=== PATIENT | female | born 1955 | race Caucasian/White ===

== ENCOUNTER 2017-02-27 00:32 | Emergency (ER) | payer OTHER ==
[~2017-02-27] VITALS: Ht 152.4 cm; Wt 74.5 kg
[~2017-02-27 00:32] MED LIST: B-COTAB18 PO; BIOT1CAP3 PO; CALC-279 PO; HYDR-3983 PO; LORA-741 PO; NAPR-201 PO; PEDICHW44 PO; PROM25TA9 PO; SERT50TA PO
[2017-02-27 00:48] VITALS: Ht 152.4 cm; Wt 74.5 kg
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
[2017-02-27 01:41] LABS: BASO % 0.5 %; BASO ABS # 0.06 K/uL (0-0.2); COMPLETE YES; EOS % 1.7 %; HEMATOCRIT 36.8 % (37-47); IG% 0.3 %; LYMPH % 13.9 %; LYMPH ABS # 1.62 K/uL (1.2-3.4); MEAN CELL VOLUME 96.3 fL (80-100); MEAN CORPUSCULAR HEMOGLOBIN 30.9 pg (25-34); MEAN CORPUSCULAR HGB CONC 32.1 g/dl (32-36); MEAN PLATELET VOLUME 9.5 fL (7.4-10.4); MONO % 8.2 %; NEUT % 75.4 %; PLATELET COUNT 338 K/uL (130-400); RED BLOOD COUNT 3.82 M/uL (4.2-5.4); WHITE BLOOD COUNT 11.64 K/uL (4.8-10.8)
[2017-02-27] MEDS ORDERED: MoRPHine SULFATE 4 MG/ML 1 ML CARP\\VIAL IV STA ×2 (02:01→07:23)
[2017-02-27] MEDS ORDERED: BACITRACIN OINT 15 GM TUBE ONE (02:02)
[2017-02-27] MEDS ORDERED: MoRPHine SULFATE 4 MG/ML 1 ML CARP\\VIAL ONE ×2 (02:02→07:21)
[2017-02-27] MEDS ORDERED: TRAZ50TA35 PO (02:10)
[2017-02-27 02:11] LABS: ALT/SGPT 16 U/L (12-78); AST/SGOT 17 U/L (15-37); BLOOD UREA NITROGEN 13 mg/dl (7-18); BUN/CREATININE RATIO 23.9 (10-20); CALCIUM 7.9 mg/dl (8.5-10.1); CARBON DIOXIDE 25 mmol/L (21-32); CHLORIDE 109 mmol/L (98-107); CREATININE 0.54 mg/dl (0.60-1.20); GLUCOSE 101 mg/dl (70-99); POTASSIUM 4.3 mmol/L (3.5-5.1); SODIUM 141 mmol/L (136-145)
[2017-02-27] MEDS ORDERED: LISI-729 PO (02:12)
[2017-02-27] MEDS ORDERED: SNQ/25 PO (02:13)
[2017-02-27] MEDS ORDERED: GABA-112 PO (02:13)
[2017-02-27] MEDS ORDERED: FLUT0.15 NAE (02:13)
[2017-02-27] MEDS ORDERED: ATV/1 PO (02:14)
[2017-02-27] MEDS ORDERED: DULO60CA44 PO (02:14)
[2017-02-27] MEDS ORDERED: VNTHFA/IN INH (02:15)
[2017-02-27 02:16] LABS: ALKALINE PHOSPHATASE 118 U/L (45-117)
[2017-02-27] MEDS ORDERED: SODIUM CHLORIDE 0.9% 1000ML 1,000 ML IV STA (05:11)
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
[2017-02-27 08:21] VITALS: BP 119/67; PULSE 101; O2SAT 99
== END 2017-02-27 08:00 | disposition short-term general hospital (02) ==
LOC: EDBD 00:32 → C.EDB 00:33
DX: T22.311A Burn of third degree of right forearm, initial encounter (principal); T31.0 Burns involving less than 10% of body surface; J70.5 Respiratory conditions due to smoke inhalation; X10.2XXA Contact with fats and cooking oils, initial encounter; Z87.891 Personal history of nicotine dependence; F41.9 Anxiety disorder, unspecified; F32.9 Major depressive disorder, single episode, unspecified; Z95.1 Presence of aortocoronary bypass graft; Z98.51 Tubal ligation status; Z82.49 Family history of ischemic heart disease and other diseases of the circulatory system; Z79.899 Other long term (current) drug therapy; Y92.009 Unspecified place in unspecified non-institutional (private) residence as the place of occurrence of the external cause

== ENCOUNTER 2022-05-16 13:24 | Inpatient (IN) ==
--- NOTE | 2022-05-16 13:56 | Emergency Department Note ---
Impression & Plan Acute exacerbation of chronic obstructive pulmonary disease, Acute hypokalemia, Elevated troponin ED Provider Note NAME: SAMMIE BILLS AGE: 66 SEX: F : 1955 ARRIVES VIA: Ambulance INFORMANT: Patient, ED PROVIDER(S): Shahid Fallon MD Chief Complaint: SOB, weakness HPI: Patient presents due to concern for some difficulty with breathing which is worse today but is been ongoing for approximately 2 weeks. The patient was seen 2 weeks prior she has had some issues thinking that she has had an allergic reaction to the generic Flonase. The patient has been taking Benadryl. The patient states that she is compliant with medications but did not take her blood pressure medication this morning. Patient denies any chest pains or abdominal pain. Patient states she does have occasional blurry vision but denies any head or neck pain. Patient per EMS was 90% on room air and was placed on 2 L nasal cannula. Patient states that she quit smoking approximately 1 month prior. Patient does follow with Dr. Pena. Patient denies any other changes or allergic contact contacts the patient was seen again on May 04 she had blood work completed which showed a white count of 11.9 with a normal H&H and platelet count. The patient's kidney function was grossly unremarkable with mild hypocalcemia with a calcium of 8. ROS: See HPI for pertinent positives and negatives. A total of 10 systems were revie wed and otherwise negative. Past medical history: See below Surgical history: See below Social history: See below Physical Exam: GENERAL: Fatigued in appearance, nontoxic, nasal cannula in place. EYE EXAM: Normal conjunctiva. PERRL, no anisocoria and EOM's grossly intact w/o pain. NECK: Supple, no nuchal rigidity, no adenopathy, non-tender. No signs of meningismus. FROM of the neck with good chin to chest and neck extension. No stridor. LUNGS: Diffuse wheezes throughout. Normal chest wall mechanics. HEART: NSR, no MRG. ABDOMEN: Abdomen soft, non-tender, normo-active bowel sounds, no masses, no rebound or guarding. BACK: No CVA TTP. SKIN: Diffuse eschars, pruritic skin, no obvious fluctuance or drainage. UPPER EXTREMITIES: Upper extremities are grossly normal. LOWER EXTREMITIES: Grossly normal, no edema. Negative Homans' sign bilaterally. NEURO EXAM: A&O x3, cranial nerves II-XII grossly intact, normal speech, moves all 4 extremities. Differential diagnoses: Infection, dehydration, metabolic abnormality, hypo/hyperglycemia, electrolyte disturbance, anemia, hypoxia, cardiac sources, intracerebral event, toxicologic, neurologic, as well as other pathologies. Course: Patient was seen and evaluated the bedside. Full history physical exam was performed. EKG interpreted by me Normal sinus rhythm, rate 78, normal FL and QRS, prolonged QTC, normal axis. Imaging Studies: See Below Cardiac monitoring: An order was placed for continuous cardiac monitoring. The monitor shows a rate of 77 with sinus rhythm. MDM: Patient presents due to concern for weakness shortness of breath. The patient did have some diffuse wheezing on exam and is ordered steroids mag and a breathi ng treatment. The patient did have blood work completed was given IV fluids. Patient's white count of 15 with normal H&H platelet count. VBG shows elevated pH with a normal PCO2. The patient does have significantly low potassium. I did asked charge to ensure patient's breathing treatment was stopped. Patient does have a normal mag but mildly low phosphorus and calcium. The patient was ordered replacement of magnesium and potassium as well as calcium. The patient will need to stay in hospital for continued repletion of potassium. The patient does have a troponin of 67. Patient does not complain of any chest pains. Do believe that if the patient did have borderline low oxygen this is likely secondary to her chronic smoking and likely undiagnosed COPD. The patient did have diffuse wheezing upon initial presentation. I did speak to the on-call hospitalist Dr. Poon and the patient was admitted to the medicine service. Also some concern about the patient taking Benadryl but the patient is not tachycardic hyperthermic and has not complained of any urinary retention. The patient was ordered her home dose losartan that she did not take it today. The patient does not have acute ST elevation at this time. Also believe in light of the patient's significant electrolyte abnormalities that replete meant of these may also improve the patient's symptoms. Patient did have a repeat troponin was noted to be downtrending. Past Med/Surg History Medical History Dizziness HTN (hypertension), benign Hypertensive urgency Hypokalemia Sinus infection Surgical History H/O gastric bypass H/O gastric bypass H/O hernia repair H/O tubal ligation Hx of tonsillectomy Family History Mother Hypertension Father Hypertension Denies family history of Ovarian cancer Prostate cancer Diabetes Myocardial infarction Breast cancer Colorectal cancer Social History Smoking Status: Former smoker Tobacco Type: Cigarettes Cigarettes Per Day: 20; Second Hand Exposure: No; Do You Dip or Chew Tobacco: No; Tobacco Cessation Education Requested by Patient: No Hx Alcohol Use: No Hx Substance Use: No Preferred Language: Ecuadorean Communication Ability: Effective Spectacle Truer Required: No Beliefs That Will Affect Care: None marital status: Single Current Living Situation: Alone current occupational status: employed current occupation: owns a [employer] Other Information That Helps Us Care for You: Yes Feels Safe at Home: Yes Safety Concerns: Feels Safe At This Time caffeine: Yes (coffee ) Dental Care, Regularly: Yes Physical Activity Frequency: Does not Exercise Seatbelt Use: always Sunscreen Use: Yes Assistive Devices: Denture - Upper and Glasses Allergies Allergies Allergy/AdvReac Type Severity Reaction Status Date / Time bee venom protein (honey bee) Allergy Unknown eyes and Verified 11/12/21 09:22 throat swell Home Meds Home Medications Medication Instructions Recorded Confirmed fluoxetine 40 mg capsule 40 mg PO DAILY 11/12/21 05/16/22 epinephrine 0.3 mg/0.3 mL 0.3 mg IM UD PRN Allergic Reaction 05/16/22 05/16/22 injection, auto-injector Previous Rx's Medication Instructions Recorded TENS units #1 ea 11/12/21 albuterol sulfate 90 mcg/actuation 2 puff inhalation Q6H PRN 11/12/21 aerosol inhaler shortness of breath or wheezing #8.5 grams buspirone 10 mg tablet 10 mg PO TID PRN anxiety #90 tabs 11/12/21 omeprazole 40 mg capsule,delayed 40 mg PO DAILY PRN GERD #90 caps 11/12/21 release gabapentin 300 mg capsule 300 mg PO BID #60 caps 12/12/21 buspirone 5 mg tablet 5 mg PO TID #90 tabs 03/27/22 oxybutynin chloride 10 mg 10 mg PO DAILY #30 tabs 03/27/22 tablet,extended release 24 hr losartan 25 mg tablet 25 mg PO DAILY #90 tabs 03/31/22 fluticasone propionate 50 2 spray intranasal HS #16 grams 04/24/22 mcg/actuation nasal spray,suspension (Flonase Allergy Relief) guaifenesin 600 mg tablet, 600 mg PO Q12H PRN congestion #60 04/24/22 extended release 12 hr (Mucinex) tabs hydrocodone 10 mg-acetaminophen 1 tab PO Q6H PRN pain #120 tabs 04/24/22 325 mg tablet Results & Data (ED) Vital Signs Vital Signs - 24 hr 05/16/22 13:34 05/16/22 13:34 05/16/22 13:34 Temperature 37.2 C 37.2 C Temperature Source Oral Oral Pulse Rate 70 Pulse Rate [Apical] 76 Pulse Rhythm Regular Pulse Rhythm [Apical] Regular Pulse Strength Normal Pulse Strength [Apical] Normal Respiratory Rate 18 16 Respiratory Effort / Characteristics Non-Labored Non-Labored Respiratory Depth Normal Normal Respiratory Pattern Regular Regular Blood Pressure 207/122 H Blood Pressure [Right Arm] 207/122 H Blood Pressure Mean 150 Blood Pressure Mean [Right Arm] 150 Blood Pressure Position Lying Blood Pressure Position [Right Arm] Lying Pulse Oximetry 97 97 97 Oxygen Delivery Method Room Air Room Air Room Air Oxygen Flow Rate Sepsis Recent Fever Within 48 Hours No Sepsis New/Unexplained Change in Mental Status No Sepsis Action Taken by Nursing No Action Required 05/16/22 14:07 05/16/22 16:34 05/16/22 17:42 Temperature Temperature Source Pulse Rate Pulse Rate [Apical] 88 74 Pulse Rhythm Pulse Rhythm [Apical] Regular Regular Pulse Strength Pulse Strength [Apical] Normal Normal Respiratory Rate 25 H 22 Respiratory Effort / Characteristics Non-Labored Non-Labored Respiratory Depth Normal Normal Respiratory Pattern Regular Regular Blood Pressure Blood Pressure [Right Arm] 202/128 H 207/13 H Blood Pressure Mean Blood Pressure Mean [Right Arm] 152 77 Blood Pressure Position Blood Pressure Position [Right Arm] Lying Lying Pulse Oximetry 97 94 96 Oxygen Delivery Method Room Air Nasal Cannula Nasal Cannula Oxygen Flow Rate 3 3 Sepsis Recent Fever Within 48 Hours Sepsis New/Unexplained Change in Mental Status Sepsis Action Taken by Alf Medications Current Medication List: was personally reviewed by me Laboratory Data Attestation: I reviewed the patient's lab results. Result diagrams: 05/16/22 13:30 05/16/22 16:50 Lab Results 05/16/22 05/16/22 05/16/22 Range/Units 13:30 13:30 13:30 WBC 15.70 H (4.8-10.8) K/ul RBC 4.30 (3.93-5.22) M/uL Hgb 13.2 (12.0-16.0) g/dl Hct 38.9 (34.1-44.9) % MCV 90.5 (80.0-100.0) fL MCH 30.7 (25.0-34.0) pg MCHC 33.9 (32.0-36.0) g/dL RDW Std Deviation 56.0 H (36.4-46.3) fL RDW Coeff of Sharon 16.9 H (11.5-14.5) % Plt Count 112 L (130-400) K/uL MPV 9.7 (9.4-12.3) fL Immature Gran % (Auto) 5.2 % Neut % (Auto) 81.8 % Lymph % (Auto) 5.1 % [place] % (Auto) 7.5 % Eos % (Auto) 0.1 % Baso % (Auto) 0.3 % Neut # (Auto) 12.86 H (1.4-6.5) K/uL Lymph # (Auto) 0.80 L (1.2-3.4) K/uL [place] # (Auto) 1.17 H (0.24-0.82) K/uL Eos # (Auto) 0.01 (0-0.50) K/uL Baso # (Auto) 0.04 (0-0.2) K/uL Immature Gran # (Auto) 0.82 H (0.00-0.02) K/uL Absolute Nucleated RBC 0.05 H (0-0) K/uL Nucleated RBC % (auto) 0.3 % Toxic Granulation 1+ VBG pH (7.36-7.41) VBG pCO2 (38-50) mmHg VBG pO2 mmHg VBG HCO3 mmol/L VBG O2 Saturation % VBG Base Excess mEq/L Sodium 139 (136-145) mmol/L Potassium 1.7 L* (3.5-5.1) mmol/L Chloride 85 L (98-107) mmol/L Carbon Dioxide 44 H* (21-32) mmol/L Anion Gap 10 (3-11) BUN 14 (6-23) mg/dl Creatinine 0.61 (0.6-1.2) mg/dl Est Cr Clr Drug Dosing 75.1 ml/min Est GFR ( Amer) 111.0 ml/min Est GFR (Non-Af Amer) 95.8 ml/min BUN/Creatinine Ratio 23.0 H (10-20) Glucose 101 H (70-99(Fasting)) mg/dl Calcium 7.7 L (8.5-10.1) mg/dl Phosphorus (2.5-4.9) mg/dl Magnesium 1.7 (1.7-2.4) mg/dl Total Bilirubin 0.6 (0.2-1.0) mg/dl AST 61 H (13-39) U/L ALT 23 (7-52) U/L Alkaline Phosphatase 173 H (34-104) U/L Total Creatine Kinase (26-192) U/L Troponin I High Sens 68.2 H* D (0-14) pg/ml Total Protein 5.6 L (6.0-8.3) gm/dl Albumin 3.6 (3.4-5.0) gm/dl Globulin 2.0 L (2.5-4.0) gm/dl Albumin/Globulin Ratio 1.8 (0.9-2) Procalcitonin 0.22 (0-0.5) ng/ml Urine Color Urine Appearance (Clear) Urine pH (4.5-7.5) Ur Specific [place] (1.000-1.030) Urine Protein (Negative) Urine Glucose (UA) (Negative) Urine Ketones (Negative) Urine Blood (Negative) Urine Nitrite (Negative) Urine Bilirubin (Negative) Urine Urobilinogen (Negative) Ur Leukocyte Esterase (Negative) Urine WBC (Auto) (0-5) /hpf Urine RBC (Auto) (0-4) /hpf U Hyaline Cast (Auto) (0-5) /lpf U Epithel Cells (Auto) (0-5) /lpf Urine Bacteria (Auto) (Negative) Ur Renal Epithelial Cell (0-5) /lpf Ur Random Creatinine mg/dl U Random Total Protein (0-11.9) mg/dl Urine Sodium mmol/L Urine Potassium mmol/L Urine Chloride mmol/L SARS-CoV-2, RNA, NAAT (NEGATIVE) 05/16/22 05/16/22 05/16/22 Range/Units 13:30 14:25 15:06 WBC (4.8-10.8) K/ul RBC (3.93-5.22) M/uL Hgb (12.0-16.0) g/dl Hct (34.1-44.9) % MCV (80.0-100.0) fL MCH (25.0-34.0) pg MCHC (32.0-36.0) g/dL RDW Std Deviation (36.4-46.3) fL RDW Coeff of Sharon (11.5-14.5) % Plt Count (130-400) K/uL MPV (9.4-12.3) fL Immature Gran % (Auto) % Neut % (Auto) % Lymph % (Auto) % [place] % (Auto) % Eos % (Auto) % Baso % (Auto) % Neut # (Auto) (1.4-6.5) K/uL Lymph # (Auto) (1.2-3.4) K/uL [place] # (Auto) (0.24-0.82) K/uL Eos # (Auto) (0-0.50) K/uL Baso # (Auto) (0-0.2) K/uL Immature Gran # (Auto) (0.00-0.02) K/uL Absolute Nucleated RBC (0-0) K/uL Nucleated RBC % (auto) % Toxic Granulation VBG pH 7.66 H (7.36-7.41) VBG pCO2 47 (38-50) mmHg VBG pO2 40 mmHg VBG HCO3 53 mmol/L VBG O2 Saturation 69.8 % VBG Base Excess 28.5 mEq/L Sodium (136-145) mmol/L Potassium (3.5-5.1) mmol/L Chloride (98-107) mmol/L Carbon Dioxide (21-32) mmol/L Anion Gap (3-11) BUN (6-23) mg/dl Creatinine (0.6-1.2) mg/dl Est Cr Clr Drug Dosing ml/min Est GFR ( Amer) ml/min Est GFR (Non-Af Amer) ml/min BUN/Creatinine Ratio (10-20) Glucose (70-99(Fasting)) mg/dl Calcium (8.5-10.1) mg/dl Phosphorus 2.3 L (2.5-4.9) mg/dl Magnesium (1.7-2.4) mg/dl Total Bilirubin (0.2-1.0) mg/dl AST (13-39) U/L ALT (7-52) U/L Alkaline Phosphatase (34-104) U/L Total Creatine Kinase (26-192) U/L Troponin I High Sens (0-14) pg/ml Total Protein (6.0-8.3) gm/dl Albumin (3.4-5.0) gm/dl Globulin (2.5-4.0) gm/dl Albumin/Globulin Ratio (0.9-2) Procalcitonin (0-0.5) ng/ml Urine Color Urine Appearance (Clear) Urine pH (4.5-7.5) Ur Specific [place] (1.000-1.030) Urine Protein (Negative) Urine Glucose (UA) (Negative) Urine Ketones (Negative) Urine Blood (Negative) Urine Nitrite (Negative) Urine Bilirubin (Negative) Urine Urobilinogen (Negative) Ur Leukocyte Esterase (Negative) Urine WBC (Auto) (0-5) /hpf Urine RBC (Auto) (0-4) /hpf U Hyaline Cast (Auto) (0-5) /lpf U Epithel Cells (Auto) (0-5) /lpf Urine Bacteria (Auto) (Negative) Ur Renal Epithelial Cell (0-5) /lpf Ur Random Creatinine mg/dl U Random Total Protein (0-11.9) mg/dl Urine Sodium mmol/L Urine Potassium mmol/L Urine Chloride mmol/L SARS-CoV-2, RNA, NAAT NEGATIVE (NEGATIVE) 05/16/22 05/16/22 05/16/22 Range/Units 16:25 16:25 16:50 WBC (4.8-10.8) K/ul RBC (3.93-5.22) M/uL Hgb (12.0-16.0) g/dl Hct (34.1-44.9) % MCV (80.0-100.0) fL MCH (25.0-34.0) pg MCHC (32.0-36.0) g/dL RDW Std Deviation (36.4-46.3) fL RDW Coeff of Sharon (11.5-14.5) % Plt Count (130-400) K/uL MPV (9.4-12.3) fL Immature Gran % (Auto) % Neut % (Auto) % Lymph % (Auto) % [place] % (Auto) % Eos % (Auto) % Baso % (Auto) % Neut # (Auto) (1.4-6.5) K/uL Lymph # (Auto) (1.2-3.4) K/uL [place] # (Auto) (0.24-0.82) K/uL Eos # (Auto) (0-0.50) K/uL Baso # (Auto) (0-0.2) K/uL Immature Gran # (Auto) (0.00-0.02) K/uL Absolute Nucleated RBC (0-0) K/uL Nucleated RBC % (auto) % Toxic Granulation VBG pH (7.36-7.41) VBG pCO2 (38-50) mmHg VBG pO2 mmHg VBG HCO3 mmol/L VBG O2 Saturation % VBG Base Excess mEq/L Sodium 140 (136-145) mmol/L Potassium 1.8 L* (3.5-5.1) mmol/L Chloride 89 L (98-107) mmol/L Carbon Dioxide 42 H* (21-32) mmol/L Anion Gap 9 (3-11) BUN 14 (6-23) mg/dl Creatinine 0.65 (0.6-1.2) mg/dl Est Cr Clr Drug Dosing 70.5 ml/min Est GFR ( Amer) 108.7 ml/min Est GFR (Non-Af Amer) 93.8 ml/min BUN/Creatinine Ratio 21.5 H (10-20) Glucose 178 H (70-99(Fasting)) mg/dl Calcium 8.1 L (8.5-10.1) mg/dl Phosphorus (2.5-4.9) mg/dl Magnesium (1.7-2.4) mg/dl Total Bilirubin (0.2-1.0) mg/dl AST (13-39) U/L ALT (7-52) U/L Alkaline Phosphatase (34-104) U/L Total Creatine Kinase 289 H (26-192) U/L Troponin I High Sens 67.2 H* (0-14) pg/ml Total Protein (6.0-8.3) gm/dl Albumin (3.4-5.0) gm/dl Globulin (2.5-4.0) gm/dl Albumin/Globulin Ratio (0.9-2) Procalcitonin (0-0.5) ng/ml Urine Color Yellow Urine Appearance Clear (Clear) Urine pH 7.5 (4.5-7.5) Ur Specific [place] 1.014 (1.000-1.030) Urine Protein 2+ H (Negative) Urine Glucose (UA) Negative (Negative) Urine Ketones Negative (Negative) Urine Blood Negative (Negative) Urine Nitrite Negative (Negative) Urine Bilirubin Negative (Negative) Urine Urobilinogen Negative (Negative) Ur Leukocyte Esterase Trace H (Negative) Urine WBC (Auto) 5-10 H (0-5) /hpf Urine RBC (Auto) 0-4 (0-4) /hpf U Hyaline Cast (Auto) 1-5 (0-5) /lpf U Epithel Cells (Auto) >30 H (0-5) /lpf Urine Bacteria (Auto) 1+ H (Negative) Ur Renal Epithelial Cell 5-10 H (0-5) /lpf Ur Random Creatinine 52.1 mg/dl U Random Total Protein 123.2 H (0-11.9) mg/dl Urine Sodium 33 mmol/L Urine Potassium 17.9 mmol/L Urine Chloride 38 mmol/L SARS-CoV-2, RNA, NAAT (NEGATIVE) Administered Medications Discontinued Medications Albuterol (Albut/Ipratrop 3mg/0.5mg Neb 3 Ml Vial) 6 ml INH NOW STA Stop: 05/16/22 14:07 Last Admin: 05/16/22 14:20 Dose: 6 ml Documented By: GUILLAUME Hydralazine HCl (Hydralazine Hcl 20 Mg/Ml Vial) 10 mg IV NOW STA Stop: 05/16/22 17:05 Last Admin: 05/16/22 17:40 Dose: 10 mg Documented By: GUILLAUME Sodium Chloride (Nss 1000ml) 1,000 mls @ 999 mls/hr IV .Q1H1M DAILY Stop: 05/16/22 15:15 Last Infusion: 05/16/22 15:29 Dose: 0 mls/hr Documented By: [facility] Admin: 05/16/22 14:20 Dose: 999 mls/hr Documented By: [facility] Magnesium Sulfate/Dextrose (Magnesium Sulfate / D5w) 1 gm in 100 mls @ 100 mls/hr IV NOW STA Stop: 05/16/22 15:06 Last Infusion: 05/16/22 15:30 Dose: 0 mls/hr Documented By: Admin: 05/16/22 14:20 Dose: 100 mls/hr Documented By: [facility] Potassium Chloride (K Kareem / Wtr) 10 meq in 100 mls @ 100 mls/hr IV Q1H [facility]; Protocol Stop: 05/16/22 16:59 Last Admin: 05/16/22 15:42 Dose: 100 mls/hr Documented By: GUILLAUME Magnesium Sulfate/Dextrose (Magnesium Sulfate / D5w) 1 gm in 100 mls @ 100 mls/hr IV NOW STA Stop: 05/16/22 15:56 Last Admin: 05/16/22 16:22 Dose: 100 mls/hr Documented By: [facility] Calcium Gluconate () 1,000 mg in 60 mls @ 240 mls/hr IV Q15M DAILY Stop: 05/16/22 15:29 Last Infusion: 05/16/22 16:49 Dose: 0 mls/hr Documented By: [facility] Admin: 05/16/22 16:22 Dose: 240 mls/hr Documented By: Infusion: 05/16/22 16:01 Dose: 240 mls/hr Documented By: [facility] Admin: 05/16/22 15:46 Dose: 240 mls/hr Documented By: [facility] Losartan Potassium (Losartan Potassium 25 Mg Tab) 25 mg PO NOW STA Stop: 05/16/22 14:07 Last Admin: 05/16/22 15:28 Dose: 25 mg Documented By: [facility] Methylprednisolone (Methylprednisolone 125 Mg/2 Ml Vial) 60 mg IV NOW STA Stop: 05/16/22 14:07 Last Admin: 05/16/22 14:20 Dose: 60 mg Documented By: [facility] Potassium Chloride (Potassium Chloride Crtab 20 Meq Tabcr) 40 meq PO NOW STA Stop: 05/16/22 15:51 Last Admin: 05/16/22 16:33 Dose: 40 meq Documented By: [facility] Potassium Chloride (Potassium Chloride Crtab 20 Meq Tabcr) 40 meq PO NOW STA Stop: 05/16/22 18:06 Last Admin: 05/16/22 18:30 Dose: 40 meq Documented By: SUB Imaging Data Radiologist's Impression: Chest X-Ray 05/16/22 14:07 SINGLE VIEW CHEST CLINICAL HISTORY: Dyspnea. FINDINGS: An AP, portable, upright chest radiograph is compared to study dated 05/04/2022. The examination is degraded by portable technique and apical lordotic positioning. The heart is enlarged noting atherosclerotic calcification of the thoracic aorta. The pulmonary vasculature is noncongested. There is mild bibasilar scarring/atelectasis. The lungs and pleural spaces are otherwise clear. No pneumothorax is seen. The skeletal structures are osteopenic. There are healed right-sided rib fracture. IMPRESSION: Cardiomegaly with no acute cardiopulmonary abnormality. ACT 112: Negative or not required by law. Electronically signed by: Benny Jensen M.D. 05/16/2022 2:46 PM Discharge Plan Visit Data Chief Complaint: Allergic Reaction Stated Complaint: ALLERGIC REACTION ED Provider: Shahid Fallon Discharge Problem: Acute exacerbation of chronic obstructive pulmonary disease, Acute hypokalemia, Elevated troponin Patient Disposition: Admitted As Inpatient Discharge Instructions Interventions: ED Discharge Assessment Last Done: 05/16/22 18:04
[2022-05-16] MEDS ORDERED: methylPREDNISolone 125 MG/2 ML VIAL IV STA (14:06)
[2022-05-16] MEDS ORDERED: ALBUT/IPRATROP 3MG/0.5MG NEB 3 ML VIAL INH STA (14:06)
[2022-05-16] MEDS ORDERED: LOSARTAN POTASSIUM 25 MG TAB PO STA (14:06)
[2022-05-16] MEDS ORDERED: MAGNESIUM SULFATE / D5W 1 GM/100 ML BAG IV STA ×2 (14:07→14:57)
[2022-05-16] MEDS ORDERED: SODIUM CHLORIDE 0.9% 1000ML 1,000 ML IV SCH (14:15)
[2022-05-16 14:27] LABS: Hematocrit (blood only) 38.9 % (34.1-44.9); Hemoglobin 13.2 g/dl (12.0-16.0); Mean Corpuscular Hemoglobin 30.7 pg (25.0-34.0); Mean Corpuscular Hgb Conc 33.9 g/dL (32.0-36.0); Mean Corpuscular Volume 90.5 fL (80.0-100.0); Mean Platelet Volume 9.7 fL (9.4-12.3); Nucleated RBC # (auto) 0.05 K/uL (0-0); Nucleated RBC % (auto) 0.3 %; Platelet Count 112 K/uL (130-400); RDW Coefficient of Variation 16.9 % (11.5-14.5)
--- NOTE | 2022-05-16 14:47 | XRay Report ---
SINGLE VIEW CHEST CLINICAL HISTORY: Dyspnea. FINDINGS: An AP, portable, upright chest radiograph is compared to study dated 05/04/2022. The examina tion is degraded by portable technique and apical lordotic positioning. The heart is enlarged noting atherosclerotic calcification of the thoracic aorta. The pulmonary vasculature is noncongested. There is mild bibasilar scarring/atelectasis. The lungs and pleural spaces are otherwise clear. No pneumot horax is seen. The skeletal structures are osteopenic. There are healed right-sided rib fracture. IMPRESSION: Cardiomegaly with no acute cardiopulmonary abnormality. ACT 112: Negative or not required by law. Electronically signed by: Benny Jensen M.D. 05/16/2022 2:46 PM
[2022-05-16 14:49] LABS: Albumin Globulin Ratio 1.8 (0.9-2); Albumin Level 3.6 gm/dl (3.4-5.0); Bilirubin,Total 0.6 mg/dl (0.2-1.0); Calcium 7.7 mg/dl (8.5-10.1); Creatinine Clr Calc Pharmacy 75.1 ml/min; Est GFR (Non-African American) 95.8 ml/min; Magnesium 1.7 mg/dl (1.7-2.4); Potassium 1.7 mmol/L (3.5-5.1); Total Protein 5.6 gm/dl (6.0-8.3); Troponin I High Sensitivity 68.2 pg/ml (0-14)
[2022-05-16] MEDS ORDERED: SODIUM CHLORIDE 0.9% 1000ML 1,000 ML IV ONE (14:58)
[2022-05-16 15:28] LABS: Base Excess VBG 28.5 mEq/L; HCO3 VBG 53 mmol/L; Oxygen Saturation VBG 69.8 %; PCO2 VBG 47 mmHg (38-50); PO2 VBG 40 mmHg; pH VBG 7.66 (7.36-7.41)
[2022-05-16 15:36] LABS: Basophils # (auto) 0.04 K/uL (0-0.2); Basophils % (auto) 0.3 %; Eosinophils # (auto) 0.01 K/uL (0-0.50); Eosinophils % (auto) 0.1 %; Immature Granulocytes # (auto) 0.82 K/uL (0.00-0.02); Immature Granulocytes % (auto) 5.2 %; Lymphocytes % (auto) 5.1 %; Monocytes # (auto) 1.17 K/uL (0.24-0.82); Monocytes % (auto) 7.5 %; Neutrophils # (auto) 12.86 K/uL (1.4-6.5); Neutrophils % (auto) 81.8 %; Toxic Granulation 1+
[2022-05-16] MEDS: POTASSIUM CHLORIDE / WTR 10 MEQ/100 ML PLCT IV SCH ×2 (15:42→22:37)
[2022-05-16] MEDS: CALCIUM GLUCONATE 1,000 MG/60 ML BAG IV SCH ×2 (15:46→16:22)
[2022-05-16] MEDS ORDERED: POTASSIUM CHLORIDE CRTAB 20 MEQ TABCR PO STA ×2 (15:50→18:05)
--- NOTE | 2022-05-16 16:27 | History & Physical Report ---
Date of Service May 16, 2022 Assessment & Plan (1) Hypokalemia: Plan: Severe hypokalemia - KCl 40 meq PO + 20meq IV, repeat level now. Mg level 1.7 - Mg sulphate 2g IV given Unclear underlying cause but suspect renal wasting UA + electrolytes + Cr + protein pending (2) Metabolic alkalosis: Plan: With concurrent hypokalemia Unclear etiology for this, consider nephrology consult (3) Leukocytosis: Plan: Blood cultures, procalcitonin (4) Hypertensive urgency: Plan: Hydralazine 10mg IV ordered by ICU physician (5) Pruritic rash: Plan: Bed bugs vs. flea bites. Given extent would defer topical steroid treatment (6) GERD (gastroesophageal reflux disease): Plan: Pantoprazole 40mg PO daily (7) Asthma: Plan: On no maintenance medications for this. (8) Depression: Plan: Patient not taking her usual medicatons. Will defer restarting them on admission. Plan VTE Prophylaxis - Lovenox 40mg SQ daily Diet - NPO Disposition - admit to ICU Admission and Anticipated Discharge Date Admission Date: May 16, 2022 History of Present Illness Chief Complaint: Rash and generalized weakness Primary Care Provider: Randa Pena MD Trina Meza is a 66 year old female who presents to the ER with ongoing intense pruritic rash. Initially she felt it was an allergic reaction to Flonase. She has been taking 90-100 Benadryl pills within the last week in addition to her prescribed hydrocodone but not taking any of her other prescribed medications. The patient was seen 12 days ago in the ER with similar symptoms and was told to stop Flonase, was given dexamethasone. She reports the rash did not change and has continued being intensely itchy. She reported being short of breath to the ER physician here today however she denies this to myself and reports no chest pain, abdominal pain, nausea, vomiting or diarrhea. Her main complaint is generalized weakness and fatigue. She denies any fever or chills. She recently quit smoking 1 months ago. In the ER she was noted be severely hypokalemic with potassium level of 1.7. She was started on KCL 10 meq x2 IV and referred to medicine for admission and ongoing management of severe hypokalemia. Allergies Allergy/AdvReac Type Severity Reaction Status Date / Time bee venom protein (honey bee) Allergy Unknown eyes and Verified 11/12/21 09:22 throat swell Home Medications Medication Instructions Recorded Confirmed Type TENS units #1 ea 11/12/21 05/16/22 Rx albuterol sulfate 90 mcg/actuation 2 puff inhalation Q6H PRN 11/12/21 05/16/22 Rx aerosol inhaler shortness of breath or wheezing #8.5 grams buspirone 10 mg tablet 10 mg PO TID PRN anxiety #90 tabs 11/12/21 05/16/22 Rx fluoxetine 40 mg capsule 40 mg PO DAILY 11/12/21 05/16/22 History omeprazole 40 mg capsule,delayed 40 mg PO DAILY PRN GERD #90 caps 11/12/21 05/16/22 Rx release gabapentin 300 mg capsule 300 mg PO BID #60 caps 12/12/21 05/16/22 Rx buspirone 5 mg tablet 5 mg PO TID #90 tabs 03/27/22 05/16/22 Rx oxybutynin chloride 10 mg 10 mg PO DAILY #30 tabs 03/27/22 05/16/22 Rx tablet,extended release 24 hr losartan 25 mg tablet 25 mg PO DAILY #90 tabs 03/31/22 05/16/22 Rx fluticasone propionate 50 2 spray intranasal HS #16 grams 04/24/22 05/16/22 Rx mcg/actuation nasal spray,suspension (Flonase Allergy Relief) guaifenesin 600 mg tablet, 600 mg PO Q12H PRN congestion #60 04/24/22 05/16/22 Rx extended release 12 hr (Mucinex) tabs hydrocodone 10 mg-acetaminophen 1 tab PO Q6H PRN pain #120 tabs 04/24/22 05/16/22 Rx 325 mg tablet epinephrine 0.3 mg/0.3 mL 0.3 mg IM UD PRN Allergic Reaction 05/16/22 05/16/22 History injection, auto-injector Past Med/Surg History Medical History Dizziness HTN (hypertension), benign Hypertensive urgency Hypokalemia Sinus infection Surgical History H/O gastric bypass H/O gastric bypass H/O hernia repair H/O tubal ligation Hx of tonsillectomy Family History Mother Hypertension Father Hypertension Denies family history of Ovarian cancer Prostate cancer Diabetes Myocardial infarction Breast cancer Colorectal cancer Social History Smoking Status: Former smoker Tobacco Type: Cigarettes Cigarettes Per Day: 20; Second Hand Exposure: No; Do You Dip or Chew Tobacco: No; Tobacco Cessation Education Requested by Patient: No Hx Alcohol Use: No Hx Substance Use: No Preferred Language: Bahraini Communication Ability: 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 Beliefs That Will Affect Care: None marital status: Single Current Living Situation: Alone current occupational status: employed current occupation: owns a [employer] Other Information That Helps Us Care for You: Yes Feels Safe at Home: Yes Safety Concerns: Feels Safe At This Time caffeine: Yes (coffee ) Dental Care, Regularly: Yes Physical Activity Frequency: Does not Exercise Seatbelt Use: always Sunscreen Use: Yes Assistive Devices: Denture - Upper and Glasses Review of Systems Review of Systems: All systems reviewed & are unremarkable except as noted in HPI & below Physical Exam Constitutional: well developed; + not well nourished and no acute distress Eyes: PERRL, conjunctivae normal, anicteric sclerae Respiratory: normal respiratory effort; no respiratory distress Auscultation: + bronchovesicular breath sounds; no crackles and no wheezes Cardiovascular: RRR, no murmur, no edema Gastrointestinal (Abdomen): normal bowel sounds, soft, nontender, no hepatosplenomegaly Skin: Widespread excoriated papular rash on all four extremities, back and chest, relatively sparing her face Neurologic: moves all extremities and awake; not confused Psychiatric: A+Ox3, euthymic affect Results & Data Results & Data ([facility]) Vital Signs (Past 12 Hours) Vital Signs Temp Pulse Pulse Resp BP BP Pulse Ox 05/16/22 14:07 97 05/16/22 13:34 37.2 C 76 16 207/122 H 97 05/16/22 13:34 97 05/16/22 13:34 37.2 C 70 18 207/122 H 97 O2 Del Method 05/16/22 14:07 Room Air 05/16/22 13:34 Room Air 05/16/22 13:34 Room Air 05/16/22 13:34 Room Air Laboratory Results Abnormal lab results 05/16/22 05/16/22 05/16/22 Range/Units 13:30 13:30 15:06 WBC 15.70 H (4.8-10.8) K/ul RDW Std Deviation 56.0 H (36.4-46.3) fL RDW Coeff of [place] 16.9 H (11.5-14.5) % Plt Count 112 L (130-400) K/uL Neut # (Auto) 12.86 H (1.4-6.5) K/uL Lymph # (Auto) 0.80 L (1.2-3.4) K/uL [place] # (Auto) 1.17 H (0.24-0.82) K/uL Immature Gran # (Auto) 0.82 H (0.00-0.02) K/uL Absolute Nucleated RBC 0.05 H (0-0) K/uL VBG pH 7.66 H (7.36-7.41) Potassium 1.7 L* (3.5-5.1) mmol/L Chloride 85 L (98-107) mmol/L Carbon Dioxide 44 H* (21-32) mmol/L BUN/Creatinine Ratio 23.0 H (10-20) Glucose 101 H (70-99(Fasting)) mg/dl Calcium 7.7 L (8.5-10.1) mg/dl AST 61 H (13-39) U/L Alkaline Phosphatase 173 H (34-104) U/L Troponin I High Sens 68.2 H* D (0-14) pg/ml Total Protein 5.6 L (6.0-8.3) gm/dl Globulin 2.0 L (2.5-4.0) gm/dl Diagnostic Findings SINGLE VIEW CHEST CLINICAL HISTORY: Dyspnea. FINDINGS: An AP, portable, upright chest radiograph is compared to study dated 05/04/2022. The examination is degraded by portable technique and apical lordotic positioning. The heart is enlarged noting atherosclerotic calcification of the thoracic aorta. The pulmonary vasculature is noncongested. There is mild bibasilar scarring/atelectasis. The lungs and pleural spaces are otherwise clear. No pneumothorax is seen. The skeletal structures are osteopenic. There are healed right-sided rib fracture. IMPRESSION: Cardiomegaly with no acute cardiopulmonary abnormality. Medications Administered ER medications given: NSS 1L bolus ECG Indication: toxicologic (hypokalemia) Rate (beats per minute): 78 Findings: + other (T wave flattening in anterior and inferior), + nonspecific-ST abn and + prolonged QT Comparison ECG Date: from (May 04, 2022) Change: the following changes noted (T wave and ST changes are new) Code Status & VTE Plan Code Status Full VTE Prophylaxis Plan VTE Prophylaxis will be ordered: Yes PG Care Time/CCT Total # of Minutes Spent Total Time Spent with Patient: Total time spent is greater than 50% in coordination of care (as documented) at patient's floor/unit and/or counseling patient: Coding Level of Care Code 51894 Initial Inpt Care Lvl 3 Diagnoses Hypokalemia E87.6 Metabolic alkalosis E87.3 Leukocytosis D72.829 Hypertensive urgency I16.0 Pruritic rash L28.2 GERD (gastroesophageal reflux disease) K21.9 Asthma J45.909 Depression F32.9
--- NOTE | 2022-05-16 16:59 | Critical Care Consultation ---
Date of Consultation May 16, 2022 Assessment & Plan (1) Hypertensive urgency: (2) Metabolic alkalosis: (3) Hypokalemia: Plan 66-year-old female with a past medical history of hypertension, GERD and allergic rhinitis presenting to the hospital due to shortness of breath and metabolic derangements. Neurologic: No significant issues at present. Continue home anxiety medications. Pulmonary: Mild hypoxemia. Likely COPD. As needed DuoNebs. Chest x-ray unremarkable. Cardiovascular: Hypertensive urgency due to medical noncompliance. We will restart home medications. Give one-time dose of 10 mg IV hydralazine now. Troponin mildly elevated likely due to demand ischemia. Will need an echo. Gastrointestinal: Patient notes chronic diarrhea. Will monitor closely. Alkaline phosphatase mildly elevated. Renal: Possible primary aldosteronism. Replace K aggressively. Repeat BMP pending. Continue with IV fluid hydration with lactated Ringer's. Consider renal consult. Metabolic alkalosis noted on ABG. Obtain urine potassium level. Infectious disease: Pro-Keyur negative. No obvious infectious etiology. Hematologic: No issues. Endocrine: TSH normal. VTE prophylaxis: Lovenox 40 mg daily. CODE STATUS: Full code Family at bedside: None Disposition: ICU I have personally spent 34 minutes of critical care time in the direct management of this patient. This is a life/limb threatening event. This includes time spent evaluating patient, direct bedside care, chart review, placing orders, interpretation of diagnostic studies, discussion with consultants, patient, and family members, as well as other required patient management activities. This time is exclusive of all separately billable procedures, and teaching time and separate from and in addition to any other critical care service time. Thank you for allowing us to participate in the care of this patient. History of Present Illness Reason for Consultation: Metabolic alkalosis and hypokalemia History of Present Illness 66-year-old female with a past medical history of tobacco abuse, fibromyalgia, GERD, anxiety and allergic rhinitis who presented to the hospital today due to some shortness of breath and concern of an allergic reaction. She notes that she has had a rash for several weeks and has been scratching her skin for a long time. She has been taking very large amounts of Benadryl on a weekly basis. She notes that she has been using 90 to 100 tablets of Benadryl per week. She denies ingesting anything else. She has not been compliant with care blood pre ssure medications or her anxiety medications. She was found to be profoundly hypokalemic with a metabolic alkalosis. She did note ongoing diarrhea for the past month. She denies any nausea or vomiting. Allergies Allergy/AdvReac Type Severity Reaction Status Date / Time bee venom protein (honey bee) Allergy Unknown eyes and Verified 11/12/21 09:22 throat swell Home Medications Medication Instructions Recorded Confirmed Type TENS units #1 ea 11/12/21 11/12/21 Rx albuterol sulfate 90 mcg/actuation 2 puff inhalation Q6H PRN 11/12/21 05/16/22 Rx aerosol inhaler shortness of breath or wheezing #8.5 grams buspirone 10 mg tablet 10 mg PO TID PRN anxiety #90 tabs 11/12/21 05/16/22 Rx fluoxetine 40 mg capsule 40 mg PO DAILY 11/12/21 05/16/22 History omeprazole 40 mg capsule,delayed 40 mg PO DAILY PRN GERD #90 caps 11/12/21 03/27/22 Rx release gabapentin 300 mg capsule 300 mg PO BID #60 caps 12/12/21 03/27/22 Rx buspirone 5 mg tablet 5 mg PO TID #90 tabs 03/27/22 05/16/22 Rx oxybutynin chloride 10 mg 10 mg PO DAILY #30 tabs 03/27/22 05/16/22 Rx tablet,extended release 24 hr losartan 25 mg tablet 25 mg PO DAILY #90 tabs 03/31/22 05/16/22 Rx fluticasone propionate 50 2 spray intranasal HS #16 grams 04/24/22 05/16/22 Rx mcg/actuation nasal spray,suspension (Flonase Allergy Relief) guaifenesin 600 mg tablet, 600 mg PO Q12H PRN congestion #60 04/24/22 Rx extended release 12 hr (Mucinex) tabs hydrocodone 10 mg-acetaminophen 1 tab PO Q6H PRN pain #120 tabs 04/24/22 05/16/22 Rx 325 mg tablet epinephrine 0.3 mg/0.3 mL 0.3 mg IM UD PRN Allergic Reaction 05/16/22 05/16/22 History injection, auto-injector Patient History Medical History (Updated 05/16/22 @ 16:58 by Steve Scott MD) Dizziness HTN (hypertension), benign Hypertensive urgency Hypokalemia Sinus infection Surgical History H/O gastric bypass H/O gastric bypass H/O hernia repair H/O tubal ligation Hx of tonsillectomy Family History Mother Hypertension Father Hypertension Denies family history of Ovarian cancer Prostate cancer Diabetes Myocardial infarction Breast cancer Colorectal cancer Social History Smoking Status: Former smoker Tobacco Type: Cigarettes Second Hand Exposure: No; Hx Alcohol Use: No Hx Substance Use: No Preferred Language: Maori marital status: Single Current Living Situation: Alone current occupational status: employed current occupation: owns a [employer] Feels Safe at Home: Yes caffeine: Yes (coffee ) Dental Care, Regularly: Yes Physical Activity Frequency: Does not Exercise Seatbelt Use: always Sunscreen Use: Yes Review of Systems Review of Systems: All systems reviewed & are unremarkable except as noted in HPI & below Physical Exam Physical Exam: Constitutional: Patient appears older than stated age. Disheveled. Eyes: Pupils are equal round and reactive to light. Conjunctivae are normal. Anicteric sclera. Ears nose, mouth and throat: No obvious deformities. Neck: Trachea is midline. Visual inspection is normal. Respiratory: Clear to auscultation bilaterally. No use of accessory muscles. No significant clubbing noted. Cardiovascular: Regular rate and rhythm. No murmurs. No edema. Gastrointestinal: Normal bowel sounds, soft, nontender and nondistended. Musculoskeletal: No cyanosis. Patient is able to move all extremities. Skin: Numerous excoriations noted throughout her extremities. No obvious rash. Neurologic: No obvious focal neurological deficits seen. Psychiatric: Alert and oriented x3 with a euthymic affect. Results & Data Results & Data ([facility]) Vital Signs (Past 12 Hours) Vital Signs Temp Pulse Pulse Resp BP BP Pulse Ox 05/16/22 16:34 88 25 H 202/128 H 94 05/16/22 14:07 97 05/16/22 13:34 37.2 C 76 16 207/122 H 97 05/16/22 13:34 97 05/16/22 13:34 37.2 C 70 18 207/122 H 97 O2 Del Method O2 Flow Rate 05/16/22 16:34 Nasal Cannula 3 05/16/22 14:07 Room Air 05/16/22 13:34 Room Air 05/16/22 13:34 Room Air 05/16/22 13:34 Room Air Coding Level of Care Code Critical Care 1st 30-74 mins Diagnoses Hypertensive urgency I16.0 Metabolic alkalosis E87.3 Hypokalemia E87.6 Time Spent (min) 34
[2022-05-16 17:01] LABS: Appearance Urine Clear (Clear); Bacteria Urine Automated 1+ (Negative); Bilirubin Urine Negative (Negative); Blood Urine Negative (Negative); Color Urine Yellow; Epithelial Cell Urine Auto >30 /lpf (0-5); Glucose Urine UA Negative (Negative); Ketones Urine Negative (Negative); Leukocyte Esterase Urine Trace (Negative); Nitrite Urine Negative (Negative); RBC Urine Automated 0-4 /hpf (0-4); Specific Gravity Urine 1.014 (1.000-1.030); Urobilinogen Urine Negative (Negative); pH Urine 7.5 (4.5-7.5)
[2022-05-16] MEDS ORDERED: hydrALAZINE HCL 20 MG/ML VIAL IV STA ×2 (17:04→18:28)
[2022-05-16 17:07] LABS: Protein Urine 2+ (Negative)
[2022-05-16] MEDS ORDERED: LACTATED RINGER'S 1,000 ML IV SCH (17:15)
[2022-05-16 17:34] LABS: BUN Creatinine Ratio 21.5 (10-20); Calcium 8.1 mg/dl (8.5-10.1); Creatinine Clr Calc Pharmacy 70.5 ml/min; Est GFR (African American) 108.7 ml/min; Est GFR (Non-African American) 93.8 ml/min; Potassium 1.8 mmol/L (3.5-5.1); Troponin I High Sensitivity 67.2 pg/ml (0-14)
[2022-05-16 17:37] LABS: Creatinine Urine Random 52.1 mg/dl; Total Protein Urine Random 123.2 mg/dl (0-11.9); Urine Potassium 17.9 mmol/L
[2022-05-16] MEDS ORDERED: ICU PROTOCOL FOR HYPERGLYCEMIA PRN (18:07)
[2022-05-16] MEDS: NSS + 20MEQ KCL 20 MEQ/1,000 ML BAG IV SCH (18:37)
[2022-05-16 20:50] LABS: BUN Creatinine Ratio 21.9 (10-20); Creatinine Clr Calc Pharmacy 70.7 ml/min; Est GFR (African American) 109.3 ml/min; Est GFR (Non-African American) 94.3 ml/min; Magnesium 2.1 mg/dl (1.7-2.4); Potassium 2.5 mmol/L (3.5-5.1)
[2022-05-16 20:59] LABS: Amphetamines+Metham, Urine Neg (Neg); Barbiturates, Urine Neg (Neg); Benzodiazepine, Urine Neg (Neg); Cocaine, Urine Neg (Neg); MDMA (Ecstacy), Urine Neg (Neg); Methadone, Urine Neg (Neg); Opiate, Urine Pos (Neg); Phencyclidine, Urine Neg (Neg)
[2022-05-16] MEDS ORDERED: NON-FORMULARY MEDICATION (Omeprazole 40 mg capsule,delayed release(DR/EC)) PO PRN (22:29)
[2022-05-16] MEDS ORDERED: ALBUTEROL HFA 8 GM INHALER INH PRN (22:29)
[2022-05-16] MEDS: HYDROcodone/ACETAMINOPHEN 10/325 TAB PO PRN (23:30)
[2022-05-16] MEDS: GABAPENTIN 300 MG CAP PO SCH (23:31)
[2022-05-17] MEDS: POTASSIUM CHLORIDE / WTR 10 MEQ/100 ML PLCT IV SCH ×7 (00:41→10:53)
[2022-05-17] MEDS: NSS + 20MEQ KCL 20 MEQ/1,000 ML BAG IV SCH ×3 (04:24→21:06)
[2022-05-17 05:42] LABS: Hematocrit (blood only) 38.2 % (34.1-44.9); Mean Corpuscular Hemoglobin 30.5 pg (25.0-34.0); Mean Corpuscular Volume 89.7 fL (80.0-100.0); Mean Platelet Volume 11.1 fL (9.4-12.3); Nucleated RBC # (auto) 0.03 K/uL (0-0); Nucleated RBC % (auto) 0.2 %; Platelet Count 112 K/uL (130-400); RDW Coefficient of Variation 17.4 % (11.5-14.5); RDW Standard Deviation 57.3 fL (36.4-46.3); Red Blood Count 4.26 M/uL (3.93-5.22); White Blood Count 17.39 K/ul (4.8-10.8)
[2022-05-17 06:08] LABS: ALC (manual) 0.17 K/uL (1.2-3.4); ANC (manual) 15.82 K/uL (1.4-6.5); Eosinophils # (manual) 0.17 K/uL (0-0.50); Eosinophils % (manual) 1 %; Lymphocytes # (manual) 0.17 K/uL (1.2-3.4); Lymphocytes % (manual) 1 %; Monocytes # (manual) 1.39 K/uL (0.24-0.82); Monocytes % (manual) 8 %; Neutrophils # (manual) 15.82 K/uL (1.4-6.5); Neutrophils % (manual) 91 %
[2022-05-17 06:27] LABS: Albumin Globulin Ratio 1.8 (0.9-2); Albumin Level 3.5 gm/dl (3.4-5.0); BUN Creatinine Ratio 20.4 (10-20); Bilirubin,Total 0.6 mg/dl (0.2-1.0); C Reactive Protein 1.43 mg/dl (0-0.5); Calcium 7.5 mg/dl (8.5-10.1); Creatinine Clr Calc Pharmacy 92.4 ml/min; Est GFR (African American) 119.3 ml/min; Globulin 1.9 gm/dl (2.5-4.0); Phosphorus 2.3 mg/dl (2.5-4.9); Potassium 2.4 mmol/L (3.5-5.1); Total Protein 5.4 gm/dl (6.0-8.3)
[2022-05-17] MEDS ORDERED: POTASSIUM PHOS 3 MMOL/1 ML INFUSION IV STA (07:17)
[2022-05-17] MEDS ORDERED: POTASSIUM CHLORIDE CRTAB 20 MEQ TABCR PO STA ×4 (07:17→16:44)
[2022-05-17] MEDS: HYDROcodone/ACETAMINOPHEN 10/325 TAB PO PRN ×3 (07:46→21:11)
[2022-05-17] MEDS ORDERED: SPIRONOLACTONE 25 MG TAB PO ONE (08:00)
[2022-05-17] MEDS: OXYBUTYNIN CHLORIDE XL 5 MG TABCR PO SCH (08:05)
[2022-05-17] MEDS: LOSARTAN POTASSIUM 25 MG TAB PO SCH (08:05)
[2022-05-17] MEDS: FLUoxetine HCL 20 MG CAP PO SCH (08:06)
[2022-05-17] MEDS: GABAPENTIN 300 MG CAP PO SCH ×2 (08:06→21:06)
[2022-05-17] MEDS: ENOXAPARIN INJ 40 MG/0.4 ML SYR SQ SCH (08:06)
[2022-05-17] MEDS: PANTOprazole 40 MG TAB PO SCH (08:06)
[2022-05-17] MEDS ORDERED: amLODIPine BESYLATE 5 MG TAB PO ONE (08:15)
--- NOTE | 2022-05-17 08:34 | Critical Care Progress Note ---
Date of Service May 17, 2022 Assessment & Plan (1) Hypertensive urgency: (2) Metabolic alkalosis: (3) Hypokalemia: Plan 66-year-old female with a past medical history of hypertension, GERD and allergic rhinitis presenting to the hospital due to shortness of breath and metabolic derangements. Neurologic: No significant issues at present. Continue home anxiety medications. Pulmonary: Mild hypoxemia likely from COPD and volume overload. Likely COPD. As needed DuoNebs. Breo Ellipta ordered. Chest x-ray unremarkable. Cardiovascular: Hypertensive urgency due to medical noncompliance. 10 mg amlodipine ordered, 25 mg spironolactone ordered, continue losartan. Gastrointestinal: Patient notes chronic diarrhea. Will monitor closely. Alkaline phosphatase mildly elevated. Low threshold for CT of her abdomen and pelvis. Renal: Possible primary aldosteronism. Replace K aggressively. Consider renal consult. Metabolic alkalosis noted on ABG. Obtain urine potassium level. Infectious disease: Pro-Keyur negative. UA suspicious for infection. No symptoms. Will follow cultures. Hold off on antibiotics at this time. Hematologic: No issues. Endocrine: TSH normal. VTE prophylaxis: Lovenox 40 mg daily. CODE STATUS: Full code Family at bedside: None Disposition: ICU I have personally spent 39 minutes of critical care time in the direct management of this patient. This is a life/limb threatening event. This includes time spent evaluating patient, direct bedside care, chart review, placing orders, interpretation of diagnostic studies, discussion with consultants, patient, and family members, as well as other required patient management activities. This time is exclusive of all separately billable procedures, and teaching time and separate from and in addition to any other critical care service time. Thank you for allowing us to participate in the care of this patient. Admission and Anticipated Discharge Date Admission Date: May 16, 2022 Subjective Patient seen and examined. She complains of shortness of breath. No chest pain. Review of Systems Review of Systems: All systems reviewed & are unremarkable except as noted in HPI & below Physical Exam Physical Exam: Constitutional: Patient appears older than stated age. Disheveled. Eyes: Pupils are equal round and reactive to light. Conjunctivae are normal. Anicteric sclera. Ears nose, mouth and throat: No obvious deformities. Neck: Trachea is midline. Visual inspection is normal. Respiratory: Coarse rhonchi bilaterally. Mild wheeze. Cardiovascular: Regular rate and rhythm. No murmurs. No edema. Gastrointestinal: Normal bowel sounds, soft, nontender and nondistended. Musculoskeletal: No cyanosis. Patient is able to move all extremities. Skin: Numerous excoriations noted throughout her extremities. No obvious rash. Neurologic: No obvious focal neurological deficits seen. Psychiatric: Alert and oriented x3 with a euthymic affect. Results & Data Results & Data ([facility]) Vital Signs (Past 12 Hours) Vital Signs Pulse Resp BP Pulse Ox O2 Del Method O2 Flow Rate 05/17/22 08:16 Nasal Cannula 3 05/17/22 06:00 91 H 25 H 05/17/22 06:00 191/149 H 05/17/22 05:00 95 H 23 05/17/22 05:00 199/127 H 05/17/22 04:00 92 H 23 05/17/22 04:00 199/131 H 05/17/22 03:00 87 21 05/17/22 02:00 89 17 05/17/22 02:00 198/110 H 05/17/22 01:00 86 23 05/17/22 01:00 201/125 H 05/17/22 00:00 86 21 05/16/22 23:01 90 23 90 05/16/22 23:01 176/106 H 05/16/22 23:00 90 23 90 05/16/22 22:01 86 23 89 L 05/16/22 22:01 178/111 H 05/16/22 22:00 90 20 90 05/16/22 21:30 193/91 H 05/16/22 21:30 87 20 91 05/16/22 21:00 88 21 93 05/16/22 21:00 164/102 H Coding Level of Care Code Critical Care 1st 30-74 mins Diagnoses Hypertensive urgency I16.0 Metabolic alkalosis E87.3 Hypokalemia E87.6 Time Spent (min) 39
[2022-05-17] MEDS ORDERED: hydrALAZINE TAB 50 MG TAB PO SCH (09:00)
[2022-05-17] MEDS: FLUTICASONE/VILANTEROL 100/25MCG 14 PUFFS/INHALER INH SCH (09:04)
--- NOTE | 2022-05-17 09:59 | Hospitalist Progress Note ---
Date of Service May 17, 2022 Assessment & Plan (1) Acute hypokalemia: Plan Ms. Meza is a 66 y.o. female who presented to the ED via ambulance on 05/16 for trouble breathing. At the end of March/early April she had a reaction to gypsy moths for about a week and had itchy hives/welts all over her body. She stated that she used a cortisone cream and the hives went away. At this time she had no trouble breathing. She notes that after this reaction she started to get a lot of mucus and instead of mucinex, she started Flonase nasal spray. She states that on April 30, after spending some time outside she noticed that the right side of her face became very swollen. Around the time her face became swollen, she noticed that she had some trouble breathing and started to wheeze. She began sleeping propped up with pillows on her couch because she couldn't breathe while laying flat. She also began to notice red/purple "rashes" all over her body, which would itch and bleed if she touched them. She resorted to scratching her back with a steak knife because the itching was so intense. She also reports having drenching sweats after the rash began which forced her to remove her clothes due to the sweat and blood leaking from her rashes. She is a former smoker (about 1/2 ppd), but stopped about a month ago due to her troubles with breathing. Rash Upon exam and viewing prior pictures from the patient, strongly suggests a vasculitis process. 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 Possible underlying viral etiology. Ordered labs for ANCA, BENY. CRP was 1.4 and Sed. rate <1 Dyspnea/Hypoxia The symptomology of the SOB also suggest a vasculitis etiology. As a previous smoker, differential includes COPD exacerbation but less likely. With symptoms including orthopnea, will order echo to rule out possible CHF. Placed order for 60mg solumedrol IV Will follow with serial exams Metabolic Alkalosis May also be related to poor PO intake and hypokalemia. Will continue to trend labs and follow closely. Hypokalemia Possibly correlated to poor PO intake, does not have likely GI cause as chronic diarrhea is related to anatomy from prior gastric bypass surgery. This afternoon had potassium of 3.1, replacing with 40 po. Following serial labs Hypertension Chronic, seems to be exacerbated by noncompliance of her blood pressure medication and physiologic stress from her current condition. Will continue amlodipine, losartan, spironolactone and follow closely. Admission and Anticipated Discharge Date Admission Date: May 16, 2022 Supervising Physician Co-Signing Physician Notes I personally examined the patient and verified all zavala points of history and exam, discussed case, and agree with decision making with Dr Garcia. Feeling itchy, notes that her whole story started about a month ago with stuffy nose, shortly after that maybe 3 or 4 days later she started to have facial swelling leg swelling and a painful burning and itchy rash all over. This progressed to a degree of dyspneamost pronounced with orthopnea but also some dyspnea on exertion. She also had sweats. No fevers or chills. No significant cough. No dysuria. Stated home scratching her back with a bread knife for about 2 weeks before feeling bad enoughmostly with the dyspnea getting worsethat she decided to seek care. Vitals noted, in general she is fatigued but no distress. HEENT normocephalic atraumatic mucous membranes moist. She notes that her cheeks and face are puffyI can see how that could be possiblealthough obviously I have not seen her before. Cardio is regular. Lungs show faint wheeze most prominent in the mid lungsomewhat diminished air entry she has a fairly significant thoracic kyphosis, no accessory muscle use no conversational dyspnea she is on 3 L good effort. Skin shows diffuse purpuric rash some palpable some flat. A lot of it is excoriated, the excoriations bleed rather significantly. Rashmost suspicious for vasculitic process. 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 That said, given that she also has concomitant dyspneawhile far less likely, following/evaluating to ensure we do not have more of a pulmonary process at play as well. ANCA, BENY sent. Starting steroids. Dyspnea/hypoxiacould be pulmonary vasculitis. Could also easily be a degree of CHF or COPD. Echo pending. Chest x-ray was nondescript with a little bit of may be telltale signs of failure, lung exam was a little bit of wheezing. Serial exams, follow for change with steroids. Low threshold for CT chest. As above noted echo pending. Hypokalemiashe does note diarrheabut when clarifying, she notes that it is a once a day process she has had ever since her gastric bypass and the last month has not been any worse. That said, she does note very poor p.o. intake over the preceding week. That, combined with her gastric bypass GI physiology, may be enough to account for her very low okay. She is not on diuretics. Check a urine potassium to evaluate for any hints of renal potassium wasting, but otherwise replete and follow. Metabolic alkalosisthis may also be related to the hypokalemia and gastric bypass physiology, combined with poor p.o. intake. We will research into other possible causes. Continue to follow closely for now. Uncontrolled hypertensionno hypertensive symptoms. Follow. Med management. Otherwise as above Subjective Today Trina states she continues to have SOB. She denies any diarrhea today or any abdominal pain currently. Denies CP, admits to some blurry vision that comes and goes. States that her rash is itchy intermittently. Review of Systems Review of Systems: All systems reviewed & are unremarkable except as noted in Subjective Physical Exam Constitutional: + acute distress and + disheveled Eyes: PERRL, conjunctivae normal, anicteric sclerae ENMT: external ear and nose normal, oropharynx normal Neck: normal visual inspection Respiratory: Auscultation: + wheezes increased respiratory efforts Cardiovascular: RRR, no murmur, no edema Gastrointestinal (Abdomen): normal bowel sounds, soft, nontender, no hepatosplenomegaly Skin: + excoriations (scabbing on UE & LE, some bleeding. Streaky purpura on legs) Psychiatric: Orientation: alert and oriented x 3 Results & Data Results & Data ([facility]) Vital Signs (Past 12 Hours) Vital Signs Pulse Resp BP Pulse Ox O2 Del Method O2 Flow Rate 05/17/22 08:00 Nasal Cannula 05/17/22 08:00 84 05/17/22 08:16 Nasal Cannula 3 05/17/22 06:00 91 H 25 H 05/17/22 06:00 191/149 H 05/17/22 05:00 95 H 23 05/17/22 05:00 199/127 H 05/17/22 04:00 92 H 23 05/17/22 04:00 199/131 H 05/17/22 03:00 87 21 05/17/22 02:00 89 17 07/24/22 02:00 198/110 H 05/17/22 01:00 86 23 05/17/22 01:00 201/125 H 05/17/22 00:00 86 21 05/16/22 23:01 90 23 90 05/16/22 23:01 176/106 H 05/16/22 23:00 90 23 90 05/16/22 22:01 86 23 89 L 05/16/22 22:01 178/111 H 05/16/22 22:00 90 20 90 Laboratory Results 05/17/22 05/17/22 05/17/22 Range/Units 05:28 05:28 05:28 WBC (4.8-10.8) K/ul RBC (3.93-5.22) M/uL Hgb (12.0-16.0) g/dl Hct (34.1-44.9) % MCV (80.0-100.0) fL MCH (25.0-34.0) pg MCHC (32.0-36.0) g/dL RDW Std Deviation (36.4-46.3) fL RDW Coeff of Sharon (11.5-14.5) % Plt Count (130-400) K/uL MPV (9.4-12.3) fL Immature Gran % (Auto) % Neut % (Auto) % Lymph % (Auto) % [place] % (Auto) % Eos % (Auto) % Baso % (Auto) % Neut # (Auto) (1.4-6.5) K/uL Lymph # (Auto) (1.2-3.4) K/uL [place] # (Auto) (0.24-0.82) K/uL Eos # (Auto) (0-0.50) K/uL Baso # (Auto) (0-0.2) K/uL Immature Gran # (Auto) (0.00-0.02) K/uL Absolute Nucleated RBC (0-0) K/uL Nucleated RBC % (auto) % Neutrophils % (Manual) % Lymphocytes % (Manual) % Monocytes % (Manual) % Eosinophils % (Manual) % Neutrophils # (Manual) (1.4-6.5) K/uL Total Absolute Neuts (1.4-6.5) K/uL Lymphocytes # (Manual) (1.2-3.4) K/uL Total Abs Lymphocytes (1.2-3.4) K/uL Monocytes # (Manual) (0.24-0.82) K/uL Eosinophils # (Manual) (0-0.50) K/uL Toxic Granulation ESR < 1 (0-30) mm/hr VBG pH (7.36-7.41) VBG pCO2 (38-50) mmHg VBG pO2 mmHg VBG HCO3 mmol/L VBG O2 Saturation % VBG Base Excess mEq/L Sodium 142 (136-145) mmol/L Potassium 2.4 L* (3.5-5.1) mmol/L Chloride 94 L (98-107) mmol/L Carbon Dioxide 44 H* (21-32) mmol/L Anion Gap 4 (3-11) BUN 10 (6-23) mg/dl Creatinine 0.49 L (0.6-1.2) mg/dl Est Cr Clr Drug Dosing 92.4 ml/min Est GFR ( Amer) 119.3 ml/min Est GFR (Non-Af Amer) 103.0 ml/min BUN/Creatinine Ratio 20.4 H (10-20) Glucose 114 H (70-99(Fasting)) mg/dl POC Glucose (70-99) mg/dl Calcium 7.5 L (8.5-10.1) mg/dl Phosphorus 2.3 L (2.5-4.9) mg/dl Magnesium 2.0 (1.7-2.4) mg/dl Total Bilirubin 0.6 (0.2-1.0) mg/dl AST 55 H (13-39) U/L ALT 25 (7-52) U/L Alkaline Phosphatase 205 H (34-104) U/L Total Creatine Kinase (26-192) U/L Troponin I High Sens (0-14) pg/ml C-Reactive Protein 1.43 H (0-0.5) mg/dl Total Protein 5.4 L (6.0-8.3) gm/dl Albumin 3.5 (3.4-5.0) gm/dl Globulin 1.9 L (2.5-4.0) gm/dl Albumin/Globulin Ratio 1.8 (0.9-2) Procalcitonin (0-0.5) ng/ml Urine Color Urine Appearance (Clear) Urine pH (4.5-7.5) Ur Specific [place] (1.000-1.030) Urine Protein (Negative) Urine Glucose (UA) (Negative) Urine Ketones (Negative) Urine Blood (Negative) Urine Nitrite (Negative) Urine Bilirubin (Negative) Urine Urobilinogen (Negative) Ur Leukocyte Esterase (Negative) Urine WBC (Auto) (0-5) /hpf Urine RBC (Auto) (0-4) /hpf U Hyaline Cast (Auto) (0-5) /lpf U Epithel Cells (Auto) (0-5) /lpf Urine Bacteria (Auto) (Negative) Ur Renal Epithelial Cell (0-5) /lpf Ur Random Creatinine mg/dl U Random Total Protein (0-11.9) mg/dl Urine Sodium mmol/L Urine Potassium mmol/L Urine Chloride mmol/L Nasal Screen MRSA (PCR) (Negative) Urine Opiates Screen (Neg) U Codeine Confrm GC/MS Ur Morphine (GC/MS) Ur Hydrocodone (GC/MS) Ur Norhydrocodone Ur Noroxycodone Urine Oxycodone (GC/MS) U Oxymorphone GC/MS Ur Methadone, Qual (Neg) Ur Hydromorphone (GC/MS) Urine Barbiturates (Neg) Ur Phencyclidine (PCP) (Neg) U Amphetamin/Meth Scrn (Neg) MDMA (Ecstasy) Screen (Neg) U Benzodiazepines Scrn (Neg) Ur Cocaine Metabolite (Neg) U Marijuana (THC) Screen (Neg) Drug Screen Comment Hepatitis C Ab (EIA) Pending Hep C Ab Signal/Cutoff Pending SARS-CoV-2, RNA, NAAT (NEGATIVE) 05/17/22 05/16/22 05/16/22 Range/Units 05:28 20:18 18:25 WBC 17.39 H (4.8-10.8) K/ul RBC 4.26 (3.93-5.22) M/uL Hgb 13.0 (12.0-16.0) g/dl Hct 38.2 (34.1-44.9) % MCV 89.7 (80.0-100.0) fL MCH 30.5 (25.0-34.0) pg MCHC 34.0 (32.0-36.0) g/dL RDW Std Deviation 57.3 H (36.4-46.3) fL RDW Coeff of Sharon 17.4 H (11.5-14.5) % Plt Count 112 L (130-400) K/uL MPV 11.1 (9.4-12.3) fL Immature Gran % (Auto) % Neut % (Auto) % Lymph % (Auto) % [place] % (Auto) % Eos % (Auto) % Baso % (Auto) % Neut # (Auto) (1.4-6.5) K/uL Lymph # (Auto) (1.2-3.4) K/uL [place] # (Auto) (0.24-0.82) K/uL Eos # (Auto) (0-0.50) K/uL Baso # (Auto) (0-0.2) K/uL Immature Gran # (Auto) (0.00-0.02) K/uL Absolute Nucleated RBC 0.03 H (0-0) K/uL Nucleated RBC % (auto) 0.2 % Neutrophils % (Manual) 91 % Lymphocytes % (Manual) 1 % Monocytes % (Manual) 8 % Eosinophils % (Manual) 1 % Neutrophils # (Manual) 15.82 H (1.4-6.5) K/uL Total Absolute Neuts 15.82 H (1.4-6.5) K/uL Lymphocytes # (Manual) 0.17 L (1.2-3.4) K/uL Total Abs Lymphocytes 0.17 L (1.2-3.4) K/uL Monocytes # (Manual) 1.39 H (0.24-0.82) K/uL Eosinophils # (Manual) 0.17 (0-0.50) K/uL Toxic Granulation ESR (0-30) mm/hr VBG pH (7.36-7.41) VBG pCO2 (38-50) mmHg VBG pO2 mmHg VBG HCO3 mmol/L VBG O2 Saturation % VBG Base Excess mEq/L Sodium 139 (136-145) mmol/L Potassium 2.5 L* D (3.5-5.1) mmol/L Chloride 90 L (98-107) mmol/L Carbon Dioxide 38 H (21-32) mmol/L Anion Gap 11 (3-11) BUN 14 (6-23) mg/dl Creatinine 0.64 (0.6-1.2) mg/dl Est Cr Clr Drug Dosing 70.7 ml/min Est GFR ( Amer) 109.3 ml/min Est GFR (Non-Af Amer) 94.3 ml/min BUN/Creatinine Ratio 21.9 H (10-20) Glucose 217 H (70-99(Fasting)) mg/dl POC Glucose 155 H (70-99) mg/dl Calcium 8.0 L (8.5-10.1) mg/dl Phosphorus (2.5-4.9) mg/dl Magnesium 2.1 (1.7-2.4) mg/dl Total Bilirubin (0.2-1.0) mg/dl AST (13-39) U/L ALT (7-52) U/L Alkaline Phosphatase (34-104) U/L Total Creatine Kinase (26-192) U/L Troponin I High Sens (0-14) pg/ml C-Reactive Protein (0-0.5) mg/dl Total Protein (6.0-8.3) gm/dl Albumin (3.4-5.0) gm/dl Globulin (2.5-4.0) gm/dl Albumin/Globulin Ratio (0.9-2) Procalcitonin (0-0.5) ng/ml Urine Color Urine Appearance (Clear) Urine pH (4.5-7.5) Ur Specific [place] (1.000-1.030) Urine Protein (Negative) Urine Glucose (UA) (Negative) Urine Ketones (Negative) Urine Blood (Negative) Urine Nitrite (Negative) Urine Bilirubin (Negative) Urine Urobilinogen (Negative) Ur Leukocyte Esterase (Negative) Urine WBC (Auto) (0-5) /hpf Urine RBC (Auto) (0-4) /hpf U Hyaline Cast (Auto) (0-5) /lpf U Epithel Cells (Auto) (0-5) /lpf Urine Bacteria (Auto) (Negative) Ur Renal Epithelial Cell (0-5) /lpf Ur Random Creatinine mg/dl U Random Total Protein (0-11.9) mg/dl Urine Sodium mmol/L Urine Potassium mmol/L Urine Chloride mmol/L Nasal Screen MRSA (PCR) (Negative) Urine Opiates Screen (Neg) U Codeine Confrm GC/MS Ur Morphine (GC/MS) Ur Hydrocodone (GC/MS) Ur Norhydrocodone Ur Noroxycodone Urine Oxycodone (GC/MS) U Oxymorphone GC/MS Ur Methadone, Qual (Neg) Ur Hydromorphone (GC/MS) Urine Barbiturates (Neg) Ur Phencyclidine (PCP) (Neg) U Amphetamin/Meth Scrn (Neg) MDMA (Ecstasy) Screen (Neg) U Benzodiazepines Scrn (Neg) Ur Cocaine Metabolite (Neg) U Marijuana (THC) Screen (Neg) Drug Screen Comment Hepatitis C Ab (EIA) Hep C Ab Signal/Cutoff SARS-CoV-2, RNA, NAAT (NEGATIVE) 05/16/22 05/16/22 05/16/22 Range/Units 18:15 16:50 16:25 WBC (4.8-10.8) K/ul RBC (3.93-5.22) M/uL Hgb (12.0-16.0) g/dl Hct (34.1-44.9) % MCV (80.0-100.0) fL MCH (25.0-34.0) pg MCHC (32.0-36.0) g/dL RDW Std Deviation (36.4-46.3) fL RDW Coeff of Sharon (11.5-14.5) % Plt Count (130-400) K/uL MPV (9.4-12.3) fL Immature Gran % (Auto) % Neut % (Auto) % Lymph % (Auto) % [place] % (Auto) % Eos % (Auto) % Baso % (Auto) % Neut # (Auto) (1.4-6.5) K/uL Lymph # (Auto) (1.2-3.4) K/uL [place] # (Auto) (0.24-0.82) K/uL Eos # (Auto) (0-0.50) K/uL Baso # (Auto) (0-0.2) K/uL Immature Gran # (Auto) (0.00-0.02) K/uL Absolute Nucleated RBC (0-0) K/uL Nucleated RBC % (auto) % Neutrophils % (Manual) % Lymphocytes % (Manual) % Monocytes % (Manual) % Eosinophils % (Manual) % Neutrophils # (Manual) (1.4-6.5) K/uL Total Absolute Neuts (1.4-6.5) K/uL Lymphocytes # (Manual) (1.2-3.4) K/uL Total Abs Lymphocytes (1.2-3.4) K/uL Monocytes # (Manual) (0.24-0.82) K/uL Eosinophils # (Manual) (0-0.50) K/uL Toxic Granulation ESR (0-30) mm/hr VBG pH (7.36-7.41) VBG pCO2 (38-50) mmHg VBG pO2 mmHg VBG HCO3 mmol/L VBG O2 Saturation % VBG Base Excess mEq/L Sodium 140 (136-145) mmol/L Potassium 1.8 L* (3.5-5.1) mmol/L Chloride 89 L (98-107) mmol/L Carbon Dioxide 42 H* (21-32) mmol/L Anion Gap 9 (3-11) BUN 14 (6-23) mg/dl Creatinine 0.65 (0.6-1.2) mg/dl Est Cr Clr Drug Dosing 70.5 ml/min Est GFR ( Amer) 108.7 ml/min Est GFR (Non-Af Amer) 93.8 ml/min BUN/Creatinine Ratio 21.5 H (10-20) Glucose 178 H (70-99(Fasting)) mg/dl POC Glucose (70-99) mg/dl Calcium 8.1 L (8.5-10.1) mg/dl Phosphorus (2.5-4.9) mg/dl Magnesium (1.7-2.4) mg/dl Total Bilirubin (0.2-1.0) mg/dl AST (13-39) U/L ALT (7-52) U/L Alkaline Phosphatase (34-104) U/L Total Creatine Kinase 289 H (26-192) U/L Troponin I High Sens 67.2 H* (0-14) pg/ml C-Reactive Protein (0-0.5) mg/dl Total Protein (6.0-8.3) gm/dl Albumin (3.4-5.0) gm/dl Globulin (2.5-4.0) gm/dl Albumin/Globulin Ratio (0.9-2) Procalcitonin (0-0.5) ng/ml Urine Color Urine Appearance (Clear) Urine pH (4.5-7.5) Ur Specific [place] (1.000-1.030) Urine Protein (Negative) Urine Glucose (UA) (Negative) Urine Ketones (Negative) Urine Blood (Negative) Urine Nitrite (Negative) Urine Bilirubin (Negative) Urine Urobilinogen (Negative) Ur Leukocyte Esterase (Negative) Urine WBC (Auto) (0-5) /hpf Urine RBC (Auto) (0-4) /hpf U Hyaline Cast (Auto) (0-5) /lpf U Epithel Cells (Auto) (0-5) /lpf Urine Bacteria (Auto) (Negative) Ur Renal Epithelial Cell (0-5) /lpf Ur Random Creatinine 52.1 mg/dl U Random Total Protein 123.2 H (0-11.9) mg/dl Urine Sodium 33 mmol/L Urine Potassium 17.9 mmol/L Urine Chloride 38 mmol/L Nasal Screen MRSA (PCR) Negative (Negative) Urine Opiates Screen (Neg) U Codeine Confrm GC/MS Ur Morphine (GC/MS) Ur Hydrocodone (GC/MS) Ur Norhydrocodone Ur Noroxycodone Urine Oxycodone (GC/MS) U Oxymorphone GC/MS Ur Methadone, Qual (Neg) Ur Hydromorphone (GC/MS) Urine Barbiturates (Neg) Ur Phencyclidine (PCP) (Neg) U Amphetamin/Meth Scrn (Neg) MDMA (Ecstasy) Screen (Neg) U Benzodiazepines Scrn (Neg) Ur Cocaine Metabolite (Neg) U Marijuana (THC) Screen (Neg) Drug Screen Comment Hepatitis C Ab (EIA) Hep C Ab Signal/Cutoff SARS-CoV-2, RNA, NAAT (NEGATIVE) 05/16/22 05/16/22 05/16/22 Range/Units 16:25 16:24 16:24 WBC (4.8-10.8) K/ul RBC (3.93-5.22) M/uL Hgb (12.0-16.0) g/dl Hct (34.1-44.9) % MCV (80.0-100.0) fL MCH (25.0-34.0) pg MCHC (32.0-36.0) g/dL RDW Std Deviation (36.4-46.3) fL RDW Coeff of Sharon (11.5-14.5) % Plt Count (130-400) K/uL MPV (9.4-12.3) fL Immature Gran % (Auto) % Neut % (Auto) % Lymph % (Auto) % [place] % (Auto) % Eos % (Auto) % Baso % (Auto) % Neut # (Auto) (1.4-6.5) K/uL Lymph # (Auto) (1.2-3.4) K/uL [place] # (Auto) (0.24-0.82) K/uL Eos # (Auto) (0-0.50) K/uL Baso # (Auto) (0-0.2) K/uL Immature Gran # (Auto) (0.00-0.02) K/uL Absolute Nucleated RBC (0-0) K/uL Nucleated RBC % (auto) % Neutrophils % (Manual) % Lymphocytes % (Manual) % Monocytes % (Manual) % Eosinophils % (Manual) % Neutrophils # (Manual) (1.4-6.5) K/uL Total Absolute Neuts (1.4-6.5) K/uL Lymphocytes # (Manual) (1.2-3.4) K/uL Total Abs Lymphocytes (1.2-3.4) K/uL Monocytes # (Manual) (0.24-0.82) K/uL Eosinophils # (Manual) (0-0.50) K/uL Toxic Granulation ESR (0-30) mm/hr VBG pH (7.36-7.41) VBG pCO2 (38-50) mmHg VBG pO2 mmHg VBG HCO3 mmol/L VBG O2 Saturation % VBG Base Excess mEq/L Sodium (136-145) mmol/L Potassium (3.5-5.1) mmol/L Chloride (98-107) mmol/L Carbon Dioxide (21-32) mmol/L Anion Gap (3-11) BUN (6-23) mg/dl Creatinine (0.6-1.2) mg/dl Est Cr Clr Drug Dosing ml/min Est GFR ( Amer) ml/min Est GFR (Non-Af Amer) ml/min BUN/Creatinine Ratio (10-20) Glucose (70-99(Fasting)) mg/dl POC Glucose (70-99) mg/dl Calcium (8.5-10.1) mg/dl Phosphorus (2.5-4.9) mg/dl Magnesium (1.7-2.4) mg/dl Total Bilirubin (0.2-1.0) mg/dl AST (13-39) U/L ALT (7-52) U/L Alkaline Phosphatase (34-104) U/L Total Creatine Kinase (26-192) U/L Troponin I High Sens (0-14) pg/ml C-Reactive Protein (0-0.5) mg/dl Total Protein (6.0-8.3) gm/dl Albumin (3.4-5.0) gm/dl Globulin (2.5-4.0) gm/dl Albumin/Globulin Ratio (0.9-2) Procalcitonin (0-0.5) ng/ml Urine Color Yellow Urine Appearance Clear (Clear) Urine pH 7.5 (4.5-7.5) Ur Specific [place] 1.014 (1.000-1.030) Urine Protein 2+ H (Negative) Urine Glucose (UA) Negative (Negative) Urine Ketones Negative (Negative) Urine Blood Negative (Negative) Urine Nitrite Negative (Negative) Urine Bilirubin Negative (Negative) Urine Urobilinogen Negative (Negative) Ur Leukocyte Esterase Trace H (Negative) Urine WBC (Auto) 5-10 H (0-5) /hpf Urine RBC (Auto) 0-4 (0-4) /hpf U Hyaline Cast (Auto) 1-5 (0-5) /lpf U Epithel Cells (Auto) >30 H (0-5) /lpf Urine Bacteria (Auto) 1+ H (Negative) Ur Renal Epithelial Cell 5-10 H (0-5) /lpf Ur Random Creatinine mg/dl U Random Total Protein (0-11.9) mg/dl Urine Sodium mmol/L Urine Potassium mmol/L Urine Chloride mmol/L Nasal Screen MRSA (PCR) (Negative) Urine Opiates Screen Pos H (Neg) U Codeine Confrm GC/MS Pending Ur Morphine (GC/MS) Pending Ur Hydrocodone (GC/MS) Pending Ur Norhydrocodone Pending Ur Noroxycodone Pending Urine Oxycodone (GC/MS) Pending U Oxymorphone GC/MS Pending Ur Methadone, Qual Neg (Neg) Ur Hydromorphone (GC/MS) Pending Urine Barbiturates Neg (Neg) Ur Phencyclidine (PCP) Neg (Neg) U Amphetamin/Meth Scrn Neg (Neg) MDMA (Ecstasy) Screen Neg (Neg) U Benzodiazepines Scrn Neg (Neg) Ur Cocaine Metabolite Neg (Neg) U Marijuana (THC) Screen Neg (Neg) Drug Screen Comment Pending Hepatitis C Ab (EIA) Hep C Ab Signal/Cutoff SARS-CoV-2, RNA, NAAT (NEGATIVE) 05/16/22 05/16/22 05/16/22 Range/Units 15:06 14:25 13:30 WBC (4.8-10.8) K/ul RBC (3.93-5.22) M/uL Hgb (12.0-16.0) g/dl Hct (34.1-44.9) % MCV (80.0-100.0) fL MCH (25.0-34.0) pg MCHC (32.0-36.0) g/dL RDW Std Deviation (36.4-46.3) fL RDW Coeff of Sharon (11.5-14.5) % Plt Count (130-400) K/uL MPV (9.4-12.3) fL Immature Gran % (Auto) % Neut % (Auto) % Lymph % (Auto) % [place] % (Auto) % Eos % (Auto) % Baso % (Auto) % Neut # (Auto) (1.4-6.5) K/uL Lymph # (Auto) (1.2-3.4) K/uL [place] # (Auto) (0.24-0.82) K/uL Eos # (Auto) (0-0.50) K/uL Baso # (Auto) (0-0.2) K/uL Immature Gran # (Auto) (0.00-0.02) K/uL Absolute Nucleated RBC (0-0) K/uL Nucleated RBC % (auto) % Neutrophils % (Manual) % Lymphocytes % (Manual) % Monocytes % (Manual) % Eosinophils % (Manual) % Neutrophils # (Manual) (1.4-6.5) K/uL Total Absolute Neuts (1.4-6.5) K/uL Lymphocytes # (Manual) (1.2-3.4) K/uL Total Abs Lymphocytes (1.2-3.4) K/uL Monocytes # (Manual) (0.24-0.82) K/uL Eosinophils # (Manual) (0-0.50) K/uL Toxic Granulation ESR (0-30) mm/hr VBG pH 7.66 H (7.36-7.41) VBG pCO2 47 (38-50) mmHg VBG pO2 40 mmHg VBG HCO3 53 mmol/L VBG O2 Saturation 69.8 % VBG Base Excess 28.5 mEq/L Sodium (136-145) mmol/L Potassium (3.5-5.1) mmol/L Chloride (98-107) mmol/L Carbon Dioxide (21-32) mmol/L Anion Gap (3-11) BUN (6-23) mg/dl Creatinine (0.6-1.2) mg/dl Est Cr Clr Drug Dosing ml/min Est GFR ( Amer) ml/min Est GFR (Non-Af Amer) ml/min BUN/Creatinine Ratio (10-20) Glucose (70-99(Fasting)) mg/dl POC Glucose (70-99) mg/dl Calcium (8.5-10.1) mg/dl Phosphorus 2.3 L (2.5-4.9) mg/dl Magnesium (1.7-2.4) mg/dl Total Bilirubin (0.2-1.0) mg/dl AST (13-39) U/L ALT (7-52) U/L Alkaline Phosphatase (34-104) U/L Total Creatine Kinase (26-192) U/L Troponin I High Sens (0-14) pg/ml C-Reactive Protein (0-0.5) mg/dl Total Protein (6.0-8.3) gm/dl Albumin (3.4-5.0) gm/dl Globulin (2.5-4.0) gm/dl Albumin/Globulin Ratio (0.9-2) Procalcitonin (0-0.5) ng/ml Urine Color Urine Appearance (Clear) Urine pH (4.5-7.5) Ur Specific [place] (1.000-1.030) Urine Protein (Negative) Urine Glucose (UA) (Negative) Urine Ketones (Negative) Urine Blood (Negative) Urine Nitrite (Negative) Urine Bilirubin (Negative) Urine Urobilinogen (Negative) Ur Leukocyte Esterase (Negative) Urine WBC (Auto) (0-5) /hpf Urine RBC (Auto) (0-4) /hpf U Hyaline Cast (Auto) (0-5) /lpf U Epithel Cells (Auto) (0-5) /lpf Urine Bacteria (Auto) (Negative) Ur Renal Epithelial Cell (0-5) /lpf Ur Random Creatinine mg/dl U Random Total Protein (0-11.9) mg/dl Urine Sodium mmol/L Urine Potassium mmol/L Urine Chloride mmol/L Nasal Screen MRSA (PCR) (Negative) Urine Opiates Screen (Neg) U Codeine Confrm GC/MS Ur Morphine (GC/MS) Ur Hydrocodone (GC/MS) Ur Norhydrocodone Ur Noroxycodone Urine Oxycodone (GC/MS) U Oxymorphone GC/MS Ur Methadone, Qual (Neg) Ur Hydromorphone (GC/MS) Urine Barbiturates (Neg) Ur Phencyclidine (PCP) (Neg) U Amphetamin/Meth Scrn (Neg) MDMA (Ecstasy) Screen (Neg) U Benzodiazepines Scrn (Neg) Ur Cocaine Metabolite (Neg) U Marijuana (THC) Screen (Neg) Drug Screen Comment Hepatitis C Ab (EIA) Hep C Ab Signal/Cutoff SARS-CoV-2, RNA, NAAT NEGATIVE (NEGATIVE) 05/16/22 05/16/22 05/16/22 Range/Units 13:30 13:30 13:30 WBC 15.70 H (4.8-10.8) K/ul RBC 4.30 (3.93-5.22) M/uL Hgb 13.2 (12.0-16.0) g/dl Hct 38.9 (34.1-44.9) % MCV 90.5 (80.0-100.0) fL MCH 30.7 (25.0-34.0) pg MCHC 33.9 (32.0-36.0) g/dL RDW Std Deviation 56.0 H (36.4-46.3) fL RDW Coeff of [place] 16.9 H (11.5-14.5) % Plt Count 112 L (130-400) K/uL MPV 9.7 (9.4-12.3) fL Immature Gran % (Auto) 5.2 % Neut % (Auto) 81.8 % Lymph % (Auto) 5.1 % [place] % (Auto) 7.5 % Eos % (Auto) 0.1 % Baso % (Auto) 0.3 % Neut # (Auto) 12.86 H (1.4-6.5) K/uL Lymph # (Auto) 0.80 L (1.2-3.4) K/uL [place] # (Auto) 1.17 H (0.24-0.82) K/uL Eos # (Auto) 0.01 (0-0.50) K/uL Baso # (Auto) 0.04 (0-0.2) K/uL Immature Gran # (Auto) 0.82 H (0.00-0.02) K/uL Absolute Nucleated RBC 0.05 H (0-0) K/uL Nucleated RBC % (auto) 0.3 % Neutrophils % (Manual) % Lymphocytes % (Manual) % Monocytes % (Manual) % Eosinophils % (Manual) % Neutrophils # (Manual) (1.4-6.5) K/uL Total Absolute Neuts (1.4-6.5) K/uL Lymphocytes # (Manual) (1.2-3.4) K/uL Total Abs Lymphocytes (1.2-3.4) K/uL Monocytes # (Manual) (0.24-0.82) K/uL Eosinophils # (Manual) (0-0.50) K/uL Toxic Granulation 1+ ESR (0-30) mm/hr VBG pH (7.36-7.41) VBG pCO2 (38-50) mmHg VBG pO2 mmHg VBG HCO3 mmol/L VBG O2 Saturation % VBG Base Excess mEq/L Sodium 139 (136-145) mmol/L Potassium 1.7 L* (3.5-5.1) mmol/L Chloride 85 L (98-107) mmol/L Carbon Dioxide 44 H* (21-32) mmol/L Anion Gap 10 (3-11) BUN 14 (6-23) mg/dl Creatinine 0.61 (0.6-1.2) mg/dl Est Cr Clr Drug Dosing 75.1 ml/min Est GFR ( Amer) 111.0 ml/min Est GFR (Non-Af Amer) 95.8 ml/min BUN/Creatinine Ratio 23.0 H (10-20) Glucose 101 H (70-99(Fasting)) mg/dl POC Glucose (70-99) mg/dl Calcium 7.7 L (8.5-10.1) mg/dl Phosphorus (2.5-4.9) mg/dl Magnesium 1.7 (1.7-2.4) mg/dl Total Bilirubin 0.6 (0.2-1.0) mg/dl AST 61 H (13-39) U/L ALT 23 (7-52) U/L Alkaline Phosphatase 173 H (34-104) U/L Total Creatine Kinase (26-192) U/L Troponin I High Sens 68.2 H* D (0-14) pg/ml C-Reactive Protein (0-0.5) mg/dl Total Protein 5.6 L (6.0-8.3) gm/dl Albumin 3.6 (3.4-5.0) gm/dl Globulin 2.0 L (2.5-4.0) gm/dl Albumin/Globulin Ratio 1.8 (0.9-2) Procalcitonin 0.22 (0-0.5) ng/ml Urine Color Urine Appearance (Clear) Urine pH (4.5-7.5) Ur Specific Shevlin (1.000-1.030) Urine Protein (Negative) Urine Glucose (UA) (Negative) Urine Ketones (Negative) Urine Blood (Negative) Urine Nitrite (Negative) Urine Bilirubin (Negative) Urine Urobilinogen (Negative) Ur Leukocyte Esterase (Negative) Urine WBC (Auto) (0-5) /hpf Urine RBC (Auto) (0-4) /hpf U Hyaline Cast (Auto) (0-5) /lpf U Epithel Cells (Auto) (0-5) /lpf Urine Bacteria (Auto) (Negative) Ur Renal Epithelial Cell (0-5) /lpf Ur Random Creatinine mg/dl U Random Total Protein (0-11.9) mg/dl Urine Sodium mmol/L Urine Potassium mmol/L Urine Chloride mmol/L Nasal Screen MRSA (PCR) (Negative) Urine Opiates Screen (Neg) U Codeine Confrm GC/MS Ur Morphine (GC/MS) Ur Hydrocodone (GC/MS) Ur Norhydrocodone Ur Noroxycodone Urine Oxycodone (GC/MS) U Oxymorphone GC/MS Ur Methadone, Qual (Neg) Ur Hydromorphone (GC/MS) Urine Barbiturates (Neg) Ur Phencyclidine (PCP) (Neg) U Amphetamin/Meth Scrn (Neg) MDMA (Ecstasy) Screen (Neg) U Benzodiazepines Scrn (Neg) Ur Cocaine Metabolite (Neg) U Marijuana (THC) Screen (Neg) Drug Screen Comment Hepatitis C Ab (EIA) Hep C Ab Signal/Cutoff SARS-CoV-2, RNA, NAAT (NEGATIVE)
[2022-05-17] MEDS ORDERED: POTASSIUM PHOSPHATE 30 MMOL in SODIUM CHLORIDE 0.9% 500 ML IV ONE (11:30)
--- NOTE | 2022-05-17 11:38 | Electrocardiogram Report ---
Test Reason : Blood Pressure : / mmHG Vent. Rate : 078 BPM Atrial Rate : 078 BPM P-R Int : 142 ms QRS Dur : 088 ms QT Int : 418 ms P-R-T Axes : 057 039 254 degrees QTc Int : 476 ms Normal sinus rhythm with sinus arrhythmia Prolonged QT Abnormal ECG When compared with ECG of 04-MAY-2022 18:43, ST now depressed in Inferior leads ST now depressed in Anterior leads T wave inversion now evident in Inferior leads T wave inversion now evident in Anterior leads Confirmed by Jose Vieyra ([id number]) on 05/17/2022 11:38:20 AM Referred By: REFERRED SELF Confirmed By:Jose Vieyra
[2022-05-17] MEDS ORDERED: LABETALOL HCL IV 5 MG/ML 20ML IV STA (12:04)
[2022-05-17 12:05] LABS: BUN Creatinine Ratio 25.6 (10-20); Calcium 7.2 mg/dl (8.5-10.1); Creatinine Clr Calc Pharmacy 105.9 ml/min; Est GFR (African American) 124.6 ml/min; Est GFR (Non-African American) 107.5 ml/min; Magnesium 1.9 mg/dl (1.7-2.4); Phosphorus 2.6 mg/dl (2.5-4.9); Potassium 3.3 mmol/L (3.5-5.1)
[2022-05-17] MEDS ORDERED: STAT IV STA (12:08)
[2022-05-17] MEDS ORDERED: MAGNESIUM SULFATE / D5W 1 GM/100 ML BAG IV ONE (12:08)
[2022-05-17] MEDS ORDERED: CALCIUM GLUCONATE 10% 2,000 MG in DEXTROSE 5% 50 ML IV ONE (12:15)
[2022-05-17] MEDS ORDERED: FUROSEMIDE INJ 20 MG/2 ML VIAL IV ONE ×2 (13:36→13:47)
[2022-05-17] MEDS: ALBUT/IPRATROP 3MG/0.5MG NEB 3 ML VIAL NEB PRN (13:39)
[2022-05-17 16:37] LABS: BUN Creatinine Ratio 23.9 (10-20); Calcium 7.9 mg/dl (8.5-10.1); Est GFR (African American) 121.8 ml/min; Est GFR (Non-African American) 105.1 ml/min; Potassium 3.1 mmol/L (3.5-5.1)
[2022-05-17] MEDS: methylPREDNISolone 60 MG in SYRINGE 0 ML IV SCH (16:48)
--- NOTE | 2022-05-17 17:04 | Billing Data ---
Date of Service May 17, 2022 Coding Level of Care Code 77325 Subseq Hosp Care Lvl 3
[2022-05-17] MEDS ORDERED: POTASSIUM CHLORIDE CRTAB 20 MEQ TABCR PO ONE (18:01)
[2022-05-18] MEDS: ALBUT/IPRATROP 3MG/0.5MG NEB 3 ML VIAL NEB PRN ×3 (02:11→11:56)
[2022-05-18] MEDS: HYDROcodone/ACETAMINOPHEN 10/325 TAB PO PRN ×4 (02:42→21:58)
[2022-05-18] MEDS ORDERED: guaiFENesin 600 MG TABCR PO PRN (07:13)
[2022-05-18] MEDS ORDERED: busPIRone 5 MG TAB PO PRN (07:13)
[2022-05-18] MEDS ORDERED: [UNRECOGNIZED DRUG - SUPPLY] SCH (07:13)
[2022-05-18] MEDS: busPIRone 5 MG TAB PO SCH ×4 (08:25→20:26)
[2022-05-18] MEDS: PANTOprazole 40 MG TAB PO SCH (08:26)
[2022-05-18] MEDS: FLUoxetine HCL 20 MG CAP PO SCH (08:26)
[2022-05-18] MEDS: OXYBUTYNIN CHLORIDE XL 5 MG TABCR PO SCH (08:26)
[2022-05-18] MEDS: GABAPENTIN 300 MG CAP PO SCH ×2 (08:26→20:26)
[2022-05-18] MEDS: LOSARTAN POTASSIUM 25 MG TAB PO SCH (08:26)
[2022-05-18] MEDS: SPIRONOLACTONE 25 MG TAB PO SCH (08:27)
[2022-05-18] MEDS: ENOXAPARIN INJ 40 MG/0.4 ML SYR SQ SCH (08:27)
[2022-05-18] MEDS: amLODIPine BESYLATE 5 MG TAB PO SCH (08:27)
[2022-05-18] MEDS: FLUTICASONE/VILANTEROL 100/25MCG 14 PUFFS/INHALER INH SCH (08:28)
[2022-05-18] MEDS: methylPREDNISolone 60 MG in SYRINGE 0 ML IV SCH (08:30)
[2022-05-18 08:38] LABS: Calcium 8.2 mg/dl (8.5-10.1); Creatinine Clr Calc Pharmacy 74.6 ml/min; Est GFR (Non-African American) 95.8 ml/min; Potassium 4.2 mmol/L (3.5-5.1)
[2022-05-18 09:00] LABS: iSTAT Allen Test Pass; iSTAT Arterial Blood Gas HCO3 36 meg/L (19-24); iSTAT Arterial Blood Gas pCO2 42 mmHg (35-46); iSTAT Arterial Blood Gas pH 7.54 (7.35-7.45); iSTAT Arterial Blood Gas pO2 83 mmHg (80-95); iSTAT Carbon Dioxide 37 mmol/L (24-31); iSTAT Site L Radial
[2022-05-18 09:21] LABS: Hematocrit (blood only) 37.7 % (34.1-44.9); Hemoglobin 12.3 g/dl (12.0-16.0); Mean Corpuscular Hemoglobin 30.9 pg (25.0-34.0); Mean Corpuscular Hgb Conc 32.6 g/dL (32.0-36.0); Mean Corpuscular Volume 94.7 fL (80.0-100.0); Mean Platelet Volume 10.6 fL (9.4-12.3); Nucleated RBC # (auto) 0.04 K/uL (0-0); Nucleated RBC % (auto) 0.3 %; Platelet Count 87 K/uL (130-400); Platelet Estimate Decreased (Normal); RDW Coefficient of Variation 18.5 % (11.5-14.5); RDW Standard Deviation 63.8 fL (36.4-46.3); Red Blood Count 3.98 M/uL (3.93-5.22); White Blood Count 15.87 K/ul (4.8-10.8)
--- NOTE | 2022-05-18 12:49 | Hospitalist Progress Note ---
Date of Service May 18, 2022 Assessment & Plan (1) Acute hypokalemia: Plan Ms. Meza is a 66 y.o. female who presented to the ED via ambulance on 05/16 for trouble breathing. At the end of March/early April she had a reaction to gypsy moths for about a week and had itchy hives/welts all over her body. She stated that she used a cortisone cream and the hives went away. At this time she had no trouble breathing. She notes that after this reaction she started to get a lot of mucus and instead of mucinex, she started Flonase nasal spray. She states that on April 30, after spending some time outside she noticed that the right side of her face became very swollen. Around the time her face became swollen, she noticed that she had some trouble breathing and started to wheeze. She began sleeping propped up with pillows on her couch because she couldn't breathe while laying flat. She also began to notice red/purple "rashes" all over her body, which would itch and bleed if she touched them. She resorted to scratching her back with a steak knife because the itching was so intense. She also reports having drenching sweats after the rash began which forced her to remove her clothes due to the sweat and blood leaking from her rashes. She is a former smoker (about 1/2 ppd), but stopped about a month ago due to her troubles with breathing. Positive Blood culture -One tube grew Gram + in clusters. -Will hold off on treating at this time d/t patient not having any signs of infection at this time. Will wait to see what the other tube grows. Consider treating with Vancomycin if both positive. 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 If need be, rheumatology can be officially consulted. -Labs pending for ANCA, BENY -CRP was 1.4 and Sed. rate <1 Thrombocytopenia -Most likely related to vasculitics -Watch and wait to see if any intervention is needed. Dyspnea/Hypoxia/bronchitis -SOB is most likely d/t to COPD exacerbation (former smoker). -Symptoms may be vasculitics etiology as well, though unlikely -ECHO ordered today -Continue 60mg solumedrol IV -Change DuoNeb from Prn to scheduled BID -Start Azithromycin 500mg once, then tomorrow start 250mg once a day. -Continue using incentive spirometry -Will follow with serial exams Metabolic Alkalosis -ABG still showed patient is alkali but is improving. -May be related to poor PO intake and hypokalemia. -Will continue to trend labs and follow closely. Hypokalemia (resolved) -Possibly correlated to poor PO intake, does not have likely GI cause as chronic diarrhea is related to anatomy from prior gastric bypass surgery. -K normal today. -Following serial labs Hypertension -Chronic, seems to be exacerbated by noncompliance of her blood pressure medication and physiologic stress from her current condition. -Will continue amlodipine, losartan, spironolactone and follow closely. diet/fluid status: heart healthy Code status: full DVT prop: SCDs ordered Dispo: med surg Admission and Anticipated Discharge Date Admission Date: May 16, 2022 Supervising Physician Co-Signing Physician Notes I personally examined the patient and verified all zavala points of history and exam, discussed case, and agree with decision making with Dr Garcia still itchy but probably less. breathing about the same, maybe slightly better Vitals noted, in general she is fatigued but no distress. HEENT normocephalic atraumatic mucous membranes moist. She notes that her cheeks and face are puffyI can see how that could be possiblevery similar to yesterday. Cardio is regular. Lungs with more diffuse rhonchorous wheezea bit louder than yesterday, but also noticeably better air entry. No Rales. She has a fairly significant thoracic kyphosis, no accessory muscle use no conversational dyspnea she is on 3 L good effort. Skin shows diffuse purpuric rash some palpable some flat. A lot of it is excoriated, the excoriations bleed rather significantly. rash similar distribution but sl less prominent. suspect viral process causing URI, leading to COPD exacerbationand aberrant immune response to the virus led to a vasculitis process. Rashmost suspicious for vasculitic process. 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 That said, given that she also has concomitant dyspneawhile far less likely, following/evaluating to ensure we do not have more of a pulmonary process at play as well. ANCA, BENY sent. appearing to be slightly improved on steroids Dyspnea/hypoxiacould be pulmonary vasculitis. Could also easily be a degree of CHF or COPD. Echo pending. Chest x-ray was nondescript with a little bit of may be telltale signs of failure, lung exam was a little bit of wheezing and progression most c/w COPD. Serial exams, follow for change with steroids. Low threshold for CT chest. As above noted echo pending. Hypokalemiashe does note diarrheabut when clarifying, she notes that it is a once a day process she has had ever since her gastric bypass and the last month has not been any worse. That said, she does note very poor p.o. intake over the preceding week. That, combined with her gastric bypass GI physiology, may be enough to account for her very low okay. She is not on diuretics. continue to replete Metabolic alkalosisprobably related to hypokalemia and gastric bypass physiology, combined with poor p.o. intake. improving. continue to follow Uncontrolled hypertensionno hypertensive symptoms. Follow. Med management. showing some improvement. Otherwise as above Subjective Patient was seen bedside this AM. She c/o puristic on her arm and legs that has been getting better since her admission. Patient also c/o SOB that has been getting better. No other issues or complaints at this time and says that overall she feels a lot better than she did before. Patient is on 3.5 L NC, none at home. Review of Systems Review of Systems: All systems reviewed & are unremarkable except as noted in HPI & below Physical Exam Constitutional: WD/WN, vitals as above Eyes: PERRL, conjunctivae normal, anicteric sclerae ENMT: external ear and nose normal, oropharynx normal Respiratory: normal respiratory effort, + respiratory distress and + audible wheezes Cardiovascular: RRR, no murmur, no edema Gastrointestinal (Abdomen): normal bowel sounds, soft, nontender, no hepatosplenomegaly Musculoskeletal: no cyanosis or clubbing, extremities motor strength 5/5 Skin: + excoriations (UE and LE ) Psychiatric: A+Ox3, euthymic affect Results & Data Results & Data ([facility]) Vital Signs (Past 12 Hours) Vital Signs Temp Pulse Resp BP Pulse Ox O2 Del Method O2 Flow Rate 05/18/22 12:39 36.8 C 93 H 18 150/93 H 93 05/18/22 11:56 101 H 18 97 Nasal Cannula 4 05/18/22 10:30 175/110 H 05/18/22 08:00 36.9 C 87 24 196/122 H 95 Nasal Cannula 4 05/18/22 09:02 Nasal Cannula 05/18/22 05:54 80 24 91 Nasal Cannula 3 05/18/22 02:13 80 26 H 98 Nasal Cannula 3 Resident Activity Tracking Resident Involvement: Resident Care Provided Care Provided: Adult [facility]
[2022-05-18 15:11] LABS: A calco-baum cmplx NotReported Not Detected (NotDetected); Bact fragilis Not Reported Not Detected (NotDetected); C auris Not Reported Not Detected (NotDetected); Calbicans Not Reported Not Detected (NotDetected); Candida glabrata Not Reported Not Detected (NotDetected); Candida krusei Not Reported Not Detected (NotDetected); Cneoformans/gatti Not Reported Not Detected (NotDetected); Cparapsilosis Not Reported Not Detected (NotDetected); Ctropicalis Not Reported Not Detected (NotDetected); E cloacae compx Not Reported Not Detected (NotDetected); Efaecalis Not Reported Not Detected (NotDetected); Efaecium Not Reported Not Detected (NotDetected); Enterobacterales Not Reported Not Detected (NotDetected); Escherichia coli Not Reported Not Detected (NotDetected); H influenzae Not Reported Not Detected (NotDetected); K aerogenes Not Reported Not Detected (NotDetected); Koxytoca Not Reported Not Detected (NotDetected); Kpneumoniae grp Not Reported Not Detected (NotDetected); Lmonocyt Not Reported Not Detected (NotDetected); N meningitidis Not Reported Not Detected (NotDetected); P aeruginosa Not Reported Not Detected (NotDetected); Proteus spp Not Reported Not Detected (NotDetected); Salmonella spp Not Reported Not Detected (NotDetected); Smarcescens Not Reported Not Detected (NotDetected); Staph lugdunensis Not Reported Not Detected (NotDetected); Staphaureus Not Reported Not Detected (NotDetected); Stenmaltophilia Not Reported Not Detected (NotDetected); Strep agal(GrpB) Not Reported Not Detected (NotDetected); Strep pneum Not Reported Not Detected (NotDetected); Strep pyog (GrpA) Not Reported Not Detected (NotDetected); Strep spp Not Reported Not Detected (NotDetected); mecAC Resistant Gene Not Detected (NotDetected)
[2022-05-18 15:41] LABS: Staph spp. Not Reported DETECTED (NotDetected); Staphepi Not Reported DETECTED (NotDetected); Staphylococcus epidermidis DETECTED (NotDetected); Staphylococcus spp. DETECTED (NotDetected)
--- NOTE | 2022-05-18 15:48 | Billing Data ---
Date of Service May 18, 2022 Coding Level of Care Code 59498 Subseq Hosp Care Lvl 3
[2022-05-18] MEDS ORDERED: AZITHROMYCIN 500 MG in DEXTROSE 5% 250 ML IV ONE (16:23)
[2022-05-18] MEDS ORDERED: ALBUT/IPRATROP 3MG/0.5MG NEB 3 ML VIAL NEB SCH (19:00)
[2022-05-19] MEDS: ALBUT/IPRATROP 3MG/0.5MG NEB 3 ML VIAL NEB PRN ×2 (02:17→10:55)
[2022-05-19] MEDS: HYDROcodone/ACETAMINOPHEN 10/325 TAB PO PRN ×3 (03:59→17:29)
[2022-05-19] MEDS: busPIRone 5 MG TAB PO SCH ×3 (08:01→21:34)
[2022-05-19] MEDS: PANTOprazole 40 MG TAB PO SCH (08:01)
[2022-05-19] MEDS: methylPREDNISolone 60 MG in SYRINGE 0 ML IV SCH (08:01)
[2022-05-19] MEDS: GABAPENTIN 300 MG CAP PO SCH ×2 (08:01→21:34)
[2022-05-19] MEDS: FLUoxetine HCL 20 MG CAP PO SCH (08:01)
[2022-05-19] MEDS: SPIRONOLACTONE 25 MG TAB PO SCH (08:01)
[2022-05-19] MEDS: LOSARTAN POTASSIUM 25 MG TAB PO SCH (08:02)
[2022-05-19] MEDS: amLODIPine BESYLATE 5 MG TAB PO SCH (08:02)
[2022-05-19] MEDS: OXYBUTYNIN CHLORIDE XL 5 MG TABCR PO SCH (08:02)
[2022-05-19] MEDS: FLUTICASONE/VILANTEROL 100/25MCG 14 PUFFS/INHALER INH SCH (08:02)
[2022-05-19] MEDS: ENOXAPARIN INJ 40 MG/0.4 ML SYR SQ SCH (08:03)
[2022-05-19] MEDS: LIDOCAINE 5% 1 PATCH TD SCH (08:50)
[2022-05-19 09:13] LABS: Hematocrit (blood only) 37.1 % (34.1-44.9); Hemoglobin 12.2 g/dl (12.0-16.0); Mean Corpuscular Hemoglobin 30.7 pg (25.0-34.0); Mean Corpuscular Hgb Conc 32.9 g/dL (32.0-36.0); Mean Corpuscular Volume 93.2 fL (80.0-100.0); Mean Platelet Volume 11.2 fL (9.4-12.3); Nucleated RBC # (auto) 0.05 K/uL (0-0); Nucleated RBC % (auto) 0.3 %; Platelet Count 85 K/uL (130-400); RDW Coefficient of Variation 18.2 % (11.5-14.5); RDW Standard Deviation 61.5 fL (36.4-46.3); Red Blood Count 3.98 M/uL (3.93-5.22); White Blood Count 18.15 K/ul (4.8-10.8)
[2022-05-19 09:31] LABS: Albumin Globulin Ratio 1.7 (0.9-2); Albumin Level 3.7 gm/dl (3.4-5.0); BUN Creatinine Ratio 33.3 (10-20); Bilirubin,Total 0.5 mg/dl (0.2-1.0); Calcium 8.8 mg/dl (8.5-10.1); Est GFR (African American) 117.8 ml/min; Est GFR (Non-African American) 101.6 ml/min; Globulin 2.2 gm/dl (2.5-4.0); Potassium 4.1 mmol/L (3.5-5.1); Total Protein 5.9 gm/dl (6.0-8.3)
[2022-05-19 10:08] LABS: Basophils # (auto) 0.08 K/uL (0-0.2); Basophils % (auto) 0.4 %; Eosinophils # (auto) 0.09 K/uL (0-0.50); Eosinophils % (auto) 0.5 %; Immature Granulocytes # (auto) 1.62 K/uL (0.00-0.02); Immature Granulocytes % (auto) 8.9 %; Lymphocytes # (auto) 1.51 K/uL (1.2-3.4); Lymphocytes % (auto) 8.3 %; Monocytes # (auto) 1.02 K/uL (0.24-0.82); Monocytes % (auto) 5.6 %; Neutrophils # (auto) 13.83 K/uL (1.4-6.5); Neutrophils % (auto) 76.3 %
--- NOTE | 2022-05-19 10:52 | Pulmonary Consultation ---
Date of Consultation May 19, 2022 Assessment & Plan (1) Abnormal chest CT: (2) Acute respiratory failure with hypoxia: (3) Acute exacerbation of chronic obstructive pulmonary disease: (4) Current smoker: Plan Chest x-ray 05/16/2022 personally reviewed: Portable film, good respiratory effort, scoliosis appreciated, bilateral costophrenic and cardiophrenic angles are clean. No clear lung infiltrate appreciated CT chest 05/19/2022 personally reviewed: Patchy groundglass opacities appreciated bilaterally in the upper lobes Moderate right and small left-sided pleural effusion Atelectasis of the right lower lobe Mediastinal lymphadenopathy especially station 4R --Abnormal chest CT Patient seems to have patchy opacities in bilateral upper lobes She also has bilateral pleural effusion COVID-19 NAAT negative BNP 313 Pulmonary edema can give similar picture Upper lobe groundglass opacities of/fibrosis could be seen in hypersensitivity pneumonitis especially given that the patient has [employer] bird at home. Unfortunately there is no previous CAT scan to compare. BENY has already been ordered by the primary team. Add rheumatoid factor, anti-CCP to it Mycoplasma IgM as well as Legionella antigen in the urine ordered Patient will need repeat CT chest in 2-3 months -- Bilateral pleural effusion Moderate on the right BNP in the 300s Patient does have high blood pressure which is difficult to control along with grade 2 diastolic dysfunction At the bedside reason why patient is having pleural effusion Diuresis as tolerated per the primary team Plan: Diuresis as tolerated Better control of the blood pressure BiPAP nightly and as needed shortness of breath help with the pleural effusion as well as hypoxia Bio fire as well as mycoplasma and Legionella ordered Case was discussed with Dr. Carrera Please note the above document was generated using voice recognition software. It may contain grammatical, syntax or spelling errors.Any formal questions or concerns about the content, text or information contained within the body of this dictation should be directly addressed to the provider for clarification. History of Present Illness Attending Physician: Ann Marie Reed MD History of Present Illness 66 old female who was admitted to ICU because of severe hypokalemia. She was taking a lot of Benadryl pills a week prior to presentation along with hydrocodone. Because of the rash that she had, primary team has talked with rheumatology who thought that this could be a vasculitis type picture and they wanted to rule out if there is any pulmonary involvement from it. Pulmonary consulted for above At the time of examination patient she has been having issues with breathing on and off for a while. It got worse after she came into the hospital. Denies any chest pain. She had tried BiPAP and it did help her with breathing Denies any headache, no nausea, no vomiting Does complain of significant itching still. No fever or chills. No dysuria, no diarrhea. Patient does not recall any tick bite. No recent travel history. No personal family history of any autoimmune disease like lupus, sarcoid, Sjogren's, rheumatoid No Raynaud's phenomena Social history: 75-nkoa-psky smoking history Pets: 2 dogs. 1 Amazon parrot at home Allergies Allergy/AdvReac Type Severity Reaction Status Date / Time bee venom protein (honey bee) Allergy Unknown eyes and Verified 11/12/21 09:22 throat swell Home Medications Medication Instructions Recorded Confirmed Type TENS units #1 ea 11/12/21 05/16/22 Rx albuterol sulfate 90 mcg/actuation 2 puff inhalation Q6H PRN 11/12/21 05/16/22 Rx aerosol inhaler shortness of breath or wheezing #8.5 grams buspirone 10 mg tablet 10 mg PO TID PRN anxiety #90 tabs 11/12/21 05/16/22 Rx fluoxetine 40 mg capsule 40 mg PO DAILY 11/12/21 05/16/22 History omeprazole 40 mg capsule,delayed 40 mg PO DAILY PRN GERD #90 caps 11/12/21 05/16/22 Rx release gabapentin 300 mg capsule 300 mg PO BID #60 caps 12/12/21 05/16/22 Rx buspirone 5 mg tablet 5 mg PO TID #90 tabs 03/27/22 05/16/22 Rx oxybutynin chloride 10 mg 10 mg PO DAILY #30 tabs 03/27/22 05/16/22 Rx tablet,extended release 24 hr losartan 25 mg tablet 25 mg PO DAILY #90 tabs 03/31/22 05/16/22 Rx fluticasone propionate 50 2 spray intranasal HS #16 grams 04/24/22 05/16/22 Rx mcg/actuation nasal spray,suspension (Flonase Allergy Relief) guaifenesin 600 mg tablet, 600 mg PO Q12H PRN congestion #60 04/24/22 05/16/22 Rx extended release 12 hr (Mucinex) tabs hydrocodone 10 mg-acetaminophen 1 tab PO Q6H PRN pain #120 tabs 04/24/22 05/16/22 Rx 325 mg tablet epinephrine 0.3 mg/0.3 mL 0.3 mg IM UD PRN Allergic Reaction 05/16/22 05/16/22 History injection, auto-injector Patient History Medical History Dizziness HTN (hypertension), benign Hypertensive urgency Hypokalemia Sinus infection Surgical History H/O gastric bypass H/O gastric bypass H/O hernia repair H/O tubal ligation Hx of tonsillectomy Family History Mother Hypertension Father Hypertension Denies family history of Ovarian cancer Prostate cancer Diabetes Myocardial infarction Breast cancer Colorectal cancer Social History Smoking Status: Former smoker Tobacco Type: Cigarettes Cigarettes Per Day: 20; Second Hand Exposure: No; Hx Alcohol Use: No Hx Substance Use: No Preferred Language: Upper Sorbian Communication Ability: Effective Ladle Cleaner Required: No Beliefs That Will Affect Care: None marital status: Single Current Living Situation: Alone current occupational status: employed current occupation: owns a [employer] Feels Safe at Home: Yes caffeine: Yes (coffee ) Dental Care, Regularly: Yes Physical Activity Frequency: Does not Exercise Seatbelt Use: always Sunscreen Use: Yes Assistive Devices: None Review of Systems Review of Systems: All systems reviewed & are unremarkable except as noted in HPI & below Physical Exam Physical Exam: Constitutional: No acute distress HEENT: EOMI, PERRLA Respiratory system: Decreased air entry bilaterally, no rhonchi, positive wheeze bilaterally, positive crackles bilateral lower lobes CVS: S1-S2 positive, no murmurs or gallops Abdomen: Soft, nontender, nondistended, positive bowel sounds x4 Extremities: +2 pulses bilaterally radialis/ dorsalis pedis, no cyanosis, no edema Neuro: Awake alert oriented x3 Psych: Normal mood and affect G/U: No Fernandez Skin: Macular rash appreciated with superficial bruising likely from scratching bilateral upper and lower extremities Lymphatic: no cervical or axillary lymphadenopathy Results & Data Results & Data ([facility]) Vital Signs (Past 12 Hours) Vital Signs Temp Pulse Pulse Resp BP BP Pulse Ox 05/19/22 07:25 36.7 C 98 H 18 213/142 H 94 05/19/22 07:35 207/143 H 05/19/22 07:46 198/138 H 05/19/22 02:17 104 H 22 94 05/18/22 23:22 88 18 185/116 H 95 05/18/22 23:15 36.9 C 89 20 188/117 H 93 O2 Del Method O2 Flow Rate 05/19/22 07:25 2.5 05/19/22 07:35 05/19/22 07:46 05/19/22 02:17 Nasal Cannula 3 05/18/22 23:22 Nasal Cannula 2 05/18/22 23:15 Nasal Cannula 2 Laboratory Results 05/19/22 08:35 05/19/22 08:35 PG Care Time/CCT Total # of Minutes Spent Total Time Spent with Patient: Total time spent is greater than 50% in coordination of care (as documented) at patient's floor/unit and/or counseling patient: Coding Level of Care Code 05123 Initial Inpt Care Lvl [address] R93.89 Acute respiratory failure with hypoxia J96.01 Acute exacerbation of chronic obstructive pulmonary disease J44.1 Current smoker F17.200
--- NOTE | 2022-05-19 11:49 | XRay Report ---
XR chest 2V PA/lateral CLINICAL HISTORY: Dyspnea. has vasculitis w/ concern for pulmonary involvement. COMPARISON STUDY: Chest radiograph May 16, 2022. FINDINGS: Mild cardiomegaly is noted. Interstitial thickening has developed. Small to moderate right and small left pleural effusions have also developed since chest radiograph May 16, 2022. Old right- sided rib fractures are incidentally noted. There is no pneumothorax. Patchy airspace opacities are m ore evident within the right lung. IMPRESSION: 1. Interval development of small to moderate right and small left pleural effusions. 2. Interval development of interstitial thickening and patchy bilateral airspace opacities, greater w ithin the right lung. The appearance favors pulmonary edema however vasculitis could result in a jaun lar imaging appearance. ACT 112: Negative or not required by law. Electronically signed by: Peter Arzate M.D. 05/19/2022 11:47 AM
--- NOTE | 2022-05-19 11:57 | CT Scan Report ---
CT OF THE CHEST WITHOUT IV CONTRAST CLINICAL HISTORY: Dyspnea. History of vasculitis. Evaluate for infiltrate. COMPARISON STUDY: Chest radiograph May 16, 2022. CT DOSE: 198.99 mGy.cm TECHNIQUE: Axial images of the chest were obtained without IV contrast. Images were reviewed in the axial, sagittal, and coronal planes. IV contrast was not administered for this examination. Automat ed exposure control was utilized for the study. A dose lowering technique was utilized adhering to t he principles of ALARA. FINDINGS: No enlarged axillary, mediastinal or hilar lymph nodes are present. There is mild cardiome gisela. No pericardial effusion is noted. Small to moderate right and small left pleural effusions are present. These have developed since prior chest radiograph. Segmental right lower lobe airspace opaci ty is noted. This likely reflects compressive atelectasis. There is no pneumothorax. Interlobular sep sourav thickening is most evident within the right upper lobe. Moderate multifocal airspace opacities wi thin the upper lobes has also developed since prior chest radiograph. Old bilateral rib fractures are noted. No acute fracture or suspicious lesion is identified within the visualized bony thorax. Body wall edema is noted. Gastric bypass is partially imaged. Fat-containing ventral hernias are incidenta lly noted. Indeterminate but statistically benign 2 cm left adrenal gland nodule is present. IMPRESSION: 1. Interval development of small to moderate and small left pleural effusions. Segmental right lower lobe airspace opacity likely reflects compressive atelectasis. However, a follow-up chest CT in 3 mon ths to ensure resolution is recommended. No central obstructing mass. 2. Interlobular septal thickening suggestive of interstitial pulmonary edema. Multifocal bilateral up per lobe airspace opacities. These are nonspecific and could reflect alveolar edema or an infectious process. Although statistically less likely, vasculitis could result in a similar imaging appearance. ACT 112: Negative or not required by law. Electronically signed by: Peter Arzate M.D. 05/19/2022 11:56 AM
--- NOTE | 2022-05-19 13:35 | XCELERA ---
[id number] \\[id number]
[2022-05-19] MEDS ORDERED: BUDESONIDE 0.5 MG/2 ML VIAL (PULMICORT) NEB STA (14:21)
[2022-05-19] MEDS ORDERED: ALBUT/IPRATROP 3MG/0.5MG NEB 3 ML VIAL NEB STA (14:21)
[2022-05-19] MEDS ORDERED: DICLOFENAC SOD 1% GEL 100 GM TUBE EXT STA (14:25)
[2022-05-19] MEDS ORDERED: FUROSEMIDE 40 MG/4 ML VIAL IV STA (14:45)
[2022-05-19] MEDS ORDERED: hydrALAZINE HCL 20 MG/ML VIAL IV STA ×2 (14:48→15:58)
--- NOTE | 2022-05-19 15:17 | Hospitalist Progress Note ---
Date of Service May 19, 2022 Assessment & Plan (1) Acute hypokalemia: (2) Pruritic rash: (3) Metabolic alkalosis: (4) HTN (hypertension), benign: (5) Asthma: (6) Leukocytosis: (7) Blood bacterial culture positive: (8) Back pain: (9) Anxiety: (10) Depression: Plan Ms. Meza is a 66 y.o. female who presented to the ED via ambulance on 05/16 for SOB and a pruritic rash. She recently was in the ED on 05/04 for similar issue, was given dexamethasone and told to stop Flonase. For the past week she has taken 90-100 Benadryl pills along with her hydrocodone and has not taken any of her other prescribed medications. She recently quit smoking 1 month ago. #Acute hypoxic resp failure -continue nasal canula. Bipap at night if needed - per pul -etiology - ? sec to fluid overload/copd exacerbation/pul hemorrhage. -Pul consulted for concern of vasculitic pul bleed. -BENY has already been ordered by the primary team. -Add rheumatoid factor, anti-CCP to it -Biofire -Mycoplasma IgM as well as Legionella antigen in the urine ordered -Patient will need repeat CT chest in 2-3 months -Continue 60mg solumedrol IV -CT showed small to moderate L pleural effusions. -Difficulty controlling BP. 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 If need be, rheumatology can be officially consulted. -Labs pending for ANCA, BENY -Diclofenac Sodium was ordered for pain but patient refused. -Patient is currently on hydrocodone/acetaminophen 10/325 prn every 6 hours for chronic pain that she takes every hour. Patient's pain control for her rash may be hard to manage d/t the patient taking such a high dose. Was recently increased from 7.5 to 10 back on 03/26 by her PCP. #Hypertension -Continue amlodipine, losartan, spironolactone -BP has been elevated since admission (205/145 @ 15:18) -Patient not having any signs of HTN urgency, though they may be masked by her current conditions. -Given hydralazine 5mg once and then 10mg once. -Will continue to monitor and prn hydralazine can be used for BP above 200 or patient is having HTN urgency symptoms. #Thrombocytopenia -Most likely related to vasculitics -Watch and wait to see if any intervention is needed. #Back pain -Given lidocaine patch. Pain improved. #Metabolic Alkalosis -ABG still showed patient is alkalotic but is improving. -?sec to diarrheal loss due to gastric bypass surgery -Will continue to trend labs and follow closely. #Hypokalemia (resolved) -Possibly correlated to poor PO intake, does not have likely GI cause as chronic diarrhea is related to anatomy from prior gastric bypass surgery. -K normal today. -Following serial labs #Positive Blood culture -One tube grew Coag neg staph, the other tube is NGTD. -Most likely contaminate. #Anxiety #Depression -Continue at home buspar, fluoxetine, diet/fluid status: heart healthy Code status: full DVT prop: SCDs ordered Dispo: med surg Thank you for allowing me to participate in the care of your patient. -Dr. Benny Garcia PGY1 Admission and Anticipated Discharge Date Admission Date: May 16, 2022 Supervising Physician Co-Signing Physician Notes Resident Physician Supervision Note: I independently interviewed and examined the patient and verified the zavala history and physical, reviewed labs and image studies and agree with resident Dr. Garcia findings and care plan. Subjective Patient was seen bedside this AM. She c/o back pain that is causing her not to get much sleep. She states that she has been on Vicodin for 20 years for her back pain. She refused to address any other issues at this time until her back pain resolved. The patient was then given a lidocaine patch which helped the pain. The patient was then seen later in the morning where she c/o SOB and pain all over. She has been having SOB since her admission but today it has gotten worse even after her neubulizer treatment. Her pain is also much worse today. It covers her whole body but is mostly in her legs. Review of Systems Review of Systems: All systems reviewed & are unremarkable except as noted in HPI & below Constitutional: + weakness Respiratory: + dyspnea Musculoskeletal: + back pain and + joint pain Integumentary: + rash, + bleeding lesions, + pruritus and + skin swelling Physical Exam Constitutional: + acute distress and + disheveled Eyes: PERRL, conjunctivae normal, anicteric sclerae ENMT: external ear and nose normal, oropharynx normal Respiratory: + labored breathing Auscultation: + wheezes (Bilateral ) Cardiovascular: RRR, no murmur, no edema Gastrointestinal (Abdomen): normal bowel sounds, soft, nontender, no hepatosplenomegaly Skin: + excoriations (Bl UE and LE ) and + purpura Results & Data Results & Data ([facility]) Vital Signs (Past 12 Hours) Vital Signs Temp Pulse Resp BP BP Pulse Ox O2 Del Method 05/19/22 13:07 111 H 175/109 H 05/19/22 10:55 103 H 22 97 Nasal Cannula 05/19/22 07:40 Nasal Cannula 05/19/22 07:25 36.7 C 98 H 18 213/142 H 94 05/19/22 07:35 207/143 H 05/19/22 07:46 198/138 H O2 Flow Rate 05/19/22 13:07 05/19/22 10:55 2 05/19/22 07:40 2 05/19/22 07:25 2.5 05/19/22 07:35 05/19/22 07:46 Resident Activity Tracking Resident Involvement: Resident Care Provided Care Provided: Adult [facility] Medicine
[2022-05-19 16:53] LABS: Adenovirus PCR Not Detected (NotDetected); Bordetella parapertussis PCR Not Detected (NotDetected); Bordetella pertussis PCR Not Detected (NotDetected); Chlamydia pneumoniae PCR Not Detected (NotDetected); Coronavirus 229E PCR Not Detected (NotDetected); Coronavirus CoV-2 (COVID19)PCR Not Detected (NotDetected); Coronavirus HKU1 PCR Not Detected (NotDetected); Coronavirus NL63 PCR Not Detected (NotDetected); Coronavirus OC43PCR Not Detected (NotDetected); Human Metapneumovirus PCR Not Detected (NotDetected); Influenza A PCR Not Detected (NotDetected); Influenza B PCR Not Detected (NotDetected); Mycoplasma pneumoniae PCR Not Detected (NotDetected); Parainfluenza Virus 1 PCR Not Detected (NotDetected); Parainfluenza Virus 2 PCR Not Detected (NotDetected); Parainfluenza Virus 3 PCR Not Detected (NotDetected); Parainfluenza Virus 4 PCR Not Detected (NotDetected); Respiratory Syncytial VirusPCR Not Detected (NotDetected); Rhinovirus/Enterovirus PCR Not Detected (NotDetected)
[2022-05-19] MEDS: AZITHROMYCIN 250 MG in DEXTROSE 5% 250 ML IV SCH (17:29)
[2022-05-19] MEDS: ALBUT/IPRATROP 3MG/0.5MG NEB 3 ML VIAL NEB SCH (20:14)
[2022-05-19] MEDS: carvediloL 6.25 MG TAB PO SCH (21:30)
[2022-05-19] MEDS: FUROSEMIDE 40 MG/4 ML VIAL IV SCH (21:30)
[2022-05-19] MEDS ORDERED: hydrALAZINE HCL 20 MG/ML VIAL IV ONE (23:30)
[2022-05-20] MEDS: ALBUT/IPRATROP 3MG/0.5MG NEB 3 ML VIAL NEB PRN ×2 (02:50→10:02)
[2022-05-20 06:36] LABS: BUN Creatinine Ratio 32.7 (10-20); Creatinine Clr Calc Pharmacy 83.3 ml/min; Est GFR (African American) 119.3 ml/min; Potassium 2.6 mmol/L (3.5-5.1)
[2022-05-20] MEDS: HYDROcodone/ACETAMINOPHEN 10/325 TAB PO PRN ×2 (06:39→16:23)
[2022-05-20 06:45] LABS: Hematocrit (blood only) 33.5 % (34.1-44.9); Hemoglobin 11.3 g/dl (12.0-16.0); Mean Corpuscular Hemoglobin 30.1 pg (25.0-34.0); Mean Corpuscular Hgb Conc 33.7 g/dL (32.0-36.0); Mean Corpuscular Volume 89.3 fL (80.0-100.0); Mean Platelet Volume 11.3 fL (9.4-12.3); Nucleated RBC # (auto) 0.13 K/uL (0-0); Nucleated RBC % (auto) 0.9 %; Platelet Count 59 K/uL (130-400); RDW Coefficient of Variation 17.5 % (11.5-14.5); RDW Standard Deviation 57.1 fL (36.4-46.3); Red Blood Count 3.75 M/uL (3.93-5.22); White Blood Count 14.03 K/ul (4.8-10.8)
[2022-05-20] MEDS ORDERED: POTASSIUM CHLORIDE CRTAB 20 MEQ TABCR PO STA ×2 (06:56→17:07)
--- NOTE | 2022-05-20 07:06 | Hospitalist Progress Note ---
Date of Service May 20, 2022 Assessment & Plan (1) Acute hypokalemia: (2) Pruritic rash: (3) Metabolic alkalosis: (4) HTN (hypertension), benign: (5) Asthma: (6) Leukocytosis: (7) Blood bacterial culture positive: (8) Back pain: (9) Anxiety: (10) Depression: (11) Hematuria: Plan Ms. Meza is a 66 y.o. female who presented to the ED via ambulance on 05/16 for SOB and a pruritic rash. She recently was in the ED on 05/04 for similar issue, was given dexamethasone and told to stop Flonase. For the past week she has taken 90-100 Benadryl pills along with her hydrocodone and has not taken any of her other prescribed medications. She recently quit smoking 1 month ago. #Acute hypoxic resp failure -continue nasal canula. Bipap at night if needed - per pul -etiology - ? sec to fluid overload/copd exacerbation/pul hemorrhage. - CTA chest to r/o PE ordered Acute diastolic CHF treated with IV Lasix -CT showed small to moderate L pleural effusions. -Difficulty controlling BP. likely with underlying diastolic dysfunction -diurese Lasix IV 40 BID -ECHO ordered and showed EF 55-60% with diastolic dysfunction (Grade II) -~7lb weight loss. monitor I and Os. -continue diuresis. Possible Pul vasculitis/copd exacerbation -Pul consulted for concern of vasculitic pul bleed. -BENY has already been ordered by the primary team. -Add rheumatoid factor, anti-CCP to it -Biofire is negative to date, though pending more results. -Mycoplasma IgM as well as Legionella antigen in the urine ordered -Patient will need repeat CT chest in 2-3 months -Continue 60mg solumedrol IV - increase to q12hrs -Change DuoNeb from Prn to scheduled BID -Continue Azithromycin -Continue using incentive spirometry -Pneumo screen ordered today. Results pending. -Start Mucinex 600mg Q12 #Metabolic Alkalosis -Repeat ABG this afternoon showed pH of 7.66, HCo3 of 44, and p02 of 76. -worsening. unclear etiology. -Nephrology consulted placed and appreciate recommendations -Urine potassium was 59 and urine chloride was 78. CT ab/pelvis ordered, pending results. 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 If need be, rheumatology can be officially consulted. -Labs pending for ANCA, BENY -Diclofenac Sodium was ordered for pain but patient refused. -Patient is currently on hydrocodone/acetaminophen 10/325 prn every 6 hours for chronic pain that she takes every hour. Patient's pain control for her rash may be hard to manage d/t the patient taking such a high dose. Was recently increased from 7.5 to 10 back on 03/26 by her PCP. #Hypertension -BP has been elevated since admission. no sign of hypertensive urgency -Continue amlodipine, losartan, -Hold spironolactone due to metabolic imbalance. -Start carvedilol 6.25 mg BID. -continue prn hydralazine. -d/t to HTN not being well controlled despite intervention. Will consider Conn syndrome and pheochromocytoma as possible etiologies. Renin and aldosterone are still pending. #Thrombocytopenia -Most likely related to vasculitics -platelet counts has been progressively decreasing -yesterday 85 -->this morning 59 --> this afternoon 49 -Ordered peripheral smear and retic count are pending results. #Back pain -Given lidocaine patch. Pain improved. #hematuria -Patient reports that she has had blood in her urine -Repeat UA today showed 3+ blood, 3+ protein, 30 epithelia cells, with a urine pH of 8.0 -?concern of GN but renal function normal. -Nephrology was consulted, appreciate recommendations. #Hypokalemia -Possibly correlated to poor PO intake and prior gastric bypass surgery. -Patient has not had any episodes of diarrhea recently and just had a BM for the first time in "12 days" -K was 2.6, Given two doses of 40mg KCl. Repeat BMP showed continue hypokalemia of 2.6 #Positive Blood culture -One tube grew Coag neg staph, the other tube is NGTD. -Most likely contaminate. #Anxiety #Depression -Continue at home buspar, fluoxetine, diet/fluid status: heart healthy Code status: full DVT prop: SCDs ordered Dispo: med surg Thank you for allowing me to participate in the care of your patient. -Dr. Benny Garcia PGY1 Admission and Anticipated Discharge Date Admission Date: May 16, 2022 Supervising Physician Co-Signing Physician Notes Resident Physician Supervision Note: I independently interviewed and examined the patient and verified the zavala history and physical, reviewed labs and image studies and agree with resident Dr. Garcia findings and care plan. Subjective Patient was seen bedside this AM. Patient states that she is doing a lot better today. She has been able to sleep and had a BM for the first time in "12 days". She does state that she notices blood in her urine but denies dysuria or urgency. She denies CP, N/V, or ab pain. She requests to use her albuterol inhaler. Review of Systems Review of Systems: All systems reviewed & are unremarkable except as noted in HPI & below Physical Exam Constitutional: WD/WN, vitals as above cooperative and comfortable Eyes: PERRL, conjunctivae normal, anicteric sclerae ENMT: external ear and nose normal, oropharynx normal Respiratory: normal respiratory effort, lungs clear to auscultation normal respiratory effort Auscultation: + wheezes (Bilateral UL ) Cardiovascular: RRR, no murmur, no edema Gastrointestinal (Abdomen): normal bowel sounds, soft, nontender, no hepatosplenomegaly Musculoskeletal: no cyanosis or clubbing, extremities motor strength 5/5 Skin: + excoriations (Bl UE and LE ) and + purpura Psychiatric: A+Ox3, euthymic affect Results & Data Results & Data ([facility]) Vital Signs (Past 12 Hours) Vital Signs Pulse Resp BP Pulse Ox O2 Del Method O2 Flow Rate 05/20/22 02:51 102 H 22 94 Nasal Cannula 1 05/19/22 19:47 Nasal Cannula 2 05/20/22 00:15 99 H 20 173/104 H 89 L Room Air 05/19/22 23:14 113 H 20 182/110 H 90 Room Air 05/19/22 20:15 109 H 24 96 Room Air, Nasal Cannula 2 05/19/22 20:03 112 H 20 183/120 H 97 Nasal Cannula 2 05/19/22 19:46 120 H 25 H 188/133 H 94 Nasal Cannula 2 05/19/22 19:45 133 H 30 H 86 L Room Air Resident Activity Tracking Resident Involvement: Resident Care Provided Care Provided: Adult [facility] Medicine
[2022-05-20] MEDS: ALBUT/IPRATROP 3MG/0.5MG NEB 3 ML VIAL NEB SCH ×3 (07:32→19:28)
[2022-05-20 07:37] LABS: Codeine Urine NEGATIVE ng/mL (<50); Hydrocodone Urine 79 ng/mL (<50); Hydromor Urine NEGATIVE ng/mL (<50); Morphine Urine NEGATIVE ng/mL (<50); Norhydrocodone Conf Ur 658 ng/mL (<50); Noroxycodone Urine NEGATIVE ng/mL (<50); Oxycodone Urine NEGATIVE ng/mL (<50); Oxymorph Urine NEGATIVE ng/mL (<50)
[2022-05-20] MEDS: PANTOprazole 40 MG TAB PO SCH (08:07)
[2022-05-20] MEDS: SPIRONOLACTONE 25 MG TAB PO SCH (08:07)
[2022-05-20] MEDS: FUROSEMIDE 40 MG/4 ML VIAL IV SCH (08:07)
[2022-05-20] MEDS: OXYBUTYNIN CHLORIDE XL 5 MG TABCR PO SCH (08:07)
[2022-05-20] MEDS: methylPREDNISolone 60 MG in SYRINGE 0 ML IV SCH (08:07)
[2022-05-20] MEDS: ENOXAPARIN INJ 40 MG/0.4 ML SYR SQ SCH (08:07)
[2022-05-20] MEDS: FLUTICASONE/VILANTEROL 100/25MCG 14 PUFFS/INHALER INH SCH (08:07)
[2022-05-20] MEDS: amLODIPine BESYLATE 5 MG TAB PO SCH (08:08)
[2022-05-20] MEDS: carvediloL 6.25 MG TAB PO SCH ×2 (08:08→20:03)
[2022-05-20] MEDS: FLUoxetine HCL 20 MG CAP PO SCH (08:08)
[2022-05-20] MEDS: LOSARTAN POTASSIUM 25 MG TAB PO SCH (08:08)
[2022-05-20] MEDS: GABAPENTIN 300 MG CAP PO SCH ×2 (08:08→20:03)
[2022-05-20] MEDS: busPIRone 5 MG TAB PO SCH ×3 (08:08→20:03)
[2022-05-20] MEDS: LIDOCAINE 5% 1 PATCH TD SCH (08:08)
[2022-05-20] MEDS ORDERED: POTASSIUM CHLORIDE CRTAB 20 MEQ TABCR PO ONE (12:00)
--- NOTE | 2022-05-20 13:09 | Pulmonology Progress Note ---
Date of Service May 20, 2022 Assessment & Plan (1) Abnormal chest CT: (2) Acute respiratory failure with hypoxia: (3) Acute exacerbation of chronic obstructive pulmonary disease: (4) Current smoker: Plan Chest x-ray 05/16/2022 personally reviewed: Portable film, good respiratory effort, scoliosis appreciated, bilateral costophrenic and cardiophrenic angles are clean. No clear lung infiltrate appreciated CT chest 05/19/2022 personally reviewed: Patchy groundglass opacities appreciated bilaterally in the upper lobes Moderate right and small left-sided pleural effusion Atelectasis of the right lower lobe Mediastinal lymphadenopathy especially station 4R --Abnormal chest CT Patient seems to have patchy opacities in bilateral upper lobes She also has bilateral pleural effusion COVID-19 NAAT negative BNP 313 Respiratory bio fire negative UDS positive for hydrocodone Pulmonary edema can give similar picture Upper lobe groundglass opacities of/fibrosis could be seen in hypersensitivity pneumonitis especially given that the patient has [employer] at home. Unfortunately there is no previous CAT scan to compare. BENY has already been ordered by the primary team. Add rheumatoid factor, anti-CCP to it Mycoplasma IgM as well as Legionella antigen in the urine ordered Patient will need repeat CT chest in 2-3 months --COPD with exacerbation 26-scan-axbb smoking history Not on any inhalers at home Currently on Breo On discharge I would recommend the patient to be on Incruse or Anoro rather than Breo -- Bilateral pleural effusion Moderate on the right BNP in the 300s Patient does have high blood pressure which is difficult to control along with grade 2 diastolic dysfunction At the bedside reason why patient is having pleural effusion Diuresis as tolerated per the primary team --Hypertension Patient presented with hypertension hypokalemia and grade 2 diastolic dysfunction I do think patient's hypertension is chronic. Care as per primary team, rule out Conn syndrome or pheochromocytoma Plan: Increase Solu-Medrol to 40 mg every 12 for active wheezing still. This will help with the rash as well. Continue with diuresis Continue with flutter valve and guaifenesin. Incentive spirometer will also be beneficial. Repeat chest x-ray in the morning Case was discussed with Dr. Carrera Please note the above document was generated using voice recognition software. It may contain grammatical, syntax or spelling errors.Any formal questions or concerns about the content, text or information contained within the body of this dictation should be directly addressed to the provider for clarification. Admission and Anticipated Discharge Date Admission Date: May 16, 2022 Subjective Patient seen and examined at bedside. No acute distress. No adverse events overnight She was on room air saturating 85-86% I put her on 2 L nasal cannula and she was able to maintain a saturation 94% Says that she had hard time breathing last night but she is feeling better today. Denies any chest pain, no headache, no nausea or vomiting Fair appetite. Review of Systems Review of Systems: All systems reviewed & are unremarkable except as noted in Subjective Physical Exam Physical Exam: Constitutional: No acute distress HEENT: EOMI, PERRLA Respiratory system: Decreased air entry bilaterally, no rhonchi, positive wheeze bilaterally, positive crackles bilateral lower lobes CVS: S1-S2 positive, no murmurs or gallops Abdomen: Soft, nontender, nondistended, positive bowel sounds x4 Extremities: +2 pulses bilaterally radialis/ dorsalis pedis, no cyanosis, no edema Neuro: Awake alert oriented x3 Psych: Normal mood and affect G/U: No Fernandez Skin: Macular rash appreciated with superficial bruising likely from scratching bilateral upper and lower extremities Skin: no rashes, warm and dry Lymphatic: no cervical or axillary lymphadenopathy Results & Data Results & Data ([facility]) Vital Signs (Past 12 Hours) Vital Signs Temp Pulse Resp BP BP Pulse Ox O2 Del Method 05/20/22 11:12 36.9 C 92 H 18 161/94 H 95 Nasal Cannula 05/20/22 10:18 Nasal Cannula 05/20/22 10:02 94 H 20 89 L Room Air 05/20/22 07:34 36.9 C 103 H 16 198/122 H 94 Room Air 05/20/22 02:51 102 H 22 94 Nasal Cannula O2 Flow Rate 05/20/22 11:12 2 05/20/22 10:18 2 05/20/22 10:02 05/20/22 07:34 05/20/22 02:51 1 PG Care Time/CCT Total # of Minutes Spent Total Time Spent with Patient: Total time spent is greater than 50% in coordination of care (as documented) at patient's floor/unit and/or counseling patient: Coding Level of Care Code 36691 Subseq Hosp Care Lvl [address] R93.89 Acute respiratory failure with hypoxia J96.01 Acute exacerbation of chronic obstructive pulmonary disease J44.1 Current smoker F17.200
[2022-05-20 15:38] LABS: Appearance Urine Clear (Clear); Bacteria Urine Automated Negative (Negative); Bilirubin Urine Negative (Negative); Blood Urine 3+ (Negative); Color Urine Orange; Epithelial Cell Urine Auto >30 /lpf (0-5); Glucose Urine UA Negative (Negative); Ketones Urine Negative (Negative); Leukocyte Esterase Urine Trace (Negative); Nitrite Urine Negative (Negative); RBC Urine Automated >30 /hpf (0-4); Specific Gravity Urine 1.014 (1.000-1.030); Urobilinogen Urine Negative (Negative)
[2022-05-20 15:40] LABS: Protein Urine 3+ (Negative)
[2022-05-20 16:15] LABS: Reticulocyte % 0.9 % (0.5-2.0); Reticulocytes # 0.03 10^6/uL (0.02-0.10)
[2022-05-20 16:16] LABS: Base Excess ABG 21.3 mEq/L (-9-1.8); HCO3 ABG 44 mmol/L (19-24); Oxygen Saturation ABG 97.3 % (90-95); PCO2 ABG 39 mmHg (35-46); PO2 ABG 76 mmHg (80-95)
[2022-05-20] MEDS: AZITHROMYCIN 250 MG in DEXTROSE 5% 250 ML IV SCH (16:23)
[2022-05-20 16:25] LABS: Allen Test POS (Pos); pH ABG 7.66 (7.35-7.45)
[2022-05-20 16:29] LABS: Partial Thromboplastin Ratio 0.9; Prothrombin Time 10.9 Seconds (9.0-12.0)
[2022-05-20 16:40] LABS: Hematocrit (blood only) 32.5 % (34.1-44.9); Hemoglobin 10.9 g/dl (12.0-16.0); Mean Corpuscular Hemoglobin 30.3 pg (25.0-34.0); Mean Corpuscular Hgb Conc 33.5 g/dL (32.0-36.0); Mean Corpuscular Volume 90.3 fL (80.0-100.0); Mean Platelet Volume 11.7 fL (9.4-12.3); Nucleated RBC # (auto) 0.12 K/uL (0-0); Platelet Count 49 K/uL (130-400); RDW Coefficient of Variation 17.5 % (11.5-14.5); RDW Standard Deviation 58.3 fL (36.4-46.3); White Blood Count 11.82 K/ul (4.8-10.8)
[2022-05-20 16:42] LABS: Basophils # (auto) 0.05 K/uL (0-0.2); Basophils % (auto) 0.4 %; Eosinophils # (auto) 0.03 K/uL (0-0.50); Eosinophils % (auto) 0.3 %; Immature Granulocytes # (auto) 0.92 K/uL (0.00-0.02); Immature Granulocytes % (auto) 7.8 %; Lymphocytes # (auto) 0.99 K/uL (1.2-3.4); Lymphocytes % (auto) 8.4 %; Monocytes # (auto) 0.87 K/uL (0.24-0.82); Monocytes % (auto) 7.4 %; Neutrophils # (auto) 8.96 K/uL (1.4-6.5); Neutrophils % (auto) 75.7 %; Platelet Estimate Decreased (Normal)
[2022-05-20] MEDS ORDERED: SPIRONOLACTONE 25 MG TAB PO ONE (16:54)
[2022-05-20 17:03] LABS: BUN Creatinine Ratio 38.6 (10-20); Bilirubin Direct 0.1 mg/dl (0-0.2); Bilirubin,Total 0.6 mg/dl (0.2-1.0); Calcium 8.4 mg/dl (8.5-10.1); Creatinine Clr Calc Pharmacy 78.2 ml/min; Est GFR (African American) 113.5 ml/min; Magnesium 1.7 mg/dl (1.7-2.4); Potassium 2.6 mmol/L (3.5-5.1)
[2022-05-20] MEDS: POTASSIUM CHLORIDE / WTR 10 MEQ/100 ML PLCT IV SCH ×2 (18:36→19:59)
[2022-05-20] MEDS: guaiFENesin 600 MG TABCR PO SCH (20:04)
[2022-05-20] MEDS ORDERED: methylPREDNISolone 60 MG in SYRINGE 0 ML IV SCH (21:00)
[2022-05-20] MEDS ORDERED: methylPREDNISolone 40 MG in SYRINGE 0 ML IV SCH (21:00)
[2022-05-20] MEDS ORDERED: OPTIRAY 320 100ml IV ONE (22:05)
[2022-05-20 23:42] LABS: BUN Creatinine Ratio 38.6 (10-20); Calcium 7.9 mg/dl (8.5-10.1); Creatinine Clr Calc Pharmacy 101.3 ml/min; Est GFR (African American) 123.6 ml/min; Est GFR (Non-African American) 106.7 ml/min; Potassium 2.9 mmol/L (3.5-5.1)
[2022-05-21] MEDS ORDERED: MAGNESIUM OXIDE 400 MG TAB PO SCH (00:05)
[2022-05-21] MEDS: POTASSIUM CHLORIDE CRTAB 20 MEQ TABCR PO SCH ×4 (00:20→06:26)
[2022-05-21] MEDS: ALBUT/IPRATROP 3MG/0.5MG NEB 3 ML VIAL NEB PRN ×2 (01:19→11:43)
--- NOTE | 2022-05-21 06:12 | Communication Note ---
Date of Service: May 21, 2022 Night resident note Per repeat BMP (05/20 at 23:00), patient remained severely hypokalemic, though with a minor improvement in K (from 2.6 to 2.9). Patient was asymptomatic, BP remained elevated at 170s/100s, HR and RR acceptable, afebrile, oxygen saturation adequate on 2L NC. Ordered KCl 20mEq PO q2h scheduled (x4 doses) Ordered magnesium oxide 400mg (x1 dose) as well as 400mg qd scheduled Stat EKG which was notable for QTc prolongation to 525 which represented a worsening from last EKG (05/16) Transferred to med/surg tele for cardiac monitoring given severe hypokalemia, QTc prolongation Repeat BMP with AM labs, again at noon (which will be four hours after final KCl 20mEq PO dose) Ordered daily EKG and daily serum magnesium level, continue daily BMP Made some med regimen adjustments based on todays progress notes: Changed solumedro dose/frequency to 40mg IV bid (per Dr. Mojica's recommendation in his 05/20 pulmonary consultation note) Held spironolactone (given the overall unclear etiology of patient's current clinical picture, per 05/20 hospitalist progress note) Added HbA1c and lipid profile (no prior on record) Ordered PT/OT given lengthy hospital stay without clear DC plan Shahid Castillo, PGY-3 Resident Activity Tracking Resident Involvement: Resident Care Provided and Head Of Ethics And Compliance Coverage Note Care Provided: Adult Hospital Medicine
[2022-05-21] MEDS: hydrALAZINE HCL 20 MG/ML VIAL IV PRN (06:18)
[2022-05-21] MEDS: HYDROcodone/ACETAMINOPHEN 10/325 TAB PO PRN ×3 (06:25→23:58)
[2022-05-21 06:38] LABS: BUN Creatinine Ratio 39.5 (10-20); Calcium 8.2 mg/dl (8.5-10.1); Creatinine Clr Calc Pharmacy 103.7 ml/min; Est GFR (African American) 124.6 ml/min; Est GFR (Non-African American) 107.5 ml/min; Magnesium 1.8 mg/dl (1.7-2.4); Potassium 3.2 mmol/L (3.5-5.1)
[2022-05-21 07:04] LABS: Hemoglobin 9.9 g/dl (12.0-16.0); Mean Corpuscular Hemoglobin 30.7 pg (25.0-34.0); Mean Corpuscular Hgb Conc 34.1 g/dL (32.0-36.0); Mean Corpuscular Volume 89.8 fL (80.0-100.0); Mean Platelet Volume 11.5 fL (9.4-12.3); Nucleated RBC % (auto) 0.9 %; Platelet Count 45 K/uL (130-400); RDW Coefficient of Variation 17.4 % (11.5-14.5); RDW Standard Deviation 57.6 fL (36.4-46.3); Red Blood Count 3.23 M/uL (3.93-5.22); White Blood Count 10.75 K/ul (4.8-10.8)
[2022-05-21] MEDS: ALBUT/IPRATROP 3MG/0.5MG NEB 3 ML VIAL NEB SCH ×3 (07:06→19:37)
[2022-05-21] MEDS ORDERED: MAGNESIUM SULFATE / D5W 1 GM/100 ML BAG IV ONE (07:15)
[2022-05-21 08:11] LABS: Estimated Average Glucose 126 mg/dl
[2022-05-21] MEDS: POTASSIUM CHLORIDE / WTR 10 MEQ/100 ML PLCT IV SCH ×4 (08:25→18:43)
[2022-05-21] MEDS: OXYBUTYNIN CHLORIDE XL 5 MG TABCR PO SCH (08:28)
[2022-05-21] MEDS: carvediloL 6.25 MG TAB PO SCH (08:28)
[2022-05-21] MEDS: amLODIPine BESYLATE 5 MG TAB PO SCH (08:28)
[2022-05-21] MEDS: GABAPENTIN 300 MG CAP PO SCH (08:28)
[2022-05-21] MEDS: FLUoxetine HCL 20 MG CAP PO SCH (08:28)
[2022-05-21] MEDS: LOSARTAN POTASSIUM 25 MG TAB PO SCH (08:29)
[2022-05-21] MEDS: FLUTICASONE/VILANTEROL 100/25MCG 14 PUFFS/INHALER INH SCH (08:29)
[2022-05-21] MEDS: busPIRone 5 MG TAB PO SCH ×3 (08:29→20:48)
[2022-05-21] MEDS: PANTOprazole 40 MG TAB PO SCH (08:29)
[2022-05-21] MEDS: guaiFENesin 600 MG TABCR PO SCH ×2 (08:29→20:49)
[2022-05-21] MEDS: LIDOCAINE 5% 1 PATCH TD SCH (08:30)
[2022-05-21] MEDS ORDERED: SPIRONOLACTONE 25 MG TAB PO SCH (09:00)
--- NOTE | 2022-05-21 09:09 | XRay Report ---
XR chest 1V portable CLINICAL HISTORY: f/u COMPARISON STUDY: Chest CT and chest radiograph May 19, 2022. FINDINGS: There is no pneumothorax. Small bilateral pleural effusions, right larger than left, are ag ain noted. Interstitial thickening has slightly improved. Patchy right lung airspace opacities have s lightly improved as well. Cardiomegaly is again noted. IMPRESSION: 1. Mild pulmonary edema, improved since prior exam. 2. Persistent small bilateral pleural effusions, right larger than left, with associated bibasilar op acities. ACT 112: Negative or not required by law. Electronically signed by: Peter Arzate M.D. 05/21/2022 9:06 AM
--- NOTE | 2022-05-21 09:15 | Electrocardiogram Report ---
Test Reason : Blood Pressure : / mmHG Vent. Rate : 095 BPM Atrial Rate : 095 BPM P-R Int : 138 ms QRS Dur : 082 ms QT Int : 418 ms P-R-T Axes : 066 048 088 degrees QTc Int : 525 ms Sinus rhythm with Premature atrial complexes Diffuse Nonspecific T wave abnormality Abnormal ECG When compared with ECG of 16-MAY-2022 13:53, T wave inversion no longer evident in Inferior leads T wave inversion no longer evident in Anterior leads Confirmed by Alexandro Yu ([id number]) on 05/21/2022 9:14:52 AM Referred By: REFERRED SELF Confirmed By:Alexandro Yu
--- NOTE | 2022-05-21 09:19 | CT Scan Report ---
CT abdomen pelvis wo/w con HISTORY: Abnormal aldosterone levels. look at adrenals and kidneys. r/o aldosteronism TECHNIQUE: Multiaxial CT images of the abdomen and pelvis were performed both before and after the in travenous administration of 93 cc of Optiray 320 including 5 minute and 15 minute delayed sequences t o evaluate the adrenal glands. COMPARISON STUDY: Chest CT 05/19/2022. FINDINGS: Small to moderate right and small left pleural effusions are again noted. Bandlike area of consolidation within the base the right middle lobe remains unchanged. This could represent atelectas is or pneumonia. Additional areas of compressive atelectasis seen within the bilateral lower lobes. T he heart remains mildly enlarged. No pneumoperitoneum. No pneumatosis. No suspicious lytic or blastic osseous lesions. There are 2 adjacent small fat-containing midline supra umbilical hernias. This is just above the ventral mesh. Mild body wall edema. Prior gastric bypass. There is a small gallstone. No gallbladder wall thickening. There are 3 subtle hypodense lesions within the liver the largest in the left hepatic lobe on image 63 measuring 12 mm. These are difficult to catheterize due to their sm all size but could represent small hemangiomas. The spleen and pancreas are unremarkable. Normal righ t kidney. Focal scarring within the upper pole of the left kidney. No hydronephrosis. No solid renal masses. There is a left circumaortic renal vein. The main portal vein is patent. No retroperitoneal l ymphadenopathy. Mild calcified plaque within the normal caliber abdominal aorta. There is mild thicke jeramy of the bilateral adrenal glands, left greater than right. This could be due to mild adrenal hype rplasia. No adrenal nodules/masses identified. Small amount of gas within the bladder lumen likely du e to prior catheterization. The uterus and bilateral adnexa are unremarkable. No pelvic free fluid. N o bowel wall thickening or obstruction. Normal appendix. Fluid-filled colon. This could represent a d iarrheal illness/gastroenteritis. IMPRESSION: 1. Mild thickening of the bilateral adrenal glands, left greater the right. This may represent mild a drenal hyperplasia. No adrenal nodules/masses identified. 2. Cholelithiasis. 3. Fluid-filled nondilated colon. This is nonspecific but could represent a diarrheal illness/gastroe nteritis. 4. A gastric bypass. 5. Gas within the bladder lumen which is nonspecific but likely related to prior catheterization. 6. Bilateral pleural effusions persist. 7. Focal bandlike consolidation within the base the right middle lobe. This may represent pneumonia o r atelectasis. 3-[address] follow-up recommended to ensure resolution. 8. There are 3 indeterminate hypodense lesions within the liver. These could represent hemangiomas bu t are not well characterized on this study. 9. Mild body wall edema. 10. Additional findings as described above ACT 112: Positive. There are findings on this exam that require communication between the performing entity and the patient following Patient Test Result Information Act ([place] Act 112) guidelines. Electronically signed by: Cedrick Echols M.D. 05/21/2022 9:14 AM
--- NOTE | 2022-05-21 09:37 | Electrocardiogram Report ---
Test Reason : Blood Pressure : / mmHG Vent. Rate : 101 BPM Atrial Rate : 101 BPM P-R Int : 130 ms QRS Dur : 078 ms QT Int : 372 ms P-R-T Axes : 056 042 060 degrees QTc Int : 482 ms Sinus tachycardia Minimal voltage criteria for LVH, may be normal variant Diffuse Minor Nonspecific T wave abnormality Abnormal ECG When compared with ECG of 21-MAY-2022 00:30, No significant change Confirmed by Alexandro Yu ([id number]) on 05/21/2022 9:36:51 AM Referred By: REFERRED SELF Confirmed By:Alexandro Yu
--- NOTE | 2022-05-21 10:01 | Pulmonology Progress Note ---
Date of Service May 21, 2022 Assessment & Plan (1) Abnormal chest CT: (2) Acute respiratory failure with hypoxia: (3) Acute exacerbation of chronic obstructive pulmonary disease: (4) Current smoker: Plan Chest x-ray 05/16/2022 personally reviewed: Portable film, good respiratory effort, scoliosis appreciated, bilateral costophrenic and cardiophrenic angles are clean. No clear lung infiltrate appreciated CT chest 05/19/2022 personally reviewed: Patchy groundglass opacities appreciated bilaterally in the upper lobes Moderate right and small left-sided pleural effusion Atelectasis of the right lower lobe Mediastinal lymphadenopathy especially station 4R --Abnormal chest CT Patient seems to have patchy opacities in bilateral upper lobes She also has bilateral pleural effusion COVID-19 NAAT negative BNP 313 Respiratory bio fire negative UDS positive for hydrocodone Pulmonary edema can give similar picture Upper lobe groundglass opacities of/fibrosis could be seen in hypersensitivity pneumonitis especially given that the patient has [place] bird at home. Unfortunately there is no previous CAT scan to compare. BENY has already been ordered by the primary team. Add rheumatoid factor, anti-CCP to it Hypersensitive panel ordered Mycoplasma IgM as well as Legionella antigen in the urine ordered Patient will need repeat CT chest in 2-3 months --COPD with exacerbation [id number] smoking history Not on any inhalers at home Currently on Breo On discharge I would recommend the patient to be on Incruse or Anoro rather than Breo -- Bilateral pleural effusion Moderate on the right BNP in the 300s Patient does have high blood pressure which is difficult to control along with grade 2 diastolic dysfunction At the bedside reason why patient is having pleural effusion Diuresis as tolerated per the primary team --Hypertension Patient presented with hypertension hypokalemia and grade 2 diastolic dysfunction I do think patient's hypertension is chronic. Care as per primary team, rule out Conn syndrome or pheochromocytoma Plan: Chest x-ray shows improvement in the pulmonary edema. Small pleural effusion appreciated still bilaterally Continue with diuretics Given the rhonchi that I appreciate today. I am going to add hypertonic saline nebulized twice daily along with Mucomyst Continue with flutter valve and incentive spirometry Please note the above document was generated using voice recognition software. It may contain grammatical, syntax or spelling errors.Any formal questions or concerns about the content, text or information contained within the body of this dictation should be directly addressed to the provider for clarification. Admission and Anticipated Discharge Date Admission Date: May 16, 2022 Subjective Patient seen and examined at bedside. No acute distress, no adverse events overnight. Denies any headache Has been using flutter valve but not incentive spirometry Bringing up clear phlegm. No hemoptysis. Itching has improved compared to before. Patient was saturating 91-92% on 2 L nasal cannula at rest at the time of examination Review of Systems Review of Systems: All systems reviewed & are unremarkable except as noted in Subjective Physical Exam Physical Exam: Constitutional: No acute distress HEENT: EOMI, PERRLA Respiratory system: Decreased air entry bilaterally, positive rhonchi, positive wheeze bilaterally, positive crackles bilateral lower lobes CVS: S1-S2 positive, no murmurs or gallops Abdomen: Soft, nontender, nondistended, positive bowel sounds x4 Extremities: +2 pulses bilaterally radialis/ dorsalis pedis, no cyanosis, no edema Neuro: Awake alert oriented x3 Psych: Normal mood and affect G/U: No Fernandez Skin: Macular rash appreciated with superficial bruising likely from scratching bilateral upper and lower extremities Skin: no rashes, warm and dry Lymphatic: no cervical or axillary lymphadenopathy Results & Data Results & Data ([facility]) Vital Signs (Past 12 Hours) Vital Signs Temp Pulse Pulse Resp BP BP Pulse Ox 05/21/22 08:00 05/21/22 07:32 36.7 C 98 H 20 199/108 H 92 05/21/22 07:07 87 19 95 05/21/22 03:45 98 H 05/21/22 06:14 36.7 C 98 H 20 199/108 H 92 05/21/22 04:59 82 22 94 05/21/22 04:00 05/21/22 03:59 37.0 C 90 20 179/112 H 92 05/21/22 01:19 89 20 96 05/20/22 23:09 167/108 H 05/20/22 22:22 37.1 C 85 22 180/118 H 95 O2 Del Method O2 Flow Rate FiO2 05/21/22 08:00 Nasal Cannula 2 05/21/22 07:32 Room Air 05/21/22 07:07 Nasal Cannula 1 05/21/22 03:45 05/21/22 06:14 Nasal Cannula 2 05/21/22 04:59 40 05/21/22 04:00 Nasal Cannula 2 05/21/22 03:59 Nasal Cannula 2 05/21/22 01:19 Nasal Cannula 2 05/20/22 23:09 05/20/22 22:22 Nasal Cannula 2.0 Laboratory Results 05/21/22 05:42 05/21/22 05:42 PG Care Time/CCT Total # of Minutes Spent Total Time Spent with Patient: Total time spent is greater than 50% in coordination of care (as documented) at patient's floor/unit and/or counseling patient: Coding Level of Care Code 85363 Subseq Hosp Care Lvl [address] R93.89 Acute respiratory failure with hypoxia J96.01 Acute exacerbation of chronic obstructive pulmonary disease J44.1 Current smoker F17.200
[2022-05-21] MEDS: methylPREDNISolone 40 MG in SYRINGE 0 ML IV SCH ×2 (10:07→20:48)
[2022-05-21] MEDS ORDERED: carvediloL 6.25 MG TAB PO STA (11:00)
[2022-05-21] MEDS: ACETYLCYSTEINE 20% INHAL SOLN 4ML ***DISPENSED BY RESP. INH SCH ×2 (11:43→19:37)
--- NOTE | 2022-05-21 12:25 | Nephrology Consultation ---
Date of Consultation May 21, 2022 Assessment & Plan (1) Acute hypokalemia: Continue aggressive IV and PO replacement. Monitor magnesium and replacement PRN. Continue spironolactone. Consider increasing to 100 mg daily tomorrow. Clinical presentation consistent with suspected hyperaldosteronism, GI loss and poor oral intake, and loop diuretic use. (2) Metabolic alkalosis: Continue aggressive potassium and magnesium replacement. Elevated urine chloride consistent with primary juan but also loop diuretic use. Presentation concerning for primary hyperaldosteronism versus possible ectopic ACTH. Juan/renin pending (3) Long QT interval: This needs to be monitored closely. I suspect excessive benadryl use is contributing. Medications to be evaluated accordingly. Trina remains on multiple potential QT prolonging medications which may require adjustment. (4) Hypertensive urgency: Improving with therapy. Continue furosemide to encourage negative fluid balance. Low sodium and high potassium diet encouraged. Renal duplex to exclude GER. Increase aldactone PRN. Continue amlodipine and losartan as Rx. Peripheral smear pending to evaluation for MAHA in setting of anemia and thrombocytopenia. History of Present Illness Reason for Consultation: Accelerated hypertension and metabolic alkalosis Requesting Physician: Ann Marie Reed MD Attending Physician: Ann Marie Reed MD History of Present Illness Mrs. Trina Meza is a 67 year-old female with a history of hypertension, former tobacco smoker recently quit, chronic diarrhea, and previous gastric bypass surgery. She presented to [facility] on May 16 with rash and generalized weakness. Initial evaluation notable for accelerated hypertension, severe hypokalemia, and metabolic alkalosis. She has never had similar findings in the past. She reports that BP had been controlled with losartan 25 mg daily. She has not experienced symptomatic accelerated hypertension in the past. She was experiencing some GI complaints and vomited once prior to admission but denies significant vomiting or diarrhea. She denies any history of hypokalemia in the past. She had not adilson ingesting licorice or taking a notable amount of NSAIDS. She denies any laxative or diuretic use. Trina had experienced a recent diffuse pruritic rash and facial swelling which she attributed to a reaction to Flonase. She had been treating the symptoms with a considerable amount of Benadryl. She felt that she was tolerating the medication well and denied symptoms of neurocognitive suppression. She denied chest pain or palpitations. She feels significant improved since admission with strength returning. Trina was very pleased this morning that her blood pressure had started to improve. Evaluation including renin and aldosterone levels pending. Additional evaluation including EKG did document QTc prolongation and ST depression with T wave inversions. TTE demonstrating LVEF 55-60%, mild to moderate concentric LVH, and PVSP >60. CT chest with concerning ground glass opacities in the BL upper lodes. Pulmonology has been following and assisting in evaluation. 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 ESR <1. Trina has been diuresed with some improvement in her pulmonary symptoms. BP has been treated with amlodipine, spironolactone, and losartan. Laboratory studies now notable for progressive anemia and persistent thrombocytopenia. Peripher smear is pending. Urine studies notable for a urine chloride of 78 while taking diuretics. Trina has diuresed well since admission. Serum creatinine remains normal. Allergies Allergy/AdvReac Type Severity Reaction Status Date / Time bee venom protein (honey bee) Allergy Unknown eyes and Verified 11/12/21 09:22 throat swell Home Medications Medication Instructions Recorded Confirmed Type TENS units #1 ea 11/12/21 05/16/22 Rx albuterol sulfate 90 mcg/actuation 2 puff inhalation Q6H PRN 11/12/21 05/16/22 Rx aerosol inhaler shortness of breath or wheezing #8.5 grams buspirone 10 mg tablet 10 mg PO TID PRN anxiety #90 tabs 11/12/21 05/16/22 Rx fluoxetine 40 mg capsule 40 mg PO DAILY 11/12/21 05/16/22 History omeprazole 40 mg capsule,delayed 40 mg PO DAILY PRN GERD #90 caps 11/12/21 05/16/22 Rx release gabapentin 300 mg capsule 300 mg PO BID #60 caps 12/12/21 05/16/22 Rx buspirone 5 mg tablet 5 mg PO TID #90 tabs 03/27/22 05/16/22 Rx oxybutynin chloride 10 mg 10 mg PO DAILY #30 tabs 03/27/22 05/16/22 Rx tablet,extended release 24 hr losartan 25 mg tablet 25 mg PO DAILY #90 tabs 03/31/22 05/16/22 Rx fluticasone propionate 50 2 spray intranasal HS #16 grams 04/24/22 05/16/22 Rx mcg/actuation nasal spray,suspension (Flonase Allergy Relief) guaifenesin 600 mg tablet, 600 mg PO Q12H PRN congestion #60 04/24/22 05/16/22 Rx extended release 12 hr (Mucinex) tabs hydrocodone 10 mg-acetaminophen 1 tab PO Q6H PRN pain #120 tabs 04/24/22 05/16/22 Rx 325 mg tablet epinephrine 0.3 mg/0.3 mL 0.3 mg IM UD PRN Allergic Reaction 05/16/22 05/16/22 History injection, auto-injector Patient History Medical History Dizziness HTN (hypertension), benign Hypertensive urgency Hypokalemia Sinus infection Surgical History H/O gastric bypass H/O gastric bypass H/O hernia repair H/O tubal ligation Hx of tonsillectomy Family History Mother Hypertension Father Hypertension Denies family history of Ovarian cancer Prostate cancer Diabetes Myocardial infarction Breast cancer Colorectal cancer Social History Smoking Status: Former smoker Tobacco Type: Cigarettes Cigarettes Per Day: 20; Second Hand Exposure: No; Hx Alcohol Use: No Hx Substance Use: No Preferred Language: Tajik Communication Ability: Effective Business Executive Required: No Beliefs That Will Affect Care: None marital status: Single Current Living Situation: Alone current occupational status: employed current occupation: owns a [employer] How many Children do You have: 0 Feels Safe at Home: Yes caffeine: Yes (coffee ) Dental Care, Regularly: Yes Physical Activity Frequency: Does not Exercise Seatbelt Use: always Sunscreen Use: Yes Assistive Devices: None Review of Systems Review of Systems: All systems reviewed & are unremarkable except as noted in HPI & below Physical Exam Constitutional: well developed; no acute distress Eyes: no scleral abnormality and no corneal abnormality ENMT: Mouth: no oral mucosal abnormality and oral mucous membranes not dry Neck: normal visual inspection and trachea midline Respiratory: normal respiratory effort Auscultation: lungs clear to auscultation bilaterally and + rales (few scattered) Cardiovascular: Rate/Rhythm: regular rate Heart Sounds: normal S1 and normal S2 Extremities: no edema Musculoskeletal: Extremities: no cyanosis and no clubbing Skin: normal turgor; no lesions Neurologic: Motor/Sensory: no tremor and no asterixis Psychiatric: Orientation: alert and oriented x 3 Results & Data ([facility]) Vital Signs (Past 12 Hours) Vital Signs Temp Pulse Pulse Resp BP BP Pulse Ox 05/21/22 11:44 85 19 94 05/21/22 11:15 36.6 C 79 20 143/96 H 92 05/21/22 08:00 05/21/22 07:32 36.7 C 98 H 20 199/108 H 92 05/21/22 07:07 87 19 95 05/21/22 03:45 98 H 05/21/22 06:14 36.7 C 98 H 20 199/108 H 92 05/21/22 04:59 82 22 94 05/21/22 04:00 05/21/22 03:59 37.0 C 90 20 179/112 H 92 05/21/22 01:19 89 20 96 O2 Del Method O2 Flow Rate FiO2 05/21/22 11:44 Nasal Cannula 1 05/21/22 11:15 05/21/22 08:00 Nasal Cannula 2 05/21/22 07:32 Room Air 05/21/22 07:07 Nasal Cannula 1 05/21/22 03:45 05/21/22 06:14 Nasal Cannula 2 05/21/22 04:59 40 05/21/22 04:00 Nasal Cannula 2 05/21/22 03:59 Nasal Cannula 2 05/21/22 01:19 Nasal Cannula 2 Laboratory Results Laboratory Results - last 24 hr 05/20/22 05/20/22 05/20/22 15:07 15:07 15:07 WBC RBC Hgb Hct MCV MCH MCHC RDW Std Deviation RDW Coeff of Sharon Plt Count MPV Immature Gran % (Auto) Neut % (Auto) Lymph % (Auto) Ransom % (Auto) Eos % (Auto) Baso % (Auto) Reticulocyte % (Auto) Neut # (Auto) Lymph # (Auto) Ransom # (Auto) Eos # (Auto) Baso # (Auto) Reticulocyte # Immature Gran # (Auto) Absolute Nucleated RBC Nucleated RBC % (auto) Platelet Estimate Peripher Smr Path Cons PT INR APTT PTT Ratio ABG pH ABG pCO2 ABG pO2 ABG HCO3 ABG O2 Saturation ABG Base Excess [place] Test VBG pH VBG pCO2 VBG pO2 VBG HCO3 VBG O2 Saturation VBG Base Excess Oxygen Given Sodium Potassium Chloride Carbon Dioxide Anion Gap BUN Creatinine Est Cr Clr Drug Dosing Est GFR ( Amer) Est GFR (Non-Af Amer) BUN/Creatinine Ratio Glucose Estimat Average Glucose Hemoglobin A1c Calcium Magnesium Total Bilirubin Direct Bilirubin Lactate Dehydrogenase Triglycerides Cholesterol LDL Cholesterol, Calc VLDL Cholesterol, Calc HDL Cholesterol Cholesterol/HDL Ratio Urine Color Mobile Urine Appearance Clear Urine pH 8.0 H Ur Specific [place] 1.014 Urine Protein 3+ H Urine Glucose (UA) Negative Urine Ketones Negative Urine Blood 3+ H Urine Nitrite Negative Urine Bilirubin Negative Urine Urobilinogen Negative Ur Leukocyte Esterase Trace H Urine WBC (Auto) 5-10 H Urine RBC (Auto) >30 H U Hyaline Cast (Auto) 1-5 U Epithel Cells (Auto) >30 H Urine Bacteria (Auto) Negative Ur Random Potassium 59.0 Ur Random Chloride 78 Saccharo. viridis Ab T. candidus Antibody T. vulgaris Antibody Aspergill fumigatus Ab Micropolyspora faeni Ab [place] Serum Precipitin 05/20/22 05/20/22 05/20/22 16:00 16:00 16:00 WBC RBC Hgb Hct MCV MCH MCHC RDW Std Deviation RDW Coeff of Sharon Plt Count MPV Immature Gran % (Auto) Neut % (Auto) Lymph % (Auto) Ransom % (Auto) Eos % (Auto) Baso % (Auto) Reticulocyte % (Auto) 0.9 Neut # (Auto) Lymph # (Auto) Ransom # (Auto) Eos # (Auto) Baso # (Auto) Reticulocyte # 0.03 Immature Gran # (Auto) Absolute Nucleated RBC Nucleated RBC % (auto) Platelet Estimate Peripher Smr Path Cons PT INR APTT PTT Ratio ABG pH ABG pCO2 ABG pO2 ABG HCO3 ABG O2 Saturation ABG Base Excess [place] Test VBG pH VBG pCO2 VBG pO2 VBG HCO3 VBG O2 Saturation VBG Base Excess Oxygen Given Sodium 140 Potassium 2.6 L Chloride 93 L Carbon Dioxide 41 H* Anion Gap 6 BUN 22 Creatinine 0.57 L Est Cr Clr Drug Dosing 78.2 Est GFR ( Amer) 113.5 Est GFR (Non-Af Amer) 98.0 BUN/Creatinine Ratio 38.6 H Glucose 172 H Estimat Average Glucose Hemoglobin A1c Calcium 8.4 L Magnesium 1.7 Total Bilirubin 0.6 Direct Bilirubin 0.1 Lactate Dehydrogenase 7367 H Triglycerides Cholesterol LDL Cholesterol, Calc VLDL Cholesterol, Calc HDL Cholesterol Cholesterol/HDL Ratio Urine Color Urine Appearance Urine pH Ur Specific [place] Urine Protein Urine Glucose (UA) Urine Ketones Urine Blood Urine Nitrite Urine Bilirubin Urine Urobilinogen Ur Leukocyte Esterase Urine WBC (Auto) Urine RBC (Auto) U Hyaline Cast (Auto) U Epithel Cells (Auto) Urine Bacteria (Auto) Ur Random Potassium Ur Random Chloride Saccharo. viridis Ab T. candidus Antibody T. vulgaris Antibody Aspergill fumigatus Ab Micropolyspora faeni Ab [place] Serum Precipitin 05/20/22 05/20/22 05/20/22 16:00 16:00 16:00 WBC 11.82 H RBC 3.60 L Hgb 10.9 L Hct 32.5 L MCV 90.3 MCH 30.3 MCHC 33.5 RDW Std Deviation 58.3 H RDW Coeff of Sharon 17.5 H Plt Count 49 L MPV 11.7 Immature Gran % (Auto) 7.8 Neut % (Auto) 75.7 Lymph % (Auto) 8.4 Ransom % (Auto) 7.4 Eos % (Auto) 0.3 Baso % (Auto) 0.4 Reticulocyte % (Auto) Neut # (Auto) 8.96 H Lymph # (Auto) 0.99 L [place]ansom # (Auto) 0.87 H Eos # (Auto) 0.03 Baso # (Auto) 0.05 Reticulocyte # Immature Gran # (Auto) 0.92 H Absolute Nucleated RBC 0.12 H Nucleated RBC % (auto) 1.0 Platelet Estimate Decreased L Peripher Smr Path Cons PT 10.9 INR 1.0 APTT 26.0 PTT Ratio 0.9 ABG pH 7.66 H* ABG pCO2 39 ABG pO2 76 L ABG HCO3 44 H ABG O2 Saturation 97.3 H ABG Base Excess 21.3 H [place] Test POS VBG pH VBG pCO2 VBG pO2 VBG HCO3 VBG O2 Saturation VBG Base Excess Oxygen Given 2L O2 Sodium Potassium Chloride Carbon Dioxide Anion Gap BUN Creatinine Est Cr Clr Drug Dosing Est GFR ( Amer) Est GFR (Non-Af Amer) BUN/Creatinine Ratio Glucose Estimat Average Glucose Hemoglobin A1c Calcium Magnesium Total Bilirubin Direct Bilirubin Lactate Dehydrogenase Triglycerides Cholesterol LDL Cholesterol, Calc VLDL Cholesterol, Calc HDL Cholesterol Cholesterol/HDL Ratio Urine Color Urine Appearance Urine pH Ur Specific [place] Urine Protein Urine Glucose (UA) Urine Ketones Urine Blood Urine Nitrite Urine Bilirubin Urine Urobilinogen Ur Leukocyte Esterase Urine WBC (Auto) Urine RBC (Auto) U Hyaline Cast (Auto) U Epithel Cells (Auto) Urine Bacteria (Auto) Ur Random Potassium Ur Random Chloride Saccharo. viridis Ab T. candidus Antibody T. vulgaris Antibody Aspergill fumigatus Ab Micropolyspora faeni Ab [place] Serum Precipitin 05/20/22 05/21/22 05/21/22 22:58 05:42 05:42 WBC 10.75 RBC 3.23 L Hgb 9.9 L Hct 29.0 L MCV 89.8 MCH 30.7 MCHC 34.1 RDW Std Deviation 57.6 H RDW Coeff of Sharon 17.4 H Plt Count 45 L MPV 11.5 Immature Gran % (Auto) Neut % (Auto) Lymph % (Auto) [place] % (Auto) Eos % (Auto) Baso % (Auto) Reticulocyte % (Auto) Neut # (Auto) Lymph # (Auto) [place]ansom # (Auto) Eos # (Auto) Baso # (Auto) Reticulocyte # Immature Gran # (Auto) Absolute Nucleated RBC 0.10 H Nucleated RBC % (auto) 0.9 Platelet Estimate Peripher Smr Path Cons PT INR APTT PTT Ratio ABG pH ABG pCO2 ABG pO2 ABG HCO3 ABG O2 Saturation ABG Base Excess [place] Test VBG pH VBG pCO2 VBG pO2 VBG HCO3 VBG O2 Saturation VBG Base Excess Oxygen Given Sodium 137 Potassium 2.9 L Chloride 95 L Carbon Dioxide 40 H Anion Gap 2 L BUN 17 Creatinine 0.44 L Est Cr Clr Drug Dosing 101.3 Est GFR ( Amer) 123.6 Est GFR (Non-Af Amer) 106.7 BUN/Creatinine Ratio 38.6 H Glucose 109 H Estimat Average Glucose Hemoglobin A1c Calcium 7.9 L Magnesium Total Bilirubin Direct Bilirubin Lactate Dehydrogenase Triglycerides Cholesterol LDL Cholesterol, Calc VLDL Cholesterol, Calc HDL Cholesterol Cholesterol/HDL Ratio Urine Color Urine Appearance Urine pH Ur Specific [place] Urine Protein Urine Glucose (UA) Urine Ketones Urine Blood Urine Nitrite Urine Bilirubin Urine Urobilinogen Ur Leukocyte Esterase Urine WBC (Auto) Urine RBC (Auto) U Hyaline Cast (Auto) U Epithel Cells (Auto) Urine Bacteria (Auto) Ur Random Potassium Ur Random Chloride Saccharo. viridis Ab Pending T. candidus Antibody Pending T. vulgaris Antibody Pending Aspergill fumigatus Ab Pending Micropolyspora faeni Ab Pending [place] Serum Precipitin Pending 05/21/22 05/21/22 05/21/22 05:42 05:42 12:08 WBC RBC Hgb Hct MCV MCH MCHC RDW Std Deviation RDW Coeff of Sharon Plt Count MPV Immature Gran % (Auto) Neut % (Auto) Lymph % (Auto) [place] % (Auto) Eos % (Auto) Baso % (Auto) Reticulocyte % (Auto) Neut # (Auto) Lymph # (Auto) [place] # (Auto) Eos # (Auto) Baso # (Auto) Reticulocyte # Immature Gran # (Auto) Absolute Nucleated RBC Nucleated RBC % (auto) Platelet Estimate Peripher Smr Path Cons PT INR APTT PTT Ratio ABG pH ABG pCO2 ABG pO2 ABG HCO3 ABG O2 Saturation ABG Base Excess [place] Test VBG pH VBG pCO2 VBG pO2 VBG HCO3 VBG O2 Saturation VBG Base Excess Oxygen Given Sodium 138 Pending Potassium 3.2 L Pending Chloride 96 L Pending Carbon Dioxide 36 H Pending Anion Gap 6 Pending BUN 17 Pending Creatinine 0.43 L Pending Est Cr Clr Drug Dosing 103.7 Pending Est GFR ( Amer) 124.6 Pending Est GFR (Non-Af Amer) 107.5 Pending BUN/Creatinine Ratio 39.5 H Pending Glucose 107 H Pending Estimat Average Glucose 126 Hemoglobin A1c 6.0 H Calcium 8.2 L Pending Magnesium 1.8 Total Bilirubin Direct Bilirubin Lactate Dehydrogenase Triglycerides 253 H Cholesterol 192 LDL Cholesterol, Calc 78 VLDL Cholesterol, Calc 51 H HDL Cholesterol 63 Cholesterol/HDL Ratio 3.0 Urine Color Urine Appearance Urine pH Ur Specific [place] Urine Protein Urine Glucose (UA) Urine Ketones Urine Blood Urine Nitrite Urine Bilirubin Urine Urobilinogen Ur Leukocyte Esterase Urine WBC (Auto) Urine RBC (Auto) U Hyaline Cast (Auto) U Epithel Cells (Auto) Urine Bacteria (Auto) Ur Random Potassium Ur Random Chloride Saccharo. viridis Ab T. candidus Antibody T. vulgaris Antibody Aspergill fumigatus Ab Micropolyspora faeni Ab [place] Serum Precipitin 05/21/22 12:08 WBC RBC Hgb Hct MCV MCH MCHC RDW Std Deviation RDW Coeff of Sharon Plt Count MPV Immature Gran % (Auto) Neut % (Auto) Lymph % (Auto) [place] % (Auto) Eos % (Auto) Baso % (Auto) Reticulocyte % (Auto) Neut # (Auto) Lymph # (Auto) [place] # (Auto) Eos # (Auto) Baso # (Auto) Reticulocyte # Immature Gran # (Auto) Absolute Nucleated RBC Nucleated RBC % (auto) Platelet Estimate Peripher Smr Path Cons PT INR APTT PTT Ratio ABG pH ABG pCO2 ABG pO2 ABG HCO3 ABG O2 Saturation ABG Base Excess [place] Test VBG pH Pending VBG pCO2 Pending VBG pO2 Pending VBG HCO3 Pending VBG O2 Saturation Pending VBG Base Excess Pending Oxygen Given Sodium Potassium Chloride Carbon Dioxide Anion Gap BUN Creatinine Est Cr Clr Drug Dosing Est GFR ( Amer) Est GFR (Non-Af Amer) BUN/Creatinine Ratio Glucose Estimat Average Glucose Hemoglobin A1c Calcium Magnesium Total Bilirubin Direct Bilirubin Lactate Dehydrogenase Triglycerides Cholesterol LDL Cholesterol, Calc VLDL Cholesterol, Calc HDL Cholesterol Cholesterol/HDL Ratio Urine Color Urine Appearance Urine pH Ur Specific [place] Urine Protein Urine Glucose (UA) Urine Ketones Urine Blood Urine Nitrite Urine Bilirubin Urine Urobilinogen Ur Leukocyte Esterase Urine WBC (Auto) Urine RBC (Auto) U Hyaline Cast (Auto) U Epithel Cells (Auto) Urine Bacteria (Auto) Ur Random Potassium Ur Random Chloride Saccharo. viridis Ab T. candidus Antibody T. vulgaris Antibody Aspergill fumigatus Ab Micropolyspora faeni Ab [place] Serum Precipitin PG Care Time/CCT Total # of Minutes Spent Total Time Spent with Patient: Total time spent is greater than 50% in coordination of care (as documented) at patient's floor/unit and/or counseling patient: Coding Level of Care Code 92070 Inpt Consult Level 5 Diagnoses Acute hypokalemia E87.6 Metabolic alkalosis E87.3 Long QT interval R94.31 Hypertensive urgency I16.0
--- NOTE | 2022-05-21 12:31 | Hospitalist Progress Note ---
Date of Service May 21, 2022 Assessment & Plan (1) Acute hypokalemia: (2) Pruritic rash: (3) Metabolic alkalosis: (4) HTN (hypertension), benign: (5) Asthma: (6) Leukocytosis: (7) Blood bacterial culture positive: (8) Back pain: (9) Anxiety: (10) Depression: (11) Hematuria: Plan Ms. Meza is a 66 y.o. female who presented to the ED via ambulance on 05/16 for SOB and a pruritic rash. She recently was in the ED on 05/04 for similar issue, was given dexamethasone and told to stop Flonase. For the past week she has taken 90-100 Benadryl pills along with her hydrocodone and has not taken any of her other prescribed medications. She recently quit smoking 1 month ago. #Acute hypoxic resp failure -continue nasal canula. Bipap at night if needed - per pul -etiology - ? sec to fluid overload/copd exacerbation/pul hemorrhage. -CXR done today showed mild pulmonary edema which has improved since prior exam and persistent small BL pleural effusions, R>L, with associated bibasilar opacities. #Acute diastolic CHF treated with IV Lasix -CT showed small to moderate L pleural effusions. -Stopped Lasix d/t severe hypokalemia -ECHO showed EF 55-60% with diastolic dysfunction (Grade II) -~7lb weight loss. monitor I and Os. -continue diuresis. -Lasix 40mgs IV daily. -Increased Spironolactone to 100mgs - follow response. #Possible Pul vasculitis/copd exacerbation -Pul consulted for concern of vasculitic pul bleed. -BENY, ANCA, rheumatoid factor, anti-CCP pending -Biofire is negative -Mycoplasma and Legionella urine pending -Patient will need repeat CT chest in 2-3 months -Continue 60mg solumedrol IV - increased to q12hrs -Change DuoNeb from Prn to scheduled BID -Continue Azithromycin -Continue using incentive spirometry -Pneumo screen ordered today. Results pending. -Continue Mucinex 600mg Q12 #Metabolic Alkalosis -Repeat ABG this afternoon showed pH of 7.56 which is slightly improved since yesterday (7.66) -Nephrology consulted states etiology is most concerning for primary hyperaldosteronism vs ectopic ACTH Renin and aldosterone panels still pending CT showed mild thickening of the BL adrenal glands L>R, which may represent mild adrenal hyperplasia. No adrenal nodules/masses identified. 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 -Labs pending for ANCA, BENY -Patient is currently on hydrocodone/acetaminophen 10/325 prn q6hr for chronic pain. Dose recently increased from 7.5 to 10 on 03/26 by her PCP. follow #Uncontrolled Hypertension -BP has been elevated since admission. no sign of hypertensive urgency -Continue amlodipine, losartan, -Change 12.5 QAm, 6.25QPM carvedilol --> BP today was 122/81 here -continue prn hydralazine. -Renin and aldosterone are still pending. -Renal duplex ordered to r/o GER #Prolonged QT -Excessive Benadryl use is most likely etiology. -Monitor with serial EKG's. QTc 482 today. -continue aggressive repletion of k and mag. -recheck ekg in am -On fluoxetine and oxycodone - can prolong QTc. will follow closely for now. #Thrombocytopenia -Most likely related to vasculitics -platelet counts has been progressively decreasing -yesterday 85 -->this morning 59 --> this afternoon 49 -Ordered peripheral smear and retic count are pending results. #Hematuria -Patient reports that she has had blood in her urine -Repeat UA today showed 3+ blood, 3+ protein, 30 epithelia cells, with a urine pH of 8.0 -no yovany hematuria today. #Hypokalemia -Possibly correlated to poor PO intake and prior gastric bypass surgery. -K was 2.6 yesterday given XXX KCL and was improved this afternoon to XXX -Nephrology recommends increasing to 100mg QD starting tomorrow. #Back pain -Given lidocaine patch. Pain improved. #Positive Blood culture -One tube grew Coag neg staph, the other tube is NGTD. -Most likely contaminate. #Anxiety #Depression -Continue at home buspar, fluoxetine, diet/fluid status: heart healthy Code status: full DVT prop: SCDs ordered Dispo: med surg Thank you for allowing me to participate in the care of your patient. -Dr. Benny Garcia PGY1 Admission and Anticipated Discharge Date Admission Date: May 16, 2022 Supervising Physician Co-Signing Physician Notes Resident Physician Supervision Note: I independently interviewed and examined the patient and verified the zavala history and physical, reviewed labs and image studies and agree with resident Dr. Garcia findings and care plan. Subjective Patient was seen beside this morning. She does not currently have any complaints at this time. Review of Systems Review of Systems: All systems reviewed & are unremarkable except as noted in HPI & below Physical Exam Constitutional: WD/WN, vitals as above comfortable Eyes: PERRL, conjunctivae normal, anicteric sclerae ENMT: external ear and nose normal, oropharynx normal Respiratory: normal respiratory effort, + respiratory distress, + labored breathing and + audible wheezes Auscultation: + wheezes (Bilateral UL ) Cardiovascular: RRR, no murmur, no edema Gastrointestinal (Abdomen): normal bowel sounds, soft, nontender, no hepatosplenomegaly Musculoskeletal: no cyanosis or clubbing, extremities motor strength 5/5 Skin: + excoriations (Bl UE and LE ) and + purpura Psychiatric: A+Ox3, euthymic affect Results & Data Results & Data ([facility]) Vital Signs (Past 12 Hours) Vital Signs Temp Pulse Pulse Resp BP BP Pulse Ox 05/21/22 11:44 85 19 94 05/21/22 11:15 36.6 C 79 20 143/96 H 92 05/21/22 08:00 05/21/22 07:32 36.7 C 98 H 20 199/108 H 92 05/21/22 07:07 87 19 95 05/21/22 03:45 98 H 05/21/22 06:14 36.7 C 98 H 20 199/108 H 92 05/21/22 04:59 82 22 94 05/21/22 04:00 05/21/22 03:59 37.0 C 90 20 179/112 H 92 05/21/22 01:19 89 20 96 O2 Del Method O2 Flow Rate FiO2 05/21/22 11:44 Nasal Cannula 1 05/21/22 11:15 05/21/22 08:00 Nasal Cannula 2 05/21/22 07:32 Room Air 05/21/22 07:07 Nasal Cannula 1 05/21/22 03:45 05/21/22 06:14 Nasal Cannula 2 05/21/22 04:59 40 05/21/22 04:00 Nasal Cannula 2 05/21/22 03:59 Nasal Cannula 2 05/21/22 01:19 Nasal Cannula 2 Resident Activity Tracking Resident Involvement: Resident Care Provided Care Provided: Adult Hospital Medicine
[2022-05-21 12:39] LABS: Base Excess VBG 12.4 mEq/L; HCO3 VBG 36 mmol/L; Oxygen Saturation VBG 93.9 %; PCO2 VBG 40 mmHg (38-50); PO2 VBG 62 mmHg; pH VBG 7.56 (7.36-7.41)
[2022-05-21 12:58] LABS: BUN Creatinine Ratio 46.5 (10-20); Calcium 8.6 mg/dl (8.5-10.1); Creatinine Clr Calc Pharmacy 103.7 ml/min; Est GFR (African American) 124.6 ml/min; Est GFR (Non-African American) 107.5 ml/min; Potassium 3.9 mmol/L (3.5-5.1)
[2022-05-21] MEDS ORDERED: POTASSIUM CHLORIDE CRTAB 20 MEQ TABCR PO STA (16:46)
[2022-05-21] MEDS: AZITHROMYCIN 250 MG in DEXTROSE 5% 250 ML IV SCH (17:01)
[2022-05-21] MEDS: SODIUM CHLOR 7% 4 ML NEB NEB SCH (19:38)
[2022-05-21] MEDS ORDERED: carvediloL 6.25 MG TAB PO SCH (21:00)
[2022-05-22 00:20] LABS: BUN Creatinine Ratio 43.5 (10-20); Calcium 8.6 mg/dl (8.5-10.1); Creatinine Clr Calc Pharmacy 96.9 ml/min; Est GFR (African American) 121.8 ml/min; Est GFR (Non-African American) 105.1 ml/min; Potassium 4.7 mmol/L (3.5-5.1)
[2022-05-22] MEDS: hydrALAZINE HCL 20 MG/ML VIAL IV PRN (03:41)
[2022-05-22 06:40] LABS: Basophils # (auto) 0.06 K/uL (0-0.2); Basophils % (auto) 0.5 %; Eosinophils # (auto) 0.05 K/uL (0-0.50); Eosinophils % (auto) 0.4 %; Hematocrit (blood only) 32.1 % (34.1-44.9); Hemoglobin 10.7 g/dl (12.0-16.0); Immature Granulocytes # (auto) 1.09 K/uL (0.00-0.02); Immature Granulocytes % (auto) 9.4 %; Lymphocytes # (auto) 1.49 K/uL (1.2-3.4); Lymphocytes % (auto) 12.8 %; Mean Corpuscular Hemoglobin 30.8 pg (25.0-34.0); Mean Corpuscular Hgb Conc 33.3 g/dL (32.0-36.0); Mean Corpuscular Volume 92.5 fL (80.0-100.0); Mean Platelet Volume 12.2 fL (9.4-12.3); Monocytes # (auto) 0.66 K/uL (0.24-0.82); Monocytes % (auto) 5.7 %; Neutrophils # (auto) 8.25 K/uL (1.4-6.5); Neutrophils % (auto) 71.2 %; Nucleated RBC # (auto) 0.18 K/uL (0-0); Nucleated RBC % (auto) 1.6 %; Platelet Count 53 K/uL (130-400); RDW Coefficient of Variation 17.8 % (11.5-14.5); RDW Standard Deviation 60.7 fL (36.4-46.3); Red Blood Count 3.47 M/uL (3.93-5.22)
[2022-05-22 06:58] LABS: BUN Creatinine Ratio 44.7 (10-20); Calcium 8.8 mg/dl (8.5-10.1); Creatinine Clr Calc Pharmacy 95.8 ml/min; Est GFR (Non-African American) 104.4 ml/min; Magnesium 2.2 mg/dl (1.7-2.4); Phosphorus 2.1 mg/dl (2.5-4.9)
[2022-05-22] MEDS: SODIUM CHLOR 7% 4 ML NEB NEB SCH ×2 (06:58→19:44)
[2022-05-22] MEDS: ALBUT/IPRATROP 3MG/0.5MG NEB 3 ML VIAL NEB SCH ×3 (07:00→19:44)
[2022-05-22] MEDS: ACETYLCYSTEINE 20% INHAL SOLN 4ML ***DISPENSED BY RESP. INH SCH ×2 (07:00→19:43)
--- NOTE | 2022-05-22 07:05 | Ultrasound Report ---
US duplex renal artery CLINICAL HISTORY: Hypertension. Assess for renal artery stenosis. COMPARISON STUDY: Abdomen and pelvis CT 05/20/2022. FINDINGS: The right kidney measures 9.9 cm the left kidney measures 9.0 cm. No hydronephrosis. The bi lateral renal veins are patent. The right renal artery demonstrates a peak systolic velocity of 85 cm /s in the left renal artery demonstrates a peak systolic velocity 95 cm/s. Elevated bilateral resisti ve indices measuring up to 1. IMPRESSION: 1. No evidence for renal artery stenosis. 2. Elevated resistive indices within the kidneys which could represent renal insufficiency. ACT 112: Negative or not required by law. Electronically signed by: Cedrick Echols M.D. 05/22/2022 7:04 AM
[2022-05-22 07:17] LABS: Folate (Folic Acid) 4.09 ng/ml (>5.38)
[2022-05-22] MEDS: amLODIPine BESYLATE 5 MG TAB PO SCH (08:45)
[2022-05-22] MEDS: FLUTICASONE/VILANTEROL 100/25MCG 14 PUFFS/INHALER INH SCH (08:45)
[2022-05-22] MEDS: busPIRone 5 MG TAB PO SCH ×3 (08:45→22:27)
[2022-05-22] MEDS: guaiFENesin 600 MG TABCR PO SCH ×2 (08:46→22:27)
[2022-05-22] MEDS: methylPREDNISolone 40 MG in SYRINGE 0 ML IV SCH ×2 (08:46→22:27)
[2022-05-22] MEDS: LOSARTAN POTASSIUM 25 MG TAB PO SCH (08:46)
[2022-05-22] MEDS: LIDOCAINE 5% 1 PATCH TD SCH (08:46)
[2022-05-22] MEDS: SPIRONOLACTONE 100 MG TAB PO SCH (08:47)
[2022-05-22] MEDS ORDERED: FUROSEMIDE 40 MG/4 ML VIAL IV SCH (09:00)
[2022-05-22] MEDS ORDERED: carvediloL 12.5 MG TAB PO SCH (09:00)
--- NOTE | 2022-05-22 10:27 | Nephrology Progress Note ---
Date of Service May 22, 2022 Assessment & Plan (1) Acute hypokalemia: Plan: Improved with replacement of K and Mg, as well as added spironolactone. Continue spironolactone 100 mg daily. May increase as needed. Clinical presentation consistent with suspected hyperaldosteronism, GI loss, poor oral intake, and loop diuretic use. (2) Metabolic alkalosis: Plan: No additional KCl replacement required today. Elevated urine chloride consistent with primary juan but also loop diuretic use. Presentation concerning for primary hyperaldosteronism versus possible ectopic ACTH. Juan/renin pending. (3) Long QT interval: Plan: This needs to be monitored closely. I suspect excessive benadryl use is contributing. Medications to be evaluated accordingly. Trina remains on multiple potential QT prolonging medications which may require adjustment. (4) Hypertensive urgency: Plan: Improving with therapy. Continue furosemide to encourage negative fluid balance. Low sodium and high potassium diet encouraged. Renal duplex did not demonstrate evidence of GER. Continue amlodipine and losartan as Rx. Increase spironolactone and losartan as needed. Peripheral smear did not demonstrate schistocytes. Thiamine and folate replacement encouraged. Admission and Anticipated Discharge Date Admission Date: May 16, 2022 Subjective No acute events overnight. Feeling tired this AM. Appetite poor. No nausea. No GI complaints. Trina states that overall she feels much better. She hopes to be discharged soon. Review of Systems Review of Systems: All systems reviewed & are unremarkable except as noted in HPI & below Physical Exam Constitutional: well developed and + frail appearing; no acute distress Eyes: no scleral abnormality and no corneal abnormality ENMT: Mouth: no oral mucosal abnormality and oral mucous membranes not dry Neck: normal visual inspection and trachea midline Respiratory: normal respiratory effort Auscultation: + rales (few scattered) and + wheezes Cardiovascular: Rate/Rhythm: regular rate Heart Sounds: normal S1 and normal S2 Extremities: no edema Musculoskeletal: Extremities: no cyanosis and no clubbing Skin: normal turgor; no lesions Neurologic: Motor/Sensory: no tremor and no asterixis Psychiatric: Orientation: alert and oriented x 3 Results & Data ([facility]) Vital Signs (Past 12 Hours) Vital Signs Temp Pulse Pulse Resp BP BP Pulse Ox 05/22/22 08:35 36.4 C L 89 24 142/93 H 91 05/22/22 07:01 89 18 98 05/22/22 05:09 95 H 05/22/22 04:29 36.8 C 107 H 22 168/118 H 93 05/22/22 03:25 78 180/129 H 95 05/21/22 23:46 36.8 C 79 16 157/100 H 94 O2 Del Method O2 Flow Rate 05/22/22 08:35 Nasal Cannula 3 05/22/22 07:01 Nasal Cannula 2 05/22/22 05:09 05/22/22 04:29 Nasal Cannula 2 05/22/22 03:25 Room Air 05/21/22 23:46 Nasal Cannula 2 Laboratory Results Laboratory Results - last 24 hr 05/21/22 05/21/22 05/21/22 12:08 12:08 23:27 WBC RBC Hgb Hct MCV MCH MCHC RDW Std Deviation RDW Coeff of Sharon Plt Count MPV Immature Gran % (Auto) Neut % (Auto) Lymph % (Auto) Edwards % (Auto) Eos % (Auto) Baso % (Auto) Neut # (Auto) Lymph # (Auto) Edwards # (Auto) Eos # (Auto) Baso # (Auto) Immature Gran # (Auto) Absolute Nucleated RBC Nucleated RBC % (auto) VBG pH 7.56 H VBG pCO2 40 VBG pO2 62 VBG HCO3 36 VBG O2 Saturation 93.9 VBG Base Excess 12.4 Sodium 138 137 Potassium 3.9 D 4.7 D Chloride 99 100 Carbon Dioxide 37 H 36 H Anion Gap 2 L 1 L BUN 20 20 Creatinine 0.43 L 0.46 L Est Cr Clr Drug Dosing 103.7 96.9 Est GFR ( Amer) 124.6 121.8 Est GFR (Non-Af Amer) 107.5 105.1 BUN/Creatinine Ratio 46.5 H 43.5 H Glucose 103 H 111 H Calcium 8.6 8.6 Phosphorus Magnesium Vitamin B12 Folate 05/22/22 05/22/22 05/22/22 06:02 06:02 06:02 WBC 11.60 H RBC 3.47 L Hgb 10.7 L Hct 32.1 L MCV 92.5 MCH 30.8 MCHC 33.3 RDW Std Deviation 60.7 H RDW Coeff of Sharon 17.8 H Plt Count 53 L MPV 12.2 Immature Gran % (Auto) 9.4 Neut % (Auto) 71.2 Lymph % (Auto) 12.8 Edwards % (Auto) 5.7 Eos % (Auto) 0.4 Baso % (Auto) 0.5 Neut # (Auto) 8.25 H Lymph # (Auto) 1.49 Edwards # (Auto) 0.66 Eos # (Auto) 0.05 Baso # (Auto) 0.06 Immature Gran # (Auto) 1.09 H Absolute Nucleated RBC 0.18 H Nucleated RBC % (auto) 1.6 VBG pH VBG pCO2 VBG pO2 VBG HCO3 VBG O2 Saturation VBG Base Excess Sodium 137 Potassium 5.0 Chloride 99 Carbon Dioxide 33 H Anion Gap 5 BUN 21 Creatinine 0.47 L Est Cr Clr Drug Dosing 95.8 Est GFR ( Amer) 121.0 Est GFR (Non-Af Amer) 104.4 BUN/Creatinine Ratio 44.7 H Glucose 114 H Calcium 8.8 Phosphorus 2.1 L Magnesium 2.2 Vitamin B12 164 L Folate 4.09 L PG Care Time/CCT Total # of Minutes Spent Total Time Spent with Patient: Total time spent is greater than 50% in coordination of care (as documented) at patient's floor/unit and/or counseling patient: Coding Level of Care Code 95053 Subseq Hosp Care Lvl 3 Diagnoses Acute hypokalemia E87.6 Metabolic alkalosis E87.3 Long QT interval R94.31 Hypertensive urgency I16.0
--- NOTE | 2022-05-22 10:55 | Pulmonology Progress Note ---
Date of Service May 22, 2022 Assessment & Plan (1) Abnormal chest CT: (2) Acute respiratory failure with hypoxia: (3) Acute exacerbation of chronic obstructive pulmonary disease: (4) Current smoker: Plan Chest x-ray 05/16/2022 personally reviewed: Portable film, good respiratory effort, scoliosis appreciated, bilateral costophrenic and cardiophrenic angles are clean. No clear lung infiltrate appreciated CT chest 05/19/2022 personally reviewed: Patchy groundglass opacities appreciated bilaterally in the upper lobes Moderate right and small left-sided pleural effusion Atelectasis of the right lower lobe Mediastinal lymphadenopathy especially station 4R --Abnormal chest CT Patient seems to have patchy opacities in bilateral upper lobes She also has bilateral pleural effusion COVID-19 NAAT negative BNP 313 Respiratory bio fire negative Absolute eosinophil count 170 on 05/17/2022 UDS positive for hydrocodone Pulmonary edema can give similar picture Upper lobe groundglass opacities of/fibrosis could be seen in hypersensitivity pneumonitis especially given that the patient has [employer] at home. Unfortunately there is no previous CAT scan to compare. BENY has already been ordered by the primary team. Add rheumatoid factor, anti-CCP to it Hypersensitive panel ordered Mycoplasma IgM as well as Legionella antigen in the urine ordered Patient will need repeat CT chest in 2-3 months --COPD with exacerbation [id number] smoking history Not on any inhalers at home Currently on Breo On discharge I would recommend the patient to be on Incruse or Anoro rather than Breo -- Bilateral pleural effusion Moderate on the right BNP in the 300s Patient does have high blood pressure which is difficult to control along with grade 2 diastolic dysfunction At the bedside reason why patient is having pleural effusion Diuresis as tolerated per the primary team --Hypertension Patient presented with hypertension hypokalemia and grade 2 diastolic dysfunction I do think patient's hypertension is chronic. Care as per primary team, rule out Conn syndrome or pheochromocytoma Plan: Patient still having rhonchi and expiratory wheeze. She is on Solu-Medrol, Mucomyst as well as hypertonic saline. She is not compliant unfortunately with flutter valve as well as incentive spirometry Flat mood today. Encouraged to continue with flutter valve and incentive spirometry. Continue with diuresis. Please note the above document was generated using voice recognition software. It may contain grammatical, syntax or spelling errors.Any formal questions or concerns about the content, text or information contained within the body of this dictation should be directly addressed to the provider for clarification. Admission and Anticipated Discharge Date Admission Date: May 16, 2022 Subjective Patient seen and examined at bedside. No acute distress. No adverse events overnight. Patient was saturating 90-91% on 3 to nasal cannula at time of examination As per RN who was also at bedside, patient is noncompliant with her oxygen. Patient denies any headache. She says that her breathing is the same She is coughing but not bringing up phlegm. Unfortunately she is not compliant with her flutter valve as well as incentive spirometry. Physical Exam Physical Exam: Constitutional: No acute distress HEENT: EOMI, PERRLA Respiratory system: Decreased air entry bilaterally, positive rhonchi, positive wheeze bilaterally, positive crackles bilateral lower lobes CVS: S1-S2 positive, no murmurs or gallops Abdomen: Soft, nontender, nondistended, positive bowel sounds x4 Extremities: +2 pulses bilaterally radialis/ dorsalis pedis, no cyanosis, no edema Neuro: Awake alert oriented x3 Psych: Flat mood and affect G/U: No Fernandez Skin: Macular rash appreciated with superficial bruising likely from scratching bilateral upper and lower extremities Skin: no rashes, warm and dry Lymphatic: no cervical or axillary lymphadenopathy Results & Data Results & Data ([facility]) Vital Signs (Past 12 Hours) Vital Signs Temp Pulse Pulse Resp BP BP Pulse Ox 05/22/22 08:00 88 05/22/22 08:35 36.4 C L 89 24 142/93 H 91 05/22/22 07:01 89 18 98 05/22/22 05:09 95 H 05/22/22 04:29 36.8 C 107 H 22 168/118 H 93 05/22/22 03:25 78 180/129 H 95 05/21/22 23:46 36.8 C 79 16 157/100 H 94 O2 Del Method O2 Flow Rate 05/22/22 08:00 05/22/22 08:35 Nasal Cannula 3 05/22/22 07:01 Nasal Cannula 2 05/22/22 05:09 05/22/22 04:29 Nasal Cannula 2 05/22/22 03:25 Room Air 05/21/22 23:46 Nasal Cannula 2 Laboratory Results 05/22/22 06:02 05/22/22 06:02 PG Care Time/CCT Total # of Minutes Spent Total Time Spent with Patient: Total time spent is greater than 50% in coordination of care (as documented) at patient's floor/unit and/or counseling patient: Coding Level of Care Code 53481 Subseq Hosp Care Lvl [address] R93.89 Acute respiratory failure with hypoxia J96.01 Acute exacerbation of chronic obstructive pulmonary disease J44.1 Current smoker F17.200
[2022-05-22] MEDS: HYDROcodone/ACETAMINOPHEN 10/325 TAB PO PRN (15:11)
--- NOTE | 2022-05-22 17:31 | Hospitalist Progress Note ---
Date of Service May 22, 2022 Assessment & Plan (1) Acute hypokalemia: (2) Pruritic rash: (3) Metabolic alkalosis: (4) HTN (hypertension), benign: (5) Asthma: (6) Leukocytosis: (7) Blood bacterial culture positive: (8) Back pain: (9) Anxiety: (10) Depression: (11) Hematuria: Plan Ms. Meza is a 66 y.o. female who presented to the ED via ambulance on 05/16 for SOB and a pruritic rash. She recently was in the ED on 05/04 for similar issue, was given dexamethasone and told to stop Flonase. For the past week she has taken 90-100 Benadryl pills along with her hydrocodone and has not taken any of her other prescribed medications. She recently quit smoking 1 month ago. #Acute hypoxic respiratory failure -continue nasal canula. Bipap at night if needed - per pul -etiology - ? sec to fluid overload/copd exacerbation/pulm hemorrhage due to vasculitis -CXR done today showed mild pulmonary edema which has improved since prior exam and persistent small BL pleural effusions, R>L, with associated bibasilar opacities. #Acute diastolic CHF -CT showed small to moderate L pleural effusions. -ECHO showed EF 55-60% with diastolic dysfunction (Grade II) -monitor I and Os. 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 -BENY, ANCA, rheumatoid factor, anti-CCP pending -Biofire is negative -Mycoplasma and Legionella urine pending -Patient will need repeat CT chest in 2-3 months -Continue 40mg solumedrol IV q12h - DuoNeb scheduled BID, hypertonic saline nebs and mucomyst -Continue Azithromycin -Continue using incentive spirometry -Pneumo screen ordered today. Results pending. -Continue Mucinex 600mg Q12 #Metabolic Alkalosis with electrolyte derangement -ABG yesterday showed pH of 7.56 which is slightly improved -Nephrology consulted; recs appreciated - concerning for primary hyperaldosteronism vs ectopic ACTH - Renin and aldosterone panels still pending - CT showed mild thickening of the BL adrenal glands L>R, which may represent mild adrenal hyperplasia. No adrenal nodules/masses identified. - continue aggressive potassium and magnesium replacement #Hypokalemia -Possibly correlated to poor PO intake and prior gastric bypass surgery. -Resolved with KCl supplementation. Will continue to monitor daily labs at this time and add no more KCl unless needed. 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 -Labs pending for ANCA, BENY #Uncontrolled Hypertension -BP has been elevated since admission. no sign of hypertensive urgency -Continue amlodipine, -losartan 25mg PO BID -Increase carvedilol to 12.5 BID - continue amlodipine -continue prn hydralazine. -Renin and aldosterone are still pending. -Renal duplex showed no GER -Continue LASIX and have patient be at negative fluid balance -Peripheral smear did not demonstrate schistocytes. Thiamine and folate replacement encouraged. #Prolonged QT -- normalized -Excessive Benadryl use is most likely etiology. -continue aggressive repletion of k and mag. #Thrombocytopenia -Most likely related to vasculitis -platelet count was declining but has not stabilized in the 40s-50s. - peripheral smear without abnormal platelet morphology # Anemia - Repleting Vitamin B12 and folate as below. - Iron studies added to morning labs # Vitamin B12 deficiency - repleting with oral B12 # folate deficiency - repleting with oral folate #Chronic pain -Patient is currently on hydrocodone/acetaminophen 10/325 prn q6hr. Dose recently increased from 7.5 to 10 on 03/26 by her PCP. - continue lidocaine patch. #Hematuria -- resolved -Patient reports that she has had blood in her urine -Repeat UA showed 3+ blood, 3+ protein, 30 epithelia cells, with a urine pH of 8.0 #Positive Blood culture -One tube grew Coag neg staph, the other tube is NGTD. -Most likely contaminate. #Anxiety #Depression -Continue at home buspar, fluoxetine, diet/fluid status: heart healthy Code status: full DVT prop: SCDs ordered Dispo: med surg Thank you for allowing me to participate in the care of your patient. -Dr. Benny Garcia PGY1 Admission and Anticipated Discharge Date Admission Date: May 16, 2022 Supervising Physician Co-Signing Physician Notes Patient seen and examined independently of PGY-1 Dr. Garica. Agree with history, exam findings, assessment and plan of care. In brief, Trina is a 66 year old female with history of admitted with acute hypoxic respiratory failure. Has not been out of bed much at all. Reports that her rash continues to be itchy. VS and nursing notes reviewed. Ill appearing. Heart with regular rate and rhythm. Breathing comfortably on 2 L NC. Lungs with wheezing and ronchi in all lung schulte. Vasculitic lesions on the legs and torso. Labs and imaging reviewed. 1. Acute hypoxic respiratory failure. Secondary to fluid overload + COPD + pulm vasculitis. BiPAP at night and NC while awake. 2. Acute, decompensated HFpEF. CT on admission with small to moderate left pleural effusion. Lasix IV daily, spironolactone to 100mg daily. 3. Pulmonary vasculitis. BENY, ANCA, RF, anti-CCP pending. Mycoplasma, legionella pending. Pneumo pending. 4. COPD exacerbation. Solumedrol 40mg q12h, duoneb BID, azithromycin, M ucinex, hypertonic saline nebs, Mucomyst. 5. Metabolic alkalosis. Improving. Primary hyperaldosterone vs ectopic ACTH. Renin and aldosterone pending. CT with mild thickening of bilateral adrenal glands. Continue repleting K and Mg. 6. Vasculitic rash. Rheumatology consulted via phone. Awaiting ANCA and BENY. 7. Hypertension. Continue amlodipine, losartan and coreg 12.5mg BID, spironolactone, lasix. Renal duplex neg for renal artery stenosis. 8. Excessive Benadryl use. QTc a bit elongated and normalizing. Optimizing electrolytes. 9. Thrombocytopenia. Secondary to vasculitis. Seems to have stabilized at this point. 10. anemia. iron studies added to AM labs. Peripheral smear without signs of microangiopathic hemolytic anemia. 11. vitamin B12 and folate deficiency. Repletion. Dispo: pending clinical improvement. Subjective Patient was seen bedside this morning. She has no complaints at this time. Physical Exam Constitutional: WD/WN, vitals as above + acute distress, + disheveled, cooperative and comfortable Eyes: PERRL, conjunctivae normal, anicteric sclerae ENMT: external ear and nose normal, oropharynx normal Respiratory: normal respiratory effort, lungs clear to auscultation normal respiratory effort Auscultation: + wheezes (Bilateral UL ) Cardiovascular: RRR, no murmur, no edema Gastrointestinal (Abdomen): normal bowel sounds, soft, nontender, no hepatosplenomegaly Musculoskeletal: no cyanosis or clubbing, extremities motor strength 5/5 Skin: + excoriations (Bl UE and LE ) and + purpura Psychiatric: A+Ox3, euthymic affect Results & Data Results & Data ([facility]) Vital Signs (Past 12 Hours) Vital Signs Temp Pulse Pulse Resp BP Pulse Ox O2 Del Method 05/22/22 08:00 Nasal Cannula 05/22/22 16:00 87 05/22/22 15:58 37.1 C 91 H 20 170/111 H 90 Room Air 05/22/22 12:21 83 16 92 Nasal Cannula 05/22/22 11:51 36.6 C 86 20 151/93 H 91 Nasal Cannula 05/22/22 08:00 88 05/22/22 08:35 36.4 C L 89 24 142/93 H 91 Nasal Cannula 05/22/22 07:01 89 18 98 Nasal Cannula O2 Flow Rate 05/22/22 08:00 2 05/22/22 16:00 05/22/22 15:58 05/22/22 12:21 2 05/22/22 11:51 3 05/22/22 08:00 05/22/22 08:35 3 05/22/22 07:01 2
[2022-05-22] MEDS: CYANOCOBALAMIN (B-12) 500 MCG TABLET PO SCH (17:42)
[2022-05-22 20:19] LABS: BUN Creatinine Ratio 42.9 (10-20); Calcium 8.1 mg/dl (8.5-10.1); Creatinine Clr Calc Pharmacy 91.9 ml/min; Est GFR (African American) 119.3 ml/min
[2022-05-22] MEDS ORDERED: LOSARTAN POTASSIUM 25 MG TAB PO SCH (21:00)
--- NOTE | 2022-05-22 21:18 | Electrocardiogram Report ---
Test Reason : Blood Pressure : / mmHG Vent. Rate : 084 BPM Atrial Rate : 084 BPM P-R Int : 132 ms QRS Dur : 078 ms QT Int : 380 ms P-R-T Axes : 079 079 067 degrees QTc Int : 449 ms Normal sinus rhythm Right atrial enlargement Borderline ECG When compared with ECG of 21-MAY-2022 06:31, Nonspecific T wave abnormality no longer evident in Inferior leads Nonspecific T wave abnormality no longer evident in Anterolateral leads Confirmed by Suraj Vega ([id number]) on 05/22/2022 9:18:12 PM Referred By: REFERRED SELF Confirmed By:Suraj Vega
[2022-05-22] MEDS ORDERED: POTASSIUM CHLORIDE CRTAB 20 MEQ TABCR PO STA (21:52)
--- NOTE | 2022-05-22 22:00 | Communication Note ---
Date of Service: May 22, 2022 K 3.0 this evening, down from 5.0. Repleting w/ 40meq PO and 20meq IV. Next BMP at AM labs. Holding daily Lasix. Consider acetazolamide as alternative diuretic. Patient's potassium appears to drop excessively w/ Lasix.
[2022-05-22] MEDS: MELATONIN 3 MG TAB PO PRN (22:23)
[2022-05-22] MEDS: POTASSIUM CHLORIDE / WTR 10 MEQ/100 ML PLCT IV SCH ×2 (22:23→23:25)
[2022-05-22] MEDS: carvediloL 12.5 MG TAB PO SCH (22:24)
[2022-05-23] MEDS: POTASSIUM CHLORIDE / WTR 10 MEQ/100 ML PLCT IV SCH ×5 (03:23→22:22)
--- NOTE | 2022-05-23 06:58 | Hospitalist Progress Note ---
Date of Service May 23, 2022 Assessment & Plan (1) Acute hypokalemia: (2) Pruritic rash: (3) Metabolic alkalosis: (4) HTN (hypertension), benign: (5) Asthma: (6) Leukocytosis: (7) Blood bacterial culture positive: (8) Back pain: (9) Anxiety: (10) Depression: (11) Hematuria: Plan Ms. Meza is a 66 y.o. female who presented to the ED via ambulance on 05/16 for SOB and a pruritic rash. She recently was in the ED on 05/04 for similar issue, was given dexamethasone and told to stop Flonase. For the past week she has taken 90-100 Benadryl pills along with her hydrocodone and has not taken any of her other prescribed medications. She recently quit smoking 1 month ago. #Acute hypoxic resp failure - multifactorial. heart failure exacerbation/fluid overload, COPD exacerbation, pulmonary hemorrhage from vasculitis - continue supplemental O2, stopped BiPAP since patient is not using this - repeat CXR this morning with continued mild pulmonary edema (although improved), small bilateral pleural effusions, and R>L bibasilar opacities #Acute diastolic CHF, in exacerbation -CT chest on admission showed small to moderate L pleural effusions. 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 - BENY, ANCA, RF, anti-CCP pending #COPD exacerbation - respiratory BioFire is negative - Pending mycoplasma and legionella - Pneumo screen negative - de-escalated solumedrol to oral pred 40mg x 3 days, then 20mg x 3 days, then stop since she has not been responsive to steroids - continue duoneb BID, hypertonic saline, Mucomyst, Mucinex 600mg BID - day 3 of azithromycin 250mg #Abnormal Chest CT - will need repeat in 2-3 months #Metabolic Alkalosis - VBG today whowed continued alkalosis (ph 7.53) likely multifactorial, but concern for primary hyperaldo vs ectopic ACTH - appreciate nephrology recommendations for work up and management #Hypokalemia -worsened with loop diuretic which has been stopped in favor of acetazolamide; also likely secondary to metabolic alkalosis causing intracellular shift of potassium - repleting K as needed - late afternoon K was 2.8--given 40mEq IV KCL + 20mEq KCl PO - start 20mEQ KCL PO BID scheduled # hypertension - chronic, but acutely more challenging to control likely due to underlying condition driving metabolic alkalosis and hypokalemia - renal duplex does not indicate renal artery stenosis - continue losartan 50mg BID and spironolactone 100mg (which will hopefully help prevent K from dropping to drastically) - continue amlodipine 10mg - increased Coreg to 25mg BID - prn hydralazine for SBP > 180 #Prolonged QT--resolved - due to excessive benadryl use prior to admission - EKG on 05/22 QTC has normalized #Vasculitis Rash -Rheumatology consulted via telephone and 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 -Labs pending for ANCA, BENY #Thrombocytopenia and anemia - Most likely related to vasculitis - platelet counts has been progressively decreasing, but are stable now in the 50s - peripheral smear without signs of microangiopathic hemolytic anemia # B12 deficiency - repleting with oral B12 # folate deficiency - repleting with oral folate #Anxiety and depression - Continue home buspar, restarted home fluoxetine -Continue at home buspar, fluoxetine #fibromyalgia - restarted home gabapentin - has PRN home hydrocodone-acetaminophen 10-325 q6h PRN ordered #Hematuria -- resolved #Back pain -Given lidocaine patch. Pain improved. #Positive Blood culture -One tube grew Coag neg staph, the other tube is NGTD. -Most likely contaminate. diet/fluid status: heart healthy Code status: full DVT prop: SCDs Dispo: med surg Thank you for allowing me to participate in the care of your patient. -Dr. Benny Gacria PGY1 Admission and Anticipated Discharge Date Admission Date: May 16, 2022 Supervising Physician Co-Signing Physician Notes Patient seen and examined independently of PGY-1 Dr. Garcia. Agree with history, exam findings, assessment and plan of care. In brief, Trina is a 66 year old female with history of hypertension, COPD admitted with acute hypoxic respiratory failure. Has not been out of bed much at all. Reports that her rash continues to be itchy. Has not been using ICS or flutter much at all. VS and nursing notes reviewed. Ill appearing. Heart with regular rate and rhythm. Breathing comfortably on 2 L NC. Lungs with wheezing and ronchi in all lung schulte. Vasculitic lesions on the legs and torso. Labs and imaging reviewed. 1. Acute hypoxic respiratory failure. Secondary to fluid overload + COPD + pulm vasculitis. Continue NC. Stopped BiPAP 2. Acute, decompensated HFpEF. CT on admission with small to moderate left pleural effusion. Stopped Lasix due to hypokalemia, start acetazolamide daily, continue spironolactone to 100mg daily. 3. Pulmonary vasculitis. BENY, ANCA, RF, anti-CCP pending. Mycoplasma, legionella pending. Pneumo negative. 4. COPD exacerbation. Switched solumedrol to pred taper (40mg x 3d, then 20mg x 3d, then stop) since not significant response to steroids. Continue duoneb BID, azithromycin, Mucinex, hypertonic saline nebs, Mucomyst. 5. Metabolic alkalosis. No significant change. Primary hyperaldosterone vs ectopic ACTH. Renin and aldosterone pending. CT with mild thickening of bilateral adrenal glands. Continue repleting K and Mg. 6. Hypokalemia. Secondary to above + some mild loose stool. Continuing to replete K and Mg. Started scheduled 20mEq KCl BID. 6. Vasculitic rash. Rheumatology consulted via phone. Awaiting ANCA and BENY. 7. Hypertension. Acute on chronic. Continue amlodipine, losartan, spironolactone. Increased coreg to 25mg BID. Renal duplex neg for renal artery stenosis. 8. Excessive Benadryl use. QTc a bit elongated and normalizing. Optimizing electrolytes. 9. Thrombocytopenia. Secondary to vasculitis. Seems to have stabilized at this point. 10. anemia. iron studies not consistent with iron deficiency, but noted to have vitamin B12 and folate deficiency. Peripheral smear without signs of microangiopathic hemolytic anemia. 11. vitamin B12 and folate deficiency. Repletion. 12. anxiety, depression. Restarted home fluoxetine. Continue home buspar. Dispo: pending clinical improvement. Subjective Patient was seen bedside the morning. She c/o fatigue, itchy all over, and SOB. She states that has not eaten due to not having an appetite. She denies any N/V. Patient is falling in and out of sleep while talking. Per nurse: Patient has not eaten today or much of anything yesterday. Review of Systems Review of Systems: All systems reviewed & are unremarkable except as noted in HPI & below Physical Exam Constitutional: + lethargic Eyes: PERRL, conjunctivae normal, anicteric sclerae ENMT: external ear and nose normal, oropharynx normal Neck: R sided slight JVD Respiratory: Decreased air entry bilaterally, positive rhonchi, positive wheeze bilaterally, positive crackles bilateral lower lobes Cardiovascular: RRR, no murmur, no edema Gastrointestinal (Abdomen): normal bowel sounds, soft, nontender, no hepatosplenomegaly Skin: Macular rash appreciated with superficial bruising likely from scratching bilateral upper and lower extremities Psychiatric: Orientation: oriented x 3 Affect: + flat affect Lymphatic: no cervical or axillary lymphadenopathy Results & Data Results & Data ([facility]) Vital Signs (Past 12 Hours) Vital Signs Temp Pulse Pulse Resp BP Pulse Ox O2 Del Method 05/23/22 02:49 36.8 C 84 18 158/103 H 98 Nasal Cannula 05/23/22 00:39 88 05/22/22 23:07 36.5 C 98 H 18 166/103 H 95 05/22/22 19:47 36.9 C 101 H 19 163/98 H 93 Nasal Cannula 05/22/22 19:48 103 H 18 97 Nasal Cannula O2 Flow Rate 05/23/22 02:49 2 05/23/22 00:39 05/22/22 23:07 3 05/22/22 19:47 3 05/22/22 19:48 3
[2022-05-23 06:59] LABS: BUN Creatinine Ratio 46.9 (10-20); Calcium 8.4 mg/dl (8.5-10.1); Creatinine Clr Calc Pharmacy 83.3 ml/min; Est GFR (African American) 119.3 ml/min; Potassium 3.7 mmol/L (3.5-5.1)
[2022-05-23] MEDS: ALBUT/IPRATROP 3MG/0.5MG NEB 3 ML VIAL NEB SCH ×3 (07:12→19:43)
[2022-05-23] MEDS: SODIUM CHLOR 7% 4 ML NEB NEB SCH ×2 (07:12→19:45)
[2022-05-23] MEDS: ACETYLCYSTEINE 20% INHAL SOLN 4ML ***DISPENSED BY RESP. INH SCH ×2 (07:14→19:43)
[2022-05-23 07:24] LABS: Hemoglobin 9.4 g/dl (12.0-16.0); Mean Corpuscular Hemoglobin 30.8 pg (25.0-34.0); Mean Corpuscular Hgb Conc 33.6 g/dL (32.0-36.0); Mean Corpuscular Volume 91.8 fL (80.0-100.0); Mean Platelet Volume 12.9 fL (9.4-12.3); Nucleated RBC # (auto) 0.26 K/uL (0-0); Nucleated RBC % (auto) 2.5 %; Platelet Count 56 K/uL (130-400); RDW Coefficient of Variation 17.7 % (11.5-14.5); Red Blood Count 3.05 M/uL (3.93-5.22); White Blood Count 10.47 K/ul (4.8-10.8)
[2022-05-23 07:33] LABS: Base Excess VBG 10.5 mEq/L; HCO3 VBG 34 mmol/L; Oxygen Saturation VBG 94.9 %; PCO2 VBG 41 mmHg (38-50); PO2 VBG 64 mmHg; pH VBG 7.53 (7.36-7.41)
[2022-05-23] MEDS: CALAMINE/PRAMOXINE LOTION 180 APPLN/180 ML BTL EXT PRN (07:43)
[2022-05-23] MEDS: busPIRone 5 MG TAB PO SCH ×3 (07:49→20:01)
[2022-05-23] MEDS: amLODIPine BESYLATE 5 MG TAB PO SCH (07:49)
[2022-05-23] MEDS: carvediloL 12.5 MG TAB PO SCH ×2 (07:50→19:56)
[2022-05-23] MEDS: FLUTICASONE/VILANTEROL 100/25MCG 14 PUFFS/INHALER INH SCH (07:51)
[2022-05-23] MEDS: guaiFENesin 600 MG TABCR PO SCH ×2 (07:51→20:00)
[2022-05-23] MEDS: FOLIC ACID 1 MG TAB PO SCH (07:51)
[2022-05-23] MEDS: CYANOCOBALAMIN (B-12) 500 MCG TABLET PO SCH (07:51)
[2022-05-23] MEDS: LIDOCAINE 5% 1 PATCH TD SCH (07:52)
[2022-05-23] MEDS: SPIRONOLACTONE 100 MG TAB PO SCH (07:54)
[2022-05-23] MEDS: methylPREDNISolone 40 MG in SYRINGE 0 ML IV SCH (07:54)
--- NOTE | 2022-05-23 08:52 | Pulmonology Progress Note ---
Date of Service May 23, 2022 Assessment & Plan (1) Abnormal chest CT: (2) Acute respiratory failure with hypoxia: (3) Acute exacerbation of chronic obstructive pulmonary disease: (4) Current smoker: Plan Chest x-ray 05/16/2022 personally reviewed: Portable film, good respiratory effort, scoliosis appreciated, bilateral costophrenic and cardiophrenic angles are clean. No clear lung infiltrate appreciated CT chest 05/19/2022 personally reviewed: Patchy groundglass opacities appreciated bilaterally in the upper lobes Moderate right and small left-sided pleural effusion Atelectasis of the right lower lobe Mediastinal lymphadenopathy especially station 4R --Abnormal chest CT Patient seems to have patchy opacities in bilateral upper lobes She also has bilateral pleural effusion COVID-19 NAAT negative BNP 313 Respiratory bio fire negative Absolute eosinophil count 170 on 05/17/2022 UDS positive for hydrocodone Pulmonary edema can give similar picture Upper lobe groundglass opacities of/fibrosis could be seen in hypersensitivity pneumonitis especially given that the patient has [employer] at home. Unfortunately there is no previous CAT scan to compare. BENY has already been ordered by the primary team. Add rheumatoid factor, anti-CCP to it Hypersensitive panel ordered Mycoplasma IgM as well as Legionella antigen in the urine ordered Patient will need repeat CT chest in 2-3 months --COPD with exacerbation [id number] smoking history Not on any inhalers at home Currently on Breo On discharge I would recommend the patient to be on Incruse or Anoro rather than Breo -- Bilateral pleural effusion Moderate on the right BNP in the 300s Patient does have high blood pressure which is difficult to control along with grade 2 diastolic dysfunction Diuresis as tolerated per the primary team. No need for any intervention from pulmonary perspective for the pleural effusions --Hypertension Patient presented with hypertension hypokalemia and grade 2 diastolic dysfunction I do think patient's hypertension is chronic. Care as per primary team, rule out Conn syndrome or pheochromocytoma Plan: Chest x-ray from today still shows small bilateral pleural effusion and right lower lobe atelectasis. Patient will definitely benefit from incentive spirometry as well as flutter valve but unfortunately she has not been using it. Patient is still alkalotic on the VBG. Lasix has been stopped. Recommend acetazolamide 250 mg may be daily for next 2-3 days. Resistant Medrol. Start prednisone taper 40 mg for 3 days followed by 20 mg for 3 days and then stop. Patient seems to be depressed and withdrawn. Will defer the management for depression to primary care. Case was discussed with Dr. Garcia and SERENA Seals Please note the above document was generated using voice recognition software. It may contain grammatical, syntax or spelling errors.Any formal questions or concerns about the content, text or information contained within the body of this dictation should be directly addressed to the provider for clarification. Admission and Anticipated Discharge Date Admission Date: May 16, 2022 Subjective Patient seen and examined at bedside. No acute distress, no adverse events overnight. Patient seems to be withdrawn and depressed. She is not making any eye contact. I spoke with the nurse. Patient is not using flutter valve as well as incentive spirometry. She says her breathing is okay. Still complains of itching better controlled. Denies any chest pain, no headache, no nausea, no vomiting. Poor appetite. Review of Systems Review of Systems: All systems reviewed & are unremarkable except as noted in Subjective Physical Exam Physical Exam: Constitutional: No acute distress HEENT: EOMI, PERRLA Respiratory system: Decreased air entry bilaterally, positive rhonchi, positive crackles bilateral lower lobes, mild expiratory wheeze anteriorly CVS: S1-S2 positive, no murmurs or gallops Abdomen: Soft, nontender, nondistended, positive bowel sounds x4 Extremities: +2 pulses bilaterally radialis/ dorsalis pedis, no cyanosis, no edema Neuro: Awake alert oriented x3 Psych: Flat mood and affect G/U: No Fernandez Skin: Macular rash appreciated with superficial bruising likely from scratching bilateral upper and lower extremities Skin: no rashes, warm and dry Lymphatic: no cervical or axillary lymphadenopathy Results & Data Results & Data ([facility]) Vital Signs (Past 12 Hours) Vital Signs Temp Pulse Pulse Resp BP BP Pulse Ox 05/23/22 08:00 36.6 C 85 18 173/106 H 94 05/23/22 07:15 91 H 18 97 05/23/22 02:49 36.8 C 84 18 158/103 H 98 05/23/22 00:39 88 05/22/22 23:07 36.5 C 98 H 18 166/103 H 95 O2 Del Method O2 Flow Rate 05/23/22 08:00 Nasal Cannula 2 05/23/22 07:15 Nasal Cannula 3 05/23/22 02:49 Nasal Cannula 2 05/23/22 00:39 05/22/22 23:07 3 Laboratory Results 05/23/22 06:00 05/23/22 06:00 PG Care Time/CCT Total # of Minutes Spent Total Time Spent with Patient: Total time spent is greater than 50% in coordination of care (as documented) at patient's floor/unit and/or counseling patient: Coding Level of Care Code 29902 Subseq Hosp Care Lvl [address] R93.89 Acute respiratory failure with hypoxia J96.01 Acute exacerbation of chronic obstructive pulmonary disease J44.1 Current smoker F17.200
[2022-05-23] MEDS: LOSARTAN POTASSIUM 50 MG TAB PO SCH ×2 (09:16→19:58)
--- NOTE | 2022-05-23 10:05 | XRay Report ---
XR chest 1V portable HISTORY: 66 years-old Female f/u follow-up study in a patient with bibasilar opacities COMPARISON: Chest radiograph 05/21/2022, CT abdomen pelvis 05/20/2022 TECHNIQUE: AP view of the chest FINDINGS: Cardiac silhouette is enlarged. Pulmonary vascular congestion with unchanged interstitial coarsening. Trace left and small right pleural effusions with persistent right greater than left bibasilar densi ties. Bones appear grossly intact. IMPRESSION: 1. Cardiomegaly with unchanged mild pulmonary edema. 2. Small right and trace left pleural effusions. 3. Right greater than left bibasilar opacities are stable. ACT 112: Negative or not required by law. The above report was generated using voice recognition software. It may contain grammatical, syntax o r spelling errors. Electronically signed by: Syed Pulido M.D. 05/23/2022 10:04 AM
[2022-05-23] MEDS ORDERED: POTASSIUM CHLORIDE CRTAB 20 MEQ TABCR PO STA ×2 (11:12→18:08)
[2022-05-23] MEDS: acetaZOLAMIDE 250 MG TAB PO SCH (11:38)
--- NOTE | 2022-05-23 11:52 | Nephrology Progress Note ---
Date of Service May 23, 2022 Assessment & Plan (1) Acute hypokalemia: Plan: * Corrected. Metabolic alkalosis was a likely contributing factor * Continue Spironolactone daily * Await results of renin/aldosterone and 24 hour urine metanephrine testing (2) Metabolic alkalosis: Plan: * Pulmonology has prescribed acetazolamide * Hold Furosemide * Monitor PRP (3) Hypertensive urgency: Plan: * BP improved * Renal duplex negative for GER * Continue Amlodipine 10 mg daily, Losartan 50 mg BID, Spironolactone 100 mg daily * Consider titration of Carvedilol if QT interval will allow Admission and Anticipated Discharge Date Admission Date: May 16, 2022 Subjective Ms. Meza was evaluated in her hospital room this morning. She had a flat/depressed affect and refused to answer most of my questions Review of Systems Review of Systems: Unobtainable due to mental health condition Physical Exam Constitutional: + ill appearing; not in distress Eyes: PERRL, conjunctivae normal, anicteric sclerae ENMT: external ear and nose normal, oropharynx normal Neck: trachea midline, no thyromegaly Respiratory: normal respiratory effort Auscultation: + diminished lung sounds and + rales (bilateral) Cardiovascular: Rate/Rhythm: regular rate and regular rhythm Gastrointestinal (Abdomen): Inspection/Auscultation: abdomen normal to inspection Results & Data ([facility]) Vital Signs (Past 12 Hours) Vital Signs Temp Pulse Pulse Resp BP BP Pulse Ox 05/23/22 08:00 36.6 C 85 18 173/106 H 94 05/23/22 09:15 149/94 H 05/23/22 07:15 91 H 18 97 05/23/22 02:49 36.8 C 84 18 158/103 H 98 05/23/22 00:39 88 O2 Del Method O2 Flow Rate 05/23/22 08:00 Nasal Cannula 2 05/23/22 09:15 05/23/22 07:15 Nasal Cannula 3 05/23/22 02:49 Nasal Cannula 2 05/23/22 00:39 Laboratory Results Laboratory Tests 05/18/22 05/23/22 05/23/22 08:45 06:00 06:00 WBC 10.47 Hgb 9.4 L Hct 28.0 L Plt Count 56 L Sodium 138 Potassium 3.7 D Chloride 100 Carbon Dioxide 33 H BUN 23 Creatinine 0.49 L Glucose 133 H Calcium 8.4 L Renin Activity Pending Aldosterone Pending PG Care Time/CCT Total # of Minutes Spent Total Time Spent with Patient: Total time spent is greater than 50% in coordination of care (as documented) at patient's floor/unit and/or counseling patient: Coding Level of Care Code 25118 Subseq Hosp Care Lvl 3 Diagnoses Acute hypokalemia E87.6 Metabolic alkalosis E87.3 Hypertensive urgency I16.0
[2022-05-23] MEDS: HYDROcodone/ACETAMINOPHEN 10/325 TAB PO PRN (11:57)
[2022-05-23 14:51] LABS: Renin Activity 1.75 ng/mL/h (0.25-5.82)
[2022-05-23 16:51] LABS: BUN Creatinine Ratio 45.5 (10-20); Calcium 8.6 mg/dl (8.5-10.1); Creatinine Clr Calc Pharmacy 74.2 ml/min; Est GFR (African American) 114.9 ml/min; Est GFR (Non-African American) 99.1 ml/min; Potassium 2.8 mmol/L (3.5-5.1)
[2022-05-23] MEDS: GABAPENTIN 300 MG CAP PO SCH (19:57)
[2022-05-23] MEDS: carvediloL 25 MG TAB PO SCH (23:06)
[2022-05-24] MEDS: HYDROcodone/ACETAMINOPHEN 10/325 TAB PO PRN ×2 (04:34→13:35)
[2022-05-24] MEDS: SODIUM CHLOR 7% 4 ML NEB NEB SCH ×2 (06:58→19:50)
[2022-05-24] MEDS: ACETYLCYSTEINE 20% INHAL SOLN 4ML ***DISPENSED BY RESP. INH SCH ×2 (06:58→19:49)
[2022-05-24] MEDS: ALBUT/IPRATROP 3MG/0.5MG NEB 3 ML VIAL NEB SCH ×3 (06:58→19:49)
[2022-05-24 07:38] LABS: Hemoglobin 8.8 g/dl (12.0-16.0); Mean Corpuscular Hemoglobin 30.3 pg (25.0-34.0); Mean Corpuscular Hgb Conc 32.6 g/dL (32.0-36.0); Mean Corpuscular Volume 93.1 fL (80.0-100.0); Mean Platelet Volume 11.6 fL (9.4-12.3); Nucleated RBC # (auto) 0.23 K/uL (0-0); Nucleated RBC % (auto) 2.2 %; Platelet Count 52 K/uL (130-400); RDW Coefficient of Variation 17.7 % (11.5-14.5); RDW Standard Deviation 59.7 fL (36.4-46.3); White Blood Count 10.66 K/ul (4.8-10.8)
[2022-05-24] MEDS: POTASSIUM CHLORIDE CRTAB 20 MEQ TABCR PO SCH ×2 (07:44→20:15)
[2022-05-24] MEDS: carvediloL 25 MG TAB PO SCH ×2 (07:45→20:16)
[2022-05-24] MEDS: GABAPENTIN 300 MG CAP PO SCH ×2 (07:47→20:15)
[2022-05-24] MEDS: FLUoxetine HCL 20 MG CAP PO SCH (07:48)
[2022-05-24] MEDS: PANTOprazole 40 MG TAB PO SCH (07:48)
[2022-05-24] MEDS: acetaZOLAMIDE 250 MG TAB PO SCH (07:49)
[2022-05-24] MEDS: CYANOCOBALAMIN (B-12) 500 MCG TABLET PO SCH (07:49)
[2022-05-24] MEDS: FOLIC ACID 1 MG TAB PO SCH (07:50)
[2022-05-24] MEDS: guaiFENesin 600 MG TABCR PO SCH ×2 (07:50→20:14)
[2022-05-24] MEDS: amLODIPine BESYLATE 5 MG TAB PO SCH (07:51)
[2022-05-24] MEDS: SPIRONOLACTONE 100 MG TAB PO SCH (07:51)
[2022-05-24] MEDS: predniSONE 20 MG TAB PO SCH (07:52)
[2022-05-24] MEDS: LOSARTAN POTASSIUM 50 MG TAB PO SCH ×2 (07:53→20:14)
[2022-05-24] MEDS: busPIRone 5 MG TAB PO SCH ×3 (07:55→20:14)
[2022-05-24] MEDS: FLUTICASONE/VILANTEROL 100/25MCG 14 PUFFS/INHALER INH SCH (07:56)
[2022-05-24] MEDS: LIDOCAINE 5% 1 PATCH TD SCH (07:57)
[2022-05-24] MEDS: OXYBUTYNIN CHLORIDE XL 5 MG TABCR PO SCH (08:04)
[2022-05-24 08:05] LABS: BUN Creatinine Ratio 42.3 (10-20); Calcium 8.2 mg/dl (8.5-10.1); Creatinine Clr Calc Pharmacy 86.9 ml/min; Potassium 3.9 mmol/L (3.5-5.1)
--- NOTE | 2022-05-24 09:07 | Nephrology Progress Note ---
Date of Service May 24, 2022 Assessment & Plan (1) Anticholinergic drug overdose: Plan: * Presented to EMD 05/04/22 with reaction to Flonase. Reports facial and tongue swelling. Received IV Decadron and discharged. Patient reports self medicating with OTC Benadryl up to 20 tablets/day for the next 12 days * Recommend consultation w/ Pulmonology to determine whether Breo Ellipta (Fluticasone/Vilanterol) should be stopped due to recent "reaction" to Flonase (Fluticasone) and ongoing pruritus (2) Acute hypokalemia: Plan: * No prior h/o hypokalemia. Never hospitalized due to low K. Was not previously on KCl supplement * Mg within normal limits * Now on KCl 20 mEq po BID and Spironolactone 100 mg daily * Monitor PRP (3) Metabolic alkalosis: Plan: * Alkalosis likely due to profound hypokalemia * Potassium supplementation is being provided and Pulmonology has prescribed acetazolamide * Hold diuretics as patient appears clinically volume contracted (4) Hypertensive urgency: Plan: * SBP 130 - 170 mm Hg last 24 hours * Renal duplex negative for GER * Continue Amlodipine 10 mg daily, Losartan 50 mg BID, Spironolactone 100 mg daily * Consider titration of Carvedilol if QT interval and HR will allow Admission and Anticipated Discharge Date Admission Date: May 16, 2022 Subjective Ms. Meza was evaluated in her hospital room this morning. She had a flat/depressed affect. She reports continued pruritus and has numerous excoriations on her arms and legs Review of Systems Constitutional: + problem reported (itching); no fever Eyes: no worsening vision Ear, Nose, Mouth, Throat: no problem reported Respiratory: no cough and no dyspnea Cardiovascular: no chest pain Gastrointestinal: + diarrhea/loose stools (at least one liquid BM daily since gastric bypass surgery) Physical Exam Constitutional: + ill appearing; not in distress Eyes: PERRL, conjunctivae normal, anicteric sclerae ENMT: external ear and nose normal, oropharynx normal Neck: trachea midline, no thyromegaly Respiratory: normal respiratory effort Auscultation: + diminished lung sounds and + rales (bilateral) Cardiovascular: Rate/Rhythm: regular rate and regular rhythm Gastrointestinal (Abdomen): Inspection/Auscultation: abdomen normal to inspection Skin: numerous excoriations on arms and legs with open lesions Results & Data ([facility]) Vital Signs (Past 12 Hours) Vital Signs Temp Pulse Pulse Resp BP Pulse Ox O2 Del Method 05/24/22 08:24 37.0 C 75 16 137/91 90 Nasal Cannula 05/24/22 07:14 73 05/24/22 06:59 90 18 93 Room Air 05/24/22 03:27 36.8 C 73 20 150/90 H 94 Nasal Cannula 05/24/22 01:33 74 05/24/22 01:33 Nasal Cannula 05/23/22 22:55 36.8 C 77 17 145/92 H 92 Nasal Cannula O2 Flow Rate 05/24/22 08:24 2 05/24/22 07:14 05/24/22 06:59 05/24/22 03:27 1 05/24/22 01:33 05/24/22 01:33 2 05/23/22 22:55 1 Laboratory Results Laboratory Tests 05/18/22 05/22/22 05/23/22 08:45 19:49 06:00 WBC Hgb Hct Plt Count Sodium Potassium 3.0 L D 3.7 D Chloride Carbon Dioxide 35 H 33 H BUN Creatinine Est GFR (Non-Af Amer) Glucose Calcium Renin Activity 1.75 Aldosterone 2 05/23/22 05/24/22 05/24/22 16:17 06:57 06:57 WBC 10.66 Hgb 8.8 L Hct 27.0 L Plt Count 52 L Sodium 141 Potassium 2.8 L D 3.9 D Chloride 107 Carbon Dioxide 30 30 BUN 22 Creatinine 0.52 L Est GFR (Non-Af Amer) 101.0 Glucose 127 H Calcium 8.2 L Renin Activity Aldosterone PG Care Time/CCT Total # of Minutes Spent Total Time Spent with Patient: Total time spent is greater than 50% in coordination of care (as documented) at patient's floor/unit and/or counseling patient: Coding Level of Care Code 00572 Subseq Hosp Care Lvl 3 Diagnoses Anticholinergic drug overdose T44.3X1A Acute hypokalemia E87.6 Metabolic alkalosis E87.3 Hypertensive urgency I16.0
--- NOTE | 2022-05-24 09:29 | Pulmonology Progress Note ---
Date of Service May 24, 2022 Assessment & Plan (1) Abnormal chest CT: (2) Acute respiratory failure with hypoxia: (3) Acute exacerbation of chronic obstructive pulmonary disease: (4) Current smoker: Plan Chest x-ray 05/16/2022 personally reviewed: Portable film, good respiratory effort, scoliosis appreciated, bilateral costophrenic and cardiophrenic angles are clean. No clear lung infiltrate appreciated CT chest 05/19/2022 personally reviewed: Patchy groundglass opacities appreciated bilaterally in the upper lobes Moderate right and small left-sided pleural effusion Atelectasis of the right lower lobe Mediastinal lymphadenopathy especially station 4R --Abnormal chest CT Patient seems to have patchy opacities in bilateral upper lobes She also has bilateral pleural effusion COVID-19 NAAT negative BNP 313 Respiratory bio fire negative Absolute eosinophil count 170 on 05/17/2022 UDS positive for hydrocodone Pulmonary edema can give similar picture Upper lobe groundglass opacities of/fibrosis could be seen in hypersensitivity pneumonitis especially given that the patient has [employer] bird at home. Unfortunately there is no previous CAT scan to compare. BENY has already been ordered by the primary team. Follow-up rheumatoid factor, anti-CCP and Hypersensitive panel Mycoplasma IgM as well as Legionella antigen in the urine ordered Patient will need repeat CT chest in 2-3 months --COPD with exacerbation [id number] smoking history Not on any inhalers at home Currently on Breo On discharge I would recommend the patient to be on Incruse or Anoro rather than Breo -- Bilateral pleural effusion Moderate on the right BNP in the 300s Patient does have high blood pressure which is difficult to control along with grade 2 diastolic dysfunction Diuresis as tolerated per the primary team. No need for any intervention from pulmonary perspective for the pleural effusions --Hypertension Patient presented with hypertension hypokalemia and grade 2 diastolic dysfunction I do think patient's hypertension is chronic. Care as per primary team, rule out Conn syndrome or pheochromocytoma Plan: Patient's lung sounds seem to be better today. Continue with tapering dose of prednisone Continue with diuretics to keep the patient negative balance Incentive spirometry and flutter valve will be beneficial. Follow-up hypersensitivity panel. Follow-up RPR Give acetazolamide for 2 more days. Stop early if the patient starts to get acidotic. Patient will need repeat CT chest without contrast in 6-8 weeks No further recommendation from pulmonary perspective. Please call directly with any questions Please note the above document was generated using voice recognition software. It may contain grammatical, syntax or spelling errors.Any formal questions or concerns about the content, text or information contained within the body of this dictation should be directly addressed to the provider for clarification. Admission and Anticipated Discharge Date Admission Date: May 16, 2022 Subjective Patient seen and examined at bedside. No acute distress. No adverse events overnight Patient was on 2 L nasal cannula saturating 93% Patient seem to be more responsive to questions. She still seems to be withdrawn but better than yesterday. Has been using flutter line incentive spirometry as per the patient Denies any headache, no nausea vomiting Fair appetite. Itching has improved Review of Systems Review of Systems: All systems reviewed & are unremarkable except as noted in Subjective Physical Exam Physical Exam: Constitutional: No acute distress HEENT: EOMI, PERRLA Respiratory system: Decreased air entry bilaterally, no rhonchi, minimal expiratory wheeze, positive crackles bilateral lower lobes CVS: S1-S2 positive, no murmurs or gallops Abdomen: Soft, nontender, nondistended, positive bowel sounds x4 Extremities: +2 pulses bilaterally radialis/ dorsalis pedis, no cyanosis, no edema Neuro: Awake alert oriented x3 Psych: Flat mood and affect --> better than yesterday G/U: No Fernandez Skin: Macular rash appreciated with superficial bruising likely from scratching bilateral upper and lower extremities Skin: no rashes, warm and dry Lymphatic: no cervical or axillary lymphadenopathy Results & Data Results & Data ([facility]) Vital Signs (Past 12 Hours) Vital Signs Temp Pulse Pulse Resp BP Pulse Ox O2 Del Method 05/24/22 08:24 37.0 C 75 16 137/91 90 Nasal Cannula 05/24/22 07:14 73 05/24/22 06:59 90 18 93 Room Air 05/24/22 03:27 36.8 C 73 20 150/90 H 94 Nasal Cannula 05/24/22 01:33 74 05/24/22 01:33 Nasal Cannula 05/23/22 22:55 36.8 C 77 17 145/92 H 92 Nasal Cannula O2 Flow Rate 05/24/22 08:24 2 05/24/22 07:14 05/24/22 06:59 05/24/22 03:27 1 05/24/22 01:33 05/24/22 01:33 2 05/23/22 22:55 1 Laboratory Results 05/24/22 06:57 05/24/22 06:57 PG Care Time/CCT Total # of Minutes Spent Total Time Spent with Patient: Total time spent is greater than 50% in coordination of care (as documented) at patient's floor/unit and/or counseling patient: Coding Level of Care Code 84449 Subseq Hosp Care Lvl [address] R93.89 Acute respiratory failure with hypoxia J96.01 Acute exacerbation of chronic obstructive pulmonary disease J44.1 Current smoker F17.200
[2022-05-24 13:50] LABS: BUN Creatinine Ratio 28.9 (10-20); Calcium 8.5 mg/dl (8.5-10.1); Creatinine Clr Calc Pharmacy 59.4 ml/min; Est GFR (African American) 96.1 ml/min; Est GFR (Non-African American) 82.9 ml/min; Potassium 3.4 mmol/L (3.5-5.1)
[2022-05-24] MEDS ORDERED: POTASSIUM CHLORIDE CRTAB 20 MEQ TABCR PO STA (14:27)
--- NOTE | 2022-05-24 15:02 | Hospitalist Progress Note ---
Date of Service May 24, 2022 Assessment & Plan (1) Acute hypokalemia: (2) Pruritic rash: (3) Metabolic alkalosis: (4) HTN (hypertension), benign: (5) Asthma: (6) Leukocytosis: (7) Blood bacterial culture positive: (8) Back pain: (9) Anxiety: (10) Depression: (11) Hematuria: Plan Ms. Meza is a 66 y.o. female who presented to the ED via ambulance on 05/16 for SOB and a pruritic rash. She recently was in the ED on 05/04 for similar issue, was given dexamethasone and told to stop Flonase. For the past week she has taken 90-100 Benadryl pills along with her hydrocodone and has not taken any of her other prescribed medications. She recently quit smoking 1 month ago. #Hypokalemia - Loop diuretics were causing hypokalemia to worsen for the patient. Switched loop diuretic to acetazolamide. Holding all diuretics per nephrology except continue spironolactone due to K sparring. - Yesterday afternoon K was 2.8, given 40mEq IV KCL + 20mEq KCl PO, this morning K was 3.9, recheck at 12:55 was 3.4. - Patient is on 20mEQ KCl PO BID. An extra 20 PO was given tonight. Will check morning labs. - Initially etiology thought to be hypokalemia secondary to metabolic alkalosis. - Nephrology believes that hypokalemia is causing the patient's metabolic alkalosis - Renin and aldosterone levels were normal. - Will order ACTH, ammonia, and cortisol labs for tomorrow morning. - Urine metanephrines are pending #Metabolic Alkalosis - VBG yesterday showed continued alkalosis (ph 7.53) likely multifactorial, but concern for ectopic ACTH now that primary hyperaldosteronism is unlikely due to normal renin and aldosterone levels. - appreciate nephrology recommendations for work up and management - Continue 20mEQ KCL PO BID scheduled #Acute hypoxic resp failure - multifactorial. 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 #Acute diastolic CHF, in exacerbation - CT chest on admission showed small to moderate L pleural effusions. 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 - First day of steroids started this morning. - continue duoneb BID, hypertonic saline, Mucomyst, Mucinex 600mg BID #Abnormal Chest CT - will need repeat in 2-3 months # hypertension--improved - chronic, but acutely more challenging to control likely due to underlying condition driving metabolic alkalosis and hypokalemia - renal duplex does not indicate renal artery stenosis - continue losartan 50mg BID and spironolactone 100mg (which will hopefully help prevent K from dropping to drastically) - continue amlodipine 10mg - Continue Coreg to 25mg BID - prn hydralazine for SBP > 180 #Prolonged QT--resolved - due to excessive benadryl use prior to admission - EKG on 05/22 QTC has normalized #Vasculitis Rash -Rheumatology consulted via telephone and 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 -Labs pending for ANCA, BENY -Will add on Vistaril 25mg QHS PRN itching #Thrombocytopenia and anemia - Most likely related to vasculitis - platelet counts has been progressively decreasing, but are stable now in the 50s - peripheral smear without signs of microangiopathic hemolytic anemia # B12 deficiency - repleted with oral B12 # folate deficiency - repleted with oral folate #Anxiety and depression - Continue home buspar, restarted home fluoxetine #fibromyalgia - restarted home gabapentin - has PRN home hydrocodone-acetaminophen 10-325 q6h PRN ordered #Hematuria -- resolved #Back pain -Given lidocaine patch. Pain improved. #Positive Blood culture -One tube grew Coag neg staph, the other tube is NGTD. -Most likely contaminate. diet/fluid status: heart healthy Code status: full DVT prop: SCDs Dispo: med surg Thank you for allowing me to participate in the care of your patient. -Dr. Benny Garcia PGY1 Admission and Anticipated Discharge Date Admission Date: May 16, 2022 Supervising Physician Co-Signing Physician Notes Patient seen and examined independently of PGY-1 Dr. Garcia. Agree with history, exam findings, assessment and plan of care. In brief, Trina is a 66 year old female with history of hypertension, COPD admitted with acute hypoxic respiratory failure. Conversational this morning, which is a change from prior mornings. She continues to have itching all over. Denies dyspnea, orthopnea. No chest pain. No nausea or vomiting. VS and nursing notes reviewed. Ill appearing. Heart with regular rate and rhythm. Breathing comfortably on room air. Lungs with wheezing and ronchi in all lung schulte. Vasculitic lesions on the legs and torso with excoriations. Labs and imaging reviewed. 1. Acute hypoxic respiratory failure. Improving. Secondary to fluid overload + COPD + pulm vasculitis. Has been on room air on and off. Stopped BiPAP 2. Acute, decompensated HFpEF. CT on admission with small to moderate left pleural effusion. Stopped Lasix due to hypokalemia, holding acetazolamide today as she seems a bit hypovolemic today. Continue spironolactone 100mg daily--a weak diuretic but may help with her potassium (see below). 3. Pulmonary vasculitis. BENY, ANCA, RF, anti-CCP pending. Mycoplasma, legionella pending. Pneumo pending. 4. COPD exacerbation. Switched solumedrol to pred taper (40mg x 3d, then 20mg x 3d, then stop) since not significant response to steroids. Continue duoneb BID, azithromycin, Mucinex, hypertonic saline nebs, Mucomyst. 5. Metabolic alkalosis. No significant change. Renin and aldosterone levels are not consistent with aldosterone mediated process. CT with mild thickening of bilateral adrenal glands. 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 Check AM cortisol. Can add on 24 hour urine cortisol since we are collecting urine for 24 hour urine metanephrines. If not able to add to the urine in the lab, can consider 2 salivary cortisol levels vs dex suppression test if suspicion is still high; however interpretation of these tests maybe challenging given that she is on steroids and is acutely ill. Can also consider doing a work up for Tomah's, if it is still a possibility, after she has completed her steroid taper. ?adult onset Debra's or pseudohypoaldosterone type condition, although these are quite rare. Continue repleting K and Mg. 6. Hypokalemia. Secondary to above + some mild loose stool. Continuing to replete K and Mg. Continue with scheduled 20mEq KCl BID. 6. Vasculitic rash. Rheumatology consulted via phone. Awaiting ANCA and BENY. Atarax at night for itching. 7. Hypertension. Acute on chronic. Improving. Continue amlodipine, losartan, spironolactone, coreg to 25mg BID. Renal duplex neg for renal artery stenosis. 8. Excessive Benadryl use. QTc a bit elongated and normalizing. Optimizing electrolytes. 9. Thrombocytopenia. Secondary to vasculitis. Seems to have stabilized at this point. 10. anemia. iron studies not consistent with iron deficiency, but noted to have vitamin B12 and folate deficiency. Peripheral smear without signs of microangiopathic hemolytic anemia. 11. vitamin B12 and folate deficiency. Repletion. 12. anxiety, depression. Restarted home fluoxetine. Continue home buspar. Dispo: pending clinical improvement. Subjective Patient was seen bedside this afternoon. She is no acute pain at this time and states that her SOB has greatly improved. She also states that her pruritus on her UE and LE are still present but have improved greatly. Review of Systems Review of Systems: All systems reviewed & are unremarkable except as noted in HPI & below Musculoskeletal: + back pain and + joint pain Integumentary: + rash, + bleeding lesions, + pruritus and + skin swelling Physical Exam Constitutional: WD/WN, vitals as above healthy appearing, cooperative and comfortable Eyes: PERRL, conjunctivae normal, anicteric sclerae ENMT: external ear and nose normal, oropharynx normal Respiratory: normal respiratory effort, lungs clear to auscultation normal respiratory effort, + respiratory distress and + labored breathing Bilateral UL expiratory wheezes Cardiovascular: RRR, no murmur, no edema Gastrointestinal (Abdomen): normal bowel sounds, soft, nontender, no hepatosplenomegaly Musculoskeletal: no cyanosis or clubbing, extremities motor strength 5/5 Skin: + excoriations (Bl UE and LE ) and + purpura Psychiatric: A+Ox3, euthymic affect Lymphatic: no cervical or axillary lymphadenopathy Results & Data Results & [facility] ([facility]) Vital Signs (Past 12 Hours) Vital Signs Temp Pulse Pulse Resp BP Pulse Ox O2 Del Method 05/24/22 08:00 Nasal Cannula 05/24/22 08:24 37.0 C 75 16 137/91 90 Nasal Cannula 05/24/22 07:14 73 05/24/22 06:59 90 18 93 Room Air 05/24/22 03:27 36.8 C 73 20 150/90 H 94 Nasal Cannula O2 Flow Rate 05/24/22 08:00 2 05/24/22 08:24 2 05/24/22 07:14 05/24/22 06:59 05/24/22 03:27 1 Resident Activity Tracking Resident Involvement: Resident Care Provided Care Provided: Adult Hospital Medicine
[2022-05-24] MEDS ORDERED: POTASSIUM CHLORIDE / WTR 10 MEQ/100 ML PLCT IV SCH (16:30)
--- NOTE | 2022-05-24 19:38 | Electrocardiogram Report ---
Test Reason : Blood Pressure : / mmHG Vent. Rate : 077 BPM Atrial Rate : 077 BPM P-R Int : 138 ms QRS Dur : 080 ms QT Int : 390 ms P-R-T Axes : 076 055 060 degrees QTc Int : 441 ms Normal sinus rhythm Nonspecific ST and T wave abnormality Abnormal ECG When compared with ECG of 22-MAY-2022 06:45, Nonspecific ST and T wave abnormality is now Present in Anterior leads Confirmed by Huey De La Fuente ([id number]) on 05/24/2022 7:37:34 PM Referred By: REFERRED SELF Confirmed By:Huey De La Fuente
[2022-05-24] MEDS: hydrOXYzine HCl 25 MG TAB PO PRN (20:15)
[2022-05-25] MEDS: HYDROcodone/ACETAMINOPHEN 10/325 TAB PO PRN ×3 (02:20→21:02)
[2022-05-25] MEDS: CALAMINE/PRAMOXINE LOTION 180 APPLN/180 ML BTL EXT PRN (06:30)
[2022-05-25] MEDS: ALBUT/IPRATROP 3MG/0.5MG NEB 3 ML VIAL NEB SCH ×3 (07:02→19:15)
[2022-05-25] MEDS: ACETYLCYSTEINE 20% INHAL SOLN 4ML ***DISPENSED BY RESP. INH SCH ×2 (07:02→19:15)
[2022-05-25] MEDS: SODIUM CHLOR 7% 4 ML NEB NEB SCH ×2 (07:02→19:15)
[2022-05-25 07:21] LABS: Hematocrit (blood only) 30.1 % (34.1-44.9); Hemoglobin 9.7 g/dl (12.0-16.0); Mean Corpuscular Hemoglobin 30.8 pg (25.0-34.0); Mean Corpuscular Hgb Conc 32.2 g/dL (32.0-36.0); Mean Corpuscular Volume 95.6 fL (80.0-100.0); Mean Platelet Volume 11.6 fL (9.4-12.3); Nucleated RBC # (auto) 0.32 K/uL (0-0); Nucleated RBC % (auto) 2.5 %; Platelet Count 66 K/uL (130-400); RDW Coefficient of Variation 17.7 % (11.5-14.5); RDW Standard Deviation 61.3 fL (36.4-46.3); Red Blood Count 3.15 M/uL (3.93-5.22); White Blood Count 13.02 K/ul (4.8-10.8)
[2022-05-25 07:36] LABS: HCO3 VBG 29 mmol/L; Oxygen Saturation VBG < 60.0 %; PCO2 VBG 40 mmHg (38-50); PO2 VBG 23 mmHg; pH VBG 7.47 (7.36-7.41)
[2022-05-25 07:56] LABS: BUN Creatinine Ratio 40.4 (10-20); Calcium 8.4 mg/dl (8.5-10.1); Creatinine Clr Calc Pharmacy 78.9 ml/min; Est GFR (African American) 113.5 ml/min
[2022-05-25] MEDS: LIDOCAINE 5% 1 PATCH TD SCH (08:26)
[2022-05-25] MEDS: OXYBUTYNIN CHLORIDE XL 5 MG TABCR PO SCH (08:28)
[2022-05-25] MEDS: FOLIC ACID 1 MG TAB PO SCH (08:28)
[2022-05-25] MEDS: CYANOCOBALAMIN (B-12) 500 MCG TABLET PO SCH (08:28)
[2022-05-25] MEDS: guaiFENesin 600 MG TABCR PO SCH ×2 (08:28→20:49)
[2022-05-25] MEDS: FLUoxetine HCL 20 MG CAP PO SCH (08:28)
[2022-05-25] MEDS: busPIRone 5 MG TAB PO SCH ×3 (08:28→20:50)
[2022-05-25] MEDS: PANTOprazole 40 MG TAB PO SCH (08:28)
[2022-05-25] MEDS: amLODIPine BESYLATE 5 MG TAB PO SCH (08:29)
[2022-05-25] MEDS: LOSARTAN POTASSIUM 50 MG TAB PO SCH ×2 (08:29→22:46)
[2022-05-25] MEDS: POTASSIUM CHLORIDE CRTAB 20 MEQ TABCR PO SCH ×2 (08:29→20:49)
[2022-05-25] MEDS: SPIRONOLACTONE 100 MG TAB PO SCH (08:29)
[2022-05-25] MEDS: predniSONE 20 MG TAB PO SCH (08:29)
[2022-05-25] MEDS: carvediloL 25 MG TAB PO SCH ×2 (08:30→20:50)
[2022-05-25] MEDS: GABAPENTIN 300 MG CAP PO SCH ×2 (08:30→20:49)
[2022-05-25] MEDS: UMECLIDINIUM BROMIDE 62.5MCG/BLISTER 7 PUFFS/INHALER INH SCH (08:31)
--- NOTE | 2022-05-25 08:35 | Nephrology Progress Note ---
Date of Service May 25, 2022 Assessment & Plan (1) Anticholinergic drug overdose: Plan: * Presented to EMD 05/04/22 with reaction to Flonase. Reports facial and tongue swelling. Received IV Decadron and discharged. Patient reports self medicating with OTC Benadryl up to 20 tablets/day for the next 12 days * Recommend consultation w/ Pulmonology to determine whether Breo Ellipta (Fluticasone/Vilanterol) should be stopped due to recent "reaction" to Flonase (Fluticasone) and ongoing pruritus (2) Acute hypokalemia: Plan: * No prior h/o hypokalemia. Never hospitalized due to low K. Was not previously on KCl supplement * Mg within normal limits * Now on KCl 20 mEq po BID and Spironolactone 100 mg daily * Serum potassium has corrected * Monitor PRP (3) Metabolic alkalosis: Plan: * Alkalosis likely due to profound hypokalemia * Potassium supplementation is being provided and Pulmonology has prescribed acetazolamide x 3 days * Hold diuretics as patient appears clinically volume contracted (4) Hypertensive urgency: Plan: * SBP 130 - 170 mm Hg last 24 hours * Renal duplex negative for GER * Continue Amlodipine 10 mg daily, Losartan 50 mg BID, Spironolactone 100 mg daily * Consider titration of Carvedilol if QT interval and HR will allow * Await results of 24 hour urine metanephrine (5) Hypercortisolism: Plan: * Not hirsute, no abdominal stria or buffalo hump but does have fuchs facies and hyperglycemia in the setting of HTN and unexplained hypokalemia/metabolic alkalosis * Await results of ACTH testing * Recommend 24 hr urine free cortisol, dexamethasone suppression test and consultation w/ Endocrinology Admission and Anticipated Discharge Date Admission Date: May 16, 2022 Subjective Ms. Meza was evaluated in her hospital room this morning. She reports continued pruritus and has numerous excoriations on her arms and legs. She slept poorly overnight Review of Systems Constitutional: + problem reported (itching); no fever Eyes: no worsening vision Ear, Nose, Mouth, Throat: no problem reported Respiratory: no cough and no dyspnea Cardiovascular: no chest pain Gastrointestinal: + diarrhea/loose stools (at least one liquid BM daily since gastric bypass surgery) Physical Exam Constitutional: + ill appearing; not in distress Eyes: PERRL, conjunctivae normal, anicteric sclerae ENMT: external ear and nose normal, oropharynx normal Neck: trachea midline, no thyromegaly Respiratory: normal respiratory effort Auscultation: + diminished lung sounds and + rales (bilateral) Cardiovascular: Rate/Rhythm: regular rate and regular rhythm Gastrointestinal (Abdomen): Inspection/Auscultation: abdomen normal to inspection Results & Data ([facility]) Vital Signs (Past 12 Hours) Vital Signs Temp Pulse Pulse Pulse Resp BP Pulse Ox 05/25/22 07:57 36.8 C 80 18 164/102 H 96 05/25/22 07:35 05/25/22 07:02 88 05/25/22 03:28 78 142/89 H 05/25/22 02:42 36.8 C 77 20 160/98 H 94 05/24/22 22:17 73 05/24/22 22:41 36.9 C 71 18 123/80 91 O2 Del Method O2 Flow Rate 05/25/22 07:57 Nasal Cannula 2 05/25/22 07:35 Nasal Cannula 2 05/25/22 07:02 05/25/22 03:28 05/25/22 02:42 Nasal Cannula 2 05/24/22 22:17 05/24/22 22:41 Nasal Cannula 2 Laboratory Results Laboratory Tests 05/18/22 05/25/22 05/25/22 08:45 07:09 07:09 WBC Hgb Hct Plt Count Sodium 139 Potassium 4.0 Chloride 107 Carbon Dioxide 29 BUN 23 Creatinine 0.57 L Calcium 8.4 L Magnesium 2.0 Renin Activity 1.75 Aldosterone 2 Cortisol AM Sample > 60.00 H 05/25/22 07:11 WBC 13.02 H Hgb 9.7 L Hct 30.1 L Plt Count 66 L Sodium Potassium Chloride Carbon Dioxide BUN Creatinine Calcium Magnesium Renin Activity Aldosterone Cortisol AM Sample Laboratory Tests 05/25/22 07:09 ACTH Pending PG Care Time/CCT Total # of Minutes Spent Total Time Spent with Patient: Total time spent is greater than 50% in coordination of care (as documented) at patient's floor/unit and/or counseling patient: Coding Level of Care Code 94312 Subseq Hosp Care Lvl 3 Diagnoses Anticholinergic drug overdose T44.3X1A Acute hypokalemia E87.6 Metabolic alkalosis E87.3 Hypertensive urgency I16.0 Hypercortisolism E24.9
--- NOTE | 2022-05-25 10:54 | Electrocardiogram Report ---
Test Reason : Blood Pressure : / mmHG Vent. Rate : 077 BPM Atrial Rate : 077 BPM P-R Int : 138 ms QRS Dur : 080 ms QT Int : 390 ms P-R-T Axes : 076 055 060 degrees QTc Int : 441 ms Normal sinus rhythm Nonspecific ST and T wave abnormality Abnormal ECG When compared with ECG of 22-MAY-2022 06:45, Nonspecific ST and T wave abnormality is now Present in Anterior leads Confirmed by Huey De La Fuente ([id number]) on 05/24/2022 7:37:34 PM Also confirmed by Huey De La Fuente ([id number]), video editor Rizwan Hyman ([id number]) on 05/25/2022 10:53:39 AM Referred By: REFERRED SELF Confirmed By:Huey De La Fuente
--- NOTE | 2022-05-25 12:49 | Hospitalist Progress Note ---
Date of Service May 25, 2022 Assessment & Plan (1) Acute hypokalemia: (2) Pruritic rash: (3) Metabolic alkalosis: (4) HTN (hypertension), benign: (5) Asthma: (6) Leukocytosis: (7) Blood bacterial culture positive: (8) Back pain: (9) Anxiety: (10) Depression: (11) Hematuria: Plan Ms. Meza is a 66 y.o. female who presented to the ED via ambulance on 05/16 for SOB and a pruritic rash. She recently was in the ED on 05/04 for similar issue, was given dexamethasone and told to stop Flonase. For the past week she has taken 90-100 Benadryl pills along with her hydrocodone and has not taken any of her other prescribed medications. She recently quit smoking 1 month ago. #Hypercortisolism - Patient is having hyperglycemia, HTN, and hypokalemia. - ACTH pending - Will do a suppression test when off steroid taper. - Will need endocrinology outpatient. Will consider consulting if hypokalemia gets worse. #Hypokalemia - Loop diuretics were causing hypokalemia to worsen for the patient. Switched loop diuretic to acetazolamide. Holding all diuretics per nephrology except continue spironolactone due to K sparring. - Continue KCL 20mg BID - Initially etiology thought to be hypokalemia secondary to metabolic alkalosis. - Nephrology believes that hypokalemia is causing the patient's metabolic alkalosis - Renin and aldosterone levels were normal. - Urine metanephrines are pending - reports from neighbors of AMS, ammonia was ordered due to hypokalemia possibly increasing ammonia metabolism. Ammonia was normal. Most likely patient had AMS due to taking 90-100 Benadryl pills. #Metabolic Alkalosis - VBG showed continued alkalosis (ph 7.47) likely multifactorial, but concern for ectopic ACTH now that primary hyperaldosteronism is unlikely due to normal renin and aldosterone levels. - appreciate nephrology recommendations for work up and management - Continue 20mEQ KCL PO BID scheduled - Trend AM labs #Acute hypoxic resp failure - multifactorial. 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 #Acute diastolic CHF, in exacerbation - CT chest on admission showed small to moderate L pleural effusions. 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 - First day of steroids started this morning. - continue duoneb BID, hypertonic saline, Mucomyst, Mucinex 600mg BID #Abnormal Chest CT - will need repeat in 2-3 months # hypertension--improved - chronic, but acutely more challenging to control likely due to underlying condition driving metabolic alkalosis and hypokalemia - renal duplex does not indicate renal artery stenosis - continue losartan 50mg BID and spironolactone 100mg (which will hopefully help prevent K from dropping to drastically) - continue amlodipine 10mg - Continue Coreg to 25mg BID - prn hydralazine for SBP > 180 #Prolonged QT--resolved - due to excessive benadryl use prior to admission - EKG on 05/22 QTC has normalized #Vasculitis Rash -Rheumatology consulted via telephone and 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 -Labs pending for ANCA, BENY -Will add on Vistaril 25mg QHS PRN itching #Thrombocytopenia and anemia - Most likely related to vasculitis - platelet counts has been progressively decreasing, but are stable now in the 50s - peripheral smear without signs of microangiopathic hemolytic anemia # B12 deficiency - repleted with oral B12 # folate deficiency - repleted with oral folate #Anxiety and depression - Continue home buspar, restarted home fluoxetine #fibromyalgia - restarted home gabapentin - has PRN home hydrocodone-acetaminophen 10-325 q6h PRN ordered #Hematuria -- resolved #Back pain -Given lidocaine patch. Pain improved. #Positive Blood culture -One tube grew Coag neg staph, the other tube is NGTD. -Most likely contaminate. diet/fluid status: heart healthy Code status: full DVT prop: SCDs Dispo: med surg Thank you for allowing me to participate in the care of your patient. -Dr. Benny Garcia PGY1 Admission and Anticipated Discharge Date Admission Date: May 16, 2022 Supervising Physician Co-Signing Physician Notes I also saw the patient and confirmed zavala portions of the history and exam. I agree with the impression and plan as noted. Conversational this afternoon. Itching has improved. Denies dyspnea, orthopnea. No chest pain. No nausea or vomiting. VS as noted Generally well appearing. Heart with regular rate and rhythm. Breathing comfortably. Excoriations on legs and arms, B/l. random cortisol > 60 ACTH pending Acute hypoxic respiratory failure. Resolved. Secondary to fluid overload + COPD + pulm vasculitis. Has been on room air on and off. Stopped BiPAP Acute, decompensated HFpEF CT on admission with small to moderate left pleural effusion. Stopped Lasix due to hypokalemia.. Continue spironolactone 100mg daily--a weak diuretic but may help with her potassium (see below). Seems euvolemic today. Hypercortisolism Marked elevation Noted hyperglycemia, HTN, and hypokalemia Await ACTH and suppression test Currently on steroid taper, so unsure if this will alter results Will need endocrinology consultation. Pulmonary vasculitis COPD exacerbation. BENY, ANCA, RF, anti-CCP pending. Mycoplasma, legionella pending. Pneumo pending. Tapering steroids (this may affect some of the other diagnostics) Vasculitic rash Rheumatology consulted via phone. Awaiting ANCA and BENY. Additional per resident note. Subjective Patient was seen bedside this morning. She has no acute complaints at this time. She states that her SOB is improved but still present. She also states that the Vistaril really helped with her itchiness. Review of Systems Review of Systems: All systems reviewed & are unremarkable except as noted in HPI & below Physical Exam Constitutional: WD/WN, vitals as above + acute distress, healthy appearing, + disheveled, cooperative, comfortable and + lethargic Eyes: PERRL, conjunctivae normal, anicteric sclerae ENMT: external ear and nose normal, oropharynx normal Respiratory: normal respiratory effort, lungs clear to auscultation normal respiratory effort, + respiratory distress, + labored breathing and + audible wheezes Auscultation: + wheezes (Bilateral UL ) Cardiovascular: RRR, no murmur, no edema Gastrointestinal (Abdomen): normal bowel sounds, soft, nontender, no hepatosplenomegaly Musculoskeletal: no cyanosis or clubbing, extremities motor strength 5/5 Skin: + excoriations (Bl UE and LE ) and + purpura Psychiatric: A+Ox3, euthymic affect Orientation: oriented x 3 Affect: + flat affect Lymphatic: no cervical or axillary lymphadenopathy Results & Data Results & Data ([facility]) Vital Signs (Past 12 Hours) Vital Signs Temp Pulse Pulse Pulse Resp BP Pulse Ox 05/25/22 10:30 37.1 C 80 18 146/80 H 95 05/25/22 09:00 37.1 C 80 18 150/82 H 94 05/25/22 07:57 36.8 C 80 18 164/102 H 96 05/25/22 07:35 05/25/22 07:02 88 05/25/22 03:28 78 142/89 H 05/25/22 02:42 36.8 C 77 20 160/98 H 94 O2 Del Method O2 Flow Rate 05/25/22 10:30 Nasal Cannula 2 05/25/22 09:00 Nasal Cannula 2 05/25/22 07:57 Nasal Cannula 2 05/25/22 07:35 Nasal Cannula 2 05/25/22 07:02 05/25/22 03:28 05/25/22 02:42 Nasal Cannula 2
[2022-05-25 13:46] LABS: ANCA Screen Negative (Negative); Anti Nuclear Antibody Screen NEGATIVE (NEGATIVE)
--- NOTE | 2022-05-26 06:54 | Hospitalist Progress Note ---
Date of Service May 26, 2022 Assessment & Plan (1) Acute hypokalemia: (2) Pruritic rash: (3) Metabolic alkalosis: (4) HTN (hypertension), benign: (5) Asthma: (6) Leukocytosis: (7) Blood bacterial culture positive: (8) Back pain: (9) Anxiety: (10) Depression: (11) Hematuria: Plan Ms. Meza is a 66 y.o. female who presented to the ED via ambulance on 05/16 for SOB and a pruritic rash. She recently was in the ED on 05/04 for similar issue, was given dexamethasone and told to stop Flonase. For the past week she has taken 90-100 Benadryl pills along with her hydrocodone and has not taken any of her other prescribed medications. She recently quit smoking 1 month ago. #Hypercortisolism - Patient is having hyperglycemia, HTN, and hypokalemia. - Patient's hypercortisolism sample was collected after respiratory started patient on a steroid taper. - Will need follow up testing but no changes or recommendations are needed at this time. - ACTH is pending and may also be altered by the results of the steroid dennise. If results are low ACTH then that is non-specific and should not be use to diagnosis the patient. If ACTH is high, then high suspicion for something pathological may be in play. #Hypokalemia - Loop diuretics were causing hypokalemia to worsen for the patient. Switched loop diuretic to acetazolamide. Holding all diuretics per nephrology except continue spironolactone due to K sparring. - Continue KCL 20mg BID - Initially etiology thought to be hypokalemia secondary to metabolic alkalosis. - Nephrology believes that hypokalemia is causing the patient's metabolic alkalosis - Renin and aldosterone levels were normal. - Urine metanephrines are pending - reports from neighbors of AMS, ammonia was ordered due to hypokalemia possibly increasing ammonia metabolism. Ammonia was normal. Most likely patient had AMS due to taking 90-100 Benadryl pills. #Metabolic Alkalosis - Last VBG showed alkalosis (ph 7.47) likely multifactorial, but concern for ectopic ACTH now that primary hyperaldosteronism is unlikely due to normal renin and aldosterone levels. - appreciate nephrology recommendations for work up and management - Continue 20mEQ KCL PO BID scheduled - Trend AM labs #Acute hypoxic resp failure - multifactorial. 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 #Acute diastolic CHF, in exacerbation - CT chest on admission showed small to moderate L pleural effusions. 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 - First day of steroids started this morning. - DuoNeb prn and Mucomyst, - Will witch to Symbicort (ICS-LABA) 2 puffs BID, 80 or 160 and Spiriva (LAMA) 1 puff QD for patient's COPD. Patient should have PFT's in the future to officially diagnosis COPD. #Abnormal Chest CT - will need repeat in 2-3 months # hypertension--improved - chronic, but acutely more challenging to control likely due to underlying condition driving metabolic alkalosis and hypokalemia - renal duplex does not indicate renal artery stenosis - continue losartan 50mg BID and spironolactone 100mg (which will hopefully help prevent K from dropping to drastically) - continue amlodipine 10mg - Continue Coreg to 25mg BID - prn hydralazine for SBP > 180 #Prolonged QT--resolved - due to excessive benadryl use prior to admission - EKG on 05/22 QTC has normalized #Vasculitis Rash -Rheumatology consulted via telephone and 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 -Labs pending for ANCA, BENY -Will add on Vistaril 25mg QHS PRN itching #Thrombocytopenia and anemia - Most likely related to vasculitis - platelet counts has been progressively decreasing, but are stable now in the 50s - peripheral smear without signs of microangiopathic hemolytic anemia # B12 deficiency - repleted with oral B12 # folate deficiency - repleted with oral folate #Anxiety and depression - Continue home buspar, restarted home fluoxetine #fibromyalgia - restarted home gabapentin - has PRN home hydrocodone-acetaminophen 10-325 q6h PRN ordered #Hematuria -- resolved #Back pain -Given lidocaine patch. Pain improved. #Positive Blood culture -One tube grew Coag neg staph, the other tube is NGTD. -Most likely contaminate. diet/fluid status: heart healthy Code status: full DVT prop: SCDs Dispo: med surg Thank you for allowing me to participate in the care of your patient. -Dr. Benny Garcia PGY1 Admission and Anticipated Discharge Date Admission Date: May 16, 2022 Supervising Physician Co-Signing Physician Notes I personally examined the patient and verified all zavala points of history and exam, discussed case, and agree with decision making with Dr Garcia feeling better breathing feeling better vitals noted nad heent nc at mmm lungs quiet but no r/r/w good effort skin resolving/crusting rashes Acute hypoxic respiratory failure. Resolved. Secondary to fluid overload + COPD + ?pulm vasculitis. At this point most residual hypoxia seems to be due to COPD. Chronic management initiated. Will need outpatient PFTs given that COPD right now is a suspected/clinical diagnosis. In the meantime manage as no it is true, wean oxygen as possible Acute, decompensated HFpEF Appearing euvolemic now. Continue current care "Hypercortisolism" To clarifyspurious given that she was on large doses of exogenous corticosteroids at this time. Pulmonary vasculitis COPD exacerbation. BENY, ANCA are negative., RF, anti-CCP pending. Mycoplasma, legionella pending. Pneumo pending. Tapering steroids Vasculitic rash Rheumatology consulted via phone. Continue steroids Stable for rehab once bed available Subjective Patient was seen bedside this morning. She states that she is getting better and wants to go to [facility] here soon. She wants to get up and moving. States she still has some SOB but is much improved. The itchy on her arms and legs have also gotten better. She denies any chest pain, N/V, or ab pain. on 2L NC currently. Not on any home oxygen. Review of Systems Review of Systems: All systems reviewed & are unremarkable except as noted in HPI & below Physical Exam Constitutional: WD/WN, vitals as above + well hydrated, cooperative and comfortable Eyes: PERRL, conjunctivae normal, anicteric sclerae ENMT: external ear and nose normal, oropharynx normal Respiratory: normal respiratory effort, lungs clear to auscultation normal respiratory effort Auscultation: + wheezes (Mild Bilateral UL ) Cardiovascular: RRR, no murmur, no edema Gastrointestinal (Abdomen): normal bowel sounds, soft, nontender, no hepatosplenomegaly Musculoskeletal: no cyanosis or clubbing, extremities motor strength 5/5 Skin: + excoriations (Bl UE and LE ) and + purpura Psychiatric: A+Ox3, euthymic affect Lymphatic: no cervical or axillary lymphadenopathy Results & Data Results & Data ([facility]) Vital Signs (Past 12 Hours) Vital Signs Temp Pulse Pulse Resp BP BP Pulse Ox 05/26/22 06:47 37.0 C 82 20 168/101 H 92 05/25/22 22:19 78 05/26/22 04:07 05/26/22 02:53 36.6 C 79 20 133/84 94 05/25/22 23:14 36.9 C 80 20 162/99 H 95 05/25/22 19:28 37.1 C 81 18 158/95 H 91 O2 Del Method O2 Flow Rate 05/26/22 06:47 2 05/25/22 22:19 05/26/22 04:07 Nasal Cannula 2 05/26/22 02:53 2 05/25/22 23:14 2 05/25/22 19:28 2 Resident Activity Tracking Resident Involvement: Resident Care Provided Care Provided: Adult Hospital Medicine
[2022-05-26] MEDS: SODIUM CHLOR 7% 4 ML NEB NEB SCH ×2 (07:56→20:06)
[2022-05-26] MEDS: ACETYLCYSTEINE 20% INHAL SOLN 4ML ***DISPENSED BY RESP. INH SCH ×2 (07:56→20:06)
[2022-05-26] MEDS: ALBUT/IPRATROP 3MG/0.5MG NEB 3 ML VIAL NEB SCH ×2 (07:56→13:06)
[2022-05-26] MEDS: amLODIPine BESYLATE 5 MG TAB PO SCH (08:06)
[2022-05-26] MEDS: OXYBUTYNIN CHLORIDE XL 5 MG TABCR PO SCH (08:06)
[2022-05-26] MEDS: FLUoxetine HCL 20 MG CAP PO SCH (08:06)
[2022-05-26] MEDS: predniSONE 20 MG TAB PO SCH (08:07)
[2022-05-26] MEDS: FOLIC ACID 1 MG TAB PO SCH (08:07)
[2022-05-26] MEDS: busPIRone 5 MG TAB PO SCH ×3 (08:07→20:53)
[2022-05-26] MEDS: PANTOprazole 40 MG TAB PO SCH (08:07)
[2022-05-26] MEDS: CYANOCOBALAMIN (B-12) 500 MCG TABLET PO SCH (08:07)
[2022-05-26] MEDS: SPIRONOLACTONE 100 MG TAB PO SCH (08:07)
[2022-05-26] MEDS: POTASSIUM CHLORIDE CRTAB 20 MEQ TABCR PO SCH ×2 (08:08→20:52)
[2022-05-26] MEDS: guaiFENesin 600 MG TABCR PO SCH (08:08)
[2022-05-26] MEDS: GABAPENTIN 300 MG CAP PO SCH ×2 (08:08→20:52)
[2022-05-26] MEDS: UMECLIDINIUM BROMIDE 62.5MCG/BLISTER 7 PUFFS/INHALER INH SCH (08:08)
[2022-05-26] MEDS: carvediloL 25 MG TAB PO SCH ×2 (08:08→20:52)
[2022-05-26] MEDS: LOSARTAN POTASSIUM 50 MG TAB PO SCH ×2 (08:08→20:53)
[2022-05-26] MEDS: LIDOCAINE 5% 1 PATCH TD SCH (08:09)
--- NOTE | 2022-05-26 08:37 | Nephrology Progress Note ---
Date of Service May 26, 2022 Assessment & Plan (1) Anticholinergic drug overdose: Plan: * Presented to EMD 05/04/22 with reaction to Flonase. Reports facial and tongue swelling. Received IV Decadron and discharged. Patient reports self medicating with OTC Benadryl up to 20 tablets/day for the next 12 days * Breo Ellipta (Fluticasone/Vilanterol) has been stopped (2) Acute hypokalemia: Plan: * No prior h/o hypokalemia. Never hospitalized due to low K. Was not previously on KCl supplement * Mg within normal limits * Now on KCl 20 mEq po BID and Spironolactone 100 mg daily * Serum potassium has corrected * Monitor PRP (3) Metabolic alkalosis: Plan: * Alkalosis likely due to profound hypokalemia * Patient has completed 3 days of Acetazolamide therapy * Alkalosis has markedly improved * Continue to hold diuretics as patient appears clinically volume contracted (4) Hypertensive urgency: Plan: * SBP 140 - 170 mm Hg last 24 hours * Renal duplex negative for GER * Continue Amlodipine 10 mg daily, Losartan 50 mg BID, Spironolactone 100 mg daily * Consider titration of Carvedilol if QT interval and HR will allow * Await results of 24 hour urine metanephrine (5) Hypercortisolism: Plan: * Not hirsute, no abdominal stria or buffalo hump but does have fuchs facies and hyperglycemia in the setting of HTN and unexplained hypokalemia/metabolic alkalosis * Await results of ACTH testing * Recommend 24 hr urine free cortisol and consultation w/ Endocrinology * Recommend Dexamethasone suppression testing while inpatient as outpatient follow up may be difficult Admission and Anticipated Discharge Date Admission Date: May 16, 2022 Subjective Declined to answer questions this am but would allow physical exam Review of Systems Review of Systems: Unobtainable due to mental health condition Physical Exam Constitutional: + ill appearing; not in distress Eyes: PERRL, conjunctivae normal, anicteric sclerae ENMT: external ear and nose normal, oropharynx normal Neck: trachea midline, no thyromegaly Respiratory: normal respiratory effort Auscultation: + diminished lung sounds and + rales (bilateral) Cardiovascular: Rate/Rhythm: regular rate and regular rhythm Gastrointestinal (Abdomen): Inspection/Auscultation: abdomen normal to inspection Results & Data ([place]) Vital Signs (Past 12 Hours) Vital Signs Temp Pulse Pulse Resp BP BP Pulse Ox 05/26/22 07:59 78 05/26/22 06:47 37.0 C 82 20 168/101 H 92 05/25/22 22:19 78 05/26/22 04:07 05/26/22 02:53 36.6 C 79 20 133/84 94 05/25/22 23:14 36.9 C 80 20 162/99 H 95 O2 Del Method O2 Flow Rate 05/26/22 07:59 05/26/22 06:47 2 05/25/22 22:19 05/26/22 04:07 Nasal Cannula 2 05/26/22 02:53 2 05/25/22 23:14 2 Laboratory Results Laboratory Tests 05/26/22 05/26/22 08:19 08:19 WBC 14.25 H Hgb 9.9 L Hct 29.4 L Plt Count 58 L Sodium 139 Potassium 3.5 Chloride 108 H Carbon Dioxide 25 BUN 25 H Creatinine 0.56 L Glucose 140 H Calcium 8.3 L Laboratory Tests 05/24/22 05/25/22 16:00 07:09 ACTH Pending Urine Metanephrine Pending Urine Normetanephrine Pending U Total Metanephrines Pending PG Care Time/CCT Total # of Minutes Spent Total Time Spent with Patient: Total time spent is greater than 50% in coordination of care (as documented) at patient's floor/unit and/or counseling patient: Coding Level of Care Code 26616 Subseq Hosp Care Lvl 3 Diagnoses Anticholinergic drug overdose T44.3X1A Acute hypokalemia E87.6 Metabolic alkalosis E87.3 Hypertensive urgency I16.0 Hypercortisolism E24.9
[2022-05-26 09:07] LABS: BUN Creatinine Ratio 44.6 (10-20); Calcium 8.3 mg/dl (8.5-10.1); Creatinine Clr Calc Pharmacy 72.9 ml/min; Est GFR (African American) 114.2 ml/min; Est GFR (Non-African American) 98.5 ml/min; Hematocrit (blood only) 29.4 % (34.1-44.9); Hemoglobin 9.9 g/dl (12.0-16.0); Mean Corpuscular Hemoglobin 31.5 pg (25.0-34.0); Mean Corpuscular Hgb Conc 33.7 g/dL (32.0-36.0); Mean Corpuscular Volume 93.6 fL (80.0-100.0); Mean Platelet Volume 10.8 fL (9.4-12.3); Nucleated RBC # (auto) 0.36 K/uL (0-0); Nucleated RBC % (auto) 2.5 %; Platelet Count 58 K/uL (130-400); Potassium 3.5 mmol/L (3.5-5.1); RDW Coefficient of Variation 17.8 % (11.5-14.5); RDW Standard Deviation 60.7 fL (36.4-46.3); Red Blood Count 3.14 M/uL (3.93-5.22); White Blood Count 14.25 K/ul (4.8-10.8)
--- NOTE | 2022-05-26 18:19 | Billing Data ---
Date of Service May 26, 2022 Coding Level of Care Code 97889 Subseq Hosp Care Lvl 2
[2022-05-26] MEDS: HYDROcodone/ACETAMINOPHEN 10/325 TAB PO PRN (20:51)
[2022-05-26] MEDS: CALAMINE/PRAMOXINE LOTION 180 APPLN/180 ML BTL EXT PRN (20:52)
[2022-05-26] MEDS: FLUTICASONE/VILANTEROL 200/25MCG 14 PUFFS/INHALER INH SCH (20:52)
[2022-05-26 23:56] LABS: Cyclic Citrullinated Pep IgG <16 UNITS; Mycoplasma pneumoniae Ab, IgM 112 U/mL (<770); Rheumatoid Factor <14 IU/mL (<14)
[2022-05-27 06:17] LABS: Hematocrit (blood only) 27.1 % (34.1-44.9); Mean Corpuscular Hemoglobin 30.6 pg (25.0-34.0); Mean Corpuscular Hgb Conc 33.2 g/dL (32.0-36.0); Mean Corpuscular Volume 92.2 fL (80.0-100.0); Nucleated RBC # (auto) 0.42 K/uL (0-0); Nucleated RBC % (auto) 2.9 %; Platelet Count 56 K/uL (130-400); RDW Coefficient of Variation 17.7 % (11.5-14.5); RDW Standard Deviation 59.7 fL (36.4-46.3); Red Blood Count 2.94 M/uL (3.93-5.22); White Blood Count 14.73 K/ul (4.8-10.8)
[2022-05-27 06:23] LABS: Base Excess VBG 4.9 mEq/L; HCO3 VBG 28 mmol/L; Oxygen Saturation VBG 85.3 %; PCO2 VBG 36 mmHg (38-50); PO2 VBG 49 mmHg
[2022-05-27] MEDS: CALAMINE/PRAMOXINE LOTION 180 APPLN/180 ML BTL EXT PRN (06:35)
[2022-05-27 06:45] LABS: Albumin Globulin Ratio 1.4 (0.9-2); Albumin Level 2.9 gm/dl (3.4-5.0); BUN Creatinine Ratio 44.4 (10-20); Bilirubin,Total 0.5 mg/dl (0.2-1.0); Calcium 7.9 mg/dl (8.5-10.1); Creatinine Clr Calc Pharmacy 99.3 ml/min; Est GFR (African American) 122.7 ml/min; Est GFR (Non-African American) 105.9 ml/min; Globulin 2.1 gm/dl (2.5-4.0); Potassium 3.6 mmol/L (3.5-5.1)
[2022-05-27] MEDS: SODIUM CHLOR 7% 4 ML NEB NEB SCH (07:44)
[2022-05-27] MEDS: ACETYLCYSTEINE 20% INHAL SOLN 4ML ***DISPENSED BY RESP. INH SCH (07:44)
--- NOTE | 2022-05-27 07:57 | Hospitalist Progress Note ---
Date of Service May 27, 2022 Assessment & Plan (1) Acute hypokalemia: (2) Pruritic rash: (3) Metabolic alkalosis: (4) HTN (hypertension), benign: (5) Asthma: (6) Leukocytosis: (7) Blood bacterial culture positive: (8) Back pain: (9) Anxiety: (10) Depression: (11) Hematuria: Plan Ms. Meza is a 66 y.o. female who presented to the ED via ambulance on 05/16 for SOB and a pruritic rash. She recently was in the ED on 05/04 for similar issue, was given dexamethasone and told to stop Flonase. For the past week she has taken 90-100 Benadryl pills along with her hydrocodone and has not taken any of her other prescribed medications. She recently quit smoking 1 month ago. Of note patient has had extensive lab workup for her issues: -Negative labs to date: respiratory BioFire, urine mycoplasma, urine legionella, RPR, Pneumonia screen (some still pending), Hep C, RF, anti- CCP, BENY, ANCA, renin, aldosterone, ammonia #Acute hypoxic respiratory failure (resolved) - Multifactorial. Most likely etiologies include heart failure exacerbation/fluid overload, COPD exacerbation, and pulmonary hemorrhage from vasculitis - Currently on 2L NC. (no oxygen requirement prior to admission) - Respiratory testing today showed the need for patient to have 2L NC O2 at [facility]. #COPD - Patient most likely had an acute exacerbation when admitted. She severe wheezing. Treated with solumedrol then 3 day taper of prednisone. Patient no longer has wheezing on exam. - Continue Symbicort BID, Spiriva QD, and DuoNeb prn - Patient should have PFTs when stable, outpatient. #Hypokalemia -Holding all diuretics except spironolactone. - Continue KCL 20mg BID - Urine metanephrines are pending - reports from neighbors of AMS, ammonia was ordered due to hypokalemia possibly increasing ammonia metabolism. Ammonia was normal. Most likely patient had AMS due to taking 90-100 Benadryl pills. - Etiology may be underlying hypercortisolism. Cortisol levels were elevated. However, sample was collected when patient was taking high dose steroid. Will need follow up testing but no changes or recommendations are needed at this time. - ACTH is pending and may also be altered by the results of the steroid dennise. If results are low ACTH then that is non-specific and should not be use to diagnosis the patient. If ACTH is high, then high suspicion for something pathological may be in play. -CMP 3 days after discharge. #Metabolic Alkalosis - Last VBG showed alkalosis (ph 7.5) likely multifactorial, but concern for ectopic ACTH now that primary hyperaldosteronism is unlikely due to normal renin and aldosterone levels. - Continue 20mEQ KCL PO BID scheduled - Nephrology recommends starting IV NS. - Trend AM labs #Acute diastolic CHF, exacerbation resolved - CT chest on admission showed small to moderate L pleural effusions. - ECHO showed EF 55-60% with grade II diastolic dysfunction - Stopped IV lasix due to hypokalemia and switched to acetazolamide 250mg daily which is also held due to volume contraction - continue spironolactone 100mg - monitor I/O's, daily weights - Patient is euvolemic now. 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 -Will add on Vistaril 25mg QHS PRN itching #Thrombocytopenia and anemia - Most likely related to vasculitis - platelet counts has been progressively decreasing, but are stable now in the 50s - peripheral smear without signs of microangiopathic hemolytic anemia # B12 deficiency - repleted with oral B12 # folate deficiency - repleted with oral folate #Anxiety and depression - Continue home buspar, restarted home fluoxetine #fibromyalgia - restarted home gabapentin - has PRN home hydrocodone-acetaminophen 10-325 q6h PRN ordered #Hematuria -- resolved #Back pain -Given lidocaine patch. Pain improved. #Positive Blood culture -One tube grew Coag neg staph, the other tube is NGTD. -Most likely contaminate. diet/fluid status: heart healthy Code status: full DVT prop: SCDs Dispo: med surg Thank you for allowing me to participate in the care of your patient. -Dr. Benny Garcia PGY1 Admission and Anticipated Discharge Date Admission Date: May 16, 2022 Supervising Physician Co-Signing Physician Notes I personally examined the patient and verified all zavala points of history and exam, discussed case, and agree with decision making with Dr Garcia feeling better overall. When discussing the case management noted [facility] would not be an option, she noted she would rather go home. As we were working on setting things up, unfortunately there was not the ability to facilitate getting everything she needed at home for a safe discharge today. vitals noted nad heent nc at mmm breathing unlabored no accessory muscle use good effort. Skin shows slowly resolving rashes. Acute hypoxic respiratory failure. Resolved. Secondary to fluid overload + COPD + ?pulm vasculitis. At this point most residual hypoxia seems to be due to COPD. Chronic management initiated. Will need outpatient PFTs given that COPD right now is a suspected/clinical diagnosis. In the meantime manage as no it is true, wean oxygen as possible, but likely will need at home at least for the short-term. Continue COPD inhaler management. Acute, decompensated HFpEF Appearing euvolemic now. Continue current care "Hypercortisolism" To clarifyspurious given that she was on large doses of exogenous corticosteroids at this time. That said, given her hypokalemia and metabolic alkalosispursuing this as a diagnosis once she is off of steroids is quite reasonable, if the problem persists Pulmonary vasculitis COPD exacerbation. BENY, ANCA are negative., RF, anti-CCP pending. Mycoplasma, legionella pending. Pneumo pending. Tapering steroids over the next several weeks as an outpatientalthough the prolonged taper is largely for the vasculitis Vasculitic rash Rheumatology consulted via phone. Continue steroids as above Working on safe discharge for home Subjective Patient was seen bedside this morning. Patient is feeling better overall. Her only complaint is that she feels itchy but it is getting better than what it was. She wishes to get out of the hospital. She wishes to go to [facility]. Discussed with patient that insurance most likely would not cover any placement for her at this time. Patient understood and notes that she would rather go home. Review of Systems Constitutional: no fever, no chills and no body aches Respiratory: + dyspnea (improved since admission); no wheezing Cardiovascular: no chest pain at rest, no orthopnea and no palpitations Gastrointestinal: no abdominal pain, no nausea, no vomiting and no change in stools Musculoskeletal: no swelling Integumentary: as per Subjective / HPI Physical Exam Constitutional: WD/WN, vitals as above + well hydrated, cooperative and comfortable Eyes: PERRL, conjunctivae normal, anicteric sclerae ENMT: external ear and nose normal, oropharynx normal Respiratory: normal respiratory effort, lungs clear to auscultation normal respiratory effort; no respiratory distress and no labored breathing Auscultation: lungs clear to auscultation bilaterally Cardiovascular: RRR, no murmur, no edema Gastrointestinal (Abdomen): normal bowel sounds, soft, nontender, no hepatosplenomegaly Musculoskeletal: no cyanosis or clubbing, extremities motor strength 5/5 Skin: + excoriations (Bl UE and LE improving ) and + purpura (improving) Psychiatric: A+Ox3, euthymic affect Lymphatic: no cervical or axillary lymphadenopathy Results & Data Results & Data ([facility]) Vital Signs (Past 12 Hours) Vital Signs Temp Pulse Pulse Resp BP Pulse Ox O2 Del Method 05/27/22 06:25 36.8 C 80 20 176/96 H 90 05/27/22 03:12 37.0 C 79 20 171/98 H 90 05/26/22 22:16 79 05/26/22 22:52 36.9 C 75 20 155/88 H 90 05/26/22 22:04 Nasal Cannula O2 Flow Rate 05/27/22 06:25 2 05/27/22 03:12 2 05/26/22 22:16 05/26/22 22:52 2 05/26/22 22:04 1.5 Resident Activity Tracking Resident Involvement: Resident Care Provided Care Provided: Adult Hospital Medicine
--- NOTE | 2022-05-27 08:19 | Nephrology Progress Note ---
Date of Service May 27, 2022 Assessment & Plan (1) Anticholinergic drug overdose: Plan: * Presented to EMD 05/04/22 with reaction to Flonase. Reports facial and tongue swelling. Received IV Decadron and discharged. Patient reports self medicating with OTC Benadryl up to 20 tablets/day for the next 12 days * Recommend stopping Breo Ellipta (Fluticasone/Vilanterol) given h/o allergy (2) Acute hypokalemia: Plan: * No prior h/o hypokalemia. Never hospitalized due to low K. Was not previously on KCl supplement * Mg within normal limits * Now on KCl 20 mEq po BID and Spironolactone 100 mg daily * Serum potassium has corrected * Monitor PRP (3) Metabolic alkalosis: Plan: * Alkalosis likely due to profound hypokalemia * Patient has completed 3 days of Acetazolamide therapy * Alkalosis has improved but persists. Patient appears clinically volume contracted * Continue to hold diuretics * Will provide IV hydration w/ 0.9NS (4) Hypertensive urgency: Plan: * SBP 140 - 170 mm Hg last 24 hours * Renal duplex negative for GER * Continue Carvedilol 25 mg po BID, Amlodipine 10 mg daily, Losartan 50 mg BID, Spironolactone 100 mg daily * Await results of 24 hour urine metanephrine (5) Hypercortisolism: Plan: * Not hirsute, no abdominal stria or buffalo hump but does have fuchs facies and hyperglycemia in the setting of HTN and unexplained hypokalemia/metabolic alkalosis * Await results of ACTH testing * Cotisol testing was obtained while patient on exogenous glucocorticoids Admission and Anticipated Discharge Date Admission Date: May 16, 2022 Subjective Ms. Meza was evaluated in her hospital room this morning. She appeared brighter and more interactive. She denied angina, dyspnea or ORTEGA. Review of Systems Constitutional: no fever Eyes: no worsening vision Ear, Nose, Mouth, Throat: no problem reported Respiratory: no cough and no dyspnea Cardiovascular: no chest pain Gastrointestinal: + diarrhea/loose stools (at least one liquid BM daily since gastric bypass surgery) Neurologic: no headache(s) Physical Exam Constitutional: + ill appearing; not in distress Eyes: PERRL, conjunctivae normal, anicteric sclerae ENMT: external ear and nose normal, oropharynx normal Neck: trachea midline, no thyromegaly Respiratory: normal respiratory effort Auscultation: + rales (bilateral) Cardiovascular: Rate/Rhythm: regular rate and regular rhythm Gastrointestinal (Abdomen): Inspection/Auscultation: abdomen normal to inspection Skin: + turgor decreased and + dry skin [facility] Vital Signs (Past 12 Hours) Vital Signs Temp Pulse Pulse Resp BP Pulse Ox O2 Del Method 05/27/22 06:25 36.8 C 80 20 176/96 H 90 05/27/22 03:12 37.0 C 79 20 171/98 H 90 05/26/22 22:16 79 05/26/22 22:52 36.9 C 75 20 155/88 H 90 05/26/22 22:04 Nasal Cannula O2 Flow Rate 05/27/22 06:25 2 05/27/22 03:12 2 05/26/22 22:16 05/26/22 22:52 2 05/26/22 22:04 1.5 Laboratory Results Laboratory Tests 05/24/22 05/25/22 05/27/22 16:00 07:09 06:04 WBC 14.73 H Hgb 9.0 L Hct 27.1 L Plt Count 56 L Sodium Potassium Chloride Carbon Dioxide BUN Creatinine Glucose ACTH Pending Urine Metanephrine Pending Urine Normetanephrine Pending U Total Metanephrines Pending 05/27/22 06:04 WBC Hgb Hct Plt Count Sodium 140 Potassium 3.6 Chloride 109 H Carbon Dioxide 27 BUN 20 Creatinine 0.45 L Glucose 114 H ACTH Urine Metanephrine Urine Normetanephrine U Total Metanephrines PG Care Time/CCT Total # of Minutes Spent Total Time Spent with Patient: Total time spent is greater than 50% in coordination of care (as documented) at patient's floor/unit and/or counseling patient: Coding Level of Care Code 13969 Subseq Hosp Care Lvl 3 Diagnoses Anticholinergic drug overdose T44.3X1A Acute hypokalemia E87.6 Metabolic alkalosis E87.3 Hypertensive urgency I16.0 Hypercortisolism E24.9
[2022-05-27] MEDS ORDERED: SODIUM CHLOR 7% 4 ML NEB NEB PRN (08:23)
[2022-05-27] MEDS ORDERED: ACETYLCYSTEINE 20% INHAL SOLN 4ML ***DISPENSED BY RESP. INH PRN (08:23)
[2022-05-27] MEDS: SPIRONOLACTONE 100 MG TAB PO SCH (08:45)
[2022-05-27] MEDS: FOLIC ACID 1 MG TAB PO SCH (08:45)
[2022-05-27] MEDS: amLODIPine BESYLATE 5 MG TAB PO SCH (08:45)
[2022-05-27] MEDS: predniSONE 20 MG TAB PO SCH (08:45)
[2022-05-27] MEDS: POTASSIUM CHLORIDE CRTAB 20 MEQ TABCR PO SCH ×2 (08:46→20:18)
[2022-05-27] MEDS: OXYBUTYNIN CHLORIDE XL 5 MG TABCR PO SCH (08:46)
[2022-05-27] MEDS: carvediloL 25 MG TAB PO SCH ×2 (08:46→20:13)
[2022-05-27] MEDS: CYANOCOBALAMIN (B-12) 500 MCG TABLET PO SCH (08:46)
[2022-05-27] MEDS: PANTOprazole 40 MG TAB PO SCH (08:46)
[2022-05-27] MEDS: FLUoxetine HCL 20 MG CAP PO SCH (08:46)
[2022-05-27] MEDS: GABAPENTIN 300 MG CAP PO SCH ×2 (08:46→20:17)
[2022-05-27] MEDS: LIDOCAINE 5% 1 PATCH TD SCH (08:47)
[2022-05-27] MEDS: busPIRone 5 MG TAB PO SCH ×3 (08:47→20:13)
[2022-05-27] MEDS: LOSARTAN POTASSIUM 50 MG TAB PO SCH ×2 (08:47→20:18)
[2022-05-27] MEDS: UMECLIDINIUM BROMIDE 62.5MCG/BLISTER 7 PUFFS/INHALER INH SCH (08:48)
[2022-05-27] MEDS ORDERED: TIOTROPIUM BROMIDE 5 PUFF/90 MCG INH INH SCH (09:00)
[2022-05-27] MEDS: HYDROcodone/ACETAMINOPHEN 10/325 TAB PO PRN ×2 (09:09→20:07)
[2022-05-27] MEDS ORDERED: SODIUM CHLORIDE 0.9% 1000ML 1,000 ML IV SCH (10:45)
--- NOTE | 2022-05-27 17:59 | Billing Data ---
Date of Service May 27, 2022 Coding Level of Care Code 29334 Subseq Hosp Care Lvl 3
[2022-05-27] MEDS: MELATONIN 3 MG TAB PO PRN (20:06)
[2022-05-27] MEDS: hydrOXYzine HCl 25 MG TAB PO PRN (20:08)
[2022-05-27] MEDS: FLUTICASONE/VILANTEROL 200/25MCG 14 PUFFS/INHALER INH SCH (20:16)
[2022-05-28] MEDS: POTASSIUM CHLORIDE CRTAB 20 MEQ TABCR PO SCH (07:15)
[2022-05-28] MEDS: predniSONE 20 MG TAB PO SCH (07:16)
[2022-05-28] MEDS: carvediloL 25 MG TAB PO SCH (07:16)
[2022-05-28] MEDS: SPIRONOLACTONE 100 MG TAB PO SCH (07:16)
[2022-05-28] MEDS: GABAPENTIN 300 MG CAP PO SCH (07:16)
[2022-05-28] MEDS: busPIRone 5 MG TAB PO SCH (07:16)
[2022-05-28] MEDS: amLODIPine BESYLATE 5 MG TAB PO SCH (07:17)
[2022-05-28] MEDS: FOLIC ACID 1 MG TAB PO SCH (07:17)
[2022-05-28] MEDS: PANTOprazole 40 MG TAB PO SCH (07:17)
[2022-05-28] MEDS: OXYBUTYNIN CHLORIDE XL 5 MG TABCR PO SCH (07:17)
[2022-05-28] MEDS: CYANOCOBALAMIN (B-12) 500 MCG TABLET PO SCH (07:17)
[2022-05-28] MEDS: FLUoxetine HCL 20 MG CAP PO SCH (07:17)
[2022-05-28] MEDS: LIDOCAINE 5% 1 PATCH TD SCH (07:18)
[2022-05-28] MEDS: UMECLIDINIUM BROMIDE 62.5MCG/BLISTER 7 PUFFS/INHALER INH SCH (07:19)
--- NOTE | 2022-05-28 07:19 | Hospitalist Progress Note ---
Date of Service May 28, 2022 Assessment & Plan (1) Acute hypokalemia: (2) Pruritic rash: (3) Metabolic alkalosis: (4) HTN (hypertension), benign: (5) Asthma: (6) Leukocytosis: (7) Blood bacterial culture positive: (8) Back pain: (9) Anxiety: (10) Depression: (11) Hematuria: Plan Ms. Meza is a 66 y.o. female who presented to the ED via ambulance on 05/16 for SOB and a pruritic rash. She recently was in the ED on 05/04 for similar issue, was given dexamethasone and told to stop Flonase. For the past week she has taken 90-100 Benadryl pills along with her hydrocodone and has not taken any of her other prescribed medications. She recently quit smoking 1 month ago. Of note patient has had extensive lab workup for her issues: -Negative labs to date: respiratory BioFire, urine mycoplasma, urine legionella, RPR, Pneumonia screen (some still pending), Hep C, RF, anti- CCP, BENY, ANCA, renin, aldosterone, ammonia #Acute hypoxic respiratory failure (resolved) - Multifactorial. Most likely etiologies include heart failure exacerbation/fluid overload, COPD exacerbation, and pulmonary hemorrhage from vasculitis - Currently on 2L NC. (no oxygen requirement prior to admission) - Respiratory testing today showed the need for patient to have 2L NC O2 at [facility]. #COPD - Patient most likely had an acute exacerbation when admitted. She severe wheezing. Treated with solumedrol then 3 day taper of prednisone. Patient no longer has wheezing on exam. - Continue Symbicort BID, Spiriva QD, and DuoNeb prn - Patient should have PFTs when stable, outpatient. #Hypokalemia -Holding all diuretics except spironolactone. - Continue KCL 20mg BID - Urine metanephrines are pending - reports from neighbors of AMS, ammonia was ordered due to hypokalemia possibly increasing ammonia metabolism. Ammonia was normal. Most likely patient had AMS due to taking 90-100 Benadryl pills. - Etiology may be underlying hypercortisolism. Cortisol levels were elevated. However, sample was collected when patient was taking high dose steroid. Will need follow up testing but no changes or recommendations are needed at this time. - ACTH is pending and may also be altered by the results of the steroid dennise. If results are low ACTH then that is non-specific and should not be use to diagnosis the patient. If ACTH is high, then high suspicion for something pathological may be in play. -CMP 3 days after discharge. #Metabolic Alkalosis - Last VBG showed alkalosis (ph 7.5) likely multifactorial, but concern for ectopic ACTH now that primary hyperaldosteronism is unlikely due to normal renin and aldosterone levels. - Continue 20mEQ KCL PO BID scheduled - Nephrology recommends starting IV NS. - Trend AM labs #Acute diastolic CHF, exacerbation resolved - CT chest on admission showed small to moderate L pleural effusions. - ECHO showed EF 55-60% with grade II diastolic dysfunction - Stopped IV lasix due to hypokalemia and switched to acetazolamide 250mg daily which is also held due to volume contraction - continue spironolactone 100mg - monitor I/O's, daily weights - Patient is euvolemic now. 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 -Will add on Vistaril 25mg QHS PRN itching #Thrombocytopenia and anemia - Most likely related to vasculitis - platelet counts has been progressively decreasing, but are stable now in the 50s - peripheral smear without signs of microangiopathic hemolytic anemia # B12 deficiency - repleted with oral B12 # folate deficiency - repleted with oral folate #Anxiety and depression - Continue home buspar, restarted home fluoxetine #fibromyalgia - restarted home gabapentin - has PRN home hydrocodone-acetaminophen 10-325 q6h PRN ordered #Hematuria -- resolved #Back pain -Given lidocaine patch. Pain improved. #Positive Blood culture -One tube grew Coag neg staph, the other tube is NGTD. -Most likely contaminate. diet/fluid status: heart healthy Code status: full DVT prop: SCDs Dispo: med surg Thank you for allowing me to participate in the care of your patient. -Dr. Benny Garcia PGY1 Admission and Anticipated Discharge Date Admission Date: May 16, 2022 Results & Data Results & Data ([facility]) Vital Signs (Past 12 Hours) Vital Signs Temp Pulse Pulse Resp BP Pulse Ox O2 Del Method 05/28/22 03:19 36.9 C 72 18 159/98 H 90 Nasal Cannula 05/28/22 00:14 76 05/27/22 23:30 37.1 C 71 18 136/80 90 Nasal Cannula 05/27/22 22:38 Nasal Cannula 05/27/22 19:22 36.7 C 84 18 124/74 92 Nasal Cannula 05/27/22 20:23 36.5 C 74 18 151/89 H 93 Nasal Cannula O2 Flow Rate 05/28/22 03:19 2 05/28/22 00:14 05/27/22 23:30 2 05/27/22 22:38 2 05/27/22 19:22 2 05/27/22 20:23 2
[2022-05-28 07:46] LABS: Hematocrit (blood only) 25.6 % (34.1-44.9); Hemoglobin 8.4 g/dl (12.0-16.0); Mean Corpuscular Hemoglobin 30.4 pg (25.0-34.0); Mean Corpuscular Hgb Conc 32.8 g/dL (32.0-36.0); Mean Corpuscular Volume 92.8 fL (80.0-100.0); Nucleated RBC # (auto) 0.47 K/uL (0-0); Nucleated RBC % (auto) 3.2 %; Platelet Count 52 K/uL (130-400); RDW Coefficient of Variation 17.9 % (11.5-14.5); RDW Standard Deviation 60.3 fL (36.4-46.3); Red Blood Count 2.76 M/uL (3.93-5.22); White Blood Count 14.77 K/ul (4.8-10.8)
[2022-05-28] MEDS: LOSARTAN POTASSIUM 50 MG TAB PO SCH (08:18)
[2022-05-28 08:56] LABS: Calcium 7.9 mg/dl (8.5-10.1); Creatinine Clr Calc Pharmacy 101.7 ml/min; Est GFR (African American) 123.6 ml/min; Est GFR (Non-African American) 106.7 ml/min; Potassium 3.4 mmol/L (3.5-5.1)
--- NOTE | 2022-05-28 09:03 | Nephrology Progress Note ---
Date of Service May 28, 2022 Assessment & Plan (1) Anticholinergic drug overdose: Plan: * Presented to EMD 05/04/22 with reaction to Flonase. Reports facial and tongue swelling. Received IV Decadron and discharged. Patient reports self medicating with OTC Benadryl up to 20 tablets/day for the next 12 days * Recommend stopping Breo Ellipta (Fluticasone/Vilanterol) given h/o allergy (2) Acute hypokalemia: Plan: * No prior h/o hypokalemia. Never hospitalized due to low K. Was not previously on KCl supplement * Mg within normal limits * Continue KCl 20 mEq po BID and Spironolactone 100 mg daily * If discharge is anticipated, please have patient follow up w/ Dr. Pinedo within 1 - 2 weeks ( ) (3) Metabolic alkalosis: Plan: * Alkalosis likely due to profound hypokalemia * May need to consider scheduled low dose acetazolamide as outpatient (ie., Acetazolamide 125 mg po daily) (4) Hypertensive urgency: Plan: * SBP 140 - 170 mm Hg last 24 hours * Renal duplex negative for GER * Continue Carvedilol 25 mg po BID, Amlodipine 10 mg daily, Losartan 50 mg BID, Spironolactone 100 mg daily * Await results of 24 hour urine metanephrine (5) Hypercortisolism: Plan: * Not hirsute, no abdominal stria or buffalo hump but does have fuchs facies and hyperglycemia in the setting of HTN and unexplained hypokalemia/metabolic alkalosis * Await results of ACTH testing * Cortisol testing was obtained while patient on exogenous glucocorticoids Admission and Anticipated Discharge Date Admission Date: May 16, 2022 Subjective Ms. Meza was evaluated in her hospital room this morning. She was sitting up in a chair and had just finished with a bath. Ms. Meza reports that she will be discharged to home this afternoon Review of Systems Constitutional: no fever Eyes: no worsening vision Ear, Nose, Mouth, Throat: no problem reported Respiratory: no cough and no dyspnea Cardiovascular: no chest pain Gastrointestinal: + diarrhea/loose stools (at least one liquid BM daily since gastric bypass surgery) Neurologic: no headache(s) Physical Exam Constitutional: + ill appearing; not in distress Eyes: PERRL, conjunctivae normal, anicteric sclerae ENMT: external ear and nose normal, oropharynx normal Neck: trachea midline, no thyromegaly Respiratory: normal respiratory effort Auscultation: + diminished lung sounds and + rales (bilateral) Cardiovascular: Rate/Rhythm: regular rate and regular rhythm Gastrointestinal (Abdomen): Inspection/Auscultation: abdomen normal to inspection Skin: + turgor decreased and + dry skin Results & Data ([facility]) Vital Signs (Past 12 Hours) Vital Signs Temp Pulse Pulse Resp BP BP Pulse Ox 05/28/22 08:48 05/28/22 08:06 36.8 C 79 16 152/95 H 93 05/28/22 03:19 36.9 C 72 18 159/98 H 90 05/28/22 00:14 76 05/27/22 23:30 37.1 C 71 18 136/80 90 05/27/22 22:38 O2 Del Method O2 Flow Rate 05/28/22 08:48 Nasal Cannula 2 05/28/22 08:06 Room Air 05/28/22 03:19 Nasal Cannula 2 05/28/22 00:14 05/27/22 23:30 Nasal Cannula 2 05/27/22 22:38 Nasal Cannula 2 Laboratory Results Laboratory Tests 05/24/22 05/25/22 05/27/22 16:00 07:09 06:04 WBC Hgb Hct Plt Count Sodium Potassium Chloride Carbon Dioxide BUN Creatinine Glucose Calcium Albumin 2.9 L ACTH Pending Ur 24 Hour Volume Pending Urine Metanephrine Pending Urine Normetanephrine Pending U Total Metanephrines Pending 05/28/22 05/28/22 07:10 07:10 WBC 14.77 H Hgb 8.4 L Hct 25.6 L Plt Count 52 L Sodium 142 Potassium 3.4 L Chloride 111 H Carbon Dioxide 27 BUN 22 Creatinine 0.44 L Glucose 120 H Calcium 7.9 L Albumin ACTH Ur 24 Hour Volume Urine Metanephrine Urine Normetanephrine U Total Metanephrines PG Care Time/CCT Total # of Minutes Spent Total Time Spent with Patient: Total time spent is greater than 50% in coordination of care (as documented) at patient's floor/unit and/or counseling patient: Coding Level of Care Code 72847 Subseq Hosp Care Lvl 3 Diagnoses Anticholinergic drug overdose T44.3X1A Acute hypokalemia E87.6 Metabolic alkalosis E87.3 Hypertensive urgency I16.0 Hypercortisolism E24.9
--- NOTE | 2022-05-28 16:47 | Discharge Summary ---
Date of Service May 28, 2022 Admission HPI Per Admitting Provider Trina Meza is a 66 year old female who presents to the ER with ongoing intense pruritic rash. Initially she felt it was an allergic reaction to Flonase. She has been taking 90-100 Benadryl pills within the last week in addition to her prescribed hydrocodone but not taking any of her other prescribed medications. The patient was seen 12 days ago in the ER with similar symptoms and was told to stop Flonase, was given dexamethasone. She reports the rash did not change and has continued being intensely itchy. She reported being short of breath to the ER physician here today however she denies this to myself and reports no chest pain, abdominal pain, nausea, vomiting or diarrhea. Her main complaint is generalized weakness and fatigue. She denies any fever or chills. She recently quit smoking 1 months ago. In the ER she was noted be severely hypokalemic with potassium level of 1.7. She was started on KCL 10 meq x2 IV and referred to medicine for admission and ongoing management of severe hypokalemia. Admission Exam Per Admitting Provider Constitutional: well developed; + not well nourished and no acute distress Eyes: PERRL, conjunctivae normal, anicteric sclerae Respiratory: normal respiratory effort; no respiratory distress Auscultation: + bronchovesicular breath sounds; no crackles and no wheezes Cardiovascular: RRR, no murmur, no edema Gastrointestinal (Abdomen): normal bowel sounds, soft, nontender, no hepatosplenomegaly Skin: Widespread excoriated papular rash on all four extremities, back and chest, relatively sparing her face Neurologic: moves all extremities and awake; not confused Psychiatric: A+Ox3, euthymic affect Principal Diagnosis Leukocytoclastic vasculitis, (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 Discharge Exam Constitutional WD/WN, vitals as above + acute distress, + well hydrated, healthy appearing, + disheveled, cooperative, comfortable and + lethargic Eyes PERRL, conjunctivae normal, anicteric sclerae ENMT external ear and nose normal, oropharynx normal Respiratory normal respiratory effort, lungs clear to auscultation normal respiratory effort and + audible wheezes; no respiratory distress and no labored breathing Auscultation: lungs clear to auscultation bilaterally and + wheezes (Mild Bilateral UL ) Cardiovascular RRR, no murmur, no edema Gastrointestinal (Abdomen) normal bowel sounds, soft, nontender, no hepatosplenomegaly Musculoskeletal no cyanosis or clubbing, extremities motor strength 5/5 Skin + excoriations (Bl UE and LE improving ) and + purpura (improving) Psychiatric A+Ox3, euthymic affect Orientation: oriented x 3 Affect: + flat affect Lymphatic no cervical or axillary lymphadenopathy Discharge Data Allergies Allergy/AdvReac Type Severity Reaction Status Date / Time bee venom protein (honey bee) Allergy Unknown eyes and Verified 11/12/21 09:22 throat swell Consultations 05/16/22 15:19 ED Decision to Admit Stat 05/16/22 18:07 Consult Malt Liqu[employer] Sales Representative Routine 05/19/22 10:20 Consult Pulmonology Routine 05/20/22 19:36 Consult Nephrology Routine Ordered Studies 05/19/22 10:43 CT chest diagnostic wo con Urgent 05/20/22 18:48 CT Abd and Pelvis [CT abdomen pelvis wo/w con] Urgent 05/21/22 15:48 US duplex renal artery Urgent Hospital Course (1) Acute hypokalemia: (2) Pruritic rash: (3) Metabolic alkalosis: (4) HTN (hypertension), benign: (5) Asthma: (6) Leukocytosis: (7) Blood bacterial culture positive: (8) Back pain: (9) Anxiety: (10) Depression: (11) Hematuria: Plan Ms. Meza is a 66 y.o. female who presented to the ED via ambulance on 05/16 for SOB and a pruritic rash. She recently was in the ED on 05/04 for similar issue, was given dexamethasone and told to stop Flonase. For the past week she has taken 90-100 Benadryl pills along with her hydrocodone and has not taken any of her other prescribed medications. She recently quit smoking 1 month ago. She was found to have Acute hypoxic respiratory failure (resolved) and will require 2L NC O2 at home. Patient most likely had an acute exacerbation of COPD when admitted. She had severe wheezing. Treated with solumedrol then 3 day taper of prednisone. Patient no longer has wheezing on exam. Continue Symbicort BID, Spiriva QD, and DuoNeb prn. Patient should have PFTs when stable, outpatient. Hypokalemia, holding all diuretics except spironolactone. Continue KCL 20mg BID. Urine metanephrines are pending. Reports from neighbors of AMS, ammonia was ordered due to hypokalemia possibly increasing ammonia metabolism. Ammonia was normal. Most likely patient had AMS due to taking 90-100 Benadryl pills. Etiology may be underlying hypercortisolism. Cortisol levels were elevated. However, sample was collected when patient was taking high dose steroid. Will need follow up testing but no changes or recommendations are needed at this time. ACTH is pending and may also be altered by the results of the steroid dennise. If results are low ACTH then that is non-specific and should not be use to diagnosis the patient. If ACTH is high, then high suspicion for something pathological may be in play. CMP 3 days after discharge. Patient had Metabolic Alkalosis which last VBG showed alkalosis (ph 7.5) likely multifactorial, but concern for ectopic ACTH now that primary hyperaldosteronism is unlikely due to normal renin and aldosterone levels. Of note patient has had extensive lab workup for her issues: Negative labs to date: respiratory BioFire, urine mycoplasma, urine legionella, RPR, Pneumonia screen (some still pending), Hep C, RF, anti- CCP, BENY, ANCA, renin, aldosterone, ammonia. Patient should be started spironolactone. For your low potassium, we will have you continue oral potassium supplementation. She also thought to have vasculitis causing your rash for which the steroids will be helpful as well -- we will have you continue these for the next 12 days after discharge. You will take prednisone 20mg daily for 4 days, then 15mg daily for 4 days, then 5 mg daily for 4 days, then stop. Should f/u with PCP on WednesdayJune [address] Elijah Husain. Total Time Total Time Spent Total Time Spent (In Minutes): <30 Discharge Plan Discharge Items Patient Disposition: Home - Self-Care Reason For Visit: SEVERE HYPOKALEMIA Discharge Diagnosis: Anticholinergic drug overdose, severe hypokalemia, metabolic acidosis Activity: Per Instructions section Non-emergency contact: Primary Care Provider Call non-emergency contact if: you have any medication questions and your sym ptoms worsen Follow-up/Referrals: Randa Pena MD [Primary Care Provider] - 06/02/22 11:30 am Diet: Heart Healthy Addtl Attending Provider Instructions: You were admitted to [facility] due to weakness, fatigue, and severely low potassium in your blood. Your breathing was also compromised. Your acute respiratory failure was thought to be more related to likely COPD in the setting of your smoking history, as well as some fluid overload from your CHF. For COPD, we treated you with steroids, nebulizers, and an antibiotic call ed azithromycin. On discharge we will start you on chronic inhalers, which will be continued at home. We recommend that you follow with your PCP for discussion of this and potentially setting up pulmonary function testing in the outpatient setting to confirm the diagnosis. You were evaluated by respiratory therapy in the hospital and were found to require oxygen continuously to maintain your body 's oxygenation -- this has been set up for you by our case management team. For your CHF, we started you on some medications. We will continue you on a diuretic called spironolactone. You should take this daily. For your low potassium, we will have you continue oral potassium supplementation. You were also thought to have vasculitis causing your rash for which the steroids will be helpful as well -- we will have you continue these for the next 12 days after discharge. You will take prednisone 20mg daily for 4 days, then 15mg daily for 4 days, then 5 mg daily for 4 days, then stop. Please continue to take your medications as prescribed. We will refer you to establish care with Dr. Garcia as your new PCP. Unfortunately his schedule is busy initially but we have set you up for follow- up appointment with Dr. Elijah Husain, the senior resident physician who was overseeing your care in the hospital. You are scheduled at the [facility] on Friday, June 03, 2022 at 9:50AM. You will then continue to follow with Dr. Garcia at this clinic. Please call our clinic with any questions. If you develop any new or severe symptoms, please visit the Emergency Department for reevaluation. Pending Studies at Discharge: No Stand-Alone Forms: My [facility], Smoking Cessation Medications and DC Order Prescriptions: New losartan 50 mg Tablet 50 mg PO BID 30 Days Qty: 60 0RF carvedilol 25 mg Tablet 25 mg PO BID 30 Days Qty: 60 0RF spironolactone 100 mg Tablet 100 mg PO QAM 30 Days Qty: 30 0RF amlodipine [Norvasc] 5 mg Tablet 10 mg PO QAM 30 Days Qty: 60 0RF potassium chloride 20 mEq Tablet,Er Particles/Crystals 20 meq PO BID 30 Days Qty: 60 0RF Incruse Ellipta 62.5 mcg/actuation Blister With Device 1 puff inhalation DAILY 30 Days Qty: 30 0RF prednisone 5 mg tablet See Rx Instructions .ROUTE .COMPLEX Qty: 40 0RF Rx Instructions: Take 4 pills (20mg) daily for 4 days, then 3 pills (15mg) for 4 days, then 2 pills (10mg) daily for 4 days, then 1 pill (5mg) daily for 4 days, then stop fluticasone furoate-vilanterol [Breo Ellipta] 200-25 mcg/dose Blister With Device 1 inh inhalation HS Qty: 60 0RF Continued hydrocodone-acetaminophen 10-325 mg tablet 1 tab PO Q6H PRN (Reason: pain) Qty: 120 0RF Rx Instructions: PDMP searched, last filled on 03/27/22 for 30 days, okay to fill guaifenesin [Mucinex] 600 mg tablet extended release 12hr 600 mg PO Q12H PRN (Reason: congestion) Qty: 60 0RF buspirone 5 mg tablet 5 mg PO TID Qty: 90 2RF oxybutynin chloride 10 mg tablet extended release 24 hr 10 mg PO DAILY Qty: 30 2RF gabapentin 300 mg capsule 300 mg PO BID Qty: 60 2RF fluoxetine 40 mg capsule 40 mg PO DAILY omeprazole 40 mg capsule,delayed release(DR/EC) 40 mg PO DAILY PRN (Reason: GERD) Qty: 90 3RF (DME) TENS units Device See Rx Instructions .Route Qty: 1 0RF Rx Instructions: As directed albuterol sulfate 90 mcg/actuation HFA aerosol inhaler 2 puff inhalation Q6H PRN (Reason: shortness of breath or wheezing) Qty: 8.5 5RF buspirone 10 mg tablet 10 mg PO TID PRN (Reason: anxiety) Qty: 90 3RF Discontinued losartan 25 mg tablet 25 mg PO DAILY Qty: 90 1RF fluticasone propionate [Flonase Allergy Relief] 50 mcg/actuation spray,suspension 2 spray intranasal HS Qty: 16 2RF Rx Instructions: administer into each nostril epinephrine 0.3 mg/0.3 mL auto-injector 0.3 mg IM UD PRN (Reason: Allergic Reaction) Discharge Orders: Discharge Order (Routine); Ordered 05/28/22 Ordered By: Benny Rosenthal/Other Patient Handouts: A1C Admission Data Admit Date/Time: 05/16/22 15:52 Attending Provider: Garry Mills Admit Provider: Cooper Poon Primary Care Provider: Randa Pena Other Providers: Garry Mills ; Cooper Poon ; Steve Scott ; Oswaldo Mojica ; Ravinder Pinedo Other Interventions: Discharge Summary Assessment (RN) Last Done: 05/28/22 11:08 Supervising Physician Co-Signing Physician Notes I personally examined the patient and verified all zavala points of history and exam, discussed case, and agree with decision making with Dr Garcia Still feels up to going home, and now everything is set up. vitals noted nad heent nc at mmm breathing unlabored no accessory muscle use good effort. Skin shows slowly resolving rashes. Acute hypoxic respiratory failure. Resolved. Secondary to fluid overload + COPD + ?pulm vasculitis. At this point most residual hypoxia seems to be due to COPD. Chronic management initiated. Will need outpatient PFTs given that COPD right now is a suspected/clinical diagnosis. For now requires oxygenhopefully this will be short-term. Continue COPD inhaler management. Acute, decompensated HFpEF Appearing euvolemic now. Safe for home, outpatient follow-up "Hypercortisolism" To clarifyspurious given that she was on large doses of exogenous corticosteroids at this time. That said, given her hypokalemia and metabolic alkalosispursuing this as a diagnosis once she is off of steroids is quite reasonable, if the problem persistspotassium supplementation followed by serial labs (BMP, VBG) as outpatientand then work-up further if this continues/persists Pulmonary vasculitis COPD exacerbation. BENY, ANCA are negative., RF, anti-CCP pending. Mycoplasma, legionella pending. Pneumo pending. Tapering steroids over the next several weeks as an outpatientalthough the prolonged taper is largely for the vasculitis Vasculitic rash Rheumatology consulted via phone. Continue steroids as aboveprolonged taper, outpatient follow-up Safe/stable for home, close PCP follow-up.
--- NOTE | 2022-05-28 16:59 | Billing Data ---
Date of Service May 28, 2022 Coding Level of Care Code D/C DAY MANAGEMENT <30 MINS
--- NOTE | 2022-05-28 21:29 | Discharge Summary ---
Date of Service May 28, 2022 Admission HPI Per Admitting Provider Trina Meza is a 66 year old female who presents to the ER with ongoing intense pruritic rash. Initially she felt it was an allergic reaction to Flonase. She has been taking 90-100 Benadryl pills within the last week in addition to her prescribed hydrocodone but not taking any of her other prescribed medications. The patient was seen 12 days ago in the ER with similar symptoms and was told to stop Flonase, was given dexamethasone. She reports the rash did not change and has continued being intensely itchy. She reported being short of breath to the ER physician here today however she denies this to myself and reports no chest pain, abdominal pain, nausea, vomiting or diarrhea. Her main complaint is generalized weakness and fatigue. She denies any fever or chills. She recently quit smoking 1 months ago. In the ER she was noted be severely hypokalemic with potassium level of 1.7. She was started on KCL 10 meq x2 IV and referred to medicine for admission and ongoing management of severe hypokalemia. Discharge Data Allergies Allergy/AdvReac Type Severity Reaction Status Date / Time bee venom protein (honey bee) Allergy Unknown eyes and Verified 11/12/21 09:22 throat swell Consultations 05/16/22 15:19 ED Decision to Admit Stat 05/16/22 18:07 Consult Head Still Operator Routine 05/19/22 10:20 Consult Pulmonology Routine 05/20/22 19:36 Consult Nephrology Routine Ordered Studies 05/19/22 10:43 CT chest diagnostic wo con Urgent 05/20/22 18:48 CT Abd and Pelvis [CT abdomen pelvis wo/w con] Urgent 05/21/22 15:48 US duplex renal artery Urgent Discharge Plan Discharge Items Patient Disposition: Home - Self-Care Reason For Visit: SEVERE HYPOKALEMIA Discharge Diagnosis: Anticholinergic drug overdose, severe hypokalemia, metabolic acidosis Activity: Per Instructions section Non-emergency contact: Primary Care Provider Call non-emergency contact if: you have any medication questions and your symptoms worsen Follow-up/Referrals: Randa Pena MD [Primary Care Provider] - 06/02/22 11:30 am Diet: Heart Healthy Addtl Attending Provider Instructions: You were admitted to [facility] due to weakness, fatigue, and severely low potassium in your blood. Your breathing was also compromised. Your acute respiratory failure was thought to be more related to likely COPD in the setting of your smoking history, as well as some fluid overload from your CHF. For COPD, we treated you with steroids, nebulizers, and an antibiotic called azithromycin. On discharge we will start you on chronic inhalers, which will be continued at home. We recommend that you follow with your PCP for discussion of this and potentially setting up pulmonary function testing in the outpatient setting to confirm the diagnosis. You were evaluated by respiratory therapy in the hospital and were found to require oxygen continuously to maintain your body's oxygenation -- this has been set up for you by our case management team. For your CHF, we started you on some medications. We will continue you on a diuretic called spironolactone. You should take this daily. For your low potassium, we will have you continue oral potassium supplementation. You were also thought to have vasculitis causing your rash for which the steroids will be helpful as well -- we will have you continue these for the next 12 days after discharge. You will take prednisone 20mg daily for 4 days, then 15mg daily for 4 days, then 5 mg daily for 4 days, then stop. Please continue to take your medications as prescribed. We will refer you to establish care with Dr. Garcia as your new PCP. Unfortunately his schedule is busy initially but we have set you up for follow- up appointment with Dr. Elijah Husain, the senior resident physician who was overseeing your care in the hospital. You are scheduled at the [facility] on Friday, June 03, 2022 at 9:50AM. You will then continue to follow with Dr. Garcia at this clinic. Please call our clinic with any questions. If you develop any new or severe symptoms, please visit the Emergency Department for reevaluation. Pending Studies at Discharge: No Stand-Alone Forms: My [facility] [employer], Smoking Cessation Medications and DC Order Prescriptions: New losartan 50 mg Tablet 50 mg PO BID 30 Days Qty: 60 0RF carvedilol 25 mg Tablet 25 mg PO BID 30 Days Qty: 60 0RF spironolactone 100 mg Tablet 100 mg PO QAM 30 Days Qty: 30 0RF amlodipine [Norvasc] 5 mg Tablet 10 mg PO QAM 30 Days Qty: 60 0RF potassium chloride 20 mEq Tablet,Er Particles/Crystals 20 meq PO BID 30 Days Qty: 60 0RF Incruse Ellipta 62.5 mcg/actuation Blister With Device 1 puff inhalation DAILY 30 Days Qty: 30 0RF prednisone 5 mg tablet See Rx Instructions .ROUTE .COMPLEX Qty: 40 0RF Rx Instructions: Take 4 pills (20mg) daily for 4 days, then 3 pills (15mg) for 4 days, then 2 pills (10mg) daily for 4 days, then 1 pill (5mg) daily for 4 days, then stop fluticasone furoate-vilanterol [Breo Ellipta] 200-25 mcg/dose Blister With Device 1 inh inhalation HS Qty: 60 0RF Continued hydrocodone-acetaminophen 10-325 mg tablet 1 tab PO Q6H PRN (Reason: pain) Qty: 120 0RF Rx Instructions: PDMP searched, last filled on 03/27/22 for 30 days, okay to fill guaifenesin [Mucinex] 600 mg tablet extended release 12hr 600 mg PO Q12H PRN (Reason: congestion) Qty: 60 0RF buspirone 5 mg tablet 5 mg PO TID Qty: 90 2RF oxybutynin chloride 10 mg tablet extended release 24 hr 10 mg PO DAILY Qty: 30 2RF gabapentin 300 mg capsule 300 mg PO BID Qty: 60 2RF fluoxetine 40 mg capsule 40 mg PO DAILY omeprazole 40 mg capsule,delayed release(DR/EC) 40 mg PO DAILY PRN (Reason: GERD) Qty: 90 3RF (DME) TENS units Device See Rx Instructions .Route Qty: 1 0RF Rx Instructions: As directed albuterol sulfate 90 mcg/actuation HFA aerosol inhaler 2 puff inhalation Q6H PRN (Reason: shortness of breath or wheezing) Qty: 8.5 5RF buspirone 10 mg tablet 10 mg PO TID PRN (Reason: anxiety) Qty: 90 3RF Discontinued losartan 25 mg tablet 25 mg PO DAILY Qty: 90 1RF fluticasone propionate [Flonase Allergy Relief] 50 mcg/actuation spray,suspension 2 spray intranasal HS Qty: 16 2RF Rx Instructions: administer into each nostril epinephrine 0.3 mg/0.3 mL auto-injector 0.3 mg IM UD PRN (Reason: Allergic Reaction) Discharge Orders: Discharge Order (Routine); Ordered 05/28/22 Ordered By: Benny Rosenthal/Other Patient Handouts: A1C Admission Data Admit Date/Time: 05/16/22 15:52 Attending Provider: Garry Mills Admit Provider: Cooper Poon Primary Care Provider: Randa Pena Other Providers: Garry Mills ; Cooper Poon ; Steve Scott ; Oswaldo Mojica ; Ravinder Pinedo Other Interventions: Discharge Summary Assessment (RN) Last Done: 05/28/22 11:08
[2022-05-29 09:12] LABS: Normetanephrine, Ur 416 mcg/24 h (122-676); Total Metanephrine 488 mcg/24 h (224-832)
== END 2022-05-28 14:17 | disposition home or self-care (01) | DRG 545 ==
LOC: ED 13:24 → SUATTDRO 15:52 → 1E 17:55 → SUATTDRO 17:55 → 1E 18:04 → 3W 05-18 12:29 → 2S 05-21 01:34 → 2N 05-21 01:58
DX: M31.0 Hypersensitivity angiitis; I50.31 Acute diastolic (congestive) heart failure; I24.8 Other forms of acute ischemic heart disease; I11.0 Hypertensive heart disease with heart failure; J67.9 Hypersensitivity pneumonitis due to unspecified organic dust; Z87.891 Personal history of nicotine dependence; I16.0 Hypertensive urgency; E24.2 Drug-induced Cushing's syndrome; E87.6 Hypokalemia; E87.3 Alkalosis; F32.A Depression, unspecified; Z98.84 Bariatric surgery status; K21.9 Gastro-esophageal reflux disease without esophagitis; J96.01 Acute respiratory failure with hypoxia; J90 Pleural effusion, not elsewhere classified; I50.33 Acute on chronic diastolic (congestive) heart failure; R04.89 Hemorrhage from other sites in respiratory passages; L28.2 Other prurigo; D69.6 Thrombocytopenia, unspecified; J44.1 Chronic obstructive pulmonary disease with (acute) exacerbation

== ENCOUNTER 2022-05-31 11:02 | Inpatient (IN) ==
[2022-05-31] MEDS ORDERED: SODIUM CHLORIDE 0.9% 1000ML 1,000 ML IV ONE (12:08)
[2022-05-31 12:21] LABS: Hemoglobin 8.2 g/dl (12.0-16.0); Mean Corpuscular Hemoglobin 31.5 pg (25.0-34.0); Mean Corpuscular Hgb Conc 34.2 g/dL (32.0-36.0); Mean Corpuscular Volume 92.3 fL (80.0-100.0); Mean Platelet Volume 11.2 fL (9.4-12.3); Nucleated RBC # (auto) 0.42 K/uL (0-0); Nucleated RBC % (auto) 2.6 %; Platelet Count 34 K/uL (130-400); RDW Coefficient of Variation 17.8 % (11.5-14.5); RDW Standard Deviation 59.6 fL (36.4-46.3); White Blood Count 16.25 K/ul (4.8-10.8)
[2022-05-31 12:30] LABS: Acetaminophen < 3 ug/ml (10-30); Albumin Globulin Ratio 1.5 (0.9-2); Albumin Level 3.1 gm/dl (3.4-5.0); BUN Creatinine Ratio 46.7 (10-20); Bilirubin,Total 0.8 mg/dl (0.2-1.0); Calcium 8.3 mg/dl (8.5-10.1); Est GFR (African American) 111.6 ml/min; Est GFR (Non-African American) 96.3 ml/min; Globulin 2.1 gm/dl (2.5-4.0); Magnesium 1.9 mg/dl (1.7-2.4); Potassium 3.2 mmol/L (3.5-5.1); Salicylate < 3.0 mg/dl (3.0-30); Total Protein 5.2 gm/dl (6.0-8.3)
[2022-05-31 13:17] LABS: ALC (manual) 0.49 K/uL (1.2-3.4); ANC (manual) 14.46 K/uL (1.4-6.5); Lymphocytes # (manual) 0.49 K/uL (1.2-3.4); Lymphocytes % (manual) 3 %; Metamyelocytes # (manual) 0.49 K/uL (0-0); Metamyelocytes % (manual) 3 %; Monocytes # (manual) 0.49 K/uL (0.24-0.82); Monocytes % (manual) 3 %; Myelocytes # (manual) 0.49 K/uL (0-0); Myelocytes % (manual) 3 %; Neutrophils # (manual) 14.46 K/uL (1.4-6.5); Neutrophils % (manual) 89 %; Platelet Estimate Decreased (Normal); RBC Morphology Unremarkable
[2022-05-31] MEDS ORDERED: DOXYCYCLINE HYCLATE 100 MG in DEXTROSE 5% 100 ML IV STA (13:30)
[2022-05-31 13:47] LABS: Anaplasmosis Smear(Rpt to DOH) Pos for Anaplasma
[2022-05-31 14:17] LABS: Procalcitonin 0.45 ng/ml (0-0.5)
[2022-05-31 14:25] LABS: Lyme Ab IgG w/WB Rflx Negative (Negative); Lyme Ab IgM w/WB Rflx Negative (Negative)
[2022-05-31 14:42] LABS: Appearance Urine Clear (Clear); Bilirubin Urine Negative (Negative); Blood Urine Negative (Negative); Color Urine Yellow; Glucose Urine UA Negative (Negative); Ketones Urine Negative (Negative); Leukocyte Esterase Urine Negative (Negative); Nitrite Urine Negative (Negative); Protein Urine Negative (Negative); Specific Gravity Urine 1.014 (1.000-1.030); Urobilinogen Urine Negative (Negative); pH Urine 6.5 (4.5-7.5)
[2022-05-31] MEDS ORDERED: OPTIRAY 320 100ml IV ONE (15:14)
--- NOTE | 2022-05-31 15:41 | CT Scan Report ---
ABDOMEN AND PELVIS CT WITH IV CONTRAST CT DOSE: 270.37 mGy.cm HISTORY: Acute weakness weakness, SIRS TECHNIQUE: Multiaxial CT images of the abdomen and pelvis were performed following the IV administrat ion of 94 cc of Optiray, A dose lowering technique was utilized adhering to the principles of ALARA. COMPARISON STUDY: CT abdomen pelvis 05/20/2022 FINDINGS: Right infrahilar and right basilar airspace opacities are noted. Small left with moderate r ight pleural effusions. Mild atelectasis with air trapping within the lingula. There is no pneumatosi s or pneumoperitoneum. Unremarkable spleen, and mildly atrophic pancreas. Cholelithiasis with contrac patti gallbladder. Adrenal gland thickening redemonstrated suggestive of hyperplasia. 3 indeterminate h ypodense liver lesions are redemonstrated measuring up to 1.2 cm. Unremarkable kidneys. No hydronephrosis. Mild urinary bladder distention. Unremarkable uterus. Athero sclerosis of the aorta without aneurysm. There is no lymphadenopathy. Prior gastric bypass. No bowel obstruction or bowel wall thickening. Noninflamed appendix. Small fat filled umbilical abdominal wall hernia, diastases 1.5 cm. Suggested small fat filled left inguinal he rnia. There is a nonspecific 1.3 cm lesion of the medial left breast which is soft tissue attenuating . Mild generalized body wall edema. Acute mildly displaced fractures of the posterior right ninth thr ough 12th ribs. Chronic fracture of the posterior right eighth rib. IMPRESSION: 1. Acute mildly displaced fractures of the posterior right ninth through 12th ribs. 2. Small left with moderate right pleural effusions. 3. Right hilar/lower lobe airspace opacities are suggestive of atelectasis versus pneumonia. 4. No bowel obstruction or bowel wall thickening. 5. Indeterminate 1.3 cm left breast mass. 6. Additional findings as above. ACT 112: Negative or not required by law. The above report was generated using voice recognition software. It may contain grammatical, syntax o r spelling errors. Electronically signed by: Syed Pulido M.D. 05/31/2022 3:39 PM
[2022-05-31 15:44] LABS: Amphetamines+Metham, Urine Neg (Neg); Barbiturates, Urine Neg (Neg); Benzodiazepine, Urine Neg (Neg); Cocaine, Urine Neg (Neg); MDMA (Ecstacy), Urine Neg (Neg); Methadone, Urine Neg (Neg); Opiate, Urine Neg (Neg); Phencyclidine, Urine Neg (Neg)
--- NOTE | 2022-05-31 16:00 | Emergency Department Note ---
Impression & Plan Anaplasmosis, Leukocytosis, Thrombocytopenia, Transaminitis ED Provider Note NAME: SAMMIE BILLS AGE: 66 SEX: F ARRIVES VIA: Ambulance INFORMANT: ED PROVIDER(S): Ramon Cheema MD CHIEF COMPLAINT: weakness PLAN: Disposition: Admit MEDICAL DECISION MAKING: The patient is a pleasant 66-year-old woman with a past medical history of anxiety/depression, fibromyalgia, COPD now on home O2 who presents to the emergency department from home via EMS due to concern of caregivers that she is not doing well with confusion, weakness after being admitted to this facility from 05/16-05/28 for overdose on diphenhydramine due to persistent complaints of p ruritus suspected to be secondary to possible vasculitis discharged on steroid taper. Patient is a poor historian and is not entirely sure why she is in the hospital. She does admit that she is weak and confused and feels as though she is not doing well at home when prompted. On arrival the patient is chronically ill-appearing, fatigued but no acute distress, afebrile stable vital signs. 95% on home 2L. She appears clinically dry. She exhibits generalized weakness without focal neurologic deficits. EKG without overt acute ischemia. Chest x-ray with right pleural effusion and basilar consolidation. Note is made of acute right-sided rib fractures with no report of falls from caregiver. No PTX. WBC 16.2K approximately recent and nonspecific and in the setting of steroid taper. H/H 8.2/24 similar to prior values. Platelets are low at 34K similar to recent values though her thrombocytopenia does appear new from 05/16 and has gradually down trended. Chemistry without metabolic acidosis. BUN/creatinine> 40 consistent with the patient's clinically dry appearance. Lactic acid 0.7, within normal limits. LFTs do show some mild new elevation with AST and ALT 65 and 66, respectively. Alk phos 448. Lipase not elevated. Procalcitonin is not significantly elevated. TSH within normal limits. UA without convincing evidence of infection. Of note, lab associate did note intracytoplasmic neutrophilic inclusions suspicious for anaplasmosis. Formal report to follow tomorrow however was reviewed by pathologist who concurred. Lyme screen was negative. COVID-19 RNA, ANJUM test was negative. IV doxycycline was ordered. Anaplasma can be associated with pneumonia/pneumonitis and so may explain lung findings. Will defer question of additional antibiotics per admitting team. Case was discussed with Dr. Cameron, [facility] hospitalist, who will evaluate the patient for admission. CT of the abdomen pelvis report resulting and demonstrates mildly displaced fractures of the posterior right ninth through 12th ribs though there was no report of any recent falls. Patient has no complaints of pain. There is small left and moderate right pleural effusions. Note is made of right hilar and lower lobe airspace opacities that are nonspecific with consideration of atelectasis versus pneumonia. Incidental intermediate 1.3 cm left breast mass is seen. Triage Nursing notes reviewed and agree them. Prior medical records reviewed Vital Signs: reviewed and remarkable for no significant abnormalities Differential diagnosis: Infection, dehydration, metabolic abnormality, hypo/hyperglycemia, electrolyte disturbance, anemia, hypoxia, cardiac sources, intracerebral event, toxicologic, neurologic, as well as other pathologies. ER treatment provided: See below. Diagnostics interpreted by me: ECG: Sinus rhythm with PACs, 75 bpm, no overt ST elevation or depression, QTC 435, QTC 78. Cardiac Monitoring: An order for continuous cardiac monitoring was placed and demonstrated sinus rhythm with PACs, 75 bpm. Laboratory studies: See below Imaging studies: See below Consultation(s): Case was discussed with Dr. Cameron, [facility] hospitalist, who will evaluate the patient for admission. HPI: The patient is a pleasant 66-year-old woman with a past medical history of anxiety/depression, fibromyalgia, COPD now on home O2 who presents to the emergency department from home via EMS due to concern of caregivers that she is not doing well with confusion, weakness after being admitted to this facility from 05/16-05/28 for overdose on diphenhydramine due to persistent complaints of pruritus suspected to be secondary to possible vasculitis discharged on steroid taper. Patient is a poor historian and is not entirely sure why she is in the hospital. She does admit that she is weak and confused and feels as though she is not doing well at home when prompted. ROS: See above HPI for pertinent positives & negatives. A total of 10 systems reviewed and were otherwise negative. VITALS:See Below PHYSICAL EXAMINATION: GENERAL: Awake, alert, fatigued, chronically ill-appearing, in no distress HENT: Normocephalic, atraumatic. Oropharynx with dry mucous membranes and otherwise unremarkable. EYES: Normal conjunctiva. Sclera non-icteric. NECK: Supple. No nuchal rigidity. FROM. No JVD. RESPIRATORY: Diminished at bases, otherwise clear to auscultation. CARDIAC: Regular rate, normal rhythm. Extremities warm and well perfused. Pulses equal. ABDOMEN: Soft, non-distended. No tenderness to palpation. No rebound or guarding. No masses. RECTAL: Deferred. MUSCULOSKELETAL: Chest examination reveals no tenderness. The back is symmetrical on inspection without obvious abnormality. There is no CVA tenderness to palpation. No joint edema. LOWER EXTREMITIES: Calves are equal size bilaterally and non-tender. Scant BLE edema. No discoloration. NEURO: Normal sensorium. No sensory or motor deficits noted. SKIN: Scattered excoriations. No overt cellulitis. No jaundice noted. Ramon Cheema MD Past Med/Surg History Medical History Anticholinergic drug overdose Anxiety Current smoker Depression Dizziness HTN (hypertension), benign Hypercortisolism Hypertensive urgency Hypokalemia Sinus infection Surgical History H/O gastric bypass H/O gastric bypass H/O hernia repair H/O tubal ligation Hx of tonsillectomy Family History Mother Hypertension Father Hypertension Denies family history of Ovarian cancer Prostate cancer Diabetes Myocardial infarction Breast cancer Colorectal cancer Social History Smoking Status: Former smoker Tobacco Type: Cigarettes Cigarettes Per Day: 20; Second Hand Exposure: No; Hx Alcohol Use: No Hx Substance Use: No Preferred Language: Guamanian Communication Ability: Effective Bartacker Required: No Beliefs That Will Affect Care: None marital status: Single Current Living Situation: Alone current occupational status: employed current occupation: owns a [employer] How many Children do You have: 0 Feels Safe at Home: Yes caffeine: Yes (coffee ) Dental Care, Regularly: Yes Physical Activity Frequency: Does not Exercise Seatbelt Use: always Sunscreen Use: Yes Assistive Devices: None Allergies Allergies Allergy/AdvReac Type Severity Reaction Status Date / Time bee venom protein (honey bee) Allergy Unknown eyes and Verified 05/31/22 15:26 throat swell Home Meds Home Medications Medication Instructions Recorded Confirmed fluoxetine 40 mg capsule 40 mg PO DAILY 11/12/21 05/31/22 Previous Rx's Medication Instructions Recorded TENS units #1 ea 11/12/21 albuterol sulfate 90 mcg/actuation 2 puff inhalation Q6H PRN 11/12/21 aerosol inhaler shortness of breath or wheezing #8.5 grams buspirone 10 mg tablet 10 mg PO TID PRN anxiety #90 tabs 11/12/21 omeprazole 40 mg capsule,delayed 40 mg PO DAILY PRN GERD #90 caps 11/12/21 release gabapentin 300 mg capsule 300 mg PO BID #60 caps 12/12/21 buspirone 5 mg tablet 5 mg PO TID #90 tabs 03/27/22 oxybutynin chloride 10 mg 10 mg PO DAILY #30 tabs 03/27/22 tablet,extended release 24 hr guaifenesin 600 mg tablet, 600 mg PO Q12H PRN congestion #60 04/24/22 extended release 12 hr (Mucinex) tabs hydrocodone 10 mg-acetaminophen 1 tab PO Q6H PRN pain #120 tabs 04/24/22 325 mg tablet amlodipine 5 mg tablet (Norvasc) 10 mg PO QAM 30 days #60 tabs 05/27/22 carvedilol 25 mg tablet 25 mg PO BID 30 days #60 tabs 05/27/22 fluticasone furoate 200 1 inh inhalation HS #60 ea 05/27/22 mcg-vilanterol 25 mcg/dose inhalation powder (Breo Ellipta) losartan 50 mg tablet 50 mg PO BID 30 days #60 tabs 05/27/22 potassium chloride 20 mEq 20 meq PO BID 30 days #60 tabs 05/27/22 tablet,extended release(part/cryst) prednisone 5 mg tablet See Rx Instructions .Route 05/27/22 .COMPLEX #40 tabs spironolactone 100 mg tablet 100 mg PO QAM 30 days #30 tabs 05/27/22 umeclidinium 62.5 mcg/actuation 1 puff inhalation DAILY 30 days 05/27/22 blister powder for inhalation #30 ea (Incruse Ellipta) Results & Data (ED) Vital Signs Vital Signs - 24 hr 05/31/22 11:16 05/31/22 11:23 05/31/22 14:23 Temperature 36.7 C Temperature Source Oral Pulse Rate 68 Pulse Rate [Right Finger] Pulse Rate from SpO2 Sensor Respiratory Rate 16 Respiratory Effort / Characteristics Respiratory Depth Blood Pressure 152/90 H Blood Pressure Mean 110 Blood Pressure Position Lying Pulse Oximetry 100 100 95 Oxygen Delivery Method Nasal Cannula Nasal Cannula Nasal Cannula Oxygen Flow Rate 3 3 3 Sepsis Recent Fever Within 48 Hours No Sepsis New/Unexplained Change in Mental Status Yes Sepsis Action Taken by Nursing No Action Required 05/31/22 11:22 05/31/22 11:30 05/31/22 13:49 Temperature Temperature Source Pulse Rate 68 72 Pulse Rate [Right Finger] Pulse Rate from SpO2 Sensor 68 72 Respiratory Rate 21 22 Respiratory Effort / Characteristics Respiratory Depth Blood Pressure 157/93 H Blood Pressure Mean 114 Blood Pressure Position Pulse Oximetry 99 98 Oxygen Delivery Method Oxygen Flow Rate Sepsis Recent Fever Within 48 Hours Sepsis New/Unexplained Change in Mental Status Sepsis Action Taken by Nursing 05/31/22 13:49 05/31/22 13:50 05/31/22 14:00 Temperature Temperature Source Pulse Rate 81 82 78 Pulse Rate [Right Finger] Pulse Rate from SpO2 Sensor 83 77 Respiratory Rate 16 23 24 Respiratory Effort / Characteristics Respiratory Depth Blood Pressure Blood Pressure Mean Blood Pressure Position Pulse Oximetry 87 L 96 Oxygen Delivery Method Oxygen Flow Rate Sepsis Recent Fever Within 48 Hours Sepsis New/Unexplained Change in Mental Status Sepsis Action Taken by Nursing 05/31/22 14:01 05/31/22 14:01 05/31/22 14:10 Temperature Temperature Source Pulse Rate 81 81 Pulse Rate [Right Finger] Pulse Rate from SpO2 Sensor 79 Respiratory Rate 24 23 Respiratory Effort / Characteristics Respiratory Depth Blood Pressure 148/79 H Blood Pressure Mean 102 Blood Pressure Position Pulse Oximetry 97 Oxygen Delivery Method Oxygen Flow Rate Sepsis Recent Fever Within 48 Hours Sepsis New/Unexplained Change in Mental Status Sepsis Action Taken by Nursing 05/31/22 14:20 05/31/22 14:30 05/31/22 14:40 Temperature Temperature Source Pulse Rate 81 76 81 Pulse Rate [Right Finger] Pulse Rate from SpO2 Sensor Respiratory Rate 20 24 23 Respiratory Effort / Characteristics Respiratory Depth Blood Pressure Blood Pressure Mean Blood Pressure Position Pulse Oximetry Oxygen Delivery Method Oxygen Flow Rate Sepsis Recent Fever Within 48 Hours Sepsis New/Unexplained Change in Mental Status Sepsis Action Taken by Nursing 05/31/22 15:40 Temperature Temperature Source Pulse Rate Pulse Rate [Right Finger] 83 Pulse Rate from SpO2 Sensor Respiratory Rate 16 Respiratory Effort / Characteristics Non-Labored Respiratory Depth Normal Blood Pressure Blood Pressure Mean Blood Pressure Position Pulse Oximetry 96 Oxygen Delivery Method Room Air Oxygen Flow Rate Sepsis Recent Fever Within 48 Hours Sepsis New/Unexplained Change in Mental Status Sepsis Action Taken by Nursing Laboratory Data Attestation: I reviewed the patient's lab results. Result diagrams: 05/31/22 11:45 05/31/22 11:45 Lab Results 05/31/22 05/31/22 05/31/22 Range/Units 11:45 11:45 11:45 WBC 16.25 H (4.8-10.8) K/ul RBC 2.60 L (3.93-5.22) M/uL Hgb 8.2 L (12.0-16.0) g/dl Hct 24.0 L (34.1-44.9) % MCV 92.3 (80.0-100.0) fL MCH 31.5 (25.0-34.0) pg MCHC 34.2 (32.0-36.0) g/dL RDW Std Deviation 59.6 H (36.4-46.3) fL RDW Coeff of Sharon 17.8 H (11.5-14.5) % Plt Count 34 L (130-400) K/uL MPV 11.2 (9.4-12.3) fL Absolute Nucleated RBC 0.42 H (0-0) K/uL Nucleated RBC % (auto) 2.6 % Neutrophils % (Manual) 89 % Lymphocytes % (Manual) 3 % Monocytes % (Manual) 3 % Metamyelocytes % (Man) 3 % Myelocytes % (Man) 3 % Neutrophils # (Manual) 14.46 H (1.4-6.5) K/uL Total Absolute Neuts 14.46 H (1.4-6.5) K/uL Lymphocytes # (Manual) 0.49 L (1.2-3.4) K/uL Total Abs Lymphocytes 0.49 L (1.2-3.4) K/uL Monocytes # (Manual) 0.49 (0.24-0.82) K/uL Metamyelocytes # (Man) 0.49 H (0-0) K/uL Myelocytes # (Manual) 0.49 H (0-0) K/uL Platelet Estimate Decreased L (Normal) RBC Morphology Unremarkable Peripher Smr Path Cons SR* Sodium 142 (136-145) mmol/L Potassium 3.2 L (3.5-5.1) mmol/L Chloride 109 H (98-107) mmol/L Carbon Dioxide 27 (21-32) mmol/L Anion Gap 6 (3-11) BUN 28 H (6-23) mg/dl Creatinine 0.60 (0.6-1.2) mg/dl Est Cr Clr Drug Dosing 68.0 ml/min Est GFR ( Amer) 111.6 ml/min Est GFR (Non-Af Amer) 96.3 ml/min BUN/Creatinine Ratio 46.7 H (10-20) Glucose 119 H (70-99(Fasting)) mg/dl Lactate (0.4-2.0) mmol/L Calcium 8.3 L (8.5-10.1) mg/dl Phosphorus 2.0 L (2.5-4.9) mg/dl Magnesium 1.9 (1.7-2.4) mg/dl Total Bilirubin 0.8 (0.2-1.0) mg/dl AST 65 H (13-39) U/L ALT 66 H (7-52) U/L Alkaline Phosphatase 448 H (34-104) U/L Total Protein 5.2 L (6.0-8.3) gm/dl Albumin 3.1 L (3.4-5.0) gm/dl Globulin 2.1 L (2.5-4.0) gm/dl Albumin/Globulin Ratio 1.5 (0.9-2) Lipase 36 (11-82) U/L Procalcitonin (0-0.5) ng/ml TSH 0.955 (0.300-4.500) uIu/ml Urine Color Urine Appearance (Clear) Urine pH (4.5-7.5) Ur Specific [place] (1.000-1.030) Urine Protein (Negative) Urine Glucose (UA) (Negative) Urine Ketones (Negative) Urine Blood (Negative) Urine Nitrite (Negative) Urine Bilirubin (Negative) Urine Urobilinogen (Negative) Ur Leukocyte Esterase (Negative) Salicylates (3.0-30) mg/dl Urine Opiates Screen (Neg) Ur Methadone, Qual (Neg) Acetaminophen (10-30) ug/ml Urine Barbiturates (Neg) Ur Phencyclidine (PCP) (Neg) U Amphetamin/Meth Scrn (Neg) MDMA (Ecstasy) Screen (Neg) U Benzodiazepines Scrn (Neg) Ur Cocaine Metabolite (Neg) U Marijuana (THC) Screen (Neg) Ethyl Alcohol mg/dL (<10.0) mg/dl Anaplasma Smear See Comment A Anaplasma Comment Pos for Anaplasma Lyme Disease IgG Ab (Negative) Lyme Disease IgM Ab (Negative) SARS-CoV-2, RNA, NAAT (NEGATIVE) 05/31/22 05/31/22 05/31/22 Range/Units 11:45 11:45 13:09 WBC (4.8-10.8) K/ul RBC (3.93-5.22) M/uL Hgb (12.0-16.0) g/dl Hct (34.1-44.9) % MCV (80.0-100.0) fL MCH (25.0-34.0) pg MCHC (32.0-36.0) g/dL RDW Std Deviation (36.4-46.3) fL RDW Coeff of Sharon (11.5-14.5) % Plt Count (130-400) K/uL MPV (9.4-12.3) fL Absolute Nucleated RBC (0-0) K/uL Nucleated RBC % (auto) % Neutrophils % (Manual) % Lymphocytes % (Manual) % Monocytes % (Manual) % Metamyelocytes % (Man) % Myelocytes % (Man) % Neutrophils # (Manual) (1.4-6.5) K/uL Total Absolute Neuts (1.4-6.5) K/uL Lymphocytes # (Manual) (1.2-3.4) K/uL Total Abs Lymphocytes (1.2-3.4) K/uL Monocytes # (Manual) (0.24-0.82) K/uL Metamyelocytes # (Man) (0-0) K/uL Myelocytes # (Manual) (0-0) K/uL Platelet Estimate (Normal) RBC Morphology Peripher Smr Path Cons Sodium (136-145) mmol/L Potassium (3.5-5.1) mmol/L Chloride (98-107) mmol/L Carbon Dioxide (21-32) mmol/L Anion Gap (3-11) BUN (6-23) mg/dl Creatinine (0.6-1.2) mg/dl Est Cr Clr Drug Dosing ml/min Est GFR ( Amer) ml/min Est GFR (Non-Af Amer) ml/min BUN/Creatinine Ratio (10-20) Glucose (70-99(Fasting)) mg/dl Lactate (0.4-2.0) mmol/L Calcium (8.5-10.1) mg/dl Phosphorus (2.5-4.9) mg/dl Magnesium (1.7-2.4) mg/dl Total Bilirubin (0.2-1.0) mg/dl AST (13-39) U/L ALT (7-52) U/L Alkaline Phosphatase (34-104) U/L Total Protein (6.0-8.3) gm/dl Albumin (3.4-5.0) gm/dl Globulin (2.5-4.0) gm/dl Albumin/Globulin Ratio (0.9-2) Lipase (11-82) U/L Procalcitonin 0.45 (0-0.5) ng/ml TSH (0.300-4.500) uIu/ml Urine Color Urine Appearance (Clear) Urine pH (4.5-7.5) Ur Specific [place] (1.000-1.030) Urine Protein (Negative) Urine Glucose (UA) (Negative) Urine Ketones (Negative) Urine Blood (Negative) Urine Nitrite (Negative) Urine Bilirubin (Negative) Urine Urobilinogen (Negative) Ur Leukocyte Esterase (Negative) Salicylates < 3.0 L (3.0-30) mg/dl Urine Opiates Screen (Neg) Ur Methadone, Qual (Neg) Acetaminophen < 3 L (10-30) ug/ml Urine Barbiturates (Neg) Ur Phencyclidine (PCP) (Neg) U Amphetamin/Meth Scrn (Neg) MDMA (Ecstasy) Screen (Neg) U Benzodiazepines Scrn (Neg) Ur Cocaine Metabolite (Neg) U Marijuana (THC) Screen (Neg) Ethyl Alcohol mg/dL < 10.0 (<10.0) mg/dl Anaplasma Smear Anaplasma Comment Lyme Disease IgG Ab Negative (Negative) Lyme Disease IgM Ab Negative (Negative) SARS-CoV-2, RNA, NAAT (NEGATIVE) 08/07/22 08/07/22 08/07/22 Range/Units 14:17 14:20 14:20 WBC (4.8-10.8) K/ul RBC (3.93-5.22) M/uL Hgb (12.0-16.0) g/dl Hct (34.1-44.9) % MCV (80.0-100.0) fL MCH (25.0-34.0) pg MCHC (32.0-36.0) g/dL RDW Std Deviation (36.4-46.3) fL RDW Coeff of Sharon (11.5-14.5) % Plt Count (130-400) K/uL MPV (9.4-12.3) fL Absolute Nucleated RBC (0-0) K/uL Nucleated RBC % (auto) % Neutrophils % (Manual) % Lymphocytes % (Manual) % Monocytes % (Manual) % Metamyelocytes % (Man) % Myelocytes % (Man) % Neutrophils # (Manual) (1.4-6.5) K/uL Total Absolute Neuts (1.4-6.5) K/uL Lymphocytes # (Manual) (1.2-3.4) K/uL Total Abs Lymphocytes (1.2-3.4) K/uL Monocytes # (Manual) (0.24-0.82) K/uL Metamyelocytes # (Man) (0-0) K/uL Myelocytes # (Manual) (0-0) K/uL Platelet Estimate (Normal) RBC Morphology Peripher Smr Path Cons Sodium (136-145) mmol/L Potassium (3.5-5.1) mmol/L Chloride (98-107) mmol/L Carbon Dioxide (21-32) mmol/L Anion Gap (3-11) BUN (6-23) mg/dl Creatinine (0.6-1.2) mg/dl Est Cr Clr Drug Dosing ml/min Est GFR ( Amer) ml/min Est GFR (Non-Af Amer) ml/min BUN/Creatinine Ratio (10-20) Glucose (70-99(Fasting)) mg/dl Lactate 0.7 (0.4-2.0) mmol/L Calcium (8.5-10.1) mg/dl Phosphorus (2.5-4.9) mg/dl Magnesium (1.7-2.4) mg/dl Total Bilirubin (0.2-1.0) mg/dl AST (13-39) U/L ALT (7-52) U/L Alkaline Phosphatase (34-104) U/L Total Protein (6.0-8.3) gm/dl Albumin (3.4-5.0) gm/dl Globulin (2.5-4.0) gm/dl Albumin/Globulin Ratio (0.9-2) Lipase (11-82) U/L Procalcitonin (0-0.5) ng/ml TSH (0.300-4.500) uIu/ml Urine Color Yellow Urine Appearance Clear (Clear) Urine pH 6.5 (4.5-7.5) Ur Specific [place] 1.014 (1.000-1.030) Urine Protein Negative (Negative) Urine Glucose (UA) Negative (Negative) Urine Ketones Negative (Negative) Urine Blood Negative (Negative) Urine Nitrite Negative (Negative) Urine Bilirubin Negative (Negative) Urine Urobilinogen Negative (Negative) Ur Leukocyte Esterase Negative (Negative) Salicylates (3.0-30) mg/dl Urine Opiates Screen (Neg) Ur Methadone, Qual (Neg) Acetaminophen (10-30) ug/ml Urine Barbiturates (Neg) Ur Phencyclidine (PCP) (Neg) U Amphetamin/Meth Scrn (Neg) MDMA (Ecstasy) Screen (Neg) U Benzodiazepines Scrn (Neg) Ur Cocaine Metabolite (Neg) U Marijuana (THC) Screen (Neg) Ethyl Alcohol mg/dL (<10.0) mg/dl Anaplasma Smear Anaplasma Comment Lyme Disease IgG Ab (Negative) Lyme Disease IgM Ab (Negative) SARS-CoV-2, RNA, NAAT NEGATIVE (NEGATIVE) 05/31/22 Range/Units 14:20 WBC (4.8-10.8) K/ul RBC (3.93-5.22) M/uL Hgb (12.0-16.0) g/dl Hct (34.1-44.9) % MCV (80.0-100.0) fL MCH (25.0-34.0) pg MCHC (32.0-36.0) g/dL RDW Std Deviation (36.4-46.3) fL RDW Coeff of Sharon (11.5-14.5) % Plt Count (130-400) K/uL MPV (9.4-12.3) fL Absolute Nucleated RBC (0-0) K/uL Nucleated RBC % (auto) % Neutrophils % (Manual) % Lymphocytes % (Manual) % Monocytes % (Manual) % Metamyelocytes % (Man) % Myelocytes % (Man) % Neutrophils # (Manual) (1.4-6.5) K/uL Total Absolute Neuts (1.4-6.5) K/uL Lymphocytes # (Manual) (1.2-3.4) K/uL Total Abs Lymphocytes (1.2-3.4) K/uL Monocytes # (Manual) (0.24-0.82) K/uL Metamyelocytes # (Man) (0-0) K/uL Myelocytes # (Manual) (0-0) K/uL Platelet Estimate (Normal) RBC Morphology Peripher Smr Path Cons Sodium (136-145) mmol/L Potassium (3.5-5.1) mmol/L Chloride (98-107) mmol/L Carbon Dioxide (21-32) mmol/L Anion Gap (3-11) BUN (6-23) mg/dl Creatinine (0.6-1.2) mg/dl Est Cr Clr Drug Dosing ml/min Est GFR ( Amer) ml/min Est GFR (Non-Af Amer) ml/min BUN/Creatinine Ratio (10-20) Glucose (70-99(Fasting)) mg/dl Lactate (0.4-2.0) mmol/L Calcium (8.5-10.1) mg/dl Phosphorus (2.5-4.9) mg/dl Magnesium (1.7-2.4) mg/dl Total Bilirubin (0.2-1.0) mg/dl AST (13-39) U/L ALT (7-52) U/L Alkaline Phosphatase (34-104) U/L Total Protein (6.0-8.3) gm/dl Albumin (3.4-5.0) gm/dl Globulin (2.5-4.0) gm/dl Albumin/Globulin Ratio (0.9-2) Lipase (11-82) U/L Procalcitonin (0-0.5) ng/ml TSH (0.300-4.500) uIu/ml Urine Color Urine Appearance (Clear) Urine pH (4.5-7.5) Ur Specific [place] (1.000-1.030) Urine Protein (Negative) Urine Glucose (UA) (Negative) Urine Ketones (Negative) Urine Blood (Negative) Urine Nitrite (Negative) Urine Bilirubin (Negative) Urine Urobilinogen (Negative) Ur Leukocyte Esterase (Negative) Salicylates (3.0-30) mg/dl Urine Opiates Screen Neg (Neg) Ur Methadone, Qual Neg (Neg) Acetaminophen (10-30) ug/ml Urine Barbiturates Neg (Neg) Ur Phencyclidine (PCP) Neg (Neg) U Amphetamin/Meth Scrn Neg (Neg) MDMA (Ecstasy) Screen Neg (Neg) U Benzodiazepines Scrn Neg (Neg) Ur Cocaine Metabolite Neg (Neg) U Marijuana (THC) Screen Neg (Neg) Ethyl Alcohol mg/dL (<10.0) mg/dl Anaplasma Smear Anaplasma Comment Lyme Disease IgG Ab (Negative) Lyme Disease IgM Ab (Negative) SARS-CoV-2, RNA, NAAT (NEGATIVE) Administered Medications Discontinued Medications Sodium Chloride (Nss 1000ml) 1,000 mls @ 999 mls/hr IV .Q1H1M ONE Stop: 05/31/22 13:08 Last Infusion: 05/31/22 15:18 Dose: 0 mls/hr Documented By: Admin: 05/31/22 13:26 Dose: 999 mls/hr Documented By: MOIZ Doxycycline Hyclate 100 mg/ (Dextrose) 110 mls @ 50 mls/hr IV NOW STA Stop: 05/31/22 15:41 Last Infusion: 05/31/22 16:27 Dose: 0 mls/hr Documented By: Admin: 05/31/22 14:14 Dose: 50 mls/hr Documented By: IVAN Ioversol (Optiray 320 100ml) 94 ml IV ONCE ONE Stop: 05/31/22 15:15 Last Admin: 05/31/22 15:14 Dose: 1 ml Documented By: CURT Imaging Data Radiologist's Impression: Abdomen/Pelvis CT 05/31/22 13:[address] WITH IV CONTRAST CT DOSE: 270.37 mGy.cm HISTORY: Acute weakness weakness, SIRS TECHNIQUE: Multiaxial CT images of the abdomen and pelvis were performed following the IV administration of 94 cc of Optiray, A dose lowering technique was utilized adhering to the principles of ALARA. COMPARISON STUDY: CT abdomen pelvis 05/20/2022 FINDINGS: Right infrahilar and right basilar airspace opacities are noted. Small left with moderate right pleural effusions. Mild atelectasis with air trapping within the lingula. There is no pneumatosis or pneumoperitoneum. Unremarkable spleen, and mildly atrophic pancreas. Cholelithiasis with contracted g allbladder. Adrenal gland thickening redemonstrated suggestive of hyperplasia. 3 indeterminate hypodense liver lesions are redemonstrated measuring up to 1.2 cm. Unremarkable kidneys. No hydronephrosis. Mild urinary bladder distention. Unremarkable uterus. Atherosclerosis of the aorta without aneurysm. There is no lymphadenopathy. Prior gastric bypass. No bowel obstruction or bowel wall thickening. Noninflamed appendix. Small fat filled umbilical abdominal wall hernia, diastases 1.5 cm. Suggested small fat filled left inguinal hernia. There is a nonspecific 1.3 cm lesion of the medial left breast which is soft tissue attenuating. Mild gener alized body wall edema. Acute mildly displaced fractures of the posterior right ninth through 12th ribs. Chronic fracture of the posterior right eighth rib. IMPRESSION: 1. Acute mildly displaced fractures of the posterior right ninth through 12th ribs. 2. Small left with moderate right pleural effusions. 3. Right hilar/lower lobe airspace opacities are suggestive of atelectasis versus pneumonia. 4. No bowel obstruction or bowel wall thickening. 5. Indeterminate 1.3 cm left breast mass. 6. Additional findings as above. ACT 112: Negative or not required by law. The above report was generated using voice recognition software. It may contain grammatical, syntax or spelling errors. Electronically signed by: Syed Pulido M.D. 05/31/2022 3:39 PM Chest X-Ray 05/31/22 13:28 XR chest 1V portable HISTORY: 66 years-old Female weak, sirs acute weakness COMPARISON: CT abdomen and pelvis of same day, Chest radiograph 05/23/2022 TECHNIQUE: AP view of the chest FINDINGS: The cardiac silhouette is enlarged. The patient is rotated. No pneumothorax. Pulmonary vascular congestion with interstitial coarsening. Trace left and small right pleural effusions with right basilar opacities. Several acute right-sided rib fractures are redemonstrated. Degenerative changes of the shoulders and spine. IMPRESSION: 1. Cardiomegaly with pulmonary edema. 2. Right pleural effusion with right basilar consolidation suggestive of a telectasis versus pneumonia. 3. Numerous acute right-sided rib fractures, several of which are mildly displaced. 4. No pneumothorax identified. ACT 112: Negative or not required by law. The above report was generated using voice recognition software. It may contain grammatical, syntax or spelling errors. Electronically signed by: Syed Pulido M.D. 05/31/2022 4:06 PM Discharge Plan Visit Data Chief Complaint: Weakness Stated Complaint: CAREGIVER WANTS PT EVAL FOR MH & PLACEMENT ED Provider: Ramon Cheema Discharge Problem: Anaplasmosis, Leukocytosis, Thrombocytopenia, Transaminitis
--- NOTE | 2022-05-31 16:02 | History & Physical Report ---
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 Diuretics as needed. Taper prednisone as noted. Recommended for follow-up CTchest in 6 to 8 weeks with pulmonary follow-up TAVR was pending as follows: Prednisone 20 mg x 4 days, 15 mg x 4 days, 10 mg x 4 days, 5 mg x 4 days then stop Admit now w/ 20 mg x 1 day, then continue taper Hypertension Continue carvedilol Continue losartancontinue spironolactone Amlodipine 10 mg daily COPD Continue Incruse/Breo or formulary equivalent Nebs as needed DVT prophylaxis: SCDs, pharmacal PPx deferred in the setting of thromboytopenia Diet: Regular Disposition: Medical surgical CODE STATUS: Full code (2) Hypercortisolism: History of Present Illness Primary Care Provider: MD Trina Le with worsened weakness and fatigue. Susppected anaplasmosis Formal report pending presented w/ weakness at home discharged 05/28/22 after 10 day admit for benadryl overdose w/ pruritis "[facility] just can't help me anymore, too weak". No fever/chills/sweats. No chest pain or chest pressure at assessment. No shortness of breath. Uses oxygen 2L at home PRN and at night per pt. has not had any nausea, vomiting, diarrhea, constipation. Continues to have a rash on her arms and legs which is slightly itchy, but improved somewhat from prior. She reports no real other symptoms other than just fatigue all over. Denies bleeding Medical History: Reviewed Medications: Reviewed Surgical History: Reviewed Allergies: Reviewed Social History: No tobacco product use, no recent alcohol use, past etoh use. Code Status: Surrogate DM would be sister Estrella. DNR/DNI, confirmed with patient at bedside Allergies Allergy/AdvReac Type Severity Reaction Status Date / Time bee venom protein (honey bee) Allergy Unknown eyes and Verified 05/31/22 15:26 throat swell Home Medications Medication Instructions Recorded Confirmed Type TENS units #1 ea 11/12/21 05/16/22 Rx albuterol sulfate 90 mcg/actuation 2 puff inhalation Q6H PRN 11/12/21 05/31/22 R x aerosol inhaler shortness of breath or wheezing #8.5 grams buspirone 10 mg tablet 10 mg PO TID PRN anxiety #90 tabs 11/12/21 05/31/22 Rx fluoxetine 40 mg capsule 40 mg PO DAILY 11/12/21 05/31/22 History omeprazole 40 mg capsule,delayed 40 mg PO DAILY PRN GERD #90 caps 11/12/21 05/31/22 Rx release gabapentin 300 mg capsule 300 mg PO BID #60 caps 12/12/21 05/31/22 Rx buspirone 5 mg tablet 5 mg PO TID #90 tabs 03/27/22 05/31/22 Rx oxybutynin chloride 10 mg 10 mg PO DAILY #30 tabs 03/27/22 05/31/22 Rx tablet,extended release 24 hr guaifenesin 600 mg tablet, 600 mg PO Q12H PRN congestion #60 04/24/22 05/31/22 Rx extended release 12 hr (Mucinex) tabs hydrocodone 10 mg-acetaminophen 1 tab PO Q6H PRN pain #120 tabs 04/24/22 05/31/22 Rx 325 mg tablet amlodipine 5 mg tablet (Norvasc) 10 mg PO QAM 30 days #60 tabs 05/27/22 05/31/22 Rx carvedilol 25 mg tablet 25 mg PO BID 30 days #60 tabs 05/27/22 05/31/22 Rx fluticasone furoate 200 1 inh inhalation HS #60 ea 05/27/22 05/31/22 Rx mcg-vilanterol 25 mcg/dose inhalation powder (Breo Ellipta) losartan 50 mg tablet 50 mg PO BID 30 days #60 tabs 05/27/22 05/31/22 Rx potassium chloride 20 mEq 20 meq PO BID 30 days #60 tabs 05/27/22 05/31/22 Rx tablet,extended release(part/cryst) prednisone 5 mg tablet See Rx Instructions .Route 05/27/22 05/31/22 Rx .COMPLEX #40 tabs spironolactone 100 mg tablet 100 mg PO QAM 30 days #30 tabs 05/27/22 05/31/22 Rx umeclidinium 62.5 mcg/actuation 1 puff inhalation DAILY 30 days 05/27/22 05/31/22 Rx blister powder for inhalation #30 ea (Incruse Ellipta) Past Med/Surg History Medical History Dizziness HTN (hypertension), benign Hypertensive urgency Hypokalemia Sinus infection Surgical History H/O gastric bypass H/O gastric bypass H/O hernia repair H/O tubal ligation Hx of tonsillectomy Family History Mother Hypertension Father Hypertension Denies family history of Ovarian cancer Prostate cancer Diabetes Myocardial infarction Breast cancer Colorectal cancer Social History Smoking Status: Former smoker Tobacco Type: Cigarettes Cigarettes Per Day: 20; Second Hand Exposure: No; Hx Alcohol Use: No Hx Substance Use: No Preferred Language: Frisian Communication Ability: Effective 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 NAD. Cooperative. HEENT: Atraumatic, normocephalic. Hearing grossly intact. Vision grossly intact. Pupils equal and reactive to light Pulm: diminished, grossly clear symmetrical chest rise. No increase in work of breathing. No respiratory distress. Cardiac: RRR, -mrg. Radial pulses intact and symmetrical. Abdominal: Nontender, nondistended, soft. BS present. Extremities: Scattered scabbed rash with excoriation on right forearm, left forearm, left anterior rivas. No leg swelling Results & Data Results & Data ([facility]) Vital Signs (Past 12 Hours) Vital Signs Temp Pulse Pulse Resp BP Pulse Ox O2 Del Method 05/31/22 15:40 83 16 96 Room Air 05/31/22 14:40 81 23 05/31/22 14:30 76 24 05/31/22 14:20 81 20 05/31/22 14:10 81 23 05/31/22 14:01 81 24 97 05/31/22 14:01 148/79 H 05/31/22 14:00 78 24 96 05/31/22 13:50 82 23 87 L 05/31/22 13:49 81 16 05/31/22 13:49 157/93 H 05/31/22 11:30 72 22 98 05/31/22 11:22 68 21 99 05/31/22 14:23 95 Nasal Cannula 05/31/22 11:23 100 Nasal Cannula 05/31/22 11:16 36.7 C 68 16 152/90 H 100 Nasal Cannula O2 Flow Rate 05/31/22 15:40 05/31/22 14:40 05/31/22 14:30 05/31/22 14:20 05/31/22 14:10 05/31/22 14:01 05/31/22 14:01 05/31/22 14:00 05/31/22 13:50 05/31/22 13:49 05/31/22 13:49 05/31/22 11:30 05/31/22 11:22 05/31/22 14:23 3 05/31/22 11:23 3 05/31/22 11:16 3 PG Care Time/CCT Total # of Minutes Spent Total Time Spent with Patient: Total time spent is greater than 50% in coordination of care (as documented) at patient's floor/unit and/or counseling patient: Coding Level of Care Code 87975 Initial Inpt Care Lvl 2 Diagnoses Anaplasmosis A77.49 Hypercortisolism E24.9
--- NOTE | 2022-05-31 16:08 | XRay Report ---
XR chest 1V portable HISTORY: 66 years-old Female weak, sirs acute weakness COMPARISON: CT abdomen and pelvis of same day, Chest radiograph 05/23/2022 TECHNIQUE: AP view of the chest FINDINGS: The cardiac silhouette is enlarged. The patient is rotated. No pneumothorax. Pulmonary vascular conge stion with interstitial coarsening. Trace left and small right pleural effusions with right basilar o pacities. Several acute right-sided rib fractures are redemonstrated. Degenerative changes of the elisabet ulders and spine. IMPRESSION: 1. Cardiomegaly with pulmonary edema. 2. Right pleural effusion with right basilar consolidation suggestive of atelectasis versus pneumonia . 3. Numerous acute right-sided rib fractures, several of which are mildly displaced. 4. No pneumothorax identified. ACT 112: Negative or not required by law. The above report was generated using voice recognition software. It may contain grammatical, syntax o r spelling errors. Electronically signed by: Syed Pulido M.D. 05/31/2022 4:06 PM
[2022-05-31] MEDS ORDERED: guaiFENesin 600 MG TABCR PO PRN (17:53)
[2022-05-31] MEDS ORDERED: busPIRone 5 MG TAB PO PRN (17:53)
[2022-05-31] MEDS ORDERED: predniSONE 20 MG TAB PO SCH (17:53)
[2022-05-31] MEDS ORDERED: ACETAMINOPHEN 325 MG TAB PO PRN (17:53)
[2022-05-31] MEDS ORDERED: PANTOprazole 40 MG TAB PO PRN (18:10)
[2022-05-31] MEDS: predniSONE 20 MG TAB PO SCH (18:27)
[2022-05-31] MEDS: busPIRone 5 MG TAB PO SCH (21:13)
[2022-05-31] MEDS: GABAPENTIN 300 MG CAP PO SCH (21:14)
[2022-05-31] MEDS: carvediloL 25 MG TAB PO SCH (21:14)
[2022-05-31] MEDS: LOSARTAN POTASSIUM 50 MG TAB PO SCH (21:14)
[2022-05-31] MEDS: FLUTICASONE/VILANTEROL 200/25MCG 14 PUFFS/INHALER INH SCH (21:15)
[2022-05-31] MEDS: HYDROcodone/ACETAMINOPHEN 10/325 TAB PO PRN (21:28)
[2022-06-01] MEDS: DOXYCYCLINE HYCLATE 100 MG in DEXTROSE 5% 100 ML IV SCH ×2 (01:32→15:43)
--- NOTE | 2022-06-01 06:15 | Electrocardiogram Report ---
Test Reason : Blood Pressure : / mmHG Vent. Rate : 075 BPM Atrial Rate : 075 BPM P-R Int : 142 ms QRS Dur : 078 ms QT Int : 390 ms P-R-T Axes : 062 030 048 degrees QTc Int : 435 ms Sinus rhythm with Premature atrial complexes Possible Left atrial enlargement Borderline ECG When compared with ECG of 23-MAY-2022 14:01, Premature atrial complexes are now Present Confirmed by Huey De La Fuente ([id number]) on 06/01/2022 6:14:42 AM Referred By: REFERRED SELF Confirmed By:Huey De La Fuente
[2022-06-01 06:37] LABS: Hematocrit (blood only) 21.1 % (34.1-44.9); Mean Corpuscular Hemoglobin 30.4 pg (25.0-34.0); Mean Corpuscular Hgb Conc 33.2 g/dL (32.0-36.0); Mean Corpuscular Volume 91.7 fL (80.0-100.0); Nucleated RBC # (auto) 0.42 K/uL (0-0); Nucleated RBC % (auto) 2.9 %; Platelet Count 30 K/uL (130-400); RDW Coefficient of Variation 17.6 % (11.5-14.5); RDW Standard Deviation 58.5 fL (36.4-46.3); White Blood Count 14.44 K/ul (4.8-10.8)
[2022-06-01 07:18] LABS: BUN Creatinine Ratio 39.1 (10-20); Calcium 7.3 mg/dl (8.5-10.1); Creatinine Clr Calc Pharmacy 88.7 ml/min; Est GFR (African American) 121.8 ml/min; Est GFR (Non-African American) 105.1 ml/min; Potassium 2.3 mmol/L (3.5-5.1)
[2022-06-01 07:41] LABS: Basophils # (auto) 0.05 K/uL (0-0.2); Basophils % (auto) 0.3 %; Eosinophils # (auto) 0.06 K/uL (0-0.50); Eosinophils % (auto) 0.4 %; Immature Granulocytes # (auto) 1.27 K/uL (0.00-0.02); Immature Granulocytes % (auto) 8.8 %; Lymphocytes # (auto) 1.83 K/uL (1.2-3.4); Lymphocytes % (auto) 12.7 %; Monocytes # (auto) 0.97 K/uL (0.24-0.82); Monocytes % (auto) 6.7 %; Neutrophils # (auto) 10.26 K/uL (1.4-6.5); Neutrophils % (auto) 71.1 %; Schistocytes 1+
[2022-06-01] MEDS: POTASSIUM CHLORIDE / WTR 10 MEQ/100 ML PLCT IV SCH ×6 (08:23→15:48)
[2022-06-01] MEDS: FLUoxetine HCL 20 MG CAP PO SCH (08:41)
[2022-06-01] MEDS: carvediloL 25 MG TAB PO SCH ×2 (08:41→20:21)
[2022-06-01] MEDS: predniSONE 20 MG TAB PO SCH (08:41)
[2022-06-01] MEDS: SPIRONOLACTONE 100 MG TAB PO SCH (08:42)
[2022-06-01] MEDS: GABAPENTIN 300 MG CAP PO SCH ×2 (08:42→20:15)
[2022-06-01] MEDS: LOSARTAN POTASSIUM 50 MG TAB PO SCH ×2 (08:43→20:15)
[2022-06-01] MEDS: amLODIPine BESYLATE 5 MG TAB PO SCH (08:44)
[2022-06-01] MEDS: OXYBUTYNIN CHLORIDE XL 5 MG TABCR PO SCH (08:44)
[2022-06-01] MEDS: busPIRone 5 MG TAB PO SCH ×3 (08:46→20:15)
[2022-06-01] MEDS: UMECLIDINIUM BROMIDE 62.5MCG/BLISTER 7 PUFFS/INHALER INH SCH (08:46)
[2022-06-01] MEDS: HYDROcodone/ACETAMINOPHEN 10/325 TAB PO PRN ×2 (08:52→17:16)
[2022-06-01] MEDS: POTASSIUM CHLORIDE CRTAB 20 MEQ TABCR PO SCH ×3 (08:52→20:15)
[2022-06-01 11:10] LABS: A calco-baum cmplx NotReported Not Detected (NotDetected); Bact fragilis Not Reported Not Detected (NotDetected); C auris Not Reported Not Detected (NotDetected); Calbicans Not Reported Not Detected (NotDetected); Candida glabrata Not Reported Not Detected (NotDetected); Candida krusei Not Reported Not Detected (NotDetected); Cneoformans/gatti Not Reported Not Detected (NotDetected); Cparapsilosis Not Reported Not Detected (NotDetected); Ctropicalis Not Reported Not Detected (NotDetected); E cloacae compx Not Reported Not Detected (NotDetected); Efaecalis Not Reported Not Detected (NotDetected); Efaecium Not Reported Not Detected (NotDetected); Enterobacterales Not Reported Not Detected (NotDetected); Escherichia coli Not Reported Not Detected (NotDetected); H influenzae Not Reported Not Detected (NotDetected); K aerogenes Not Reported Not Detected (NotDetected); Koxytoca Not Reported Not Detected (NotDetected); Kpneumoniae grp Not Reported Not Detected (NotDetected); Lmonocyt Not Reported Not Detected (NotDetected); N meningitidis Not Reported Not Detected (NotDetected); P aeruginosa Not Reported Not Detected (NotDetected); Proteus spp Not Reported Not Detected (NotDetected); Salmonella spp Not Reported Not Detected (NotDetected); Smarcescens Not Reported Not Detected (NotDetected); Staph lugdunensis Not Reported Not Detected (NotDetected); Staph spp. Not Reported DETECTED (NotDetected); Staphaureus Not Reported DETECTED (NotDetected); Staphepi Not Reported Not Detected (NotDetected); Staphylococcus spp. DETECTED (NotDetected); Stenmaltophilia Not Reported Not Detected (NotDetected); Strep agal(GrpB) Not Reported Not Detected (NotDetected); Strep pneum Not Reported Not Detected (NotDetected); Strep pyog (GrpA) Not Reported Not Detected (NotDetected); Strep spp Not Reported Not Detected (NotDetected); mecAC+MREJ Resistant Gene MRSA Not Detected (NotDetected)
[2022-06-01] MEDS ORDERED: VANCOMYCIN HCL 1,250 MG in SODIUM CHLORIDE 0.9% 500 ML IV ONE (11:35)
[2022-06-01] MEDS ORDERED: VANCOMYCIN CONSULT ACTIVE PRN (11:35)
--- NOTE | 2022-06-01 11:37 | Hospitalist Progress Note ---
Date of Service June 01, 2022 Assessment & Plan (1) Anaplasmosis: Plan: Anaplasmosis Leukocytosis downtrending Hemoglobin 7.0, MCV 91. No overt bleeding, no melena/epistaxis/bright red blood per rectum Newly thrombocytopenic, platelet count 34 Potassium 2.3, transferred to telemetry and repletion ordered with midday BMP uptrending to 2.7 Creatinine normal Mild transaminitis/alk phos Smear consistent with anaplasmosis, final confirmation pending Doxycycline 100 mg twice daily continued COVID-negative Blood culture positive BCx 2/4 - GPC clusters, Biofire initially reported as MRSA --> +Vanco, final resulted for MSSA --> converted to cefazolin - Diffusely with scabbed lesion of arms, legs, abdomen all without erythema or purulence as previously documented - Denies back/spinal pain. Skin survey with scab lesions as above, no purulent lesions or ulceration.? Seeding - ? Endocarditis source. TTE pending although insufficient for complete r/o. Will trend BCs COPD exacerbation versus pulmonary vasculitis with? Leukocytoclastic vasculitis Was discussed with rheumatology at prior admission Was tapering steroid course over the next several weeks for prior diagnosis of this BENY/ANCA/RF/anti-CCP pending Saw pulmonary prior to last discharge. Diuretics as needed. Taper prednisone as noted. Recommended for follow-up CTchest in 6 to 8 weeks with pulmonary follow-up TAVR was pending as follows: Prednisone 20 mg x 4 days, 15 mg x 4 days, 10 mg x 4 days, 5 mg x 4 days then stop Admit now w/ 20 mg x 1 day, then continue taper Hypertension Continue carvedilol Continue losartancontinue spironolactone Amlodipine 10 mg daily COPD Continue Incruse/Breo or formulary equivalent Nebs as needed DVT prophylaxis: SCDs, pharmacal PPx deferred in the setting of thromboytopenia Diet: Regular Disposition: Medical surgical CODE STATUS: Full code (2) Hypercortisolism: Admission and Anticipated Discharge Date Admission Date: May 31, 2022 Subjective This seen at bedside. She reports she feels okay, overall improved from previous. She denies fever, chills, sweats, lightheadedness, dizziness, nausea, vomiting today. She reports she has had lesions all over her body as previously noted, without change. No purulent discharge, no ulcers. She reports she does not have pain in her back/spine, does have some intermittent abdominal discomfort. Review of Systems Review of Systems: All systems reviewed & are unremarkable except as noted in Subjective Physical Exam Physical Exam: General: A&Ox3. NAD. Cooperative. HEENT: Atraumatic, normocephalic. Hearing grossly intact. Vision grossly intact. Pupils equal and reactive to light Pulm: diminished, grossly clear symmetrical chest rise. No increase in work of breathing. No respiratory distress. Cardiac: RRR, -mrg. Radial pulses intact and symmetrical. Abdominal: Nontender, nondistended, soft. BS present. Spine: Nontender to spinal and paraspinal palpation along entire length Extremities: Scattered scabbed rash with excoriation on right forearm, left forearm, left anterior rivas. No leg swelling Results & Data Results & Data ([facility]) Vital Signs (Past 12 Hours) Vital Signs Temp Pulse Resp BP Pulse Ox O2 Del Method 06/01/22 07:50 36.5 C 81 16 114/71 94 Nasal Cannula PG Care Time/CCT Total # of Minutes Spent Total Time Spent with Patient: Total time spent is greater than 50% in coordination of care (as documented) at patient's floor/unit and/or counseling patient: Coding Level of Care Code 24778 Subseq Hosp Care Lvl 2 Diagnoses Anaplasmosis A77.49 Hypercortisolism E24.9
[2022-06-01] MEDS ORDERED: VANCOMYCIN HCL 1,250 MG in SODIUM CHLORIDE 0.9% 250 ML IV ONE (11:45)
[2022-06-01 12:57] LABS: BUN Creatinine Ratio 33.3 (10-20); Calcium 7.3 mg/dl (8.5-10.1); Est GFR (African American) 120.1 ml/min; Est GFR (Non-African American) 103.7 ml/min; Potassium 2.7 mmol/L (3.5-5.1)
--- NOTE | 2022-06-01 14:26 | Pharmacy Report ---
Pharmacy PK ABX Note - Date of Service June 01, 2022 - Assessment and Plan Assessment 66 year old F receiving empiric vancomycin for treatment of gram-positive cocci in clusters x 2 blood cultures and doxycycline for anaplasmosis. Currently unclear source for bacteremia. Pertinent microbiologic data includes: Blood cultures x 2 growing - BioFire pending. Day # 1 of antimicrobial therapy. Plan Vancomycin * Loading dose: 1250 mg IV x 1 * Maintenance dose: 1000 mg IV every 12 hours * Regimen is predicted to achieve target AUC/CHARLEY of 400-600 mg/L.hr * Random level ordered for: 06/03/2022 Doxycycline * 100 mg IV BID - no change Pharmacy will continue to follow and will adjust dose/frequency as necessary. Thank you. Pharmacy has transitioned to AUC monitoring for vancomycin. AUC/CHARLEY is the preferred PK/PD target and is associated with decreased risk of nephrotoxicity compared to traditional trough targets.
--- NOTE | 2022-06-01 15:43 | XCELERA ---
[id number]
[2022-06-01] MEDS: ceFAZolin 2000MG 2,000 MG/15 ML SYR IV SCH ×2 (17:09→23:51)
[2022-06-01] MEDS ORDERED: VANCOMYCIN HCL 1,000 MG in SODIUM CHLORIDE 0.9% 250 ML IV SCH (20:00)
[2022-06-01] MEDS: FLUTICASONE/VILANTEROL 200/25MCG 14 PUFFS/INHALER INH SCH (20:15)
[2022-06-02] MEDS: HYDROcodone/ACETAMINOPHEN 10/325 TAB PO PRN ×4 (00:13→19:22)
[2022-06-02] MEDS: DOXYCYCLINE HYCLATE 100 MG in DEXTROSE 5% 100 ML IV SCH ×2 (02:31→14:01)
[2022-06-02 06:18] LABS: BUN Creatinine Ratio 29.8 (10-20); Calcium 7.6 mg/dl (8.5-10.1); Creatinine Clr Calc Pharmacy 71.6 ml/min; Est GFR (African American) 113.5 ml/min; Potassium 3.7 mmol/L (3.5-5.1)
[2022-06-02 07:12] LABS: Basophils # (auto) 0.04 K/uL (0-0.2); Basophils % (auto) 0.3 %; Eosinophils # (auto) 0.05 K/uL (0-0.50); Eosinophils % (auto) 0.4 %; Hematocrit (blood only) 20.2 % (34.1-44.9); Hemoglobin 6.8 g/dl (12.0-16.0); Immature Granulocytes # (auto) 1.28 K/uL (0.00-0.02); Immature Granulocytes % (auto) 9.3 %; Lymphocytes # (auto) 1.67 K/uL (1.2-3.4); Lymphocytes % (auto) 12.1 %; Mean Corpuscular Hemoglobin 30.9 pg (25.0-34.0); Mean Corpuscular Hgb Conc 33.7 g/dL (32.0-36.0); Mean Corpuscular Volume 91.8 fL (80.0-100.0); Mean Platelet Volume 12.4 fL (9.4-12.3); Monocytes # (auto) 1.11 K/uL (0.24-0.82); Neutrophils # (auto) 9.66 K/uL (1.4-6.5); Neutrophils % (auto) 69.9 %; Nucleated RBC # (auto) 0.47 K/uL (0-0); Nucleated RBC % (auto) 3.4 %; Platelet Count 24 K/uL (130-400); Platelet Estimate Signific. Decreased (Normal); RBC Morphology Unremarkable; RDW Coefficient of Variation 17.9 % (11.5-14.5); White Blood Count 13.81 K/ul (4.8-10.8)
[2022-06-02] MEDS: OXYBUTYNIN CHLORIDE XL 5 MG TABCR PO SCH (07:50)
[2022-06-02] MEDS: FLUoxetine HCL 20 MG CAP PO SCH (07:50)
[2022-06-02] MEDS: predniSONE 20 MG TAB PO SCH (07:53)
[2022-06-02] MEDS: LOSARTAN POTASSIUM 50 MG TAB PO SCH ×2 (07:54→20:07)
[2022-06-02] MEDS: GABAPENTIN 300 MG CAP PO SCH ×2 (07:54→20:06)
[2022-06-02] MEDS: SPIRONOLACTONE 100 MG TAB PO SCH (07:54)
[2022-06-02] MEDS: UMECLIDINIUM BROMIDE 62.5MCG/BLISTER 7 PUFFS/INHALER INH SCH (07:55)
[2022-06-02] MEDS: busPIRone 5 MG TAB PO SCH ×3 (07:55→20:05)
[2022-06-02] MEDS: carvediloL 25 MG TAB PO SCH ×2 (07:55→20:06)
[2022-06-02] MEDS: amLODIPine BESYLATE 5 MG TAB PO SCH (07:55)
[2022-06-02] MEDS: ceFAZolin 2000MG 2,000 MG/15 ML SYR IV SCH ×2 (08:03→16:19)
[2022-06-02] MEDS ORDERED: SODIUM CHLORIDE 0.9% 250 ML IV PRN (08:11)
--- NOTE | 2022-06-02 10:18 | Hospitalist Progress Note ---
Date of Service June 02, 2022 Assessment & Plan (1) Anaplasmosis: Plan: Anaplasmosis Leukocytosis downtrending Hemoglobin as below, MCV 91. No overt bleeding, no melena/epistaxis/bright red blood per rectum Newly thrombocytopenic Creatinine normal Mild transaminitis/alk phos Smear consistent with anaplasmosis, final confirmation pending Doxycycline 100 mg twice daily continued COVID-negative Blood culture positive BCx 2/4 - GPC clusters, Biofire initially reported as MRSA --> +Vanco, final resulted for MSSA --> converted to cefazolin - Diffusely with scabbed lesion of arms, legs, abdomen all without erythema or purulence as previously documented - Denies back/spinal pain. Skin survey with scab lesions as above, no purulent lesions or ulceration.? Seeding - ? Endocarditis source. No obvious veg on TTE. Follow serial cultures. If + --> ONOFRE Anemia - No active bleeding - Chronic, slow downtrend - FOBT pending - IV Iron deferred in acute infection - Pt with TTP suppression w/ anaplasmosis - Hgb to 6.8 today. Consented for blood - +2u PRBC, +1 platelets for <30k. Trend. - No chest pain/chest pressure COPD exacerbation versus pulmonary vasculitis with? Leukocytoclastic vasculitis Was discussed with rheumatology at prior admission Was tapering steroid course over the next several weeks for prior diagnosis of this BENY neg, ANCA neg, CCP normal. Saw pulmonary prior to last discharge. Diuretics as needed. Taper prednisone as noted. Recommended for follow-up CTchest in 6 to 8 weeks with pulmonary follow-up Taper was pending as follows: Prednisone 20 mg x 4 days, 15 mg x 4 days, 10 mg x 4 days, 5 mg x 4 days then stop Continue Pred taper Hypertension Continue carvedilol Continue losartancontinue spironolactone Amlodipine 10 mg daily COPD Continue Incruse/Breo or formulary equivalent Nebs as needed DVT prophylaxis: SCDs, pharmacal PPx deferred in the setting of thromboytopenia Diet: Regular Disposition: Medical surgical CODE STATUS: Full code (2) Hypercortisolism: (3) MSSA bacteremia: (4) Thrombocytopenia: (5) Anxiety: (6) Depression: (7) GERD (gastroesophageal reflux disease): Admission and Anticipated Discharge Date Admission Date: May 31, 2022 Subjective This seen at bedside. no sx today. No fevers, chills, sweats, lightheadedness. Does feel globally weak without focal weakness. NO change in skin scabs. Review of Systems Review of Systems: All systems reviewed & are unremarkable except as noted in Subjective Physical Exam Physical Exam: General: A&Ox3. NAD. Cooperative. HEENT: Atraumatic, normocephalic. Hearing grossly intact. Vision grossly intact. Pupils equal and reactive to light Pulm: diminished, grossly clear symmetrical chest rise. No increase in work of breathing. No respiratory distress. Cardiac: RRR, -mrg. Radial pulses intact and symmetrical. Abdominal: Nontender, nondistended, soft. BS present. Spine: Nontender to spinal and paraspinal palpation along entire length Extremities: Scattered scabbed rash with excoriation on right forearm, left forearm, left anterior rivas. No leg swelling Results & Data Results & Data ([facility]) Vital Signs (Past 12 Hours) Vital Signs Temp Pulse Pulse Resp BP Pulse Ox O2 Del Method 06/02/22 09:35 Room Air 06/02/22 07:00 74 06/02/22 07:37 36.4 C L 76 20 140/80 90 Room Air 06/01/22 22:16 73 06/02/22 03:08 36.9 C 73 20 123/75 90 Room Air 06/01/22 23:22 36.8 C 76 20 116/75 90 Room Air PG Care Time/CCT Total # of Minutes Spent Total Time Spent with Patient: Total time spent is greater than 50% in coordination of care (as documented) at patient's floor/unit and/or counseling patient: Coding Level of Care Code 29856 Subseq Hosp Care Lvl 2 Diagnoses Anaplasmosis A77.49 Hypercortisolism E24.9 MSSA bacteremia R78.81; B95.61 Thrombocytopenia D69.6 Anxiety F41.9 Depression F32.9 GERD (gastroesophageal reflux disease) K21.9
[2022-06-02] MEDS: FLUTICASONE/VILANTEROL 200/25MCG 14 PUFFS/INHALER INH SCH (20:06)
[2022-06-02] MEDS ORDERED: diphenhydrAMINE Capsule 25 MG CAP PO ONE (20:15)
[2022-06-02 21:59] LABS: Hematocrit (blood only) 30.1 % (34.1-44.9); Hemoglobin 10.5 g/dl (12.0-16.0); Mean Corpuscular Hemoglobin 31.3 pg (25.0-34.0); Mean Corpuscular Hgb Conc 34.9 g/dL (32.0-36.0); Mean Corpuscular Volume 89.9 fL (80.0-100.0); Mean Platelet Volume 10.3 fL (9.4-12.3); Nucleated RBC # (auto) 0.53 K/uL (0-0); Nucleated RBC % (auto) 3.8 %; Platelet Count 23 K/uL (130-400); RDW Coefficient of Variation 16.1 % (11.5-14.5); RDW Standard Deviation 52.5 fL (36.4-46.3); Red Blood Count 3.35 M/uL (3.93-5.22); White Blood Count 13.78 K/ul (4.8-10.8)
[2022-06-02 22:26] LABS: ALC (manual) 1.93 K/uL (1.2-3.4); ANC (manual) 10.34 K/uL (1.4-6.5); Eosinophils # (manual) 0.14 K/uL (0-0.50); Eosinophils % (manual) 1 %; Lymphocytes # (manual) 1.93 K/uL (1.2-3.4); Lymphocytes % (manual) 14 %; Metamyelocytes # (manual) 0.41 K/uL (0-0); Metamyelocytes % (manual) 3 %; Monocytes # (manual) 0.69 K/uL (0.24-0.82); Monocytes % (manual) 5 %; Myelocytes # (manual) 0.28 K/uL (0-0); Myelocytes % (manual) 2 %; Neutrophils # (manual) 10.34 K/uL (1.4-6.5); Neutrophils % (manual) 75 %; Poikilocytosis Present
[2022-06-03] MEDS: HYDROcodone/ACETAMINOPHEN 10/325 TAB PO PRN ×2 (01:13→20:06)
[2022-06-03] MEDS: ceFAZolin 2000MG 2,000 MG/15 ML SYR IV SCH ×4 (01:13→22:54)
[2022-06-03] MEDS: DOXYCYCLINE HYCLATE 100 MG in DEXTROSE 5% 100 ML IV SCH ×2 (01:13→14:21)
[2022-06-03] MEDS ORDERED: VANCOMYCIN LEVEL ONE (07:30)
[2022-06-03 07:35] LABS: Hematocrit (blood only) 31.5 % (34.1-44.9); Hemoglobin 10.8 g/dl (12.0-16.0); Mean Corpuscular Hemoglobin 31.1 pg (25.0-34.0); Mean Corpuscular Hgb Conc 34.3 g/dL (32.0-36.0); Mean Corpuscular Volume 90.8 fL (80.0-100.0); Nucleated RBC # (auto) 0.51 K/uL (0-0); Nucleated RBC % (auto) 3.9 %; Platelet Count 18 K/uL (130-400); RDW Standard Deviation 52.5 fL (36.4-46.3); Red Blood Count 3.47 M/uL (3.93-5.22); White Blood Count 13.09 K/ul (4.8-10.8)
[2022-06-03 07:57] LABS: BUN Creatinine Ratio 30.9 (10-20); Calcium 7.9 mg/dl (8.5-10.1); Creatinine Clr Calc Pharmacy 69.2 ml/min; Est GFR (African American) 107.1 ml/min; Est GFR (Non-African American) 92.4 ml/min; Potassium 2.5 mmol/L (3.5-5.1)
[2022-06-03] MEDS: amLODIPine BESYLATE 5 MG TAB PO SCH (08:06)
[2022-06-03] MEDS: GABAPENTIN 300 MG CAP PO SCH ×2 (08:06→19:59)
[2022-06-03] MEDS: FLUoxetine HCL 20 MG CAP PO SCH (08:07)
[2022-06-03] MEDS: OXYBUTYNIN CHLORIDE XL 5 MG TABCR PO SCH (08:07)
[2022-06-03] MEDS: carvediloL 25 MG TAB PO SCH ×2 (08:07→19:59)
[2022-06-03] MEDS: busPIRone 5 MG TAB PO SCH ×3 (08:07→20:00)
[2022-06-03] MEDS: UMECLIDINIUM BROMIDE 62.5MCG/BLISTER 7 PUFFS/INHALER INH SCH (08:08)
[2022-06-03] MEDS: SPIRONOLACTONE 100 MG TAB PO SCH (08:08)
[2022-06-03] MEDS: predniSONE 20 MG TAB PO SCH (08:08)
--- NOTE | 2022-06-03 08:09 | Hospitalist Progress Note ---
Date of Service June 03, 2022 Assessment & Plan (1) Anaplasmosis: Plan: Anaplasmosis thrombocytopenic, LFT changes Creatinine normal Smear consistent with anaplasmosis, final confirmation pending Doxycycline 100 mg twice daily continued COVID-negative Blood culture positive BCx 2/ - GPC clusters, Biofire initially reported as MRSA --> +Vanco, final resulted for MSSA --> converted to cefazolin - source is Diffusely with scabbed lesion of arms, legs, abdomen all without erythema or purulence as previously documented Anemia - No active bleeding - FOBT pending - IV Iron deferred in acute infection - Pt with TTP suppression w/ anaplasmosis - Hgb to 6.8 today. Consented for blood - +2u PRBC, +1 platelets for <30k. Trend. - No chest pain/chest pressure BLasts seen on differential felt to be reaction to BM stimulation, did speak to Dr Shanks COPD exacerbation versus pulmonary vasculitis with? Leukocytoclastic vasculitis Was discussed with rheumatology at prior admission Was tapering steroid course over the next several weeks for prior diagnosis of this BENY neg, ANCA neg, CCP normal. Saw pulmonary prior to last discharge. Diuretics as needed. Taper prednisone as noted. Recommended for follow-up CTchest in 6 to 8 weeks with pulmonary follow-up Taper was pending as follows: Prednisone 20 mg x 4 days, 15 mg x 4 days, 10 mg x 4 days, 5 mg x 4 days then stop, seems to have some facial changes cw chronic steroid use Continue Pred taper Hypertension Continue carvedilol Continue losartancontinue spironolactone Amlodipine 10 mg daily COPD Continue Incruse/Breo or formulary equivalent Nebs as needed Depression , usually on fluoxetine, will discuss with psychaitry for med recommendations DVT prophylaxis: SCDs, pharmacal PPx deferred in the setting of thromboytopenia Diet: Regular Disposition: Medical surgical CODE STATUS: Full code (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 (3) MSSA bacteremia: (4) Thrombocytopenia: (5) Anxiety: (6) Depression: (7) GERD (gastroesophageal reflux disease): Admission and Anticipated Discharge Date Admission Date: May 31, 2022 Subjective pt does have an anxious affect covered by petechae from low platelet counts suspected to be from anaplasmosis ( the low platelets) she had self described neurogeinc itching and multiple open areas, she states she just wnats to , but does not want to kill herself, she states she is depressed Review of Systems Review of Systems: moderate distress and fatigue, c/o hurting all over no headache, no visual changes no speech or swallowing issues no chest pain, pressure or palpitations no shortness of breath, cough or wheezes no abdominal pain, nausea or vomiting, diarrhea or constipation no dysuria, hematuria or frequency no focal joint pain or swelling no back pain, CVA tenderness or radicular pain covered in petechae and small open areas consistent with excoriations from itching no focal signs of weakness or numbness or altered sensation complaints of depression.. Physical Exam Physical Exam: The patient appeared chronically ill, maybe fuchs faces is on steroid taper ? Vital signs as documented. Head exam is normocephalic atraumatic Neck is without JVD, thyromegaly, or carotid bruits. Lungs are clear to auscultation, no focal loss of breath sounds Cardiac exam, Rhythm is regular.. No murmurs, rubs or gallops. Abdominal exam reveals normal bowel sounds, soft non tender, no masses Extremities are nonedematous and both pedal pulses are present Neurologic exam is alert and oriented, no focal loss of strength or sensation Skin is with multiple changes as described Psychologically is with depression.. Results & Data Results & Data ([facility]) Vital Signs (Past 12 Hours) Vital Signs Temp Pulse Pulse Resp BP BP Pulse Ox 06/03/22 07:50 99.1 F 65 18 165/92 H 94 06/03/22 07:46 74 06/03/22 03:19 98.4 F 64 20 150/87 H 90 06/02/22 23:14 98.2 F 70 20 147/79 H 93 06/02/22 21:59 68 06/02/22 21:09 06/02/22 20:11 98.6 F 70 19 155/85 H 95 O2 Del Method O2 Flow Rate 06/03/22 07:50 Nasal Cannula 2 06/03/22 07:46 06/03/22 03:19 Nasal Cannula 2 06/02/22 23:14 Nasal Cannula 2 06/02/22 21:59 06/02/22 21:09 Nasal Cannula 2 06/02/22 20:11 Nasal Cannula 2 PG Care Time/CCT Total # of Minutes Spent Total Time Spent with Patient: Total time spent is greater than 50% in coordination of care (as documented) at patient's floor/unit and/or counseling patient: Coding Level of Care Code 90774 Subseq Hosp Care Lvl 3 Diagnoses Anaplasmosis A77.49 Hypercortisolism E24.9 MSSA bacteremia R78.81; B95.61 Thrombocytopenia D69.6 Anxiety F41.9 Depression F32.9 GERD (gastroesophageal reflux disease) K21.9
[2022-06-03] MEDS: LOSARTAN POTASSIUM 50 MG TAB PO SCH ×2 (08:16→19:59)
[2022-06-03] MEDS ORDERED: MAGNESIUM SULFATE / D5W 1 GM/100 ML BAG IV ONE (08:30)
[2022-06-03 09:40] LABS: ALC (manual) 2.36 K/uL (1.2-3.4); ANC (manual) 9.29 K/uL (1.4-6.5); Blast # (manual) 0.13 K/uL (0-0); Blast Cells % (manual) 1 %; Lymphocytes # (manual) 2.36 K/uL (1.2-3.4); Lymphocytes % (manual) 18 %; Metamyelocytes # (manual) 0.39 K/uL (0-0); Metamyelocytes % (manual) 3 %; Monocytes # (manual) 0.52 K/uL (0.24-0.82); Monocytes % (manual) 4 %; Myelocytes # (manual) 0.39 K/uL (0-0); Myelocytes % (manual) 3 %; Neutrophils # (manual) 9.29 K/uL (1.4-6.5); Neutrophils % (manual) 71 %
[2022-06-03] MEDS: POTASSIUM CHLORIDE CRTAB 20 MEQ TABCR PO SCH ×2 (09:55→20:00)
[2022-06-03] MEDS: POTASSIUM CHLORIDE 10 MEQ / 100ML WTR IV SCH ×3 (09:55→12:15)
[2022-06-03 18:54] LABS: BUN Creatinine Ratio 27.9 (10-20); Calcium 7.9 mg/dl (8.5-10.1); Creatinine Clr Calc Pharmacy 69.2 ml/min; Est GFR (African American) 107.1 ml/min; Est GFR (Non-African American) 92.4 ml/min; Potassium 2.8 mmol/L (3.5-5.1)
[2022-06-03] MEDS: FLUTICASONE/VILANTEROL 200/25MCG 14 PUFFS/INHALER INH SCH (20:00)
[2022-06-04] MEDS: DOXYCYCLINE HYCLATE 100 MG in DEXTROSE 5% 100 ML IV SCH ×2 (01:17→14:13)
[2022-06-04] MEDS: HYDROcodone/ACETAMINOPHEN 10/325 TAB PO PRN ×2 (05:57→20:05)
[2022-06-04] MEDS ORDERED: diphenhydrAMINE 50 MG/ML VIAL IV STA (06:35)
[2022-06-04 06:53] LABS: BUN Creatinine Ratio 33.3 (10-20); Calcium 7.9 mg/dl (8.5-10.1); Creatinine Clr Calc Pharmacy 76.9 ml/min; Est GFR (African American) 111.6 ml/min; Est GFR (Non-African American) 96.3 ml/min; Magnesium 1.7 mg/dl (1.7-2.4); Potassium 2.7 mmol/L (3.5-5.1)
[2022-06-04] MEDS ORDERED: POTASSIUM CHLORIDE 10 MEQ / 100ML WTR IV STA (07:50)
[2022-06-04] MEDS: FLUoxetine HCL 20 MG CAP PO SCH (08:05)
[2022-06-04] MEDS: carvediloL 25 MG TAB PO SCH ×2 (08:05→20:07)
[2022-06-04] MEDS: amLODIPine BESYLATE 5 MG TAB PO SCH (08:05)
[2022-06-04] MEDS: busPIRone 5 MG TAB PO SCH (08:05)
[2022-06-04] MEDS: OXYBUTYNIN CHLORIDE XL 5 MG TABCR PO SCH (08:06)
[2022-06-04] MEDS: LOSARTAN POTASSIUM 50 MG TAB PO SCH ×2 (08:06→20:06)
[2022-06-04] MEDS: predniSONE 10 MG TABLET PO SCH (08:06)
[2022-06-04] MEDS: GABAPENTIN 300 MG CAP PO SCH ×2 (08:06→20:07)
[2022-06-04] MEDS: SPIRONOLACTONE 100 MG TAB PO SCH (08:06)
[2022-06-04] MEDS: POTASSIUM CHLORIDE / WTR 10 MEQ/100 ML PLCT IV SCH ×5 (08:11→14:13)
[2022-06-04] MEDS: MAGNESIUM SULFATE / D5W 1 GM/100 ML BAG IV SCH ×2 (08:11→10:18)
[2022-06-04] MEDS: POTASSIUM CHLORIDE CRTAB 20 MEQ TABCR PO SCH (08:11)
[2022-06-04] MEDS: UMECLIDINIUM BROMIDE 62.5MCG/BLISTER 7 PUFFS/INHALER INH SCH (08:12)
[2022-06-04] MEDS: ceFAZolin 2000MG 2,000 MG/15 ML SYR IV SCH ×2 (08:14→15:53)
[2022-06-04] MEDS ORDERED: hydrOXYzine HCl 25 MG TAB PO STA (10:42)
[2022-06-04] MEDS: FLUTICASONE/VILANTEROL 200/25MCG 14 PUFFS/INHALER INH SCH (20:08)
--- NOTE | 2022-06-04 20:09 | Hospitalist Progress Note ---
Date of Service June 04, 2022 Assessment & Plan (1) Anaplasmosis: Plan: Anaplasmosis thrombocytopenic, LFT changes Creatinine normal Smear consistent with anaplasmosis, final confirmation pending Doxycycline 100 mg twice daily continued complete 2 weeks COVID-negative Blood culture positive BCx 2/ - GPC clusters, Biofire initially reported as MRSA --> +Vanco, final resulted for MSSA --> converted to cefazolin - source is Diffusely with scabbed lesion of arms, legs, abdomen all without erythema or purulence as previously documented Anemia - No active bleeding - FOBT pending - IV Iron deferred in acute infection - Pt with TTP suppression w/ anaplasmosis - Hgb to 6.8 today. Consented for blood - +2u PRBC, +1 platelets for <30k. Trend. - No chest pain/chest pressure BLasts seen on differential felt to be reaction to BM stimulation, did speak to Dr Shanks COPD exacerbation versus pulmonary vasculitis with? Leukocytoclastic vasculitis Was discussed with rheumatology at prior admission Was tapering steroid course over the next several weeks for prior diagnosis of this BENY neg, ANCA neg, CCP normal. Saw pulmonary prior to last discharge. Diuretics as needed. Taper prednisone as noted. 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 DVT prophylaxis: SCDs, pharmacal PPx deferred in the setting of thrombocytopenia Diet: Regular Disposition: Medical surgical CODE STATUS: Full code (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 (3) MSSA bacteremia: (4) Thrombocytopenia: (5) Anxiety: (6) Depression: (7) GERD (gastroesophageal reflux disease): Admission and Anticipated Discharge Date Admission Date: May 31, 2022 Subjective pt does have an anxious affect covered by petechae from low platelet counts suspected to be from anaplasmosis ( the low platelets) she had self described neurogeinc itching and multiple open areas, her depressed affects is much improved Review of Systems Review of Systems: moderate distress and fatigue, c/o hurting all over no headache, no visual changes no speech or swallowing issues no chest pain, pressure or palpitations no shortness of breath, cough or wheezes no abdominal pain, nausea or vomiting, diarrhea or constipation no dysuria, hematuria or frequency no focal joint pain or swelling no back pain, CVA tenderness or radicular pain covered in petechae and small open areas consistent with excoriations from itching no focal signs of weakness or numbness or altered sensation complaints of depression.. Physical Exam Physical Exam: The patient appeared chronically ill, maybe fuchs faces is on steroid taper ? Vital signs as documented. Head exam is normocephalic atraumatic Neck is without JVD, thyromegaly, or carotid bruits. Lungs are clear to auscultation, no focal loss of breath sounds Cardiac exam, Rhythm is regular.. No murmurs, rubs or gallops. Abdominal exam reveals normal bowel sounds, soft non tender, no masses Extremities are nonedematous and both pedal pulses are present Neurologic exam is alert and oriented, no focal loss of strength or sensation Skin is with multiple changes as described Psychologically is with depression.. Results & Data Results & Data ([facility]) Vital Signs (Past 12 Hours) Vital Signs Temp Pulse Pulse Resp BP BP Pulse Ox 06/04/22 19:30 98.8 F 76 18 106/70 92 06/04/22 18:34 75 06/04/22 12:30 06/04/22 11:02 98.2 F 70 18 115/79 92 O2 Del Method O2 Flow Rate 06/04/22 19:30 Nasal Cannula 2 06/04/22 18:34 06/04/22 12:30 Nasal Cannula 2 06/04/22 11:02 Room Air PG Care Time/CCT Total # of Minutes Spent Total Time Spent with Patient: Total time spent is greater than 50% in coordination of care (as documented) at patient's floor/unit and/or counseling patient: Coding Level of Care Code 18929 Subseq Hosp Care Lvl 2 Diagnoses Anaplasmosis A77.49 Hypercortisolism E24.9 MSSA bacteremia R78.81; B95.61 Thrombocytopenia D69.6 Anxiety F41.9 Depression F32.9 GERD (gastroesophageal reflux disease) K21.9
[2022-06-04 21:25] LABS: BUN Creatinine Ratio 35.5 (10-20); Calcium 7.9 mg/dl (8.5-10.1); Creatinine Clr Calc Pharmacy 74.4 ml/min; Est GFR (African American) 110.4 ml/min; Est GFR (Non-African American) 95.3 ml/min; Magnesium 2.2 mg/dl (1.7-2.4); Potassium 3.6 mmol/L (3.5-5.1)
[2022-06-04] MEDS: hydrOXYzine HCl 10 MG TAB PO SCH (21:37)
[2022-06-05] MEDS: ceFAZolin 2000MG 2,000 MG/15 ML SYR IV SCH ×3 (00:12→16:48)
[2022-06-05] MEDS: DOXYCYCLINE HYCLATE 100 MG in DEXTROSE 5% 100 ML IV SCH ×2 (02:32→13:31)
[2022-06-05] MEDS: HYDROcodone/ACETAMINOPHEN 10/325 TAB PO PRN ×3 (05:07→21:14)
[2022-06-05 07:37] LABS: BUN Creatinine Ratio 36.7 (10-20); Calcium 7.7 mg/dl (8.5-10.1); Est GFR (African American) 111.6 ml/min; Est GFR (Non-African American) 96.3 ml/min; Potassium 3.5 mmol/L (3.5-5.1)
[2022-06-05] MEDS: OXYBUTYNIN CHLORIDE XL 5 MG TABCR PO SCH (09:46)
[2022-06-05] MEDS: SPIRONOLACTONE 100 MG TAB PO SCH (09:46)
[2022-06-05] MEDS: LOSARTAN POTASSIUM 50 MG TAB PO SCH ×2 (09:47→21:11)
[2022-06-05] MEDS: carvediloL 25 MG TAB PO SCH ×2 (09:47→21:11)
[2022-06-05] MEDS: GABAPENTIN 300 MG CAP PO SCH ×2 (09:47→21:10)
[2022-06-05] MEDS: amLODIPine BESYLATE 5 MG TAB PO SCH (09:47)
[2022-06-05] MEDS: FLUoxetine HCL 20 MG CAP PO SCH (09:47)
[2022-06-05] MEDS: UMECLIDINIUM BROMIDE 62.5MCG/BLISTER 7 PUFFS/INHALER INH SCH (09:48)
[2022-06-05] MEDS: predniSONE 10 MG TABLET PO SCH (09:48)
[2022-06-05] MEDS: hydrOXYzine HCl 10 MG TAB PO SCH ×2 (11:38→21:11)
--- NOTE | 2022-06-05 19:43 | Hospitalist Progress Note ---
Date of Service June 05, 2022 Assessment & Plan (1) Anaplasmosis: Plan: Anaplasmosis thrombocytopenic, LFT changes Creatinine normal Smear consistent with anaplasmosis, final confirmation pending Doxycycline 100 mg twice daily continued complete 2 weeks COVID-negative Blood culture positive BCx 2/ - GPC clusters, Biofire initially reported as MRSA --> +Vanco, final resulted for MSSA --> converted to cefazolin - source is Diffusely with scabbed lesion of arms, legs, abdomen all without erythema or purulence as previously documented Anemia - No active bleeding - FOBT pending - IV Iron deferred in acute infection - Pt with TTP suppression w/ anaplasmosis - Hgb to 6.8 today. Consented for blood - +2u PRBC, +1 platelets for <30k. Trend. - No chest pain/chest pressure BLasts seen on differential felt to be reaction to BM stimulation, did speak to Dr Shanks COPD exacerbation versus pulmonary vasculitis with? Leukocytoclastic vasculitis Was discussed with rheumatology at prior admission Was tapering steroid course over the next several weeks for prior diagnosis of this BENY neg, ANCA neg, CCP normal. Saw pulmonary prior to last discharge. Diuretics as needed. Taper prednisone as noted. 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 DVT prophylaxis: SCDs, pharmacal PPx deferred in the setting of thrombocytopenia Diet: Regular Disposition: Medical surgical CODE STATUS: Full code (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 (3) MSSA bacteremia: (4) Thrombocytopenia: (5) Anxiety: (6) Depression: (7) GERD (gastroesophageal reflux disease): Admission and Anticipated Discharge Date Admission Date: May 31, 2022 Subjective pt does have an anxious affect covered by petechae from low platelet counts suspected to be from anaplasmosis ( the low platelets) she had self described neurogeinc itching and multiple open areas, her depressed affects is much improved Review of Systems Review of Systems: moderate distress and fatigue, c/o hurting all over no headache, no visual changes no speech or swallowing issues no chest pain, pressure or palpitations no shortness of breath, cough or wheezes no abdominal pain, nausea or vomiting, diarrhea or constipation no dysuria, hematuria or frequency no focal joint pain or swelling no back pain, CVA tenderness or radicular pain covered in petechae and small open areas consistent with excoriations from itching no focal signs of weakness or numbness or altered sensation complaints of depression.. Physical Exam Physical Exam: The patient appeared chronically ill, maybe fuchs faces is on steroid taper ? Vital signs as documented. Head exam is normocephalic atraumatic Neck is without JVD, thyromegaly, or carotid bruits. Lungs are clear to auscultation, no focal loss of breath sounds Cardiac exam, Rhythm is regular.. No murmurs, rubs or gallops. Abdominal exam reveals normal bowel sounds, soft non tender, no masses Extremities are nonedematous and both pedal pulses are present Neurologic exam is alert and oriented, no focal loss of strength or sensation Skin is with multiple changes as described Psychologically is with depression.. Results & Data Results & Data ([facility]) Vital Signs (Past 12 Hours) Vital Signs Temp Pulse Pulse Resp BP Pulse Ox O2 Del Method 06/05/22 17:02 77 06/05/22 12:28 97.9 F 81 18 107/71 90 Nasal Cannula 06/05/22 08:00 72 06/05/22 08:00 98.6 F 77 19 115/78 91 Room Air O2 Flow Rate 06/05/22 17:02 06/05/22 12:28 2 06/05/22 08:00 06/05/22 08:00 PG Care Time/CCT Total # of Minutes Spent Total Time Spent with Patient: Total time spent is greater than 50% in coordination of care (as documented) at patient's floor/unit and/or counseling patient: Coding Level of Care Code 44296 Subseq Hosp Care Lvl 2 Diagnoses Anaplasmosis A77.49 Hypercortisolism E24.9 MSSA bacteremia R78.81; B95.61 Thrombocytopenia D69.6 Anxiety F41.9 Depression F32.9 GERD (gastroesophageal reflux disease) K21.9
[2022-06-05] MEDS: FLUTICASONE/VILANTEROL 200/25MCG 14 PUFFS/INHALER INH SCH (21:11)
[2022-06-05] MEDS ORDERED: MELATONIN 3 MG TAB PO PRN (23:12)
[2022-06-06] MEDS: ceFAZolin 2000MG 2,000 MG/15 ML SYR IV SCH ×4 (00:50→23:12)
[2022-06-06] MEDS: DOXYCYCLINE HYCLATE 100 MG in DEXTROSE 5% 100 ML IV SCH ×2 (01:59→14:07)
[2022-06-06] MEDS: GABAPENTIN 300 MG CAP PO SCH ×2 (08:20→20:46)
[2022-06-06] MEDS: FLUoxetine HCL 20 MG CAP PO SCH (08:21)
[2022-06-06] MEDS: predniSONE 10 MG TABLET PO SCH (08:21)
[2022-06-06] MEDS: LOSARTAN POTASSIUM 50 MG TAB PO SCH ×2 (08:21→20:47)
[2022-06-06] MEDS: hydrOXYzine HCl 10 MG TAB PO SCH ×3 (08:21→20:47)
[2022-06-06] MEDS: SPIRONOLACTONE 100 MG TAB PO SCH (08:21)
[2022-06-06] MEDS: carvediloL 25 MG TAB PO SCH ×2 (08:21→20:45)
[2022-06-06] MEDS: UMECLIDINIUM BROMIDE 62.5MCG/BLISTER 7 PUFFS/INHALER INH SCH (08:22)
[2022-06-06] MEDS ORDERED: SODIUM CHLORIDE 0.65% NA SOLN 45 ML (OCEAN) ONE (08:27)
[2022-06-06 09:04] LABS: Hematocrit (blood only) 26.3 % (34.1-44.9); Hemoglobin 9.2 g/dl (12.0-16.0); Mean Corpuscular Hemoglobin 31.7 pg (25.0-34.0); Mean Corpuscular Volume 90.7 fL (80.0-100.0); Nucleated RBC # (auto) 0.37 K/uL (0-0); Nucleated RBC % (auto) 4.3 %; Platelet Count 6 K/uL (130-400); Platelet Estimate Signific. Decreased (Normal); RDW Coefficient of Variation 17.5 % (11.5-14.5); RDW Standard Deviation 56.5 fL (36.4-46.3); White Blood Count 8.65 K/ul (4.8-10.8)
[2022-06-06 09:20] LABS: Albumin Globulin Ratio 1.5 (0.9-2); Albumin Level 2.6 gm/dl (3.4-5.0); BUN Creatinine Ratio 40.9 (10-20); Bilirubin,Total 2.5 mg/dl (0.2-1.0); Creatinine Clr Calc Pharmacy 70.9 ml/min; Est GFR (African American) 108.2 ml/min; Est GFR (Non-African American) 93.4 ml/min; Globulin 1.7 gm/dl (2.5-4.0); Potassium 3.6 mmol/L (3.5-5.1); Total Protein 4.3 gm/dl (6.0-8.3)
[2022-06-06] MEDS: HYDROcodone/ACETAMINOPHEN 10/325 TAB PO PRN (14:46)
--- NOTE | 2022-06-06 17:01 | Hospitalist Progress Note ---
Date of Service June 06, 2022 Assessment & Plan (1) Anaplasmosis: Plan: Anaplasmosis thrombocytopenic, LFT changes Creatinine normal Smear consistent with anaplasmosis, final confirmation pending Doxycycline 100 mg twice daily continued complete 2 weeks, will change to po meds COVID-negative Blood culture positive BCx 2/ - GPC clusters, Biofire initially reported as MRSA --> +Vanco, final resulted for MSSA --> converted to cefazolin - source is Diffusely with scabbed lesion of arms, legs, abdomen all without erythema or purulence as previously documented Anemia - No active bleeding - FOBT pending - IV Iron deferred in acute infection - Pt with TTP suppression w/ anaplasmosis - Hgb to 6.8 today. Consented for blood - +2u PRBC, +1 platelets for <30k. Trend. - No chest pain/chest pressure BLasts seen on differential felt to be reaction to BM stimulation, did speak to Dr Shanks COPD exacerbation versus pulmonary vasculitis with? Leukocytoclastic vasculitis Was discussed with rheumatology at prior admission Was tapering steroid course over the next several weeks for prior diagnosis of this BENY neg, ANCA neg, CCP normal. Saw pulmonary prior to last discharge. Diuretics as needed. Taper prednisone as noted. 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 DVT prophylaxis: SCDs, pharmacal PPx deferred in the setting of thrombocytopenia Diet: Regular Disposition: Medical surgical CODE STATUS: Full code (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 (3) MSSA bacteremia: (4) Thrombocytopenia: (5) Anxiety: (6) Depression: (7) GERD (gastroesophageal reflux disease): Admission and Anticipated Discharge Date Admission Date: May 31, 2022 Subjective pt does have an anxious affect covered by petechae from low platelet counts suspected to be from anaplasmosis ( the low platelets) she had self described neurogeinc itching and multiple open areas, her depressed affect and she states she wants to , will add some trazodone for sleep, increased vistaril for itch and if persists will have psychiatry see Review of Systems Review of Systems: moderate distress and fatigue, c/o hurting all over no headache, no visual changes no speech or swallowing issues no chest pain, pressure or palpitations no shortness of breath, cough or wheezes no abdominal pain, nausea or vomiting, diarrhea or constipation no dysuria, hematuria or frequency no focal joint pain or swelling no back pain, CVA tenderness or radicular pain covered in petechae and small open areas consistent with excoriations from itching no focal signs of weakness or numbness or altered sensation complaints of depression.. Physical Exam Physical Exam: The patient appeared chronically ill, maybe fuchs faces is on steroid taper ? Vital signs as documented. Head exam is normocephalic atraumatic Neck is without JVD, thyromegaly, or carotid bruits. Lungs are clear to auscultation, no focal loss of breath sounds Cardiac exam, Rhythm is regular.. No murmurs, rubs or gallops. Abdominal exam reveals normal bowel sounds, soft non tender, no masses Extremities are nonedematous and both pedal pulses are present Neurologic exam is alert and oriented, no focal loss of strength or sensation Skin is with multiple changes as described Psychologically is with depression.. Results & Data Results & Data ([facility]) Vital Signs (Past 12 Hours) Vital Signs Temp Pulse Resp BP Pulse Ox O2 Del Method O2 Flow Rate 06/06/22 15:57 97.7 F 80 18 107/73 92 Nasal Cannula 2 06/06/22 08:00 Oxymask 2 06/06/22 08:11 97.5 F L 74 17 110/74 90 Room Air 06/06/22 06:41 94 Nasal Cannula 2 PG Care Time/CCT Total # of Minutes Spent Total Time Spent with Patient: Total time spent is greater than 50% in coordination of care (as documented) at patient's floor/unit and/or counseling patient: Coding Level of Care Code 46334 Subseq Hosp Care Lvl 2 Diagnoses Anaplasmosis A77.49 Hypercortisolism E24.9 MSSA bacteremia R78.81; B95.61 Thrombocytopenia D69.6 Anxiety F41.9 Depression F32.9 GERD (gastroesophageal reflux disease) K21.9
[2022-06-06] MEDS: FLUTICASONE/VILANTEROL 200/25MCG 14 PUFFS/INHALER INH SCH (20:45)
[2022-06-06] MEDS: traZODone HCL 50 MG TAB PO SCH (20:48)
[2022-06-07] MEDS: DOXYCYCLINE HYCLATE 100 MG in DEXTROSE 5% 100 ML IV SCH ×2 (01:17→14:03)
[2022-06-07] MEDS: predniSONE 10 MG TABLET PO SCH (07:28)
[2022-06-07] MEDS: SPIRONOLACTONE 100 MG TAB PO SCH (07:29)
[2022-06-07] MEDS: FLUoxetine HCL 20 MG CAP PO SCH (07:29)
[2022-06-07] MEDS: LOSARTAN POTASSIUM 50 MG TAB PO SCH (07:29)
[2022-06-07] MEDS: GABAPENTIN 300 MG CAP PO SCH ×2 (07:30→20:16)
[2022-06-07] MEDS: hydrOXYzine HCl 10 MG TAB PO SCH ×3 (07:30→20:22)
[2022-06-07] MEDS: carvediloL 25 MG TAB PO SCH ×2 (07:30→09:05)
[2022-06-07] MEDS ORDERED: SODIUM CHLORIDE 0.9% 250 ML IV PRN ×2 (07:48→21:58)
[2022-06-07] MEDS: ceFAZolin 2000MG 2,000 MG/15 ML SYR IV SCH (08:14)
[2022-06-07] MEDS: UMECLIDINIUM BROMIDE 62.5MCG/BLISTER 7 PUFFS/INHALER INH SCH (08:15)
--- NOTE | 2022-06-07 08:40 | XRay Report ---
XR chest 1V portable CLINICAL HISTORY: sob. COMPARISON STUDY: 05/31/2022 TECHNIQUE: 1 view of the chest FINDINGS: Single frontal view of the chest demonstrates the heart to again be enlarged. Compared to previous ex amination, there is a decreased inspiratory effort with increasing right pleural effusion and small l eft pleural effusion as well. There is bibasal atelectasis/collapse, right greater than left. Central vascular congestion is again seen which is worse than on the previous study. No confluent alveolar o pacities are identified. There is no acute osseous pathology. IMPRESSION: 1. Decreased inspiration with worsening bilateral pleural effusions, right greater than left. 2. There is also bibasilar atelectasis, right greater than left. 3. Worsening central vascular congestion. ACT 112: Negative or not required by law. Electronically signed by: Alonso Baltazar M.D. 06/07/2022 8:38 AM
[2022-06-07 08:46] LABS: INR 2.9 (0.9-1.1); Prothrombin Time 29.1 Seconds (9.0-12.0)
[2022-06-07] MEDS ORDERED: methylPREDNISolone 60 MG in SYRINGE 0 ML IV SCH (09:00)
[2022-06-07] MEDS ORDERED: PHYTONADIONE 5 MG in DEXTROSE 5% 50 ML IV ONE (09:10)
[2022-06-07 13:12] LABS: Fibrinogen 242 mg/dl (184-400); Partial Thromboplastin Ratio 1.2; Partial Thromboplastin Time 32.6 Seconds (21.0-31.0)
[2022-06-07 13:22] LABS: D Dimer 3940 ug/L FEU (0-500); Hematocrit (blood only) 21.3 % (34.1-44.9); Hemoglobin 7.3 g/dl (12.0-16.0); Mean Corpuscular Hemoglobin 31.7 pg (25.0-34.0); Mean Corpuscular Hgb Conc 34.3 g/dL (32.0-36.0); Mean Corpuscular Volume 92.6 fL (80.0-100.0); Mean Platelet Volume 9.8 fL (9.4-12.3); Nucleated RBC # (auto) 0.45 K/uL (0-0); Nucleated RBC % (auto) 7.3 %; Platelet Count 22 K/uL (130-400); RDW Coefficient of Variation 17.9 % (11.5-14.5); RDW Standard Deviation 58.7 fL (36.4-46.3); White Blood Count 6.13 K/ul (4.8-10.8)
--- NOTE | 2022-06-07 13:52 | Hospitalist Progress Note ---
Date of Service June 07, 2022 Assessment & Plan (1) Thrombocytopenia: Plan: Pt with thrombocytopenia and anemia, initially thought from infection of anaplasmosis, rash started months ago, looks like petechiae, initial question if TTP of MAHA. Labs 06/07/22 hgb 7.3, pltl 6 before transfusion, INR 2.9, PTT 32.6 d dimer 3940, FDP elevated, fibrinogen normal, LDH 4254 not perfectly fitting to DIC recommendation to give Cryoprecipiate , did have significant drop in hgb so can consider hemolysis Discussion with Dr. Ravinder Paul with consideration of DIC and administration of platelets cryoprecipitate (2) Anaplasmosis: Plan: Anaplasmosis thrombocytopenic, LFT changes Creatinine normal Smear consistent with anaplasmosis Doxycycline 100 mg twice daily continued complete 2 weeks, COVID-negative (3) Anemia: Plan: Anemia - No active bleeding - IV Iron deferred in acute infection - Pt with TTP suppression w/ anaplasmosis patient started on steroids Solu- Medrol 60 IV daily -Previously transfused hemoglobin trending down given coagulopathy we will check CT scan for retroperitoneal bleed - +2u PRBC, +2 platelets considering cryoprecipitate - No chest pain/chest pressure BLasts seen on differential felt to be reaction to BM stimulation, did speak to Dr Shanks (4) 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 Saw pulmonary prior to last discharge. Diuretics as needed. 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 increased dosing Plan Hypertension Blood pressure has been lower we will hold all medications with exception of low-dose beta-michael avoid rebound tachycardia DVT prophylaxis: SCDs, pharmacal PPx deferred in the setting of thrombocytopenia Diet: Regular Disposition: Medical surgical CODE STATUS: Full code Admission and Anticipated Discharge Date Admission Date: May 31, 2022 Subjective PT is with dropping platelet coungs, covered by petechae, initially suspected low platelet counts suspected to be from anaplasmosis ( the low platelets) she had self described neurogeinc itching and multiple open areas, her itch and rash first started in 04/15 Despite treatment of anaplasmosis, her platelet counts are dropping, coagulation markers going up, concern for DIC after review by paraprofessional education assistant Chronic Condition Nurse, will mo ve to pcu and give cryoprecipitate, did give platelets 06/07/22 her depressed affect and she states she wants to , will add some trazodone for sleep, increased vistaril for itch and if persists will have psychiatry see Review of Systems Review of Systems: moderate distress and fatigue, c/o hurting all over no headache, no visual changes no speech or swallowing issues no chest pain, pressure or palpitations no shortness of breath, cough or wheezes no abdominal pain, nausea or vomiting, diarrhea or constipation no dysuria, hematuria or frequency no focal joint pain or swelling no back pain, CVA tenderness or radicular pain covered in petechae and small open areas consistent with excoriations from itching no focal signs of weakness or numbness or altered sensation complaints of depression.. Physical Exam Physical Exam: The patient appeared chronically ill, maybe fuchs faces is on steroid taper ? Vital signs as documented. Head exam is normocephalic atraumatic Neck is without JVD, thyromegaly, or carotid bruits. Lungs are clear to auscultation, no focal loss of breath sounds Cardiac exam, Rhythm is regular.. No murmurs, rubs or gallops. Abdominal exam reveals normal bowel sounds, soft non tender, no masses Extremities are nonedematous and both pedal pulses are present Neurologic exam is alert and oriented, no focal loss of strength or sensation Skin is with multiple changes as described Psychologically is with depression.. Results & Data Results & Data ([facility]) Vital Signs (Past 12 Hours) Vital Signs Temp Pulse Pulse Resp BP BP Pulse Ox 06/07/22 12:36 98.2 F 77 20 91/61 L 90 06/07/22 11:43 97.7 F 79 20 101/68 95 06/07/22 10:50 98.2 F 75 20 94/63 L 95 06/07/22 09:43 97.5 F L 75 20 94/62 L 95 06/07/22 09:13 98.1 F 82 20 94/63 L 90 06/07/22 08:58 97.9 F 78 18 92/63 L 91 06/07/22 09:32 06/07/22 08:57 97.9 F 78 18 92/63 L 91 06/07/22 08:26 98.6 F 77 18 92/62 L 91 06/07/22 07:17 98.1 F 80 16 102/65 90 O2 Del Method O2 Flow Rate 06/07/22 12:36 4 06/07/22 11:43 4 06/07/22 10:50 4 06/07/22 09:43 4 06/07/22 09:13 4 06/07/22 08:58 4 06/07/22 09:32 Nasal Cannula 4.5 06/07/22 08:57 4 06/07/22 08:26 4 06/07/22 07:17 Nasal Cannula 4 PG Care Time/CCT Total # of Minutes Spent Total Time Spent with Patient: Total time spent is greater than 50% in coordination of care (as documented) at patient's floor/unit and/or counseling patient: Coding Level of Care Code 14712 Subseq Hosp Care Lvl 3 Diagnoses Thrombocytopenia D69.6 Anaplasmosis A77.49 Anemia D64.9 Hypercortisolism E24.9 MSSA bacteremia R78.81; B95.61 Smoker F17.200 Depression F32.9
[2022-06-07 14:12] LABS: Anisocytosis Present; Platelet Estimate Signific. Decreased (Normal); Polychromasia 1+
[2022-06-07 14:24] LABS: Lymphocytes % (auto) 30.6 %; Monocytes % (auto) 4.8 %; Neutrophils % (auto) 59.7 %
[2022-06-07 14:25] LABS: Eosinophils % (auto) 3.2 %; Immature Granulocytes % (auto) 1.6 %
[2022-06-07 14:28] LABS: Lymphocytes # (auto) 1.88 K/uL (1.2-3.4); Monocytes # (auto) 0.29 K/uL (0.24-0.82); Neutrophils # (auto) 3.66 K/uL (1.4-6.5)
[2022-06-07 15:06] LABS: Fibrinogen 257 mg/dl (184-400)
[2022-06-07] MEDS ORDERED: MoRPHine SULFATE 2 MG/ML CARP IV PRN (15:17)
[2022-06-07] MEDS ORDERED: MoRPHine SULFATE 4 MG/ML 1 ML CARP\\VIAL IV PRN (15:17)
[2022-06-07 15:24] LABS: D Dimer 3760 ug/L FEU (0-500)
[2022-06-07] MEDS ORDERED: FUROSEMIDE 40 MG/4 ML VIAL IV ONE (16:25)
--- NOTE | 2022-06-07 17:25 | XRay Report ---
XR chest 1V portable CLINICAL HISTORY: increasing oxygen requirements. COMPARISON STUDY: 06/07/2022 at 8:31 AM TECHNIQUE: 1 view of the chest FINDINGS: Single frontal view of the chest demonstrates the heart to again be enlarged. The patient is a more u pright position with moderate size right pleural effusion and right middle lobe and right lower lobe atelectasis/collapse present. Previously identified left pleural effusion is in the posterior gutter. The lungs are clear of alveol ar opacities. There has been interval decrease in central vascular congestion. There is no acute osse ous pathology. IMPRESSION: 1. Interval decrease in central vascular congestion. 2. Patient in a more upright position with moderate size right pleural effusion and right middle lobe and right lower lobe atelectasis/collapse. 3. Previously identified left pleural effusion is now within the posterior gutter. ACT 112: Negative or not required by law. Electronically signed by: Alonso Baltazar M.D. 06/07/2022 5:23 PM
[2022-06-07] MEDS ORDERED: LORazepam 0.5 MG in SYRINGE 0.25 ML IV PRN (19:10)
[2022-06-07] MEDS ORDERED: LORazepam 0.5 MG in SYRINGE 0.25 ML IV STA (19:10)
[2022-06-07] MEDS: FLUTICASONE/VILANTEROL 200/25MCG 14 PUFFS/INHALER INH SCH (20:12)
[2022-06-07] MEDS: traZODone HCL 50 MG TAB PO SCH (20:22)
[2022-06-07 20:56] LABS: Albumin Globulin Ratio 1.5 (0.9-2); Albumin Level 2.6 gm/dl (3.4-5.0); BUN Creatinine Ratio 49.4 (10-20); Calcium 8.2 mg/dl (8.5-10.1); Est GFR (African American) 83.9 ml/min; Est GFR (Non-African American) 72.4 ml/min; Globulin 1.7 gm/dl (2.5-4.0); Potassium 3.2 mmol/L (3.5-5.1); Total Protein 4.3 gm/dl (6.0-8.3)
[2022-06-07] MEDS ORDERED: carvediloL 3.125 MG TAB PO SCH (21:00)
[2022-06-07] MEDS ORDERED: PANTOprazole 40 MG in SYRINGE 0 ML IV SCH (21:00)
[2022-06-07 21:53] LABS: Hematocrit (blood only) 19.5 % (34.1-44.9); Hemoglobin 6.5 g/dl (12.0-16.0); Mean Corpuscular Hgb Conc 33.3 g/dL (32.0-36.0); Mean Corpuscular Volume 92.9 fL (80.0-100.0); Nucleated RBC # (auto) 0.34 K/uL (0-0); Nucleated RBC % (auto) 5.1 %; Platelet Count 10 K/uL (130-400); RDW Coefficient of Variation 17.9 % (11.5-14.5); RDW Standard Deviation 59.7 fL (36.4-46.3); White Blood Count 6.73 K/ul (4.8-10.8)
[2022-06-07 21:55] LABS: ALC (manual) 1.55 K/uL (1.2-3.4); ANC (manual) 4.64 K/uL (1.4-6.5); Basophils # (manual) 0.07 K/uL (0-0.2); Basophils % (manual) 1 %; Eosinophils % (manual) 3 %; Lymphocytes # (manual) 1.55 K/uL (1.2-3.4); Lymphocytes % (manual) 23 %; Metamyelocytes # (manual) 0.07 K/uL (0-0); Metamyelocytes % (manual) 1 %; Monocytes # (manual) 0.27 K/uL (0.24-0.82); Monocytes % (manual) 4 %; Neutrophils # (manual) 4.64 K/uL (1.4-6.5); Neutrophils % (manual) 69 %; Platelet Estimate Signific. Decreased (Normal)
[2022-06-08] MEDS ORDERED: predniSONE 10 MG TABLET PO SCH (09:00)
--- NOTE | 2022-06-08 16:28 | Discharge Summary ---
Date of Service June 07, 2022 Principal Diagnosis likely vasculitic rash thrombocytopenia coagulopathy anemia Discharge Exam pt looks chronically ill covered in petechial rash pale odd affect mildly tachypneic requiring supplemental oxygen Discharge Data Allergies Allergy/AdvReac Type Severity Reaction Status Date / Time bee venom protein (honey bee) Allergy Unknown eyes and Verified 05/31/22 15:26 throat swell Consultations 05/31/22 14:51 ED Decision to Admit Stat 06/07/22 18:43 Burn CD for patient Stat Ordered Studies 05/31/22 13:26 CT abd pelvis IV con only Stat Hospital Course (1) Thrombocytopenia: Pt with thrombocytopenia and anemia, initially thought from infection of anaplasmosis, rash started months ago, looks like petechiae, initial question if TTP of MAHA. Labs 06/07/22 hgb 7.3, pltl 6 before transfusion, INR 2.9, PTT 32.6 d dimer 3940, FDP elevated, fibrinogen normal, LDH 4254 not perfectly fitting to DIC recommendation to give Cryoprecipiate , did have significant drop in hgb so can consider hemolysis Discussion with Dr. Ravinder Paul with consideration of DIC and administration of platelets cryoprecipitate Discussed with [facility] demolitionist and will transfer for further diagnosis and managment of coagulation dyscrasia and her vasculitis (2) Anaplasmosis: Anaplasmosis thrombocytopenic, LFT changes Creatinine normal Smear consistent with anaplasmosis Doxycycline 100 mg twice daily continued complete 2 weeks, COVID-negative (3) Anemia: Anemia - No active bleeding - IV Iron deferred in acute infection - Pt with low platelets w/ anaplasmosis patient started on steroids Solu-Medrol 60 IV daily -Previously transfused hemoglobin trending down given coagulopathy we will check CT scan for retroperitoneal bleed - +2u PRBC, +2 platelets considering cryoprecipitate - No chest pain/chest pressure BLasts seen on differential felt to be reaction to BM stimulation, did speak to Dr Shanks (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 Saw pulmonary prior to last discharge. Diuretics as needed. Recommended for follow-up CTchest in 6 to 8 weeks with pulmonary follow-up -Worsening hypoxia on the 14th blood pressure is low we will attempt diuresis when able increase steroids as appearance could be increased interstitial markings from inflammation (7) Depression: Depression , usually on fluoxetine, trazodone for sleep will discuss with psychiatry for med recommendations neurogenic pruritus will try some scheduled vistaril increased dosing Plan Hypertension Blood pressure has been lower we will hold all medications with exception of low-dose beta-michael avoid rebound tachycardia DVT prophylaxis: SCDs, pharmacal PPx deferred in the setting of thrombocytopenia transfer to [facility] Total Time Total Time Spent Total Time Spent (In Minutes): It required greater than 30 minutes to prepare this patient for discharge Discharge Plan Discharge Items Patient Disposition: Transfer Acute Care Hospital Reason For Visit: ANAPLASMOSIS Discharge Diagnosis: Hemolysis thrombocytopenia anaplasmosis acute on chronic respirartory failure Activity: As commented below Non-emergency contact: Specialist Call non-emergency contact if: your symptoms worsen Follow-up/Referrals: Randa Pena MD [Primary Care Provider] - Diet: Regular Addtl Attending Provider Instructions: will return to [facility] once stable Pending Studies at Discharge: Yes Stand-Alone Forms: [facility] Skilled Items Patient informed of condition?: Yes DNR: Yes Discharge Level of Care: Other Communicable Disease: No Discharge Prognosis: Deteriorating Lines: Peripheral IV Urinary Catheter: Yes Medications and DC Order Prescriptions: Continued hydrocodone-acetaminophen 10-325 mg tablet 1 tab PO Q6H PRN (Reason: pain) Qty: 120 0RF Rx Instructions: PDMP searched, last filled on 03/27/22 for 30 days, okay to fill guaifenesin [Mucinex] 600 mg tablet extended release 12hr 600 mg PO Q12H PRN (Reason: congestion) Qty: 60 0RF buspirone 5 mg tablet 5 mg PO TID Qty: 90 2RF gabapentin 300 mg capsule 300 mg PO BID Qty: 60 2RF fluoxetine 40 mg capsule 40 mg PO DAILY omeprazole 40 mg capsule,delayed release(DR/EC) 40 mg PO DAILY PRN (Reason: GERD) Qty: 90 3RF albuterol sulfate 90 mcg/actuation HFA aerosol inhaler 2 puff inhalation Q6H PRN (Reason: shortness of breath or wheezing) Qty: 8.5 5RF Incruse Ellipta 62.5 mcg/actuation Blister With Device 1 puff inhalation DAILY 30 Days Qty: 30 0RF fluticasone furoate-vilanterol [Breo Ellipta] 200-25 mcg/dose Blister With Device 1 inh inhalation HS Qty: 60 0RF Discontinued oxybutynin chloride 10 mg tablet extended release 24 hr 10 mg PO DAILY Qty: 30 2RF buspirone 10 mg tablet 10 mg PO TID PRN (Reason: anxiety) Qty: 90 3RF losartan 50 mg Tablet 50 mg PO BID 30 Days Qty: 60 0RF carvedilol 25 mg Tablet 25 mg PO BID 30 Days Qty: 60 0RF spironolactone 100 mg Tablet 100 mg PO QAM 30 Days Qty: 30 0RF amlodipine [Norvasc] 5 mg Tablet 10 mg PO QAM 30 Days Qty: 60 0RF potassium chloride 20 mEq Tablet,Er Particles/Crystals 20 meq PO BID 30 Days Qty: 60 0RF prednisone 5 mg tablet See Rx Instructions .ROUTE .COMPLEX Qty: 40 0RF Rx Instructions: STARTED 05/28/22 FOR 16 DAYS. Take 4 pills (20mg) daily for 4 days, then 3 pills (15mg) for 4 days, then 2 pills (10mg) daily for 4 days, then 1 pill (5mg) daily for 4 days, then stop No Action (DME) TENS units Device See Rx Instructions .Route Qty: 1 0RF Rx Instructions: As directed Discharge Orders: Discharge Order (Routine); Ordered 06/07/22 Ordered By: Donovan Romo Admission Data Admit Date/Time: 05/31/22 16:03 Attending Provider: Donovan Romo Admit Provider: Flash Cameron Primary Care Provider: Randa Pena Other Providers: Douglas,Care ; Flsah Cameron Coding Level of Care Code D/C DAY MANAGEMENT >30 MINS Diagnoses Thrombocytopenia D69.6 Anaplasmosis A77.49 Anemia D64.9 Hypercortisolism E24.9 MSSA bacteremia R78.81; B95.61 Smoker F17.200 Depression F32.9
[2022-06-12] MEDS ORDERED: predniSONE 5 MG TAB PO SCH (09:00)
== END 2022-06-08 01:12 | disposition short-term general hospital (02) | DRG 867 ==
LOC: ED 11:02 → EDINP 16:03 → SUATTDRO 16:03 → 3N 22:36 → 2N 06-01 14:08 → 1E 06-07 15:00